=== PATIENT | female | born 1970 | race Caucasian/White ===

== ENCOUNTER → 2016-06-10 | Outpatient (CLI) | payer MEDICARE ==
[2016-06-10 14:19] LABS: INR 1.1 (<1.1); Partial Thromboplastin Time 23.2 sec (22.0-30.0)
[2016-06-10 14:26] LABS: CH 29.8; CHCM 32.6; HCT 36.5 % (34.0-46.0); HDW 2.57; HGB 12.2 gm/dL (11.4-16.0); MCH 30.6 pg (25.0-35.0); MCHC 33.3 g/dL (31.0-37.0); MCV 91.7 fL (80.0-100.0); Mean Platelet Volume 9.6; RBC 3.98 m/uL (3.80-5.40); RDW 13.3 % (11.5-15.5); WBC 3.8 k/uL (3.8-10.6)
[2016-06-10 14:28] LABS: ALT 38 U/L (9-52); AST 37 U/L (14-36); Alkaline Phosphatase 111 U/L (38-126); Anion Gap 11 mmol/L; Blood Urea Nitrogen 15 mg/dL (7-17); Calcium 9.7 mg/dL (8.4-10.2); Carbon Dioxide 28 mmol/L (22-30); Chloride 104 mmol/L (98-107); Cholesterol 159 mg/dL (<200); Glucose 85 mg/dL (74-99); HDL Cholesterol 88 mg/dL (40-60); Iron 175 ug/dL (37-170); Magnesium 1.8 mg/dL (1.6-2.3); Non-African American GFR(MDRD) >60 (>60 ml/min/1.73 sqM); Phosphorous 4.1 mg/dL (2.5-4.5); Potassium 3.7 mmol/L (3.5-5.1); Sodium 143 mmol/L (137-145); Total Bilirubin 0.6 mg/dL (0.2-1.3); Total Protein 6.9 g/dL (6.3-8.2); Triglycerides 43 mg/dL (<150)
[2016-06-10 14:39] LABS: % Iron Saturation 79.5 % (20-50); Prealbumin 20 mg/dL (18-36); Total Iron Binding Capacity 220 ug/dL (265-497)
[2016-06-10 15:33] LABS: Vitamin B12 344 pg/mL (239-931)
[2016-06-13 15:25] LABS: Selenium 123 mcg/L (63-160)
== END | disposition home or self-care (01) ==
LOC: LABWHC1 13:18
PROVIDERS: ATTEND Surgery Plastic and Reconstructive Surgery
DX: Z48.815 Encounter for surgical aftercare following surgery on the digestive system (principal); E66.01 Morbid (severe) obesity due to excess calories; E89.1 Postprocedural hypoinsulinemia; D50.9 Iron deficiency anemia, unspecified; K90.9 Intestinal malabsorption, unspecified; E44.0 Moderate protein-calorie malnutrition; E55.9 Vitamin D deficiency, unspecified; K74.1 Hepatic sclerosis; K50.90 Crohn's disease, unspecified, without complications; N19 Unspecified kidney failure; Z98.84 Bariatric surgery status
CPT/HCPCS: 36415; 80053; 80061; 82306; 82525; 82607; 82728; 82746; 83036; 83540; 83550; 83735; 83970; 84100; 84134; 84255; 84425; 84443; 84590; 84630; 85027; 85610; 85730

== ENCOUNTER → 2016-08-12 | Outpatient (CLI) | payer MEDICARE ==
[2016-08-12 17:07] VITALS: BP 102/70; PULSE 83; TEMP 98.3; BMI 31.1
--- NOTE | 2016-09-16 00:18 | P.PN ---
Progress Note - Text DATE OF SERVICE: 08/12/2016 CHIEF COMPLAINT: Bilateral thigh hidradenitis. HISTORY OF PRESENT ILLNESS: Alesha Bermudez is a 46-year-old female with long-standing history of hidradenitis along the bilateral groins. She has been treated at the wound care center particularly with skin debridement including systemic treatment for MRSA infection. She has had moderate weight loss. She still reports chronic intermittent infections along the bilateral groins. At a height of 5 feet 7 inches, her ideal body weight is 158 pounds. Her highest weight was 450 pounds. Today she comes in weighing 198 pounds. She has maintained a 252 pound weight loss. Percent excess weight loss is 86%. Body mass index reduced from 70.6 down to 31.1. Total BMI point reduction is doing 39.5. She is now 40 pounds overweight. Separately, she has history of chronic iron deficiency anemia, which has been treated with iron infusions. Now she presents for surgical intervention for her panniculitis of the thighs. PAST MEDICAL HISTORY: 1. Gastroesophageal reflux disease. 2. Diabetes type 2. 3. Obstructive sleep apnea. 4. Anxiety. 5. Depression. 6. ADHD. 7. Seasonal allergies. 8. Migraines. 9. Asthma. 10. Chronic pain syndrome. 11. Seizure disorder. 12. History of super morbid obesity. 13. Panniculitis. 14. Hidradenitis of the bilateral medial thighs. PAST SURGICAL HISTORY: 1. Open Philip-en-Y gastric bypass in 2012. 2. . 3. Bilateral carpal tunnel release. 4. Anterior cervical disc fusion. 5. Cholecystectomy. 6. Appendectomy. 7. Colonoscopy. 8. Upper endoscopy. 9. Revision of gastrojejunostomy at [facility], July 2014. 10. Panniculectomy of the abdomen. MEDICATIONS: 1. Lamictal. 2. Duragesic patch. 3. Lyrica. 4. Prilosec. 5. Multivitamin. 6. Ativan. 7. Lexapro. 8. Dulcolax stool softener. 9. Adderall. 10. Vitamin D. 11. Zyrtec. 12. Fioricet. 13. Baclofen. 14. Albuterol sulfate. ALLERGIES: MOLD. SOCIAL HISTORY: Former smoker. Takes medicinal marijuana. Also reports alcohol use. FAMILY HISTORY: Pertinent for diabetes including morbid obesity. REVIEW OF SYSTEMS: CONSTITUTIONAL: [place] body weight of 158 pounds. Highest weight of 450 pounds. Total weight loss of 252 pounds. Percentage of weight loss of 86%. GASTROINTESTINAL: No reports of dumping syndrome. History of iron deficiency anemia treated with iron infusions. History of anemia, stable condition. SKIN: Chronic panniculitis despite medical treatment and oral treatment. ENDOCRINE: Has hypoglycemic episodes. Reports that her blood sugars are maybe under 70. PSYCH: History of attention deficit disorder, including depression. No suicidal ideation. NEURO: History of chronic pain syndrome. Also history of fibromyalgia. HEENT: Denies troubles with vision or hearing. CARDIOVASCULAR: Denies any heart attack or chest pain. RESPIRATORY: History of COPD including asthma. MUSCULOSKELETAL: History of chronic pain syndrome along the joint. PSYCH: History of anxiety. Also has ADHD. HEMATOLOGIC: Denies any easy bruising or bleeding. PHYSICAL EXAM: VITAL SIGNS: 98.3, 83, 102/70, 16; 5 feet 7, 190 pounds. Body mass index is 31.1. ABDOMEN: Well-healed incisions from abdominal panniculectomy. MUSCULOSKELETAL: Skin medial thigh with moderate panniculitis including hyperemia from previous hidradenitis on the bilateral thighs. GENERAL: Well-developed, pleasant female in no acute distress. SKIN: Moderate skin elastosis of the upper medial thighs. Mild panniculitis also identified. HEENT: No sclerae icterus. Extraocular movements grossly intact. Moist buccal mucosa. NECK: Supple without lymphadenopathy. CHEST: Unlabored respirations. Equal bilateral excursions. CARDIOVASCULAR: Regular rate and rhythm. NEURO: No focal or lateralizing signs. Cranial nerves II through XII grossly intact. PSYCH: Appropriate affect. Alert and oriented to person, place, and time. LABS: Hemoglobin was normal at 12.2. Platelet count was low at 131. Iron was elevated at 175. Total iron-binding capacity was low at 220. Percent iron saturation was high at 79.5. Ferritin was high at 623. AST was elevated at 37. HDL was elevated at 88. The rest of her nutritional supplements were within normal limits. ASSESSMENT: 1. Morbid obesity due to excess calories, now resolved. 2. Body mass index reduced from 70.6 down to 31.1. 3. Status post Philip-en-Y gastric bypass. 4. Revision of gastrojejunal anastomosis. 5. Status post massive weight of 252 pounds. 6. Refractory moderate to severe panniculitis of the abdomen. 7. Dietary surveillance and counseling. 8. Bilateral chronic hidradenitis of the upper thighs and groin with history of MRSA. 9. History of iron deficiency anemia now completely corrected. 10. Thrombocytopenia. 11. Panniculitis of the bilateral medial thigh. 12. History of leukopenia, resolved. 13. History of chronic pain syndrome. PLAN: 1. I recommend proceeding with excision of bilateral hidradenitis of the groins including excision of panniculitis of the bilateral medial thighs. She has undergone systemic including local therapies for several years without any improvement. 2. She has also corrected her nutrition including her iron deficiency anemia. 3. I have gone over need for compressive garments including biker shorts for postoperative recovery. 4. For DVT prophylaxis I have asked her to perform leg exercises as she is high risk for DVTs with excision of the bilateral thigh hidradenitis and panniculectomy. 5. Deep venous thrombosis prophylaxis. 6. Antibiotic prophylaxis. 7. With a previous history of MRSA infection, would also recommend pretreatment with vancomycin.
== END | disposition home or self-care (01) ==
LOC: BARWHC3 15:16
PROVIDERS: ATTEND Surgery Plastic and Reconstructive Surgery
DX: Z01.818 Encounter for other preprocedural examination (principal); L73.2 Hidradenitis suppurativa; Z86.14 Personal history of Methicillin resistant Staphylococcus aureus infection; Z68.31 Body mass index [BMI] 31.0-31.9, adult; Z98.84 Bariatric surgery status; M79.3 Panniculitis, unspecified; D69.6 Thrombocytopenia, unspecified; G89.4 Chronic pain syndrome; Z91.09 Other allergy status, other than to drugs and biological substances; J44.9 Chronic obstructive pulmonary disease, unspecified; J45.909 Unspecified asthma, uncomplicated; E11.9 Type 2 diabetes mellitus without complications; Z87.891 Personal history of nicotine dependence; F12.90 Cannabis use, unspecified, uncomplicated; Z72.89 Other problems related to lifestyle; G40.909 Epilepsy, unspecified, not intractable, without status epilepticus; F90.9 Attention-deficit hyperactivity disorder, unspecified type; F41.9 Anxiety disorder, unspecified; F32.9 Major depressive disorder, single episode, unspecified; Z79.899 Other long term (current) drug therapy
CPT/HCPCS: 99211

== ENCOUNTER → 2016-08-27 | Outpatient (CLI) | payer MEDICARE ==
[2016-08-27 10:34] LABS: EKG EKG PERFORMED
[2016-08-27 11:12] LABS: Basophils % (A) 1 %; CH 31.3; CHCM 32.7; Eosinophils # (A) 0.1 k/uL (0-0.7); Eosinophils % (A) 2 %; HCT 37.1 % (34.0-46.0); HDW 2.65; HGB 12.2 gm/dL (11.4-16.0); Luc # (Auto) 0.16; Luc % (Auto) 4; Lymphocytes # (A) 1.6 k/uL (1.0-4.8); Lymphocytes % (A) 36 %; MCH 31.6 pg (25.0-35.0); MCHC 32.8 g/dL (31.0-37.0); MCV 96.4 fL (80.0-100.0); Mean Platelet Volume 9.3; Monocytes # (A) 0.2 k/uL (0-1.0); Monocytes % (A) 5 %; Neutrophils # (A) 2.3 k/uL (1.3-7.7); Neutrophils % (A) 53 %; RBC 3.85 m/uL (3.80-5.40); WBC 4.4 k/uL (3.8-10.6); WBC (Perox) 4.44
[2016-08-27 11:24] LABS: ALT 40 U/L (9-52); AST 36 U/L (14-36); Alkaline Phosphatase 131 U/L (38-126); Anion Gap 10 mmol/L; Blood Urea Nitrogen 19 mg/dL (7-17); Calcium 9.9 mg/dL (8.4-10.2); Carbon Dioxide 29 mmol/L (22-30); Chloride 103 mmol/L (98-107); Glucose 84 mg/dL (74-99); Non-African American GFR(MDRD) >60 (>60 ml/min/1.73 sqM); Potassium 4.8 mmol/L (3.5-5.1); Sodium 142 mmol/L (137-145); Total Bilirubin 0.3 mg/dL (0.2-1.3); Total Protein 6.8 g/dL (6.3-8.2)
== END | disposition home or self-care (01) ==
LOC: LABPAT 10:25
PROVIDERS: ATTEND Surgery Plastic and Reconstructive Surgery
DX: Z01.812 Encounter for preprocedural laboratory examination (principal)
CPT/HCPCS: 80053; 85025; 93005

== ENCOUNTER 2016-09-04 08:11 | Day surgery (SDC) | payer MEDICARE ==
[2016-09-02 11:03] VITALS: BMI 33.9
[~2016-09-04 08:11] MED LIST: ACETAMINOPHEN TAB 500 MG TAB PO STA; DEXAMETHASONE SOD PHOSPHATE 10 MG/ML 1 ML VIAL IV ONE; LACTATED RINGERS 1,000 ML IV SCH; MIDAZOLAM 2 MG/2 ML VIAL IV PRN; Pre Op ABX Message 1 EACH MISC MISCELLANE ONE; SCOPOLAMINE 1.5MG/72HR PATCH TRANSDERM ONE
[2016-09-04] MEDS ORDERED: VANCOMYCIN 1,250 MG in SODIUM CHLORIDE 0.9% 250 ML IVPB ONE ×2 (09:00→20:00)
[2016-09-04 09:02] LABS: Glucose,Whole Blood 89 mg/dL (75-99)
[2016-09-04] MEDS: ONDANSETRON 4 MG/2 ML VIAL IVP ONE ×2 (09:08→16:04)
[2016-09-04] MEDS ORDERED: LIDOCAINE 1% 20 ML VIAL (10MG/ML) FOR IV START INTRADERMA ONE (09:08)
[2016-09-04] MEDS ORDERED: BUPIVACAIN-EPI 0.25%-1:200,000 30 ML VIAL SQ ONE ×2 (09:30→11:58)
--- NOTE | 2016-09-04 10:54 | P.GSHP ---
History of Present Illness H&P Date: 09/04/16 CHIEF COMPLAINT: Painful lesions along the bilateral thighs. HISTORY OF PRESENT ILLNESS: HISTORY OF PRESENT ILLNESS: Alesha Bermudez is a 45-year-old female who has a complicated bariatric history including prior Philip-en-Y gastric bypass done over a decade ago. Highest weight was 450 pounds for a 5-foot, 7-inch frame. Her initial body mass index was 70.6. She then underwent revision of her gastric bypass over 2 years ago. She is status post recent panniculectomy on 02/03/2016. Now she presents for further evaluation and management. Today she comes in weighing 210 pounds. She has lost 246 pounds. Percent excess weight loss is 80%. Body mass index is down to 33.9. Her current concerns recurrent bilateral hidradenitis of the thighs with chronic infection requiring excision. PAST MEDICAL HISTORY: Please see list. PAST SURGICAL HISTORY: Please see list. MEDICATIONS: Please see list. ALLERGIES: Please see list. SOCIAL HISTORY: No illicit drug use FAMILY HISTORY: No reports of Crohn disease or ulcerative colitis. REVIEW OF ORGAN SYSTEMS: CONSTITUTIONAL: No reports of fevers or chills. GI: Denies any blood in stools or constipation. PHYSICAL EXAM: VITAL SIGNS: 98.8, 90, 20, 120/75, 5 feet 7 inches, 210 pounds. Body mass index of 33.9. ABDOMEN: No signs of infection. Wounds completely granulated. SKIN: Moderate panniculitis noted of the bilateral thighs. Hyperemia noted. GENERAL: Well-developed female in no acute distress. MUSCULOSKELETAL: No clubbing, cyanosis or edema. CARDIOVASCULAR: Regular rate and rhythm. Palpable 2+ pulses. HEENT: No scleral icterus. Extraocular movements grossly intact. Moist buccal mucosa. NECK: Supple without lymphadenopathy. CHEST: Unlabored respirations. Equal bilateral excursions. NEURO: No focal or lateralizing signs. Cranial nerves II to XII grossly intact. PSYCH: Appropriate affect. Alert and oriented to person, place, and time. ASSESSMENT: 1. Morbid obesity due to excess calories. 2. Body mass index reduced from 70.6 down to 33.9 3. Status post Philip-en-Y gastric bypass. 4. Status post panniculectomy. 5. History of panniculitis of the bilateral thighs. 6. Hidradenitis of the bilateral thighs. 7. Personal history of MRSA infection. 8. Iron deficiency anemia. 9. Status post massive weight loss of 246 pounds. PLAN: 1. She does report troubles with panniculitis of the thighs, recommend excision of bilateral hidradenitis of the medial thighs. 2. DVT prophylaxis. 3. Antibiotic prophylaxis with vancomycin for history of MRSA. 4. Inpatient hospitalization. Past Medical History Past Medical History: Asthma, Fibromyalgia, Skin Disorder Additional Past Medical History / Comment(s): back pain, migraines, past history of diabetes, NOW DIET CONTROLLED SINCE BARIATRIC SX. arthritis in neck , lower back and feet, hx. of blood in stools,. kidney stones, cyst in left kidney, hx. of sleep apnea,. anemia, hx pancreatitis, MAC DEGERATION LT EYE. History of Any Multi-Drug Resistant Organisms: MRSA, Other MDRO Date of last positivie culture/infection: 2013 MDRO Source:: groin Past Surgical History: Bariatric Surgery, Section, Cholecystectomy, Hernia Repair, Orthopedic Surgery, Tonsillectomy Additional Past Surgical History / Comment(s): RY 2002? by Dr Andrew. Carpel Henry,rt shoulder, extensive nasal surgery. Sinus, nerve blocks to neck and back. Colonoscopy. Abcess on thigh 11/2012. Neck fused 5, 6 & 7. 02/03/2016 Panniculectomy, revision of abd. Past Anesthesia/Blood Transfusion Reactions: No Reported Reaction Past Psychological History: ADD/ADHD, Anxiety, Bipolar, Depression, Panic Disorder Smoking Status: Former smoker Past Alcohol Use History: Occasional Additional Past Alcohol Use History / Comment(s): Smoked on and off at age 18 to age 20. Past Drug Use History: None Reported, Marijuana Additional Drug Use History / Comment(s): medical marijuana occas. - Past Family History Mother Family Medical History: Diabetes Mellitus Father Family Medical History: Diabetes Mellitus Medications and Allergies Home Medications Medication Instructions Recorded Confirmed Type Albuterol Sulfate [Proair Hfa] 2 puff INHALATION RT-Q6H PRN 11/08/13 09/04/16 History Baclofen [Lioresal] 10 mg PO BID 11/08/13 09/04/16 History Butalb/Acetaminophen/Caffeine 1 tab PO Q6H PRN 11/08/13 09/04/16 History [Fioricet 50-325-40 mg Tablet] Cetirizine HCl [Zyrtec] 10 mg PO DAILY 11/08/13 09/04/16 History Cholecalciferol [Vitamin D3] 1,000 unit PO DAILY 11/08/13 09/04/16 History Dextroamphetamine/Amphetamine 30 mg PO BID 11/08/13 09/04/16 History [Adderall] LORazepam [Ativan] 1 mg PO BID PRN 11/08/13 09/04/16 History Pregabalin [Lyrica] 300 mg PO BID 11/08/13 09/04/16 History lamoTRIgine [LaMICtal] 300 mg PO HS 11/08/13 09/04/16 History Multivitamins, Thera [Multivitamin] 1 tab PO DAILY 12/14/13 09/04/16 History Docusate Sodium [Dulcolax Stool 100 mg PO DAILY 07/30/14 09/04/16 History Softener] Biotin 5 mg PO DAILY 01/29/16 09/04/16 History fentaNYL 75MCG/HR PATCH [Duragesic 1 patch TRANSDERM Q72H 02/03/16 09/04/16 History 75MCG/HR] Hydrocodone/Acetaminophen [[place] 1 tab PO BID PRN 03/11/16 09/04/16 History 5-325] Allergies Allergy/AdvReac Type Severity Reaction Status Date / Time house dust Allergy Mild Cough Verified 09/04/16 08:43 Surgical - Exam Vital Signs Temp Pulse Resp BP Pulse Ox 99.5 F 87 16 109/57 98 09/04/16 08:31 09/04/16 08:31 09/04/16 08:31 09/04/16 08:31 09/04/16 08:31
[2016-09-04] MEDS ORDERED: SUCCINYLCHOLINE CHLORIDE 100 MG/5 ML SYR IV ONE (11:05)
[2016-09-04] MEDS ORDERED: fentaNYL (PF) 50 MCG/ML 2 ML AMP ONE (11:05)
[2016-09-04] MEDS ORDERED: PROPOFOL 10 MG/ML 20 ML VIAL IV ONE (11:05)
[2016-09-04] MEDS ORDERED: ePHEDrine 50 MG/ML 1 ML AMP ONE (11:05)
[2016-09-04] MEDS ORDERED: HYDROmorphone (PF) 1 MG/ML ONE (11:05)
[2016-09-04] MEDS ORDERED: LIDOCAINE 1% INJ 10MG/ML (20 ML MDV) ONE (11:05)
[2016-09-04] MEDS ORDERED: LACTATED RINGERS 1,000 ML IV ONE ×3 (12:07→14:44)
[2016-09-04] MEDS ORDERED: ONDANSETRON 4 MG/2 ML VIAL IVP PRN (15:51)
[2016-09-04] MEDS ORDERED: HYDROmorphone 1 MG/ML 1 ML SYRINGE IVP PRN (15:51)
[2016-09-04] MEDS ORDERED: BUTALB/APAP/CAFF 50-325-40MG TAB PO PRN (15:54)
[2016-09-04] MEDS ORDERED: ALBUTEROL NEBULIZED 2.5 MG/3 ML INHALATION PRN (15:54)
[2016-09-04] MEDS ORDERED: LORazepam 1 MG TAB PO PRN (15:54)
[2016-09-04] MEDS: HYDROmorphone 1 MG/ML 1 ML SYRINGE IVP PRN ×2 (16:04→16:35)
[2016-09-04] MEDS ORDERED: ceFAZolin 2 GM in SODIUM CHLORIDE 0.9% 100 ML IVPB SCH (18:00)
--- NOTE | 2016-09-04 19:16 | P.PCN ---
Date of Procedure: 09/04/16 Preoperative Diagnosis: Bilateral hidradenitis, bilateral medial thigh panniculitis, history of MRSA Postoperative Diagnosis: Same Procedure(s) Performed: Excision of bilateral medial thigh hidradenitis and panniculitis, 0.8 lbs right side, 0.7 lbs left side Anesthesia: GETA, local (90 mL quarter percent Marcaine with epi) Surgeon: Ivonne Drew Estimated Blood Loss (ml): 75 Pathology: other (Bilateral medial thigh hidradenitis) Condition: stable Disposition: floor Indications for Procedure: Bilateral medial thigh hidradenitis with dissection of redundant excess tissue and panniculitis
[2016-09-04] MEDS ORDERED: ARTIFICIAL TEARS-HYPROMELLOSE DROPS 15 ML BTL BOTH EYES PRN (20:47)
[2016-09-04] MEDS: D5-0.45% NACL WITH KCL 20MEQ/L 1,000 ML IV SCH (20:53)
[2016-09-04] MEDS ORDERED: NON-FORMULARY DRUG (Dextroamphetamine/Amphetamine [Adderall] 30 MG) PO SCH (21:00)
[2016-09-04] MEDS ORDERED: lamoTRIgine 100 MG TAB PO SCH (21:00)
[2016-09-04] MEDS: PREGABALIN 100 MG CAP PO SCH (21:03)
[2016-09-04] MEDS: HYDROcodone/APAP 5-325MG 1 EACH TAB PO PRN (21:03)
[2016-09-04] MEDS: FERROUS SULFATE 325 MG TAB PO SCH ×2 (21:05)
[2016-09-04] MEDS: BACLOFEN 10 MG TAB PO SCH (21:05)
[2016-09-04] MEDS: CALCIUM CARBONATE 500 MG CHEWABLE PO SCH (21:06)
--- NOTE | 2016-09-05 00:25 | P.PN ---
Subjective Principal diagnosis: Bilateral medial thigh hidradenitis and panniculitis The patient is postop day 0 status post excision of panniculitis and hidradenitis of the medial thighs. She's tolerating diet. Her pain is controlled. Bilateral SCDs are placed and present. Her daughter is at bedside. Objective - Vital Signs Vital signs: Vital Signs Temp 98.5 F 09/04/16 19:30 Pulse 100 09/04/16 19:30 Resp 18 09/04/16 19:30 BP 119/64 09/04/16 19:30 Pulse Ox 96 09/04/16 19:30 Intake & Output 09/04/16 09/04/16 09/05/16 06:59 18:59 06:59 Intake Total 3500 Output Total 1800 Balance 1700 Weight 95.254 kg Intake: IV 3500 Output: Urine 1725 Estimated Blood Loss 75 Other: Voiding Method Indwelling Catheter - Exam GENERAL: Well developed and in no acute distress. Pleasant. HEENT: No sclera icterus. Extraocular movements grossly intact. Moist buccal mucosa. Head is atraumatic, normocephalic. Hears conversational speech. No nasal drainage. NECK: Supple without lymphadenopathy. No JV distention. CHEST: Non-labored respirations and equal bilateral excursions. CARDIOVASCULAR: Regular rate and rhythm. Palpable 2+ radial pulses. ABDOMEN: Soft, nontender. Nondistended. MUSCULOSKELETAL: Kumar wrap along the bilateral thighs with dressings clean dry and intact. JPs are serosanguineous. No edema along the bilateral feet. SCDs present. NEUROLOGIC: No focal or lateralizing signs. PSYCH: Appropriate affect. Alert and oriented to person, place and time. Assessment and Plan (1) History of hidradenitis suppurativa Status: Acute (2) Panniculitis of other sites Status: Acute (3) ADD (attention deficit disorder) Status: Chronic (4) ADHD (attention deficit hyperactivity disorder) Status: Chronic (5) Chronic pain syndrome Status: Chronic (6) History of gastric bypass Status: Chronic (7) MRSA (methicillin resistant Staphylococcus aureus) carrier Status: Chronic (8) Obesity (BMI 30.0-34.9) Status: Chronic Plan: 1. I reviewed with her family her postop care management which includes minimizing risk of DVTs. Leg flexion and extension were described as minimal ambulation was reviewed. 2. Recommend continuing dressing at least for 3-5 days to be discontinued in the office. 3. Recommend physical therapy. 4. Recommend occupational therapy. 5. GEORGE drain care advised. 6. Recommend social work evaluation for home health care needs.
[2016-09-05] MEDS: D5-0.45% NACL WITH KCL 20MEQ/L 1,000 ML IV SCH ×3 (04:25→16:13)
[2016-09-05] MEDS: FERROUS SULFATE 325 MG TAB PO SCH ×2 (08:38→16:13)
[2016-09-05] MEDS: BACLOFEN 10 MG TAB PO SCH (08:38)
[2016-09-05] MEDS: CALCIUM CARBONATE 500 MG CHEWABLE PO SCH (08:38)
[2016-09-05] MEDS: PREGABALIN 100 MG CAP PO SCH (08:38)
[2016-09-05] MEDS: HYDROcodone/APAP 5-325MG 1 EACH TAB PO PRN ×2 (08:39→16:11)
[2016-09-05] MEDS ORDERED: LORATADINE 10 MG TAB PO SCH (09:00)
[2016-09-05] MEDS ORDERED: DOCUSATE 100 MG CAP PO SCH (09:00)
[2016-09-05] MEDS ORDERED: ENOXAPARIN 40 MG/0.4 ML SYRINGE SQ SCH (09:00)
[2016-09-05] MEDS ORDERED: NON-FORMULARY DRUG (Biotin [Biotin] 5 MG) PO SCH (09:00)
[2016-09-05 11:32] VITALS: RESP 16
[2016-09-05] MEDS ORDERED: CHOLECALCIFEROL 1,000 UNIT TAB PO SCH (12:00)
[2016-09-05] MEDS ORDERED: MULTIVITAMINS, THERA 1 EACH TAB PO SCH (12:00)
[2016-09-05] MEDS ORDERED: MAGNESIUM OXIDE 400 MG TAB PO SCH (12:00)
[2016-09-05 13:55] VITALS: BP 95/59; PULSE 88; TEMP 98.2
--- NOTE | 2016-09-05 15:34 | P.PN ---
Subjective Principal diagnosis: Bilateral medial thigh hidradenitis and panniculitis The patient is postop day 1 status post excision of panniculitis and hidradenitis of the medial thighs. She's tolerating diet. Her pain is controlled. She has yet to ambulate. Her Blanco catheter still present. She verbalizes understanding of her discharge instructions. She reports having a stroller at home. Objective - Vital Signs Vital signs: Vital Signs Temp 99.1 F 09/05/16 07:00 Pulse 74 09/05/16 07:00 Resp 16 09/05/16 07:00 BP 98/56 09/05/16 11:38 Pulse Ox 99 09/05/16 02:45 Intake & Output 09/04/16 09/05/16 09/05/16 18:59 06:59 18:59 Intake Total 3500 Output Total 1800 Balance 1700 Weight 95.254 kg Intake: IV 3500 Output: Urine 1725 Estimated Blood Loss 75 Other: Voiding Method Indwelling Catheter Indwelling Catheter Indwelling Catheter - Exam GENERAL: Well developed and in no acute distress. Pleasant. HEENT: No sclera icterus. Extraocular movements grossly intact. Moist buccal mucosa. Head is atraumatic, normocephalic. Hears conversational speech. No nasal drainage. NECK: Supple without lymphadenopathy. No JV distention. CHEST: Non-labored respirations and equal bilateral excursions. CARDIOVASCULAR: Regular rate and rhythm. Palpable 2+ radial pulses. ABDOMEN: Soft, nontender. Nondistended. MUSCULOSKELETAL: Kumar wrap along the bilateral thighs with dressings clean dry and intact. JPs are serosanguineous with minimal outputs. No edema along the bilateral feet. SCDs present. NEUROLOGIC: No focal or lateralizing signs. PSYCH: Appropriate affect. Alert and oriented to person, place and time. Assessment and Plan (1) History of hidradenitis suppurativa Status: Acute (2) Panniculitis of other sites Status: Acute (3) ADD (attention deficit disorder) Status: Chronic (4) ADHD (attention deficit hyperactivity disorder) Status: Chronic (5) Chronic pain syndrome Status: Chronic (6) History of gastric bypass Status: Chronic (7) MRSA (methicillin resistant Staphylococcus aureus) carrier Status: Chronic (8) Obesity (BMI 30.0-34.9) Status: Chronic Plan: 1. Recommend immediate removal of Blanco catheter. Patient to void prior to discharge. 2. Home health care assessment for needs. She reports having a walker at home for ambulation. 3. Discharge instructions were reviewed whereby she will ambulate as needed however for DVT prophylaxis and prevention, ankle exercises were reviewed with her in detail. 4. Continue with GEORGE outputs. 5. Follow-up in the bariatric center in 5 days. 6. She is on chronic pain medications and narcotics which is dispensed by her primary care provider. With the [place] and Federal laws, additional narcotics will be dispensed via one provider her PCP. She demonstrated understanding of these instructions as well.
--- NOTE | 2016-09-05 15:37 | P.DS ---
Providers Date of admission: 09/04/2016 Expected date of discharge: 09/05/16 Attending physician: Ivonne Drew Primary care physician: Abilio Mccollum - Discharge Diagnosis(es) (1) History of hidradenitis suppurativa Current Visit: Yes Status: Acute (2) Panniculitis of other sites Current Visit: Yes Status: Acute (3) ADD (attention deficit disorder) Current Visit: No Status: Chronic (4) ADHD (attention deficit hyperactivity disorder) Current Visit: No Status: Chronic (5) Chronic pain syndrome Current Visit: No Status: Chronic (6) History of gastric bypass Current Visit: No Status: Chronic (7) MRSA (methicillin resistant Staphylococcus aureus) carrier Current Visit: No Status: Chronic (8) Obesity (BMI 30.0-34.9) Current Visit: No Status: Chronic Hospital Course: The patient is a 46 female with history of hidradenitis of the bilateral medial thighs. She underwent excision of her medial thigh hidradenitis with panniculitis. Postop, she was admitted for overnight recovery including for assessing home healthcare needs. Blanco catheter was discontinued. She was tolerating diet. Discharge instructions were verbalized including keeping her dressings present until removal in the office. DVT prevention was also reviewed and verbalized by the patient. As she is on chronic narcotics, pain management and dispense of prescriptions will be via her primary care provider. Procedures: 1. Bilateral excision of medial thigh hidradenitis and panniculitis Patient Condition at Discharge: Fair Plan - Discharge Summary Discharge Medication List Albuterol Sulfate [Proair Hfa] 2 puff INHALATION RT-Q6H PRN 11/08/13 [History] Baclofen [Lioresal] 10 mg PO BID 11/08/13 [History] Butalb/Acetaminophen/Caffeine [Fioricet 50-325-40 mg Tablet] 1 tab PO Q6H PRN [History] Cetirizine HCl [Zyrtec] 10 mg PO DAILY 11/08/13 [History] Cholecalciferol [Vitamin D3] 1,000 unit PO DAILY 11/08/13 [History] Dextroamphetamine/Amphetamine [Adderall] 30 mg PO BID 11/08/13 [History] LORazepam [Ativan] 1 mg PO BID PRN 11/08/13 [History] Pregabalin [Lyrica] 300 mg PO BID 11/08/13 [History] lamoTRIgine [LaMICtal] 300 mg PO HS 11/08/13 [History] Multivitamins, Thera [Multivitamin] 1 tab PO DAILY 12/14/13 [History] Docusate Sodium [Dulcolax Stool Softener] 100 mg PO DAILY 07/30/14 [History] Calcium Carbonate [Calcium] 600 mg PO BID #60 tablet 07/18/15 [Rx] Ferrous Sulfate [Iron (65 MG Elemental)] 325 mg PO TID #90 tab 07/18/15 [Rx] Biotin 5 mg PO DAILY 01/29/16 [History] fentaNYL 75MCG/HR PATCH [Duragesic 75MCG/HR] 1 patch TRANSDERM Q72H 02/03/16 [ History] Magnesium Oxide [Magox 400] 400 mg PO DAILY #60 tablet 02/05/16 [Rx] Hydrocodone/Acetaminophen [[place] 5-325] 1 tab PO BID PRN 03/11/16 [History] Follow up Appointment(s)/Referral(s): Ivonne Drew MD [STAFF PHYSICIAN] - 09/09/16 Patient Instructions/Handouts: [place] Drain Care (GEN), Deep Venous Thrombosis (GEN), Hidradenitis Suppurativa (GEN) Activity/Diet/Wound Care/Special Instructions: Do not shower. Do not remove dressings. Keep legs elevated. Ambulate only as needed. Recommend ankle exercises as described. Maintain GEORGE outputs. Discharge Disposition: HOME WITH HOME HEALTH SERVICES
--- NOTE | 2016-10-09 05:24 | P.OP ---
Date of Procedure: 09/04/16 Description of Procedure: DATE OF SERVICE: 09/04/2016. SURGEON: KINGSTON LIN MD PSYCHIATRIC CLINICIAN: ADRIENNE CAMPBELL. PREOPERATIVE DIAGNOSES: 1. Panniculitis of the medial thighs. 2. History of hidradenitis suppurativa of the bilateral medial thighs. 3. History of Philip-en-Y gastric bypass. 4. Status post massive weight loss of over 200+ pounds. 5. History of methicillin-resistant Staphylococcus aureus infection of the medial thighs. 6. History of chronic pain syndrome. POSTOPERATIVE DIAGNOSES: 1. Panniculitis of the medial thighs. 2. History of hidradenitis suppurativa of the bilateral medial thighs. 3. History of Philip-en-Y gastric bypass. 4. Status post massive weight loss of over 200+ pounds. 5. History of methicillin-resistant Staphylococcus aureus infection of the medial thighs. 6. History of chronic pain syndrome. OPERATION: 1. Excision of bilateral medial thigh hidradenitis. 2. Resection of panniculus right thigh 0.8 pounds, panniculectomy. 3. Excision of left thigh panniculitis 0.7 pounds, panniculectomy. ANESTHESIA: General with 90 mL 0.25% Marcaine with epinephrine with 90 mL normal saline mixture. ESTIMATED BLOOD LOSS: 75 mL. SPECIMENS REMOVED: 1. Left thigh pannus 0.7 pounds. 2. Right thigh pannus 0.8 pounds. COMPLICATIONS: None. OPERATIVE FINDINGS: 1. Chronic panniculitis with healed hidradenitis of the bilateral medial upper thigh with moderate skin redundancy. 2. Preservation of bilateral greater saphenous vein of the thighs. INDICATIONS: Alesha Bermudez is a 46-year-old female with history of recurrent MRSA infection including hidradenitis with panniculitis of the bilateral medial thighs. She had moderate weight loss of over 200+ pounds. She reports chronic infections of the medial thigh including suppressive therapy of antibiotics and treatment at the wound care center for the complexity of her infections. Despite conservative measures, surgical intervention with resection of the infected tissue was reviewed in detail including closure of the defects. Benefits and risks of procedure described including but no limited to possibility of flap failure, need for further surgery, cosmetic deformity, injury to the greater saphenous vein, including bleeding and infection were described in detail. Risks of DVT was also described in length. Informed consent had been obtained. DESCRIPTION: Prior to being brought to the operating room, the patient was marked with indelible marker in the preanesthesia area including along the area of panniculitis of the medial thighs in the standing and supine and sitting position. She was brought into the operating room and initially placed in supine position. After general induction, the lower abdomen including pubis, perineum, bilateral upper thighs to knees were prepped and draped in standard sterile fashion. The bilateral lower legs were covered in sterile dressings and secured using Coban just below the knee as well as along the feet. Please note bilateral SCDs were also placed. She was then repositioned in frog-leg position. A timeout protocol was confirmed with the surgical team. With her history of MRSA infection, vancomycin was given prior to bringing the patient to the operating room. Initial attention was brought to local anesthetic whereby 90 mL of 0.25% Marcaine with epinephrine was mixed with 90 mL of normal saline to provide a field block along the medial thighs. Using an 18-gauge spinal needle, the bilateral thighs were infiltrated with normal saline Sensorcaine mixture to minimize risk for bleeding. Attention was brought to the right thigh whereby an incision was made along the medial groin crease and extended medially to the pubis. The incision was made along the right groin crease and extended posteriorly to the perineum. At least 2 cm distal to the labia majora, the incision was made as to decrease risk of skin breakdown of the incision. Inferiorly, the incision was extended 4 fingerbreadths above the medial aspect of the knee joint. Posteriorly the incision was placed along the medial thigh. Next, along the groin, the epidermis was resected along the dermal-epidermal junction as to avoid any injury to lymphatics. As the dissection was brought along the medial plane, the dissection was taken down to the level of the Colles fascia. Care was taken to identify the greater saphenous vein which was free from harm during dissection. Perforators to the skin were controlled using hand held LigaSure. As the patient was in frog leg position, her leg was then extended as to carry the distal resection of her hidradenitis. A flap was created as far distally as to create a symmetric closure without undue pressure along the thigh. The skin flap was brought anteriorly and the posterior resection was performed using a #10 blade. Again care was taken to avoid any injury to the greater saphenous vein. The flap was resected and measured and weighed 0.8 pounds for the right side. Hemostasis was excellent given her previous local anesthetic injection. Using skin cynthia the distal end was reapproximate along the thigh. Interrupted sutures of 0 Vicryl were placed along the deep subcutaneous tissues as to incorporate the superficial fascial system of the thigh. Again care was taken to avoid any injury to the greater saphenous vein. Along the the groin, the incision was also reapproximated. A T-incision was placed along the anterior medial aspect of the thigh with minimal tension along the labia majora. Next, the incision was closed in layers using 0 Vicryl for the deep superficial fascial system and a running subcuticular suture of 3-0 Monocryl. Additional reinforcement sutures were placed along the T-incision closure site. Please note, round #19 drain was placed along the bed of the tissue and tacked using 2-0 nylon along the distal plane of the closure above the knee via a separate skin incision. Attention was now brought to the left leg in a similar fashion whereby an incision was made from the anterior aspect of the groin and posteriorly to the perineum just below the labia majora using #10 blade along the epidermis to the dermis. The incision was extended distally along the medial thigh at least 3 fingerbreadths above the medial knee joint. Care was taken to avoid any injury to the great saphenous vein. Skin flap was dissected to the level of the superficial fascial system. Hemostasis was checked with electro- Bovie cautery, including hand held LigaSure. The left thigh skin flap was then brought anteriorly as to allow for division and resection of the tissue specimen for complete closure. The defect was carefully reapproximated as to minimize any dog ears or redundant tissue above the knee or along the groin. The incision was reapproximated using 0 Vicryl of the lower mid thigh. Next, along the groin site, this was also carefully reapproximated along the dermis using 0 Vicryl and then followed by 3-0 Monocryl. For the T-site closure, additional reinforcement sutures were placed. Both legs were extended which also confirmed no wound dehiscence and complete closure of the wounds. Prior to complete closure of the left thigh, a round #19 Julito drain was placed and brought out through a separate incision below the left medial thigh incision. The skin was cleansed. Dermabond tape was placed lengthwise over the incisions followed by Dermabond liquid. Once dried, Aquacel AG Optifoam dressing was placed over the incisions. Both legs were wrapped using double Kumar of 4 inch wrap from the proximal upper thigh just below the knee. Bulb suction was placed. At the end of the procedure, needle, sponge, and instrument count had been verified correct by the geothermal hvac technician. The patient was transferred to the postanesthesia care unit in stable condition.
== END 2016-09-05 19:10 | disposition home health service (06) ==
LOC: OR 08:11 → 3SUR 15:53 → OR 09-05 19:10
PROVIDERS: ATTEND Surgery Plastic and Reconstructive Surgery
DX: L73.2 Hidradenitis suppurativa (principal); M79.3 Panniculitis, unspecified; F90.9 Attention-deficit hyperactivity disorder, unspecified type; G89.4 Chronic pain syndrome; Z98.84 Bariatric surgery status; Z22.322 Carrier or suspected carrier of Methicillin resistant Staphylococcus aureus; Z86.14 Personal history of Methicillin resistant Staphylococcus aureus infection; E66.01 Morbid (severe) obesity due to excess calories; Z68.33 Body mass index [BMI] 33.0-33.9, adult; D50.9 Iron deficiency anemia, unspecified; J45.909 Unspecified asthma, uncomplicated; M79.7 Fibromyalgia; E11.9 Type 2 diabetes mellitus without complications; F41.9 Anxiety disorder, unspecified; F31.9 Bipolar disorder, unspecified; F41.0 Panic disorder [episodic paroxysmal anxiety]; Z79.891 Long term (current) use of opiate analgesic; Z79.899 Other long term (current) drug therapy; Z91.048 Other nonmedicinal substance allergy status; Z87.891 Personal history of nicotine dependence
CPT/HCPCS: 88304; 11462; 15832; J3370; J1100; J0690; J2405; J2001; J1650; J3010; J1170; J0330; J2704

== ENCOUNTER → 2016-09-07 | Outpatient (CLI) | payer MEDICARE ==
[2016-09-07 16:28] VITALS: BP 127/88; PULSE 88; RESP 16; TEMP 98.2; BMI 31.6
--- NOTE | 2016-09-24 22:12 | P.PN ---
Progress Note - Text DATE OF SERVICE: 09/07/2016 CHIEF COMPLAINT: Followup excision of hidradenitis. HISTORY OF PRESENT ILLNESS: Alesha Bermudez is a 46-year-old female, status post excision of bilateral hidradenitis on 09/04/2016. She is less than one week out. Her pain has been controlled. She came in with increasing new-onset bloody drainage from her left GEORGE port site at the exit site of her left lower leg. She has serous drainage through her GEORGE noted along the right. She denies any fevers or chills. She reports mild increased pain along the medial thigh, which is now improved once her JPs have been draining well. She denies any fevers or chills as described. She is tolerating diet. She is ambulating, including elevating her legs to minimize risk for DVTs. PHYSICAL EXAM: VITAL SIGNS: 98.2, 88, 16, 127/80, 5 feet 7 inches, 202 pounds. Body mass index 31.7. SKIN: Bilateral skin incisions clean, dry, intact without cellulitis or signs of infection. Both JPs are serosanguineous. The left GEORGE has more sanguineous drainage noted. MUSCULOSKELETAL: Mild swelling along the proximal thigh. Incision well reapproximated with Dermabond tape. ABDOMEN: Well-healed incisions from abdominal panniculectomy. Soft, nontender, nondistended. GENERAL: Well-developed, pleasant female in no acute distress. SKIN: Moderate skin elastosis of the upper medial thighs. Mild panniculitis also identified. HEENT: No sclerae icterus. Extraocular movements grossly intact. Moist buccal mucosa. NECK: Supple without lymphadenopathy. CHEST: Unlabored respirations. Equal bilateral excursions. CARDIOVASCULAR: Regular rate and rhythm. NEURO: No focal or lateralizing signs. Cranial nerves II through XII grossly intact. PSYCH: Appropriate affect. Alert and oriented to person, place, and time. ASSESSMENT: 1. Status post excision of bilateral thigh hidradenitis. 2. Personal history of methicillin-resistant Staphylococcus aureus infection. PLAN: 1. She has personal history of MRSA, including high risk of multiple wound complications from previous surgeries. I have recommended cautious wound care, including continuing her Dermabond tape as well as GEORGE. 2. Her GEORGE outputs are still over 20 mL daily as well as sanguineous. Will continue her GEORGE at this time. Also recommend followup in about 24 hours regarding skin care management. 3. She will continue to wear her biker shorts for compression. 4. Deep venous thrombosis risks were also described, including elevating legs and rotating the feet and legs to provide adequate pump to her thighs and legs.
== END | disposition home or self-care (01) ==
LOC: BARWHC3 15:38
PROVIDERS: ATTEND Surgery Plastic and Reconstructive Surgery
DX: L73.2 Hidradenitis suppurativa (principal); Z86.14 Personal history of Methicillin resistant Staphylococcus aureus infection
CPT/HCPCS: 99211

== ENCOUNTER → 2016-09-09 | Outpatient (CLI) | payer MEDICARE ==
[2016-09-09 17:28] VITALS: BP 124/86; PULSE 88; RESP 15; TEMP 98.6
--- NOTE | 2016-10-01 20:36 | P.PN ---
Progress Note - Text DATE OF SERVICE: 09/09/2016 CHIEF COMPLAINT: Bilateral thigh hidradenitis. HISTORY OF PRESENT ILLNESS: Alesha Bermudez is a 46-year-old woman with long-standing history of chronic infections of the bilateral medial thigh. She is status post resection of her bilateral thigh hidradenitis. Now she presents for further evaluation and management. Upon her last evaluation she had some drainage along her GEORGE exit site which is now resolved. No reports of fevers or chills. She is wearing her body compression device with her biker shorts. At her height of 5 foot 7 inches, her ideal body weight is 158 pounds. Her highest weight was 450 pounds. Today she comes weighing 200 pounds. She has maintained a 250 pound weight loss. Percent excess weight loss is 86%. Body mass index is reduced from 70.6 down to 31.4. Total BMI point reduction is 39.2. She is only 42 pounds overweight. PHYSICAL EXAM: VITAL SIGNS: 98.6, 88, 15, 124/86, 5 foot 7, 200 pounds, body mass index 31.4. MUSCULOSKELETAL: Incisions clean, dry and intact with Dermabond. No signs of cellulitis or signs of infection. GEORGE serosanguineous with moderate outputs over 30 mL. ABDOMEN: Well-healed incisions from abdominal panniculectomy. GENERAL: Well-developed, pleasant female in no acute distress. SKIN: Moderate skin elastosis of the upper medial thighs. Mild panniculitis also identified. HEENT: No sclerae icterus. Extraocular movements grossly intact. Moist buccal mucosa. NECK: Supple without lymphadenopathy. CHEST: Unlabored respirations. Equal bilateral excursions. CARDIOVASCULAR: Regular rate and rhythm. NEURO: No focal or lateralizing signs. Cranial nerves II through XII grossly intact. PSYCH: Appropriate affect. Alert and oriented to person, place, and time. ASSESSMENT: 1. History of bilateral thigh hidradenitis. 2. History of panniculitis of the thighs. 3. Personal history of morbid obesity, now improved. 4. Body mass index reduced from 70.6 down to 31.4. 5. Personal history of methicillin-resistant Staphylococcus aureus infections. PLAN: 1. Recommend continue with GEORGE drains. 2. At bedside, her GEORGE drain output site were changed with antibiotic impregnated CHG Tegaderm. 3. Recommended followup in one week or sooner.
== END ==
LOC: BARWHC3 13:02
PROVIDERS: ATTEND Surgery Plastic and Reconstructive Surgery
DX: L73.2 Hidradenitis suppurativa (principal); M79.3 Panniculitis, unspecified; Z68.31 Body mass index [BMI] 31.0-31.9, adult; Z86.14 Personal history of Methicillin resistant Staphylococcus aureus infection; Z98.890 Other specified postprocedural states
CPT/HCPCS: 99212

== ENCOUNTER → 2016-09-16 | Outpatient (CLI) | payer MEDICARE ==
[2016-09-16 14:39] VITALS: BP 111/75; PULSE 73; RESP 16; TEMP 98.6; BMI 31.6
--- NOTE | 2016-09-27 09:56 | PN ---
DATE OF SERVICE: 09/16/2016 CHIEF COMPLAINT: Follow up bilateral thigh hidradenitis. 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 She is status post resection. She has a personal history of MRSA infection including chronic infections despite previous treatment. She comes in today with concern of a draining hematoma along the left upper thigh. She denies any fevers or chills. There are no reports of cellulitis on her skin. At her height of 5 feet 7 inches, her ideal body weight is 158 pounds. Her highest weight was 450 pounds. She comes in today weighing 202 pounds. She has maintained a 248 pound weight loss. Percent excess weight loss is 85%. Body mass index is reduced from 70.6 down to 31.6. Total BMI point reduction is 39 points. She is 44 pounds overweight. PHYSICAL EXAM: VITAL SIGNS: 98.6, 73, 16, 111/75, 5 feet 7 inches, 202 pounds. Body mass index of 31.6. MUSCULOSKELETAL: Along the left upper medial thigh a palpable fullness was identified. Along the T incision is mild skin breakdown noted. Dermabond tape is continued. The skin was cleansed with ChloraPrep. A Silverlon dressing was placed along the bilateral T incisions. Otherwise, no signs of lymphangitis of the distal lower extremities. ABDOMEN: Well-healed incisions from abdominal panniculectomy. Soft non-tender. Non-distended. GENERAL: Well-developed, pleasant female in no acute distress. HEENT: No sclerae icterus. Extraocular movements grossly intact. Moist buccal mucosa. NECK: Supple without lymphadenopathy. CHEST: Unlabored respirations. Equal bilateral excursions. CARDIOVASCULAR: Regular rate and rhythm. NEURO: No focal or lateralizing signs. Cranial nerves II through XII grossly intact. PSYCH: Appropriate affect. Alert and oriented to person, place, and time. ASSESSMENT: 1. History of bilateral medial thigh hidradenitis. 2. Personal history methicillin-resistant Staphylococcus infection. PLAN: 1. Along the left upper proximal thigh recommended fine needle aspiration given the firmness along this portion of her leg. 2. Recommend clean skin care including complete aseptic technique with antibacterial soap as to decreased risk of infection. At this time no rusty purulence or drainage is noted. 3. I have recommended antibiotic dressing such as Silverlon at all times. However, she will contact the bariatric center for any additional changes. PROCEDURE: Fine needle aspiration, left upper thigh. DESCRIPTION: After verbal consent, the skin was cleansed with ChloraPrep along its incisions. Excellent granulation tissue was confirmed along the mid to distal incisions. Using 1 mL of 1% lidocaineth, e skin was anesthetized along the left upper medial thigh. An 18-gauge needle attached to 10 mL syringe was used to aspirate 3 mL of dark blood consistent with hematoma. The skin was otherwise soft after decompression by fine needle aspiration. A pressure dressing was placed and the legs were wrapped with sterile 4 x 4 gauze followed by ABD and tape. I have recommended follow-up within 5 days or sooner. [facility] CENTERDennis
== END | disposition home or self-care (01) ==
LOC: BARWHC3 13:39
PROVIDERS: ATTEND Surgery Plastic and Reconstructive Surgery
DX: Z48.815 Encounter for surgical aftercare following surgery on the digestive system (principal); Z68.31 Body mass index [BMI] 31.0-31.9, adult; L73.2 Hidradenitis suppurativa; Z86.14 Personal history of Methicillin resistant Staphylococcus aureus infection
CPT/HCPCS: 99211

== ENCOUNTER 2016-09-20 14:15 | Inpatient (IN) | payer MEDICARE ==
[2016-09-20] MEDS ORDERED: SODIUM CHLORIDE 0.9% 1,000 ML IV ONE (15:12)
[2016-09-20 16:03] LABS: Basophils % (A) 0 %; CH 31.2; CHCM 32.7; Eosinophils # (A) 0.3 k/uL (0-0.7); Eosinophils % (A) 3 %; HCT 33.4 % (34.0-46.0); HDW 2.65; Luc # (Auto) 0.11; Luc % (Auto) 1; Lymphocytes # (A) 0.9 k/uL (1.0-4.8); Lymphocytes % (A) 10 %; MCH 31.6 pg (25.0-35.0); MCHC 32.9 g/dL (31.0-37.0); MCV 96.1 fL (80.0-100.0); Mean Platelet Volume 8.9; Monocytes # (A) 0.3 k/uL (0-1.0); Monocytes % (A) 4 %; Neutrophils # (A) 7.4 k/uL (1.3-7.7); Neutrophils % (A) 82 %; RBC 3.47 m/uL (3.80-5.40); RDW 12.7 % (11.5-15.5); WBC 9.1 k/uL (3.8-10.6); WBC (Perox) 9.45
[2016-09-20 16:09] LABS: ALT 141 U/L (9-52); AST 153 U/L (14-36); Alkaline Phosphatase 154 U/L (38-126); Anion Gap 11 mmol/L; Blood Urea Nitrogen 17 mg/dL (7-17); Calcium 9.4 mg/dL (8.4-10.2); Carbon Dioxide 24 mmol/L (22-30); Chloride 105 mmol/L (98-107); Glucose 115 mg/dL (74-99); Non-African American GFR(MDRD) >60 (>60 ml/min/1.73 sqM); Potassium 3.7 mmol/L (3.5-5.1); Sodium 140 mmol/L (137-145); Total Bilirubin 0.9 mg/dL (0.2-1.3); Total Protein 6.5 g/dL (6.3-8.2)
--- NOTE | 2016-09-20 16:42 | ED ---
Skin/Abscess/FB HPI - General Source: patient, RN notes reviewed Mode of arrival: wheelchair Limitations: no limitations <Praful Diaz - Last Filed: 09/20/16 16:44> <Mode Gillis - Last Filed: 09/20/16 16:49> - General Chief complaint: Skin/Abscess/Foreign Body Stated complaint: Post Op infection? Time Seen by Provider: 09/20/16 15:02 - History of Present Illness Initial comments: 46-year-old female presents emergency Department chief complaint fever, wound infection. Patient states she had surgery by Dr. Sykes 2 weeks ago. Patient states she is given removal from her thighs. She states that she saw her on Wednesday. She's having increased pain, swelling. States she had hematoma drained. Patient states no other open, draining and she has a fever. She states she does not feel well. Patient states she's been taken Tylenol but continues to have a fever. (Praful Diaz) - Related Data Home Medications Medication Instructions Recorded Confirmed Albuterol Sulfate [Proair Hfa] 2 puff INHALATION RT-Q6H PRN 11/08/13 09/20/16 Baclofen [Lioresal] 10 mg PO BID 11/08/13 09/20/16 Butalb/Acetaminophen/Caffeine 1 tab PO Q6H PRN 11/08/13 09/20/16 [Fioricet 50-325-40 mg Tablet] Cetirizine HCl [Zyrtec] 10 mg PO DAILY 11/08/13 09/20/16 Dextroamphetamine/Amphetamine 30 mg PO BID 11/08/13 09/20/16 [Adderall] LORazepam [Ativan] 1 mg PO BID PRN 11/08/13 09/20/16 Pregabalin [Lyrica] 300 mg PO BID 11/08/13 09/20/16 lamoTRIgine [LaMICtal] 300 mg PO HS 11/08/13 09/20/16 Multivitamins, Thera [Multivitamin] 1 tab PO DAILY 12/14/13 09/20/16 Biotin 5 mg PO DAILY 01/29/16 09/20/16 fentaNYL 75MCG/HR PATCH [Duragesic 1 patch TRANSDERM Q72H 02/03/16 09/20/16 75MCG/HR] Previous Rx's Medication Instructions Recorded Magnesium Oxide [Magox 400] 400 mg PO DAILY #60 tablet 02/05/16 Allergies Allergy/AdvReac Type Severity Reaction Status Date / Time house dust Allergy Mild Cough Verified 09/20/16 15:23 Review of Systems ROS Other: All systems not noted in ROS Statement are negative. <Praful Diaz - Last Filed: 09/20/16 16:44> ROS Other: All systems not noted in ROS Statement are negative. <Mode Gillis - Last Filed: 09/20/16 16:49> ROS Statement: Those systems with pertinent positive or pertinent negative responses have been documented in the HPI. Past Medical History Past Medical History: Asthma, Fibromyalgia Additional Past Medical History / Comment(s): back pain, migraines, past history of diabetes, NOW DIET CONTROLLED SINCE BARIATRIC SX. arthritis. blood in stool. kidney stones, cyst in left kidney. anemia, hx pancreatitis, MAC DEGERATION LT EY History of Any Multi-Drug Resistant Organisms: MRSA Date of last positivie culture/infection: 2013 MDRO Source:: groin Past Surgical History: Bariatric Surgery, Section, Cholecystectomy, Hernia Repair, Orthopedic Surgery, Tonsillectomy Additional Past Surgical History / Comment(s): RY 2002? by Dr Andrew, Carpel Henry,rt shoulder, extensive nasal surgery, Sinus, nerve blocks to neck and back, Colonoscopy, Abcess on thigh 11/17, 02/03/2016 Panniculectomy, August 2016: Excess skin removal from bilateral thighs Past Anesthesia/Blood Transfusion Reactions: No Reported Reaction Past Psychological History: Anxiety, Bipolar, Depression, Panic Disorder Smoking Status: Never smoker Past Alcohol Use History: Occasional Past Drug Use History: Marijuana Additional Drug Use History / Comment(s): medical marijuana - Past Family History Mother Family Medical History: Diabetes Mellitus Father Family Medical History: Diabetes Mellitus <Praful Diaz - Last Filed: 09/20/16 16:44> General Exam Limitations: no limitations General appearance: alert, in no apparent distress Respiratory exam: Present: normal lung sounds bilaterally. Absent: respiratory distress, wheezes, rales, rhonchi, stridor Cardiovascular Exam: Present: normal rhythm, tachycardia, normal heart sounds. Absent: systolic murmur, diastolic murmur, rubs, gallop, clicks GI/Abdominal exam: Present: soft, normal bowel sounds. Absent: distended, tenderness, guarding, rebound, rigid Extremities exam: Present: other (Bilateral thighs her large surgical wounds noted there is wound dehiscence and surrounding erythema with purulent drainage at the proximal medial groin region) <Praful Diaz - Last Filed: 09/20/16 16:44> Course <Praful Diaz - Last Filed: 09/20/16 16:44> <Mode Gillis - Last Filed: 09/20/16 16:49> Vital Signs 09/20/16 09/20/16 14:32 15:48 Temperature 100.4 F H 100.5 F H Pulse Rate 101 H 93 Respiratory 18 18 Rate Blood Pressure 107/70 110/66 O2 Sat by Pulse 99 98 Oximetry - Reevaluation(s) Reevaluation #1: 09/20/16 16:48 Did personally do a [id number] exam of the patient and do agree with the assessment and plan did discuss case with Dr. Corbin patient will be admitted place an IV antibiotics with Dr. Sykes to see the patient in the a.m. (Mode Gillis) Medical Decision Making - Lab Data Result diagrams: 09/20/16 15:45 09/20/16 15:45 <Praful Diaz - Last Filed: 09/20/16 16:44> - Lab Data Result diagrams: 09/20/16 15:45 09/20/16 15:45 <Mode Gillis - Last Filed: 09/20/16 16:49> - Lab Data Lab Results 09/20/16 09/20/16 Range/Units 15:45 15:45 WBC 9.1 (3.8-10.6) k/uL RBC 3.47 L (3.80-5.40) m/uL Hgb 11.0 L (11.4-16.0) gm/dL Hct 33.4 L (34.0-46.0) % MCV 96.1 (80.0-100.0) fL MCH 31.6 (25.0-35.0) pg MCHC 32.9 (31.0-37.0) g/dL RDW 12.7 (11.5-15.5) % Plt Count 182 (150-450) k/uL Neutrophils % 82 % Lymphocytes % 10 % Monocytes % 4 % Eosinophils % 3 % Basophils % 0 % Neutrophils # 7.4 (1.3-7.7) k/uL Lymphocytes # 0.9 L (1.0-4.8) k/uL Monocytes # 0.3 (0-1.0) k/uL Eosinophils # 0.3 (0-0.7) k/uL Basophils # 0.0 (0-0.2) k/uL Sodium 140 (137-145) mmol/L Potassium 3.7 (3.5-5.1) mmol/L Chloride 105 (98-107) mmol/L Carbon Dioxide 24 (22-30) mmol/L Anion Gap 11 mmol/L BUN 17 (7-17) mg/dL Creatinine 0.52 (0.52-1.04) mg/dL Est GFR (MDRD) Af Amer >60 (>60 ml/min/1.73 sqM) Est GFR (MDRD) Non-Af >60 (>60 ml/min/1.73 sqM) Glucose 115 H (74-99) mg/dL Calcium 9.4 (8.4-10.2) mg/dL Total Bilirubin 0.9 (0.2-1.3) mg/dL AST 153 H (14-36) U/L ALT 141 H (9-52) U/L Alkaline Phosphatase 154 H (38-126) U/L Total Protein 6.5 (6.3-8.2) g/dL Albumin 3.5 (3.5-5.0) g/dL Disposition <Praful Diaz - Last Filed: 09/20/16 16:44> <Mode Gillis - Last Filed: 09/20/16 16:49> Clinical Impression: Wound dehiscence, Cellulitis, leg Disposition: ADMITTED IP TO THIS [facility] Condition: Fair Referrals: Abilio Mcocllum DO [Primary Care Provider] - 1-2 days
[2016-09-20] MEDS ORDERED: IV VANCOMYCIN PER PHARMACY 1 EACH MISC MISCELLANE PRN (16:44)
[2016-09-20] MEDS ORDERED: ONDANSETRON 4 MG/2 ML VIAL IVP PRN (16:45)
[2016-09-20] MEDS ORDERED: NALOXONE 0.4 MG/ML 1 ML VIAL IV PRN (16:45)
[2016-09-20] MEDS ORDERED: VANCOMYCIN 1,500 MG in SODIUM CHLORIDE 0.9% 250 ML IVPB STA (16:51)
[2016-09-20] MEDS: ACETAMINOPHEN TAB 325 MG TAB PO PRN (17:08)
[2016-09-20] MEDS: HYDROmorphone 1 MG/ML 1 ML SYRINGE IV PRN ×2 (17:08→22:37)
[2016-09-20] MEDS: SODIUM CHLORIDE 0.9% 1,000 ML IV SCH (17:17)
[2016-09-20] MEDS ORDERED: ALBUTEROL NEBULIZED 2.5 MG/3 ML INHALATION PRN (21:40)
[2016-09-20] MEDS: PREGABALIN 100 MG CAP PO SCH (22:34)
[2016-09-20] MEDS: BACLOFEN 10 MG TAB PO SCH (22:35)
[2016-09-20] MEDS: lamoTRIgine 100 MG TAB PO SCH (22:35)
[2016-09-21] MEDS: VANCOMYCIN 1,500 MG in SODIUM CHLORIDE 0.9% 250 ML IVPB SCH ×4 (00:29→23:07)
[2016-09-21] MEDS: ACETAMINOPHEN TAB 325 MG TAB PO PRN ×3 (00:52→20:40)
[2016-09-21] MEDS ORDERED: KETOROLAC 30 MG/ML 1 ML VIAL IVP STA (02:11)
[2016-09-21] MEDS: SODIUM CHLORIDE 0.9% 1,000 ML IV SCH ×2 (06:26→12:55)
--- NOTE | 2016-09-21 07:34 | P.PN ---
Progress Note - Text Patient seen and evaluated. Please see full dictated note. Patient has history of MRSA and excision of bilateral hidraadenitis. She has been closely followed weekly for wound check. She reports in the recent 48 hrs developing new drainage from her legs of old hematoma and fevers. Redness significantly improved per oatients observation, now with wound dehiscence. Plan for duplex DVT of legs followed by wound washout and placement of wound VAC today.
[2016-09-21] MEDS: BACLOFEN 10 MG TAB PO SCH ×2 (09:19→20:37)
[2016-09-21] MEDS: HYDROmorphone 1 MG/ML 1 ML SYRINGE IV PRN ×2 (09:31→14:15)
[2016-09-21] MEDS: PREGABALIN 100 MG CAP PO SCH ×2 (09:31→20:40)
--- NOTE | 2016-09-21 09:34 | US ---
EXAMINATION TYPE: US venous doppler duplex LE DATE OF EXAM: 09/21/2016 8:59 AM COMPARISON: on PACS CLINICAL HISTORY: Deep venous thrombosis. HX of bilateral medial thigh surgery on September 02, patient states having infected skin removed. Hx of fever. No hx of blood clots or on blood thinners SIDE PERFORMED: Bilateral TECHNIQUE: The lower extremity deep venous system is examined utilizing real time linear array sonog snoja with graded compression, doppler sonography and color-flow sonography. VESSELS IMAGED: External Iliac Vein (EIV) Common Femoral Vein Deep Femoral Vein Greater Saphenous Vein * Femoral Vein Popliteal Vein Small Saphenous Vein * Proximal Calf Veins (* superficial vessels) Right Leg: Appears negative for DVT Left Leg: Appears negative for DVT IMPRESSION: 1. No ultrasound evidence of deep venous thrombosis bilateral lower extremities.
[2016-09-21 11:34] VITALS: BMI 32.3
--- NOTE | 2016-09-21 11:38 | P.GSHP ---
History of Present Illness H&P Date: 09/21/16 Chief Complaint: Cellulitis HISTORY OF PRESENT ILLNESS: Alesha Bermduez is a 46-year-old female with long-standing history of hidradenitis along the bilateral groins. She has history of MRSA infection including treatment at the wound care center. She's had multiple skin surgeries in the past where she had MRSA infections as well. Despite careful observation in the clinic including antibiotic dressings, she comes in with drainage along her legs and increased fevers consistent with cellulitis. She reports her symptoms had within the last 48-72 hours. Today, she reports improvement of redness along her legs. Her fevers were 102 and is now improving. PAST MEDICAL HISTORY: 1. Gastroesophageal reflux disease. 2. Diabetes type 2. 3. Obstructive sleep apnea. 4. Anxiety. 5. Depression. 6. ADHD. 7. Seasonal allergies. 8. Migraines. 9. Asthma. 10. Chronic pain syndrome. 11. Seizure disorder. 12. History of super morbid obesity. 13. Panniculitis. 14. Hidradenitis of the bilateral medial thighs. PAST SURGICAL HISTORY: 1. Open Philip-en-Y gastric bypass in 2012. 2. . 3. Bilateral carpal tunnel release. 4. Anterior cervical disc fusion. 5. Cholecystectomy. 6. Appendectomy. 7. Colonoscopy. 8. Upper endoscopy. 9. Revision of gastrojejunostomy at [facility], July 2014. 10. Panniculectomy of the abdomen. 11. Excision of hidradenitis of the bilateral medial thighs. MEDICATIONS: 1. Lamictal. 2. Duragesic patch. 3. Lyrica. 4. Prilosec. 5. Multivitamin. 6. Ativan. 7. Lexapro. 8. Dulcolax stool softener. 9. Adderall. 10. Vitamin D. 11. Zyrtec. 12. Fioricet. 13. Baclofen. 14. Albuterol sulfate. ALLERGIES: MOLD. SOCIAL HISTORY: Former smoker. Takes medicinal marijuana. Also reports alcohol use. FAMILY HISTORY: Pertinent for diabetes including morbid obesity. REVIEW OF SYSTEMS: CONSTITUTIONAL: [place] body weight of 158 pounds. Highest weight of 450 pounds. Total weight loss of 252 pounds. Percentage of weight loss of 86%. GASTROINTESTINAL: No reports of dumping syndrome. History of iron deficiency anemia treated with iron infusions. History of anemia, stable condition. SKIN: Chronic panniculitis despite medical treatment and oral treatment. History of MRSA infections. ENDOCRINE: Diabetes type 2 resolved. No thyroid disorder. PSYCH: History of attention deficit disorder, including depression. No suicidal ideation. NEURO: History of chronic pain syndrome. Also history of fibromyalgia. HEENT: Denies troubles with vision or hearing. CARDIOVASCULAR: Denies any heart attack or chest pain. RESPIRATORY: History of COPD including asthma. MUSCULOSKELETAL: History of chronic pain syndrome along the joint. PSYCH: History of anxiety. Also has ADHD. HEMATOLOGIC: Denies any easy bruising or bleeding. PHYSICAL EXAM: VITAL SIGNS: Vital Signs Temp 99.3 F 09/21/16 07:36 Pulse 86 09/21/16 07:36 Resp 16 09/21/16 08:00 BP 106/51 09/21/16 07:36 Pulse Ox 99 09/21/16 07:36 Intake & Output 09/20/16 09/21/16 09/21/16 18:59 06:59 18:59 Intake Total 500 Balance 500 Weight 90.718 kg Intake: Oral 500 Other: Voiding Method Toilet Toilet # Voids 2 ABDOMEN: Well-healed incisions from abdominal panniculectomy. MUSCULOSKELETAL: Skin medial thigh with moderate panniculitis including hyperemia from previous hidradenitis on the bilateral thighs. GENERAL: Well-developed, pleasant female in no acute distress. SKIN: Skin breakdown with ulceration and wound dehiscence at "T" incision of medial proximal thighs, bilateral. No signs of lymphangitis. No erythema along the distal incision. 1 cm border of erythema noted at wound dehiscence site. HEENT: No sclerae icterus. Extraocular movements grossly intact. Moist buccal mucosa. NECK: Supple without lymphadenopathy. CHEST: Unlabored respirations. Equal bilateral excursions. CARDIOVASCULAR: Regular rate and rhythm. NEURO: No focal or lateralizing signs. Cranial nerves II through XII grossly intact. PSYCH: Appropriate affect. Alert and oriented to person, place, and time. ASSESSMENT: 1. Morbid obesity due to excess calories, now resolved. 2. Body mass index reduced from 70.6 down to 32.3. 3. Status post Philip-en-Y gastric bypass. 4. Revision of gastrojejunal anastomosis. 5. Status post massive weight of 252 pounds. 6. Refractory moderate to severe panniculitis of the abdomen. 7. Dietary surveillance and counseling. 8. Bilateral chronic hidradenitis of the upper thighs and groin with history of MRSA. 9. History of iron deficiency anemia now completely corrected. 10. Thrombocytopenia. 11. Panniculitis of the bilateral medial thigh, now resolved. 12. History of leukopenia, resolved. 13. History of chronic pain syndrome. 14. Fevers. 15. Wound dehiscence bilateral medial thighs. 16. High risk for readmission for chronic pain syndrome and recurrent MRSA infection. PLAN: 1. Recommend duplex ultrasound the bilateral lower extremities for her increased risk for DVTs. 2. She reports having dark drainage from her wound consistent with hematoma. Recommend wound exploration and washout. 3. Wound care management with wound VAC for optimal wound healing including given risk of complicated infections in the past. 4. Vancomycin for treatment of history of MRSA infection. 5. Inpatient hospitalization over 2 nights for treatment of MRSA infection including wound VAC management. 6. Recommend negative wound VAC therapy for home. Past Medical History Past Medical History: Asthma, Fibromyalgia Additional Past Medical History / Comment(s): back pain, migraines, past history of diabetes, NOW DIET CONTROLLED SINCE BARIATRIC SX. arthritis. blood in stool. kidney stones, cyst in left kidney. anemia, hx pancreatitis, MAC DEGERATION LT EY History of Any Multi-Drug Resistant Organisms: MRSA Date of last positivie culture/infection: 2013 MDRO Source:: groin Past Surgical History: Bariatric Surgery, Section, Cholecystectomy, Hernia Repair, Orthopedic Surgery, Tonsillectomy Additional Past Surgical History / Comment(s): gastric bypass [address] Andrew, Carpel Henry, rt shoulder, extensive nasal surgery, Sinus, nerve blocks to neck and back, Colonoscopy, Abcess on thigh 11/17, 02/03/2016 Panniculectomy, August 2016: Excess skin removal from bilateral thighs Past Anesthesia/Blood Transfusion Reactions: No Reported Reaction Past Psychological History: Anxiety, Bipolar, Depression, Panic Disorder Smoking Status: Never smoker Past Alcohol Use History: Occasional Past Drug Use History: Marijuana Additional Drug Use History / Comment(s): medical marijuana occasional - Past Family History Mother Family Medical History: Diabetes Mellitus Father Family Medical History: Diabetes Mellitus Medications and Allergies Home Medications Medication Instructions Recorded Confirmed Type Albuterol Sulfate [Proair Hfa] 2 puff INHALATION RT-Q6H PRN 11/08/13 09/20/16 History Baclofen [Lioresal] 10 mg PO BID 11/08/13 09/20/16 History Butalb/Acetaminophen/Caffeine 1 tab PO Q6H PRN 11/08/13 09/20/16 History [Fioricet 50-325-40 mg Tablet] Cetirizine HCl [Zyrtec] 10 mg PO DAILY 11/08/13 09/20/16 History Dextroamphetamine/Amphetamine 30 mg PO BID 11/08/13 09/20/16 History [Adderall] LORazepam [Ativan] 1 mg PO BID PRN 11/08/13 09/20/16 History Pregabalin [Lyrica] 300 mg PO BID 11/08/13 09/20/16 History lamoTRIgine [LaMICtal] 300 mg PO HS 11/08/13 09/20/16 History Multivitamins, Thera [Multivitamin] 1 tab PO DAILY 12/14/13 09/20/16 History Biotin 5 mg PO DAILY 01/29/16 09/20/16 History fentaNYL 75MCG/HR PATCH [Duragesic 1 patch TRANSDERM Q72H 02/03/16 09/20/16 History 75MCG/HR] Allergies Allergy/AdvReac Type Severity Reaction Status Date / Time house dust Allergy Mild Cough Verified 09/20/16 15:23 Surgical - Exam Vital Signs Temp Pulse Resp BP Pulse Ox 100.4 F H 101 H 18 107/70 99 09/20/16 14:32 09/20/16 14:32 09/20/16 14:32 09/20/16 14:32 09/20/16 14:32 Results - Labs 09/20/16 15:45 09/20/16 15:45 Abnormal Lab Results - Last 24 Hours (Table) 09/21/16 Range/Units 02:01 Plasma Lactic Acid Saroj 0.6 L (0.7-2.0) mmol/L
[2016-09-21] MEDS ORDERED: VANCOMYCIN TROUGH DUE 1 EACH MISC MISCELLANE ONE (15:00)
[2016-09-21] MEDS ORDERED: ACETAMINOPHEN IV (For NPO) 1,000 MG in EMPTY BAG 1 BAG IVPB STA (15:16)
[2016-09-21] MEDS ORDERED: IV FLUID CONTINUATION 1,000 ML IV ONE ×4 (16:35→16:40)
[2016-09-21 17:08] LABS: Glucose,Whole Blood 94 mg/dL (75-99)
[2016-09-21] MEDS ORDERED: SUCCINYLCHOLINE CHLORIDE 100 MG/5 ML SYR IV ONE (17:28)
[2016-09-21] MEDS ORDERED: MIDAZOLAM 2 MG/2 ML VIAL ONE (17:28)
[2016-09-21] MEDS ORDERED: LIDOCAINE 1% INJ 10MG/ML (20 ML MDV) ONE (17:28)
[2016-09-21] MEDS ORDERED: fentaNYL (PF) 50 MCG/ML 2 ML AMP ONE (17:28)
[2016-09-21] MEDS ORDERED: HYDROmorphone (PF) 1 MG/ML ONE (17:28)
[2016-09-21] MEDS ORDERED: HYDROmorphone 1 MG/ML 1 ML SYRINGE IVP ONE (19:09)
[2016-09-21] MEDS ORDERED: SODIUM CHLORIDE 0.9% 1,000 ML IV ONE (19:18)
--- NOTE | 2016-09-21 19:18 | P.PCN ---
Date of Procedure: 09/21/16 Preoperative Diagnosis: History of chronic MRSA infection, bilateral hidradenitis medial thigh, acute wound dehiscence with cellulitis bilateral medial thigh Postoperative Diagnosis: Same, evacuation of infected hematoma bilateral thighs Procedure(s) Performed: 1. Sharp excisional debridement using scalpel of wound necrosis with wound dehiscence right thigh 9 x 4 cm x 2 cm depth to fascia, right thigh 2. Sharp excisional debridement using scalpel of wound necrosis with wound dehiscence right thigh 4 cm x 3 cm x 3 depth to fascia, left thigh 3. Bilateral medial thigh wound exploration with evacuation of infected hematoma 4. Washout, bilateral medial thigh using 100 lavaged 3 L normal saline 5. Application of wound VAC therapy 36 cm right medial thigh, 12 cm left medial thigh Anesthesia: KENYATTA Surgeon: Ivonne Drew Estimated Blood Loss (ml): 30 Pathology: other (Aerobic and anaerobic culture) Condition: stable Disposition: floor Operative Findings: Wound dehiscence to fascia bilateral medial thigh with subcutaneous soft tissue necrosis excised and drainage of infected hematoma
[2016-09-21] MEDS: MAGNESIUM OXIDE 400 MG TAB PO SCH (19:58)
[2016-09-21] MEDS: MULTIVITAMINS, THERA 1 EACH TAB PO SCH (19:58)
[2016-09-21] MEDS: lamoTRIgine 100 MG TAB PO SCH (20:38)
[2016-09-21] MEDS: ENOXAPARIN 40 MG/0.4 ML SYRINGE SQ SCH (20:38)
[2016-09-22] MEDS: HYDROmorphone 1 MG/ML 1 ML SYRINGE IV PRN ×6 (02:21→23:36)
[2016-09-22] MEDS: ACETAMINOPHEN TAB 325 MG TAB PO PRN (02:31)
[2016-09-22] MEDS: MULTIVITAMINS, THERA 1 EACH TAB PO SCH (07:39)
[2016-09-22] MEDS: BACLOFEN 10 MG TAB PO SCH ×2 (07:39→21:13)
[2016-09-22] MEDS: MAGNESIUM OXIDE 400 MG TAB PO SCH (07:39)
[2016-09-22] MEDS: PREGABALIN 100 MG CAP PO SCH ×2 (07:39→21:13)
[2016-09-22] MEDS: SODIUM CHLORIDE 0.9% 1,000 ML IV SCH (07:40)
[2016-09-22] MEDS ORDERED: ACETAMINOPHEN IV (For NPO) 1,000 MG in EMPTY BAG 1 BAG IVPB ONE (08:22)
[2016-09-22] MEDS: VANCOMYCIN 1,500 MG in SODIUM CHLORIDE 0.9% 250 ML IVPB SCH ×2 (08:42→17:43)
--- NOTE | 2016-09-22 08:53 | CONS ---
DATE OF CONSULTATION: 09/21/2016 REASON FOR CONSULTATION: MRSA infection of the bilateral thigh wound. HISTORY OF PRESENT ILLNESS: The patient is a 46-year-old female with a past medical history significant for a long-standing history of hidradenitis along the bilateral groin area with a previous history of MRSA infection that has been treated with multiple surgeries in the past. Patient presenting to the ER at [facility] on 09/20/2016 for increased pain, swelling to the bilateral upper thigh, medial thigh area. The patient did have open draining wound along with fever for which the patient has been given Tylenol. Subsequently, the patient has been evaluated by the ER physician. Patient did have a fever of 100 to 102.4. degrees Fahrenheit along with normal white count on admission. She did have blood culture that has been negative. Wound culture showing gram-negative in addition to the MRSA. ID was consulted for further recommendation regarding antibiotic therapy. Patient has been taken to the OR by Dr. Drew today where the patient did have a sharp excisional debridement of the right as well as the left medial thigh wound and a question of infected hematoma. Followed by application of a wound VAC. Patient is seen in the post op area of the surgical recovery for the anesthesia and was unable to provide with oral history so most of the information has been obtained from review of the chart and talking to the nursing staff as well as talking to the surgeon. Review of systems could not be obtained but the positive points have been mentioned in the HPI. Past medical history is significant for fibromyalgia, asthma, migraine headache, diabetes, arthritis, kidney stone, pancreatitis, macular degeneration. PAST SURGICAL HISTORY: , cholecystectomy, hernia repair, bariatric surgery, tonsillectomy, carpal tunnel, right shoulder. SOCIAL HISTORY: No history of smoking; occasional marijuana use, no drinking. FAMILY HISTORY: Both parents with a history of diabetes. ALLERGIES: No known drug allergies. Medications currently include the patient is on vancomycin pharmacy to dose, Lyrica. Zofran, Mag-oxide, Dilaudid, Lovenox, Ventolin, Tylenol. On examination, her blood pressure is 99/58 with a pulse of 80, temperature 98.6, she is 100% on room air. General description is a middle-aged female, lying in bed in no distress. No tachypnea or accessory muscles for respiration use. HEENT EXAMINATION: Pallor. No scleral icterus. Oral mucous membrane is dry. NECK: Trachea central. There is no thyromegaly. LUNGS: Unlabored breathing. Clear to auscultation anteriorly. HEART: S1, S2. Regular rate and rhythm. ABDOMEN: Soft, no tenderness. Bilateral upper thigh wounds are currently covered with the wound VAC. No significant swelling, redness or drainage. EXTREMITIES: No edema of the feet. SKIN EXAMINATION: No rash or mass palpable. NEUROLOGIC: Patient is slightly lethargic, does respond to her name. Mood and affect was normal. LABS: Hemoglobin is 11, white count of 9.1, BUN of 17, creatinine 0.52, liver enzymes are elevated, vanco level is 15.5. Wound culture with gram-negative in addition to the MRSA. DIAGNOSTIC IMPRESSION AND PLAN: 1. Patient with bilateral upper thigh infected hematoma, status post drainage and debridement and an application of wound vac. Cultures have been showing MRSA in addition to the gram-negative. 2. Patient with elevated liver enzymes. PLAN: 1. Will continue the patient on vancomycin, pharmacy to dose. Will add Fortaz 2 gm q.8 to cover for the gram negative. 2. Obtain hepatitis panel. 3. Continue patient on local wound care with the wound VAC. 4. Will follow up on the clinical condition to further adjust medication if needed. Thank you for this consultation. Will follow this patient along with you. HAILEE
[2016-09-22 09:04] LABS: Basophils % (A) 0 %; CH 31.5; CHCM 32.9; Eosinophils # (A) 0.1 k/uL (0-0.7); Eosinophils % (A) 3 %; HCT 29.2 % (34.0-46.0); HGB 9.6 gm/dL (11.4-16.0); Luc # (Auto) 0.09; Luc % (Auto) 2; Lymphocytes # (A) 0.8 k/uL (1.0-4.8); Lymphocytes % (A) 17 %; MCH 31.7 pg (25.0-35.0); MCV 96.3 fL (80.0-100.0); Monocytes # (A) 0.3 k/uL (0-1.0); Monocytes % (A) 6 %; Neutrophils # (A) 3.6 k/uL (1.3-7.7); Neutrophils % (A) 73 %; RBC 3.03 m/uL (3.80-5.40); RDW 12.2 % (11.5-15.5); WBC (Perox) 5.44
[2016-09-22 09:18] LABS: Anion Gap 9 mmol/L; Blood Urea Nitrogen 7 mg/dL (7-17); Calcium 8.8 mg/dL (8.4-10.2); Carbon Dioxide 23 mmol/L (22-30); Chloride 107 mmol/L (98-107); Glucose 116 mg/dL (74-99); Non-African American GFR(MDRD) >60 (>60 ml/min/1.73 sqM); Potassium 3.7 mmol/L (3.5-5.1); Sodium 139 mmol/L (137-145)
[2016-09-22 09:48] LABS: Hepatitis B Surface Ag Index 0.06
[2016-09-22 09:54] LABS: Hepatitis B Core IgM Index 0.05
[2016-09-22 10:06] LABS: Hepatitis C Virus IgG Index 0.02
[2016-09-22 10:11] LABS: Hepatitis C Virus IgG Ab Negative (Negative)
--- NOTE | 2016-09-22 13:27 | P.PN ---
Subjective 46 -year-old female being seen with the surgical attending on rounds this morning currently resting in bed. Has [address] at the bilateral medial thighs. Patients being treated for cellulitis along the bilateral upper medial thigh with dehiscent extended to the fascia. Patient is postop excisional debridement of the bilateral medial thigh with application of the wound VAC to the bilateral medial thigh patient reports less pain at the surgical site Objective - Vital Signs Vital signs: Vital Signs Temp 100.5 F H 09/22/16 10:06 Pulse 84 09/22/16 07:25 Resp 20 09/22/16 07:25 BP 101/59 09/22/16 07:25 Pulse Ox 98 09/22/16 07:25 Intake & Output 09/21/16 09/22/16 09/22/16 18:59 06:59 18:59 Intake Total 785 540 Output Total 30 Balance 755 540 Weight 90.718 kg Intake: IV 785 100 Oral 440 Output: Estimated Blood Loss 30 Other: Voiding Method Toilet Toilet # Voids 2 1 2 - Exam Physical exam 46-year-old female resting in bed pleasant cooperative oriented 3 Lungs essentially clear adequate air movement on room air Heart S1-S2 audible irregular Abdomen soft nontender reports no nausea vomiting Extremities bilateral wound vacs to the right and left medial thigh and place - Labs CBC & Chem 7: 09/22/16 08:27 09/22/16 08:27 Labs: Abnormal Lab Results - Last 24 Hours (Table) 09/22/16 09/22/16 Range/Units 08:27 08:27 RBC 3.03 L (3.80-5.40) m/uL Hgb 9.6 L (11.4-16.0) gm/dL Hct 29.2 L (34.0-46.0) % Lymphocytes # 0.8 L (1.0-4.8) k/uL Glucose 116 H (74-99) mg/dL Microbiology - Last 24 Hours (Table) 09/21/16 17:52 Gram Stain - Preliminary Thigh - Right Wound Culture - Preliminary 09/21/16 17:52 Anaerobic Culture - Preliminary Thigh - Right Assessment and Plan Plan: Impression Status post bilateral medial thigh wound excision debridement with placement of bilateral back for an infected hematoma done on September 21 Esophageal reflux disease History of super morbid obesity status post massive weight loss of 252 pounds Obstructive sleep apnea Hidradenitis of the bilateral medial thighs. Excision of hidradenitis of the bilateral medial thighs. Revision of gastrojejunostomy at [facility], July 2014. . Panniculectomy of the abdomen. . Excision of hidradenitis of the bilateral medial thighs. Bilateral chronic hidradenitis of the upper thighs and groin with history of MRSA. History of iron deficiency anemia now completely corrected. . 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 Bilateral chronic hidradenitis of the upper thighs and groin with history of MRSA. Plan Will be scheduled tomorrow for wound VAC change in the operating room under IV sedation per Dr. Rubin covering for Dr. Drew Wound VAC management as ordered Infectious disease recommendations Vancomycin for treatment of history of MRSA infection DVT and GI prophylaxis Further recommendations pending The above dictated assessment and findings were discussed with Dr. Drew Impression and the plan of care have been dictated as directed. Ana Abraham nurse practitioner acting as a scribe for Dr. Drew
[2016-09-22] MEDS: ENOXAPARIN 40 MG/0.4 ML SYRINGE SQ SCH (17:44)
[2016-09-22] MEDS: lamoTRIgine 100 MG TAB PO SCH (21:13)
--- NOTE | 2016-09-22 22:38 | PN ---
DATE OF SERVICE: 09/22/2016 REASON FOR FOLLOWUP: Bilateral medial thigh wounds with secondary infection. INTERVAL HISTORY: The patient did spike another fever of 102 degrees Fahrenheit this morning. The patient denies significant chest pain or shortness of breath or cough. No abdominal pain or any worsening pain in the bilateral upper thigh wounds, though the right wound is slightly leaking. No abdominal pain or any diarrhea. On examination, blood pressure is 112/59 with a pulse of 97, temperature 100.4. T-max of 101.1. She is 97% on room air. General description is a middle-aged female up in the chair in no distress. RESPIRATORY SYSTEM: Unlabored breathing. Clear to auscultation anteriorly. HEART: S1, S2. Regular rate and rhythm. ABDOMEN: Soft. No tenderness. Bilateral upper thigh wounds are currently dressed up. There is some drainage on the right side. Surrounding swelling and redness improved. LABS: Hemoglobin 9.6 with white count of 5.0, BUN of 7, creatinine 0.53. Wound culture with presumptive MRSA and Gram-negative bacilli. DIAGNOSTIC IMPRESSION AND PLAN: Patient with bilateral upper medial thigh wounds with infected hematoma, status post drainage. Culture now showing Gram-negative as well as MRSA. Patient currently on vancomycin that will be continued, adjusting it further based on the culture report. Continue supportive care. [facility]
[2016-09-23] MEDS: SODIUM CHLORIDE 0.9% 1,000 ML IV SCH ×2 (00:22→06:50)
[2016-09-23] MEDS: VANCOMYCIN 1,500 MG in SODIUM CHLORIDE 0.9% 250 ML IVPB SCH ×3 (02:02→15:08)
[2016-09-23] MEDS: HYDROmorphone 1 MG/ML 1 ML SYRINGE IV PRN ×5 (05:38→21:23)
[2016-09-23] MEDS: BACLOFEN 10 MG TAB PO SCH ×2 (07:39→21:28)
[2016-09-23] MEDS: MULTIVITAMINS, THERA 1 EACH TAB PO SCH (07:39)
[2016-09-23] MEDS: MAGNESIUM OXIDE 400 MG TAB PO SCH (07:39)
[2016-09-23] MEDS: PREGABALIN 100 MG CAP PO SCH ×2 (07:41→21:26)
[2016-09-23 09:25] LABS: Basophils % (A) 0 %; CH 31.2; CHCM 32.5; Eosinophils # (A) 0.2 k/uL (0-0.7); Eosinophils % (A) 6 %; HCT 27.9 % (34.0-46.0); HGB 9.2 gm/dL (11.4-16.0); Luc # (Auto) 0.06; Luc % (Auto) 2; Lymphocytes # (A) 1.1 k/uL (1.0-4.8); Lymphocytes % (A) 27 %; MCH 31.8 pg (25.0-35.0); MCV 96.4 fL (80.0-100.0); Mean Platelet Volume 8.3; Monocytes # (A) 0.2 k/uL (0-1.0); Monocytes % (A) 4 %; Neutrophils # (A) 2.5 k/uL (1.3-7.7); Neutrophils % (A) 61 %; RBC 2.89 m/uL (3.80-5.40); RDW 12.2 % (11.5-15.5); WBC 4.1 k/uL (3.8-10.6)
[2016-09-23 09:27] LABS: ALT 51 U/L (9-52); AST 23 U/L (14-36); Alkaline Phosphatase 131 U/L (38-126); Anion Gap 8 mmol/L; Blood Urea Nitrogen 8 mg/dL (7-17); Calcium 8.9 mg/dL (8.4-10.2); Carbon Dioxide 25 mmol/L (22-30); Chloride 108 mmol/L (98-107); Glucose 126 mg/dL (74-99); Non-African American GFR(MDRD) >60 (>60 ml/min/1.73 sqM); Potassium 3.8 mmol/L (3.5-5.1); Sodium 141 mmol/L (137-145); Total Bilirubin 0.4 mg/dL (0.2-1.3); Total Protein 5.2 g/dL (6.3-8.2)
[2016-09-23] MEDS: cefTRIAXone 2,000 MG in SODIUM CHLORIDE 0.9% 100 ML IVPB SCH (12:49)
[2016-09-23] MEDS: ENOXAPARIN 40 MG/0.4 ML SYRINGE SQ SCH (15:08)
--- NOTE | 2016-09-23 18:57 | P.PN ---
Subjective Principal diagnosis: MRSA infection Bilateral thigh cellulitis 46 years old female status post debridement of bilateral thigh wounds and placement of wound VAC on 09/21/[address] Drew. Patient has chronic pain. No new complaints. Objective - Vital Signs Vital signs: Vital Signs Temp 97.4 F L 09/23/16 15:00 Pulse 65 09/23/16 15:00 Resp 18 09/23/16 15:00 BP 89/51 09/23/16 15:00 Pulse Ox 97 09/23/16 15:00 Intake & Output 09/22/16 09/23/16 09/23/16 18:59 06:59 18:59 Other: Voiding Method Toilet Toilet # Voids 2 1 1 - Exam Wound VAC in place in bilateral medial thigh - Labs CBC & Chem 7: 09/23/16 08:40 09/23/16 08:40 Labs: Abnormal Lab Results - Last 24 Hours (Table) 09/23/16 09/23/16 Range/Units 08:40 08:40 RBC 2.89 L (3.80-5.40) m/uL Hgb 9.2 L (11.4-16.0) gm/dL Hct 27.9 L (34.0-46.0) % Chloride 108 H (98-107) mmol/L Creatinine 0.51 L (0.52-1.04) mg/dL Glucose 126 H (74-99) mg/dL Alkaline Phosphatase 131 H (38-126) U/L Total Protein 5.2 L (6.3-8.2) g/dL Albumin 2.5 L (3.5-5.0) g/dL Microbiology - Last 24 Hours (Table) 09/21/16 15:51 Blood Culture - Preliminary Blood No Growth after 48 hours 09/21/16 17:52 Gram Stain - Final Thigh - Right Wound Culture - Final Methicillin resist S. 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 Wound VAC change in OR 2. Informed consent obtained and patient did undergo the procedure
[2016-09-23] MEDS ORDERED: fentaNYL (PF) 50 MCG/ML 2 ML AMP ONE (19:06)
[2016-09-23] MEDS ORDERED: SODIUM CHLORIDE 0.9% 1,000 ML IV ONE ×2 (19:06→20:00)
[2016-09-23] MEDS ORDERED: MIDAZOLAM 2 MG/2 ML VIAL ONE (19:06)
[2016-09-23] MEDS ORDERED: PROPOFOL 10 MG/ML 20 ML VIAL IV ONE (19:06)
--- NOTE | 2016-09-23 20:24 | P.PCN ---
Date of Procedure: 09/23/16 Preoperative Diagnosis: B/L thigh cellulitis H/O hidradenitis Postoperative Diagnosis: Same Procedure(s) Performed: Washout, bilateral medial thigh using 1/2 strength hydrogen peroxide and normal saline Application of wound VAC therapy 36 cm right medial thigh, 12 cm left medial thigh Anesthesia: ELIAS Surgeon: Donna Rubin Pathology: none sent Condition: stable Disposition: PACU Description of Procedure: 46 years old female status post excision of hidradenitis suppurativa and wound VAC placement. History of MRSA infections. Underwent debridement in bilateral medial thigh on 09/21/2016 with placement of wound VAC. Patient was brought to the operating room and placed in lithotomy position. IV sedation was given as per anesthesia team. A timeout was performed to verify correct patient and correct procedure. The previously placed wound VAC was removed along with Aquacel silver dressing. There was large amount of subcutaneous fluid collection which appeared cloudy and had foul smell. This was suctioned and some purulent drainage was noted. The cavities were copiously irrigated with half-strength hydrogen peroxide. All exudates were removed. Black wound VAC foam was placed. Overlying skin bridges were protected using clear dressing. The wound VAC was connected to a standard pressure of 125 mmHg of suction.Application of wound VAC therapy 36 cm right medial thigh, 12 cm left medial thigh. Patient tolerated the procedure well and was taken to postanesthesia care unit in stable condition
--- NOTE | 2016-09-23 21:20 | PN ---
DATE OF SERVICE: 09/23/2016 REASON FOR FOLLOWUP: Bilateral medial thigh infected hematoma. INTERVAL HISTORY: The patient overall feels better and has improved. She is breathing comfortably. Denies significant chest pain. Still has some drainage from the right mid thigh wound area but denies significant chest pain or shortness of breath or cough. No abdominal pain or diarrhea. On examination, blood pressure is 99/59 with a pulse of 65, temperature 97.4. She is 97% on room air. General description is a middle-aged female up in the bed in no distress. RESPIRATORY SYSTEM: Unlabored breathing. Clear to auscultation anteriorly. HEART: S1, S2. Regular rate and rhythm. ABDOMEN: Soft. No tenderness. Bilateral thigh wounds are currently dressed up with wound V.A.C. with minimal drainage. LABS: Hemoglobin 9.2, white count 4.1. BUN of 8, creatinine 0.51. Wound culture with MRSA and E coli. DIAGNOSTIC IMPRESSION AND PLAN: Patient with bilateral medial infected hematoma, status post drainage. In view of the Escherichia coli growing, would switch Fortaz to Rocephin. Continue the patient on vancomycin, Pharmacy to dose. Will reevaluate the wounds tomorrow. Continue supportive care.
[2016-09-23] MEDS: lamoTRIgine 100 MG TAB PO SCH (21:28)
[2016-09-24] MEDS: HYDROmorphone 1 MG/ML 1 ML SYRINGE IV PRN ×7 (00:06→22:49)
[2016-09-24] MEDS: VANCOMYCIN 1,500 MG in SODIUM CHLORIDE 0.9% 250 ML IVPB SCH ×4 (02:49→23:29)
[2016-09-24] MEDS: SODIUM CHLORIDE 0.9% 1,000 ML IV SCH ×2 (03:08→06:21)
[2016-09-24] MEDS ORDERED: VANCOMYCIN TROUGH DUE 1 EACH MISC MISCELLANE ONE (07:00)
[2016-09-24] MEDS: MAGNESIUM OXIDE 400 MG TAB PO SCH (08:05)
[2016-09-24] MEDS: MULTIVITAMINS, THERA 1 EACH TAB PO SCH (08:05)
[2016-09-24] MEDS: BACLOFEN 10 MG TAB PO SCH ×2 (08:05→22:05)
[2016-09-24] MEDS: PREGABALIN 100 MG CAP PO SCH ×3 (09:17→23:16)
[2016-09-24] MEDS: cefTRIAXone 2,000 MG in SODIUM CHLORIDE 0.9% 100 ML IVPB SCH (12:42)
[2016-09-24] MEDS ORDERED: BISACODYL 5 MG TABLET.DR PO PRN (15:40)
--- NOTE | 2016-09-24 15:56 | P.PN ---
Subjective 46-year-old female being seen by the surgical attending this afternoon at the bedside. The plan of care discussed with the patient. Patient is status post Washout, bilateral medial thigh using 1/2 strength hydrogen peroxide and normal saline application of wound VAC right and left medial thigh done on the for bilateral Thigh cellulitis in a patient who has a history of hidradentis Spoke with Dr. diaz infectious disease who recommends continuing with the wound VAC to be changed every 48 hours and continue with IV antibiotics over the next several days Objective - Vital Signs Vital signs: Vital Signs Temp 101.1 F H 09/24/16 15:13 Pulse 99 09/24/16 15:13 Resp 18 09/24/16 15:13 BP 114/58 09/24/16 15:13 Pulse Ox 95 09/24/16 15:13 Intake & Output 09/23/16 09/24/16 09/24/16 18:59 06:59 18:59 Intake Total 650 Balance 650 Weight 90.718 kg Intake: IV 650 Other: Voiding Method Toilet # Voids 1 2 2 # Bowel Movements 1 - Exam Physical exam 46-year-old female resting in bed pleasant cooperative oriented 3 Lungs essentially clear adequate air movement on room air Heart S1-S2 audible irregular Abdomen soft nontender reports no nausea vomiting Extremities bilateral wound vacs to the right and left medial thigh and place - Labs CBC & Chem 7: 09/23/16 08:40 09/23/16 08:40 Labs: Microbiology - Last 24 Hours (Table) 09/22/16 10:59 Blood Culture - Preliminary Blood No Growth after 48 hours 09/21/16 15:51 Blood Culture - Preliminary Blood No Growth after 48 hours 09/21/16 17:52 Gram Stain - Final Thigh - Right Wound Culture - Final Methicillin resist S. aureus Escherichia coli Assessment and Plan Plan: Impression Status post bilateral medial thigh wound excision debridement with placement of bilateral back for an infected hematoma done on September 21 Esophageal reflux disease History of super morbid obesity status post massive weight loss of 252 pounds Obstructive sleep apnea Hidradenitis of the bilateral medial thighs. Excision of hidradenitis of the bilateral medial thighs. Revision of gastrojejunostomy at [facility], July 2014. . Panniculectomy of the abdomen. . Excision of hidradenitis of the bilateral medial thighs. Bilateral chronic hidradenitis of the upper thighs and groin with history of MRSA. History of iron deficiency anemia now completely corrected. . 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 Bilateral chronic hidradenitis of the upper thighs and groin with history of MRSA. Status post wound VAC application bilateral thighs with washout done on September 23 Plan Infectious disease recommends keeping patient on IV antibiotics for the next several days and reevaluate Wound VAC management as ordered to be changed every 48 hours Infectious disease recommendations Vancomycin for treatment of history of MRSA infection DVT and GI prophylaxis Further recommendations pending outpatient pharmacy manager pursuing the discharge plan patient will follow-up with the [facility] and also have home care change wound VAC every 48 hours once patient is discharged The above dictated assessment and findings were discussed with Dr. mata covering for Dr. Drew Impression and the plan of care have been dictated as directed. Ana Abraham nurse practitioner acting as a scribe for Dr. mata covering for Dr. Drew
[2016-09-24] MEDS: ACETAMINOPHEN TAB 325 MG TAB PO PRN (16:02)
[2016-09-24] MEDS: ENOXAPARIN 40 MG/0.4 ML SYRINGE SQ SCH (17:09)
[2016-09-24] MEDS: BUTALB/APAP/CAFF 50-325-40MG TAB PO PRN (17:11)
[2016-09-24] MEDS: lamoTRIgine 100 MG TAB PO SCH (22:05)
[2016-09-24] MEDS: PREGABALIN 75 MG CAP PO SCH (23:11)
[2016-09-25] MEDS: HYDROmorphone 1 MG/ML 1 ML SYRINGE IV PRN ×4 (02:07→15:06)
[2016-09-25] MEDS: SODIUM CHLORIDE 0.9% 1,000 ML IV SCH ×2 (04:59→17:37)
[2016-09-25] MEDS: VANCOMYCIN 1,500 MG in SODIUM CHLORIDE 0.9% 250 ML IVPB SCH ×2 (08:23→17:36)
[2016-09-25] MEDS: BACLOFEN 10 MG TAB PO SCH ×2 (08:24→22:00)
[2016-09-25] MEDS: BUTALB/APAP/CAFF 50-325-40MG TAB PO PRN ×2 (08:24→21:57)
[2016-09-25] MEDS: MAGNESIUM OXIDE 400 MG TAB PO SCH (08:25)
[2016-09-25] MEDS: MULTIVITAMINS, THERA 1 EACH TAB PO SCH (08:25)
--- NOTE | 2016-09-25 09:28 | PN ---
DATE OF SERVICE: 09/24/2016 Reason for follow-up: Bilateral thigh wound infected hematoma. INTERVAL HISTORY: The patient did have fever in the evening area. The patient did not have a fever in the morning. The patient did have debridement of the wound in the OR yesterday with a new application of the wound VAC. Currently showing no evidence of any leakage. Denies any worsening pain. Denies any significant chest pain, shortness of breath or cough. No abdominal pain or diarrhea. On examination, blood pressure 119/58 with a pulse of 72, temperature 98.9, she is 98% on room air. General description is a middle-age female lying in bed in no distress. RESPIRATORY SYSTEM: Unlabored breathing. Clear to auscultation anteriorly. HEART: S1, S2. Regular rate and rhythm. ABDOMEN: Soft. No tenderness. Wounds in the bilateral upper thigh area, currently covered with wound V.A.C. Very minimal erythema. No drainage. LABS: Hemoglobin 9.2, white count 4.1 with a BUN of 8, creatinine 0.51. DIAGNOSTIC IMPRESSION AND PLAN: Patient with bilateral thigh wound infection/infected hematoma status post drainage. Culture positive for an E. coli and MRSA. She is currently covered with vancomycin and Rocephin, still having a fever. Cultures will be repeated if new fever. Vanco was therapeutic. Continue with the wound VAC and reevaluate the patient tomorrow. HAILEE
[2016-09-25] MEDS: PREGABALIN 75 MG CAP PO SCH ×2 (10:34→22:00)
--- NOTE | 2016-09-25 12:13 | P.PN ---
Subjective 46-year-old female being seen on rounds. The wound VAC is scheduled to be re- changed at the bedside by the nursing staff today. manager icu did discuss with the patient possible ECF subacute placement patient is declining states she has adequate help at home. Patients being followed by infectious disease recommends that the wound VAC continue to be changed every 48 hours and that IV antibiotics continue over the next several days reevaluate on Wednesday. Patient is aware of the plan of care will follow. Patient has a history of MRSA infections Patient is status post Washout, bilateral medial thigh using 1/2 strength hydrogen peroxide and normal saline application of wound VAC right and left medial thigh done on the for bilateral Thigh cellulitis in a patient who has a history of hidradentis Objective - Vital Signs Vital signs: Vital Signs Temp 98.8 F 09/25/16 06:00 Pulse 70 09/25/16 06:00 Resp 19 09/25/16 06:00 BP 100/56 09/25/16 06:00 Pulse Ox 96 09/25/16 06:00 Intake & Output 09/24/16 09/25/16 09/25/16 18:59 06:59 18:59 Weight 90.718 kg Other: Voiding Method Toilet Toilet # Voids 2 1 # Bowel Movements 1 - Exam Physical exam 46-year-old female resting in bed pleasant cooperative oriented 3 patient stated the pain medication given before changing the wound vacs helps Lungs essentially clear adequate air movement on room air Heart S1-S2 audible irregular Abdomen soft nontender reports no nausea vomiting Extremities bilateral wound vacs to the right and left medial thigh and place - Labs CBC & Chem 7: 09/23/16 08:40 09/23/16 08:40 Labs: Microbiology - Last 24 Hours (Table) 09/21/16 17:52 Anaerobic Culture - Preliminary Thigh - Right 09/21/16 15:51 Blood Culture - Preliminary Blood No Growth after 72 hours 09/22/16 10:59 Blood Culture - Preliminary Blood No Growth after 48 hours Assessment and Plan Plan: Impression Status post bilateral medial thigh wound excision debridement with placement of bilateral back for an infected hematoma done on September 21 Esophageal reflux disease History of super morbid obesity status post massive weight loss of 252 pounds Obstructive sleep apnea Hidradenitis of the bilateral medial thighs. Excision of hidradenitis of the bilateral medial thighs. Revision of gastrojejunostomy at [facility], July 2014. . Panniculectomy of the abdomen. . Excision of hidradenitis of the bilateral medial thighs. Bilateral chronic hidradenitis of the upper thighs and groin with history of MRSA. History of iron deficiency anemia now completely corrected. . 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 Bilateral chronic hidradenitis of the upper thighs and groin with history of MRSA. Status post wound VAC application bilateral thighs with washout done on September 23 Plan Infectious disease recommends keeping patient on IV antibiotics for the next several days and reevaluate Wound VAC management as ordered to be changed every 48 hours Infectious disease recommendations Vancomycin for treatment of history of MRSA infection DVT and GI prophylaxis Further recommendations pending manager icu pursuing the discharge plan patient will follow-up with the [facility] and also have home care change wound VAC every 48 hours once patient is discharged The above dictated assessment and findings were discussed with Dr. mata covering for Dr. Drew Impression and the plan of care have been dictated as directed. Ana Abraham nurse practitioner acting as a scribe for Dr. mata covering for Dr. Drew
[2016-09-25] MEDS ORDERED: HYDROmorphone 1 MG/ML 1 ML SYRINGE IVP STA (15:25)
[2016-09-25] MEDS: cefTRIAXone 2,000 MG in SODIUM CHLORIDE 0.9% 100 ML IVPB SCH (15:32)
[2016-09-25] MEDS: ENOXAPARIN 40 MG/0.4 ML SYRINGE SQ SCH (17:32)
[2016-09-25] MEDS: HYDROcodone/APAP 5-325MG 1 EACH TAB PO PRN ×2 (17:51→22:03)
[2016-09-25] MEDS: lamoTRIgine 100 MG TAB PO SCH (22:00)
[2016-09-26] MEDS: VANCOMYCIN 1,500 MG in SODIUM CHLORIDE 0.9% 250 ML IVPB SCH ×4 (00:10→23:06)
[2016-09-26] MEDS: HYDROmorphone 1 MG/ML 1 ML SYRINGE IV PRN ×3 (00:10→22:27)
[2016-09-26] MEDS: HYDROcodone/APAP 5-325MG 1 EACH TAB PO PRN ×4 (04:50→21:00)
[2016-09-26] MEDS: BACLOFEN 10 MG TAB PO SCH ×2 (07:37→21:01)
[2016-09-26] MEDS: MAGNESIUM OXIDE 400 MG TAB PO SCH (07:38)
[2016-09-26] MEDS: MULTIVITAMINS, THERA 1 EACH TAB PO SCH (07:38)
[2016-09-26] MEDS: BUTALB/APAP/CAFF 50-325-40MG TAB PO PRN (07:38)
[2016-09-26] MEDS: PREGABALIN 75 MG CAP PO SCH ×2 (07:42→23:18)
[2016-09-26 09:12] LABS: Anion Gap 5 mmol/L; Blood Urea Nitrogen 7 mg/dL (7-17); Calcium 9.1 mg/dL (8.4-10.2); Carbon Dioxide 31 mmol/L (22-30); Chloride 106 mmol/L (98-107); Glucose 83 mg/dL (74-99); Non-African American GFR(MDRD) >60 (>60 ml/min/1.73 sqM); Potassium 4.2 mmol/L (3.5-5.1); Sodium 142 mmol/L (137-145)
[2016-09-26] MEDS: SODIUM CHLORIDE 0.9% 1,000 ML IV SCH ×2 (10:02→20:56)
--- NOTE | 2016-09-26 10:20 | P.PN ---
Subjective Patient is a 46-year-old female who has undergone bilateral groin debridement the procedure was done on September 23. with wound vacs in place. Her case has been discussed by infectious disease and she is presently receiving IV antibiotic therapy. The patient has a history of hidradenitis. The patient has a history of MRSA infection. Objective - Vital Signs Vital signs: Vital Signs Temp 96.3 F L 09/26/16 07:00 Pulse 60 09/26/16 07:00 Resp 16 09/26/16 08:00 BP 90/54 09/26/16 07:00 Pulse Ox 97 09/26/16 07:00 Intake & Output 09/25/16 09/26/16 09/26/16 18:59 06:59 18:59 Intake Total 940 Balance 940 Intake: Oral 940 Other: Voiding Method Toilet Toilet # Voids 3 2 1 - Constitutional General appearance: Present: obese - Respiratory Respiratory: bilateral: CTA - Cardiovascular Rhythm: regular Heart sounds: normal: S1, S2 - Integumentary Integumentary Comment(s): Bilateral wound vacs to the right and left lateral thighs - Psychiatric Psychiatric: Present: A&O x's 3, appropriate affect, intact judgment & insight - Labs CBC & Chem 7: 09/23/16 08:40 09/26/16 07:40 Labs: Abnormal Lab Results - Last 24 Hours (Table) 09/26/16 Range/Units 07:40 Carbon Dioxide 31 H (22-30) mmol/L Creatinine 0.47 L (0.52-1.04) mg/dL Microbiology - Last 24 Hours (Table) 09/21/16 17:52 Anaerobic Culture - Final Thigh - Right 09/21/16 15:51 Blood Culture - Preliminary Blood No Growth after 96 hours 09/22/16 10:59 Blood Culture - Preliminary Blood No Growth after 72 hours Assessment and Plan Plan: Impression/plan: 1. Status post bilateral medial thigh wound excision and placement of wound VAC 2. History of super morbid obesity loss of 252 pounds 3. Obstructive sleep apnea 4. Hidradenitis 5. History of MRSA Plan: 1. Infectious disease recommended keeping patient on IV antibiotics they will give final recommendations 2. Continue wound VAC care
--- NOTE | 2016-09-26 10:44 | PN ---
DATE OF SERVICE: 09/25/2016 REASON FOR FOLLOWUP: Bilateral medial thigh wound with infected hematoma. INTERVAL HISTORY: The patient is afebrile. She is currently breathing comfortably. Denies significant chest pain. No cough, no abdominal pain or any worsening pain in the bilateral medial thigh wound except at the time of dressing changes. On examination, blood pressure 116/69 with a pulse of 74, temperature 98.4. She is 97% on room air. General description is a middle-age female lying in bed in no distress. RESPIRATORY SYSTEM: Unlabored breathing. Clear to auscultation anteriorly. HEART: S1, S2, regular rate and rhythm. ABDOMEN: Soft, no tenderness. Bilateral medial thigh wounds are currently in packed, but examined at the time of the wound VAC change. Overall wound looks clean with no significant cellulitis or any purulent drainage. LABS: Hemoglobin is 9.2, white count 4.1 with a BUN of 8, creatinine 0.51. DIAGNOSTIC IMPRESSION AND PLAN: Patient with bilateral medial thigh wound infected hematoma status post drainage. Cultures with an E. coli and MRSA. Patient is at this time covered with vancomycin and Rocephin that will be continued over the weekend. Local wound care to the wound VAC. Hopefully she will finish therapy with oral antibiotics and no need for a PICC line.
[2016-09-26] MEDS: cefTRIAXone 2,000 MG in SODIUM CHLORIDE 0.9% 100 ML IVPB SCH (12:54)
[2016-09-26] MEDS: ENOXAPARIN 40 MG/0.4 ML SYRINGE SQ SCH (16:45)
[2016-09-26] MEDS: lamoTRIgine 100 MG TAB PO SCH (21:01)
[2016-09-26] MEDS: PREGABALIN 100 MG CAP PO SCH (23:16)
[2016-09-27] MEDS: HYDROcodone/APAP 5-325MG 1 EACH TAB PO PRN ×3 (06:26→18:29)
[2016-09-27] MEDS ORDERED: VANCOMYCIN TROUGH DUE 1 EACH MISC MISCELLANE ONE (07:00)
--- NOTE | 2016-09-27 07:45 | P.PN ---
Subjective Patient is a 46-year-old female who has undergone bilateral groin debridement the procedure was done on September 23. with wound vacs in place. Her case has been discussed by infectious disease and she is presently receiving IV antibiotic therapy. The patient has a history of hidradenitis. The patient has a history of MRSA infection. Objective - Vital Signs Vital signs: Vital Signs Temp 98.1 F 09/26/16 23:55 Pulse 67 09/26/16 23:55 Resp 20 09/26/16 23:55 BP 114/64 09/26/16 23:55 Pulse Ox 97 09/26/16 23:55 Intake & Output 09/26/16 09/27/16 09/27/16 18:59 06:59 18:59 Intake Total 500 Balance 500 Intake: Oral 500 Other: Voiding Method Toilet # Voids 1 3 # Bowel Movements 1 - Constitutional General appearance: Present: average body habitus - Respiratory Respiratory: bilateral: CTA - Cardiovascular Rhythm: regular Heart sounds: normal: S1, S2 - Integumentary Integumentary Comment(s): Bilateral thigh incisions which are clean with wound vacs in place - Psychiatric Psychiatric: Present: A&O x's 3, appropriate affect, intact judgment & insight - Labs CBC & Chem 7: 09/23/16 08:40 09/26/16 07:40 Labs: Abnormal Lab Results - Last 24 Hours (Table) 09/26/16 Range/Units 07:40 Carbon Dioxide 31 H (22-30) mmol/L Creatinine 0.47 L (0.52-1.04) mg/dL Microbiology - Last 24 Hours (Table) 09/21/16 15:51 Blood Culture - Preliminary Blood No Growth after 120 hours 09/22/16 10:59 Blood Culture - Preliminary Blood No Growth after 96 hours Assessment and Plan Plan: Impression/plan: 1. Status post bilateral medial thigh wound excision and placement of wound VAC 2. History of super morbid obesity loss of 252 pounds 3. Obstructive sleep apnea 4. Hidradenitis 5. History of MRSA Plan: 1. Infectious disease recommended keeping patient on IV antibiotics they will give final recommendations 2. Continue wound VAC care
[2016-09-27] MEDS: BACLOFEN 10 MG TAB PO SCH ×2 (07:53→20:25)
[2016-09-27] MEDS: MULTIVITAMINS, THERA 1 EACH TAB PO SCH (07:53)
[2016-09-27] MEDS: VANCOMYCIN 1,500 MG in SODIUM CHLORIDE 0.9% 250 ML IVPB SCH (07:53)
[2016-09-27] MEDS: MAGNESIUM OXIDE 400 MG TAB PO SCH (07:54)
[2016-09-27] MEDS: SODIUM CHLORIDE 0.9% 1,000 ML IV SCH ×2 (08:00→23:52)
[2016-09-27] MEDS: PREGABALIN 100 MG CAP PO SCH ×2 (08:00→20:35)
[2016-09-27 09:08] LABS: Anion Gap 5 mmol/L; Blood Urea Nitrogen 11 mg/dL (7-17); Calcium 8.9 mg/dL (8.4-10.2); Carbon Dioxide 31 mmol/L (22-30); Chloride 105 mmol/L (98-107); Glucose 80 mg/dL (74-99); Non-African American GFR(MDRD) >60 (>60 ml/min/1.73 sqM); Potassium 4.3 mmol/L (3.5-5.1); Sodium 141 mmol/L (137-145)
[2016-09-27] MEDS: cefTRIAXone 2,000 MG in SODIUM CHLORIDE 0.9% 100 ML IVPB SCH (11:32)
[2016-09-27] MEDS: HYDROmorphone 1 MG/ML 1 ML SYRINGE IV PRN (14:21)
[2016-09-27] MEDS: ENOXAPARIN 40 MG/0.4 ML SYRINGE SQ SCH (17:04)
[2016-09-27] MEDS: VANCOMYCIN 1,250 MG in SODIUM CHLORIDE 0.9% 250 ML IVPB SCH ×2 (17:04→23:48)
[2016-09-27] MEDS: lamoTRIgine 100 MG TAB PO SCH (20:25)
[2016-09-28] MEDS: HYDROcodone/APAP 5-325MG 1 EACH TAB PO PRN ×3 (01:59→12:04)
[2016-09-28] MEDS: MAGNESIUM OXIDE 400 MG TAB PO SCH (08:41)
[2016-09-28] MEDS: VANCOMYCIN 1,250 MG in SODIUM CHLORIDE 0.9% 250 ML IVPB SCH ×2 (08:41→17:24)
[2016-09-28] MEDS: PREGABALIN 100 MG CAP PO SCH (08:41)
[2016-09-28] MEDS: BACLOFEN 10 MG TAB PO SCH (08:42)
[2016-09-28] MEDS: MULTIVITAMINS, THERA 1 EACH TAB PO SCH (08:42)
--- NOTE | 2016-09-28 10:44 | PN ---
DATE OF SERVICE: 09/27/2016 Reason for follow-up is bilateral medial thigh infected hematoma and wound. INTERVAL HISTORY: The patient is afebrile. She is feeling better, pain to the bilateral medial thigh is currently controlled. Wound V.A.C. is applied. The patient has significant chest pain, shortness of breath and cough. No abdominal pain or diarrhea. On examination, blood pressure 95/55 with a pulse of 70, temperature 97.1. She is 96% on room air. GENERAL DESCRIPTION: Middle aged female, up in the bed in no distress. RESPIRATORY SYSTEM: Unlabored breathing. Clear to auscultation anteriorly. HEART: S1, S2. Regular rate and rhythm. ABDOMEN: Soft, no tenderness. Wounds are currently packed up with wound V.A.C. No surrounding swelling or drainage. LABS: BUN of 11, creatinine 0.53. DIAGNOSTIC IMPRESSION AND PLAN: Patient with methicillin-resistant Staphylococcus aureus and E. coli, bilateral medial thigh infected hematoma status post drainage. Patient at this time to continue with vancomycin and Cipro. However, she will be able to finish therapy with Bactrim DS for at least two weeks. Local wound care to continue with the wound VAC. will evaluate the wound tomorrow at time of dressing changes. Continue supportive care. HAILEE
[2016-09-28] MEDS: cefTRIAXone 2,000 MG in SODIUM CHLORIDE 0.9% 100 ML IVPB SCH (12:04)
--- NOTE | 2016-09-28 12:49 | P.PN ---
Subjective Patient is a 46-year-old female who has undergone bilateral groin debridement the procedure was done on September 23. with wound vacs in place. Her case has been discussed by infectious disease and she is presently receiving IV antibiotic therapy. The patient has a history of hidradenitis. The patient has a history of MRSA infection. As per infectious disease the patient is going to be discharged on oral antibiotics and is not felt to need IV antibiotic therapy. She is being discharged tomorrow with assisted. Objective - Vital Signs Vital signs: Vital Signs Temp 97.7 F 09/28/16 07:00 Pulse 69 09/28/16 07:00 Resp 12 09/28/16 08:00 BP 93/55 09/28/16 07:00 Pulse Ox 98 09/28/16 07:00 Intake & Output 09/27/16 09/28/16 09/28/16 18:59 06:59 18:59 Other: Voiding Method Toilet Toilet # Voids 1 2 - Constitutional General appearance: Present: obese - Respiratory Respiratory: bilateral: CTA - Cardiovascular Rhythm: regular Heart sounds: normal: S1, S2 - Integumentary Integumentary Comment(s): Bilateral thigh incisions with wound vacs intact in place no evidence of cellulitis or erythema - Labs CBC & Chem 7: 09/23/16 08:40 09/27/16 07:44 Labs: Microbiology - Last 24 Hours (Table) 09/21/16 15:51 Blood Culture - Final Blood No Growth after 144 hours 09/22/16 10:59 Blood Culture - Preliminary Blood No Growth after 120 hours Assessment and Plan Plan: Impression/plan: 1. Status post bilateral medial thigh wound excision and placement of wound VAC 2. History of super morbid obesity loss of 252 pounds 3. Obstructive sleep apnea 4. Hidradenitis 5. History of MRSA Plan: 1. Infectious disease recommended discharging patient on oral antibiotics 2. Continue wound VAC care 3. Discharge to assisted facility
--- NOTE | 2016-09-28 12:59 | P.DS ---
Providers Date of admission: 09/20/16 16:49 Attending physician: Ivonne Drew Consults: 09/21/16 16:25 Consult Physician Urgent Consulting Provider: Marianne Palma Consult Reason/Comments: fever, post surgical Do you want consulting provider notified?: Yes Primary care physician: [place] Hospital Course: Patient is a 46-year-old white female who is a long-standing history of hidradenitis in bilateral groins. She additionally has a history of MRSA infection. She was initially admitted and underwent surgical intervention by Dr. Sykes on 417. She then underwent an additional debridement and placement of wound vacs both Dr. Rubin on 419. At this time she is doing well and is stable for discharge to a nursing care facility as the wound vacs are in place on oral antibiotics. Patient Condition at Discharge: Fair Plan - Discharge Summary New Discharge Prescriptions: HYDROcodone/APAP 5-325MG [Orma 5] 1 - 2 each PO Q4H PRN #20 tab PRN Reason: Pain Sulfamethox-Tmp 800-160Mg [Bactrim DS 800-160 mg] 1 tab PO Q12HR #28 tab Discharge Medication List Albuterol Sulfate [Proair Hfa] 2 puff INHALATION RT-Q6H PRN 11/08/13 [History] Baclofen [Lioresal] 10 mg PO BID 11/08/13 [History] Butalb/Acetaminophen/Caffeine [Fioricet 50-325-40 mg Tablet] 1 tab PO Q6H PRN [History] Cetirizine HCl [Zyrtec] 10 mg PO DAILY 11/08/13 [History] Dextroamphetamine/Amphetamine [Adderall] 30 mg PO BID 11/08/13 [History] LORazepam [Ativan] 1 mg PO BID PRN 11/08/13 [History] Pregabalin [Lyrica] 300 mg PO BID 11/08/13 [History] lamoTRIgine [LaMICtal] 300 mg PO HS 11/08/13 [History] Multivitamins, Thera [Multivitamin] 1 tab PO DAILY 12/14/13 [History] Biotin 5 mg PO DAILY 01/29/16 [History] fentaNYL 75MCG/HR PATCH [Duragesic 75MCG/HR] 1 patch TRANSDERM Q72H 02/03/16 [ History] Magnesium Oxide [Magox 400] 400 mg PO DAILY #60 tablet 02/05/16 [Rx] HYDROcodone/APAP 5-325MG [Orma 5] 1 - 2 each PO Q4H PRN #20 tab 09/28/16 [Rx] Sulfamethox-Tmp 800-160Mg [Bactrim DS 800-160 mg] 1 tab PO Q12HR #28 tab [Rx] Follow up Appointment(s)/Referral(s): Abilio Mccollum DO [Primary Care Provider] - 1-2 days Marianne Palma MD [STAFF PHYSICIAN] - 1 Week Ivonne Drew MD [STAFF PHYSICIAN] - 1 Week Activity/Diet/Wound Care/Special Instructions: Wound VAC instructions as per infectious disease Continuous therapy at 125 mm hg pressure / black foam to be changed Wednesday and Wednesday hydro colloid or transparent film to periwound area Vaseline gauze to wound base Discharge Disposition: TRANSFER TO SNF/ECF
--- NOTE | 2016-09-28 14:11 | PN ---
DATE OF SERVICE: 09/28/2016 Reason for followup is bilateral thigh wound infection. INTERVAL HISTORY: The patient is afebrile, she is currently breathing comfortably. Pain to the upper medial thigh area is currently controlled. Patient denies significant chest pain. No cough, no abdominal pain nor any diarrhea. On examination, blood pressure is 93/65with a pulse of 69, temperature 97.7, she is 98% on room air. General description is a middle-age female up in the room in no distress. RESPIRATORY SYSTEM: Unlabored breathing. Clear to auscultation anteriorly. HEART: S1, S2 regular rate and rhythm. ABDOMEN: Soft, no tenderness. Bilateral medial thigh wounds are currently dressed with a wound VAC. DIAGNOSTIC IMPRESSION AND PLAN: Patient with bilateral medial thigh infected hematoma status post drainage. Cultures with Escherichia coli and methicillin-resistant Staphylococcus aureus. Plan is to finish therapy with Bactrim DS on twice a day for another 2 weeks. Wound VAC to the bilateral thigh area and outpatient followup.
--- NOTE | 2016-09-28 14:31 | XR ---
EXAMINATION TYPE: XR chest 2V DATE OF EXAM: 09/28/2016 2:00 PM COMPARISON: 11/14/2013 HISTORY: 46-year-old female ECF placement TECHNIQUE: Frontal and lateral views FINDINGS: The cardiomediastinal silhouette, aorta, and pulmonary vasculature are within normal limits. Some min imal patchy peripheral left basilar opacity. No pleural effusion seen on the lateral view. No other c onsolidation. ACDF hardware. Mild dextroconvex scoliosis. IMPRESSION: Some minimal patchy peripheral left basilar opacity, likely atelectasis.
[2016-09-28 16:06] VITALS: PULSE 71; RESP 14; TEMP 96.7
[2016-09-28 17:23] VITALS: BP 103/61
[2016-09-28] MEDS: SODIUM CHLORIDE 0.9% 1,000 ML IV SCH (17:23)
[2016-09-28] MEDS: HYDROmorphone 1 MG/ML 1 ML SYRINGE IV PRN (17:25)
[2016-09-28] MEDS: ENOXAPARIN 40 MG/0.4 ML SYRINGE SQ SCH (18:53)
--- NOTE | 2016-10-11 16:19 | P.OP ---
Date of Procedure: 09/21/16 Description of Procedure: DATE OF SERVICE: 09/21/2016 SURGEON: KINGSTON LIN MD PREOPERATIVE DIAGNOSES: 1. 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 2. History of bilateral medial thigh hidradenitis. 3. Acute wound dehiscence bilateral medial thighs. 4. Cellulitis bilateral medial thighs. 5. History of chronic pain syndrome. 6. High risk for readmission. 7. Fibromyalgia. 8. History of migraines. 9. History of chronic anemia. POSTOPERATIVE DIAGNOSES: 1. 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 2. History of bilateral medial thigh hidradenitis. 3. Acute wound dehiscence bilateral medial thighs. 4. Cellulitis bilateral medial thighs. 5. History of chronic pain syndrome. 6. High risk for readmission. 7. Fibromyalgia. 8. History of migraines. 9. History of chronic anemia. 10. Infected hematoma bilateral medial thigh with cellulitis. OPERATION: 1. Sharp excisional debridement using scalpel of wound necrosis with wound dehiscence 9 x 4 x 2 cm depth to fascia along right thigh. 2. Sharp excisional debridement using scalpel of wound necrosis with wound dehiscence 4 x 3 x 3 cm depth to fascia along left thigh. 3. Bilateral medial thigh wound exploration with evacuation of hematoma. 4. Washout, bilateral medial thigh using normal saline 3 L waterjet pulse lavage. 5. Application of wound VAC 36 sq cm right medial thigh. 6. Application of wound VAC 12 sq. cm left medial thigh. ANESTHESIA: General. ESTIMATED BLOOD LOSS: 30 mL. SPECIMENS REMOVED: Aerobic and anaerobic culture of bilateral thighs. COMPLICATIONS: NONE. FINDINGS: 1. Acute dehiscence at the "T" incision of the bilateral medial thighs. 2. Cellulitis along the bilateral upper medial thigh with dehiscence extended to the fascia. 3. Infected hematoma drained along both wounds after exploration. INDICATIONS: Alesha Bermudez is a 46-year-old female who now almost 2 going on 3 weeks ago had excision of the bilateral medial upper thighs secondary to recurrent MRSA infection and hidradenitis. She had undergone a long-standing treatment in wound care center with recurrent symptoms and had elected for excision of her bilateral hidradenitis which also incorporated panniculitis. After careful surgical discussion, she elected for surgical intervention despite her history of MRSA infection. Postoperatively, she was carefully monitored to minimize risk for DVTs and wound infection. Additionally, multiple surgical dressings antibiotic type were used. She then presented acutely to the hospital within the last 2 to 3 days with acute cellulitis of the bilateral medial upper thighs including drainage consistent with hematoma. She had temperatures and fevers of over 100 to 102. Urgent surgical intervention with debridement of the bilateral thighs were described including application of wound VAC. Informed consent was obtained. DESCRIPTION: The patient was brought to the operating room, placed in supine position. After general induction, the bilateral medial thighs were prepped and draped in standard sterile fashion. Prior to the incision, a timeout protocol was confirmed with surgical team regarding the patient's name including procedure to be performed. She was on scheduled intravenous vancomycin. Separately, a duplex ultrasound was negative for DVTs prior to start of her case. Initial attention was brought to the left thigh whereby wound dehiscence to the fascia was identified at the T incision or connecting incision of her flaps. The dehiscence had gone to the level of the fascia. Next, using a suction catheter, infected hematoma was evacuated from the deep subcutaneous tissue. The wound was acutely debrided using sharp excisional debridement of the scalpel such that any fat necrosis was also excised to healthy bleeding tissues. The size of the defect along the left side was 4 x 3 x 3 cm. A separate island of 3 x 2 cm 5 cm distal to the main wound dehiscence was also debrided along the subcutaneous tissue and skin as well. Attention was now brought to the right thigh whereby wound dehiscence also to the fascia of 9 x 4 cm was identified. Using a #15 blade sharp excisional debridement down to the subcutaneous tissue and fascia was performed of any wound necrosis including fat necrosis. Next, the wound was probed to identify and remove any hidden hematomas. Using suction catheter, the infected hematoma was similarly identified and evacuated from the inferior medial flap of the thigh. Next, the skin was cleansed using mechanical debridement of Hibiclens and normal saline solution. Once the skin was cleansed and dried, attention was brought to intermediate closure using skin cynthia. The defects were reapproximated to minimize risk of complete wound dehiscence of her recent closures of her legs. Along the opening of each wound, Aquacel AG was placed to the level of the subcutaneous tissue and fascia to provide antibiotic coverage with her history MRSA infection. Please note that aerobic, anaerobic cultures were also obtained for each leg separately. Next, prior to applying the Aquacel AG rope, each wound was copiously irrigated with a total of 3 L normal saline solution until healthy bleeding tissues in the wound bed had been cleaned. Aquacel AG was placed along the bed of the wound. Tegaderm was placed over the lining of the skin of the bilateral medial thigh wound. Next, a small wound VAC sponge was cut separately one for the left and one for the right and placed over the wounds of the bilateral medial thighs. Next, a large Tegaderm was placed over the skin. Suction adapters were placed after cutting a defect over the prominence of the wound VAC dressings. The left leg was placed frog leg as to allow for ambulation and similarly along the right thigh. Each suction adapter were attached to a wound VAC system whereby leaks were excluded. The settings were set to -125 mmHg pressure under continuous low suction. At the end of the procedure, the needle, sponge, and instrument count had been verified correct by the surgical pathologist. The patient was transferred to the postanesthesia care unit in stable condition. At that time, I had met with the infectious disease provider regarding findings of an infected hematoma including sharp excisional debridement performed of the skin and placement of Aquacel AG along the bed of the wound with wound VAC. Anticipated time for healing is approximately at least 2 months with continuous suction therapy.
== END 2016-09-28 20:31 | disposition home health service (06) | DRG 902 ==
LOC: EC 14:15 → 4MS4W 16:49
PROVIDERS: ADMIT Surgery Plastic and Reconstructive Surgery; ATTEND Surgery Plastic and Reconstructive Surgery
PROC: 0JBL0ZZ Excision of Right Upper Leg Subcutaneous Tissue and Fascia, Open Approach (ICD-10-PCS; principal; 2016-09-21 14:20)
PROC: 0JCN0ZZ Extirpation of Matter from Right Lower Leg Subcutaneous Tissue and Fascia, Open Approach (ICD-10-PCS; principal; 2016-09-21 14:20)
PROC: 0JBM0ZZ Excision of Left Upper Leg Subcutaneous Tissue and Fascia, Open Approach (ICD-10-PCS; principal; 2016-09-21 14:20)
PROC: 0JCM0ZZ Extirpation of Matter from Left Upper Leg Subcutaneous Tissue and Fascia, Open Approach (ICD-10-PCS; principal; 2016-09-21 14:20)
PROC: 0JDL0ZZ Extraction of Right Upper Leg Subcutaneous Tissue and Fascia, Open Approach (ICD-10-PCS; 2016-09-23)
PROC: 0JDM0ZZ Extraction of Left Upper Leg Subcutaneous Tissue and Fascia, Open Approach (ICD-10-PCS; 2016-09-23)
DX: T81.32XA Disruption of internal operation (surgical) wound, not elsewhere classified, initial encounter (principal); L03.116 Cellulitis of left lower limb; D69.6 Thrombocytopenia, unspecified; L03.115 Cellulitis of right lower limb; M96.840 Postprocedural hematoma of a musculoskeletal structure following a musculoskeletal system procedure; B95.62 Methicillin resistant Staphylococcus aureus infection as the cause of diseases classified elsewhere; F32.9 Major depressive disorder, single episode, unspecified; F41.0 Panic disorder [episodic paroxysmal anxiety]; Y83.8 Other surgical procedures as the cause of abnormal reaction of the patient, or of later complication, without mention of misadventure at the time of the procedure; F90.9 Attention-deficit hyperactivity disorder, unspecified type; G40.909 Epilepsy, unspecified, not intractable, without status epilepticus; G47.33 Obstructive sleep apnea (adult) (pediatric); G89.4 Chronic pain syndrome; H35.30 Unspecified macular degeneration; J45.909 Unspecified asthma, uncomplicated; K21.9 Gastro-esophageal reflux disease without esophagitis; L73.2 Hidradenitis suppurativa; M79.3 Panniculitis, unspecified; B96.20 Unspecified Escherichia coli [E. coli] as the cause of diseases classified elsewhere; M79.7 Fibromyalgia; Z87.891 Personal history of nicotine dependence; Z98.84 Bariatric surgery status; J30.2 Other seasonal allergic rhinitis; Z79.899 Other long term (current) drug therapy
CPT/HCPCS: 36415; 71020; 80048; 80053; 80074; 80202; 81025; 83605; 85025; 87040; 87070; 87075; 87077; 87186; 87205; 93970; 96360; 96361; 96365; 99284

== ENCOUNTER 2017-09-14 05:56 | Inpatient (IN) | payer MEDICARE ==
[2017-09-14] MEDS ORDERED: RX INFO: IV CONTRAST WAS GIVEN 1 EACH MISC MISCELLANE PRN (06:09)
[2017-09-14] MEDS ORDERED: IOPAMIDOL-300 CONTRAST 30 ML VIAL (ORAL USE) PO PRN (06:09)
[2017-09-14] MEDS ORDERED: SODIUM CHLORIDE 0.9% 1,000 ML IV STA (06:09)
[2017-09-14] MEDS ORDERED: FAMOTIDINE 20 MG/2 ML VIAL IV STA (06:10)
--- NOTE | 2017-09-14 06:13 | ED ---
General Adult HPI - General Source: patient, RN notes reviewed Mode of arrival: ambulatory Limitations: no limitations <Vasu Bermudez - Last Filed: 09/14/17 06:11> <Rylan Franco - Last Filed: 09/14/17 08:30> - General Chief complaint: Abdominal Pain Stated complaint: kidney problem Time Seen by Provider: 09/14/17 06:03 - History of Present Illness Initial comments: Patient is a pleasant 47-year-old female presenting to the emergency Department with bilateral flank pain. Patient states this is a chronic problem, worse in the past month. Patient believes she has kidney stones. Patient has been having some vomiting and epigastric discomfort as well. Patient does have a history of gastric bypass surgery approximately 20 years ago with revision approximately 3 years ago. No fevers. No dysuria or hematuria. No constipation or diarrhea. (Vasu Bermudez) - Related Data Home Medications Medication Instructions Recorded Confirmed Albuterol Sulfate [Proair Hfa] 2 puff INHALATION RT-Q6H PRN 11/08/13 09/20/16 Baclofen [Lioresal] 10 mg PO BID 11/08/13 09/20/16 Cetirizine HCl [Zyrtec] 10 mg PO DAILY 11/08/13 09/20/16 Pregabalin [Lyrica] 300 mg PO BID 11/08/13 09/20/16 lamoTRIgine [LaMICtal] 300 mg PO HS 11/08/13 09/20/16 Multivitamins, Thera [Multivitamin] 1 tab PO DAILY 12/14/13 09/20/16 Biotin 5 mg PO DAILY 01/29/16 09/20/16 Previous Rx's Medication Instructions Recorded Magnesium Oxide [Magox 400] 400 mg PO DAILY #60 tablet 02/05/16 HYDROcodone/APAP 5-325MG [[place] 5] 1 - 2 each PO Q4H PRN #20 tab 09/28/16 Sulfamethox-Tmp 800-160Mg [Bactrim 1 tab PO Q12HR #28 tab 09/28/16 DS 800-160 mg] Allergies Allergy/AdvReac Type Severity Reaction Status Date / Time house dust Allergy Mild Cough Verified 09/14/17 06:01 Review of Systems ROS Other: All systems not noted in ROS Statement are negative. Constitutional: Denies: fever Eyes: Denies: eye pain ENT: Denies: ear pain Respiratory: Denies: cough Cardiovascular: Denies: chest pain Endocrine: Denies: fatigue Gastrointestinal: Reports: abdominal pain Genitourinary: Denies: dysuria Musculoskeletal: Reports: back pain Skin: Denies: rash Neurological: Denies: weakness <AidanVasu - Last Filed: 09/14/17 06:11> ROS Other: All systems not noted in ROS Statement are negative. <Rylan Franco - Last Filed: 09/14/17 08:30> ROS Statement: Those systems with pertinent positive or pertinent negative responses have been documented in the HPI. Past Medical History Past Medical History: Asthma, Fibromyalgia Additional Past Medical History / Comment(s): back pain, migraines, past history of diabetes, NOW DIET CONTROLLED SINCE BARIATRIC SX. arthritis. blood in stool. kidney stones, cyst in left kidney. anemia, hx pancreatitis, MAC DEGERATION LT EY History of Any Multi-Drug Resistant Organisms: MRSA Date of last positivie culture/infection: 09/20/16 MDRO Source:: THIGH Past Surgical History: Bariatric Surgery, Section, Cholecystectomy, Hernia Repair, Orthopedic Surgery, Tonsillectomy Additional Past Surgical History / Comment(s): gastric bypass [address] Andrew, Carpel [place], rt shoulder, extensive nasal surgery, Sinus, nerve blocks to neck and back, Colonoscopy, Abcess on thigh 11/17, 02/03/2016 Panniculectomy, August 2016: Excess skin removal from bilateral thighs Past Anesthesia/Blood Transfusion Reactions: No Reported Reaction Past Psychological History: Anxiety, Bipolar, Depression, Panic Disorder Smoking Status: Never smoker Past Alcohol Use History: Occasional Past Drug Use History: Marijuana - Past Family History Mother Family Medical History: Diabetes Mellitus Father Family Medical History: Diabetes Mellitus <Vasu Bermudez - Last Filed: 09/14/17 06:11> General Exam Limitations: no limitations General appearance: alert, anxious Head exam: Present: atraumatic Eye exam: Present: normal appearance, PERRL ENT exam: Present: normal oropharynx Neck exam: Present: normal inspection Respiratory exam: Present: normal lung sounds bilaterally Cardiovascular Exam: Present: regular rate, normal rhythm Expanded Peripheral pulses: 2+: Dorsalis Pedis (R), Dorsalis Pedis (L) GI/Abdominal exam: Present: soft, tenderness (Mild to moderate epigastric tenderness to palpation). Absent: distended, guarding, rebound, rigid, pulsatile mass Extremities exam: Present: normal inspection. Absent: pedal edema, calf tenderness Back exam: Present: CVA tenderness (R), CVA tenderness (L) Neurological exam: Present: alert Psychiatric exam: Present: anxious Skin exam: Present: normal color <Vasu Bermudez - Last Filed: 09/14/17 06:11> Vital Signs 09/14/17 05:58 Temperature 98.2 F Pulse Rate 119 H Respiratory 28 H Rate Blood Pressure 151/91 O2 Sat by Pulse 98 Oximetry Medical Decision Making <Vasu Bermudez - Last Filed: 09/14/17 06:11> - Lab Data Result diagrams: 09/14/17 06:17 09/14/17 06:17 <Rylan Franco - Last Filed: 09/14/17 08:30> - Medical Decision Making CAT scan showed a possible renal cell carcinoma of the right kidney. I spoke with Dr. Barrientos's nurse practitioner and she agreed to admit the patient admitted the patient I spoke with Dr. Gray the urologist and he agreed to be on consult and will see the patient sometime today. (Rylan Franco) - Lab Data Lab Results 09/14/17 09/14/17 09/14/17 Range/Units 06:17 06:17 06:17 WBC 6.6 (3.8-10.6) k/uL RBC 4.22 (3.80-5.40) m/uL Hgb 13.0 (11.4-16.0) gm/dL Hct 39.3 (34.0-46.0) % MCV 93.1 (80.0-100.0) fL MCH 30.8 (25.0-35.0) pg MCHC 33.1 (31.0-37.0) g/dL RDW 12.8 (11.5-15.5) % Plt Count 278 (150-450) k/uL Neutrophils % 63 % Lymphocytes % 27 % Monocytes % 4 % Eosinophils % 4 % Basophils % 0 % Neutrophils # 4.2 (1.3-7.7) k/uL Lymphocytes # 1.8 (1.0-4.8) k/uL Monocytes # 0.3 (0-1.0) k/uL Eosinophils # 0.3 (0-0.7) k/uL Basophils # 0.0 (0-0.2) k/uL PT 9.6 (9.0-12.0) sec INR 1.0 (<1.2) APTT 23.3 (22.0-30.0) sec Sodium 141 (137-145) mmol/L Potassium 4.6 (3.5-5.1) mmol/L Chloride 106 (98-107) mmol/L Carbon Dioxide 23 (22-30) mmol/L Anion Gap 12 mmol/L BUN 18 H (7-17) mg/dL Creatinine 0.53 (0.52-1.04) mg/dL Est GFR (CKD-EPI)AfAm >90 (>60 ml/min/1.73 sqM) Est GFR (CKD-EPI)NonAf >90 (>60 ml/min/1.73 sqM) Glucose 102 H (74-99) mg/dL Calcium 10.4 H (8.4-10.2) mg/dL Total Bilirubin 0.4 (0.2-1.3) mg/dL AST 28 (14-36) U/L ALT 32 (9-52) U/L Alkaline Phosphatase 173 H (38-126) U/L Total Protein 7.1 (6.3-8.2) g/dL Albumin 4.4 (3.5-5.0) g/dL Amylase 117 H (30-110) U/L Lipase 270 (23-300) U/L Disposition <Vasu Bermudez - Last Filed: 09/14/17 06:11> Time of Disposition: 08:30 <Rylan Franco - Last Filed: 09/14/17 08:30> Clinical Impression: Lesion of right jackson kidney Disposition: ADMITTED IP TO THIS HOSP Referrals: Abilio Mccollum DO [Primary Care Provider] - 1-2 days
[2017-09-14] MEDS: MORPHINE SULFATE 4MG/4ML SYRG IV STA ×2 (06:22→08:10)
[2017-09-14] MEDS: ONDANSETRON 4 MG/2 ML VIAL IVP STA ×2 (06:22→08:09)
[2017-09-14 06:26] LABS: Basophils % (A) 0 %; Eosinophils # (A) 0.3 k/uL (0-0.7); Eosinophils % (A) 4 %; HCT 39.3 % (34.0-46.0); Lymphocytes # (A) 1.8 k/uL (1.0-4.8); Lymphocytes % (A) 27 %; MCH 30.8 pg (25.0-35.0); MCHC 33.1 g/dL (31.0-37.0); MCV 93.1 fL (80.0-100.0); Mean Platelet Volume 7.9; Monocytes # (A) 0.3 k/uL (0-1.0); Monocytes % (A) 4 %; Neutrophils # (A) 4.2 k/uL (1.3-7.7); Neutrophils % (A) 63 %; Platelet Count 278 k/uL (150-450); RBC 4.22 m/uL (3.80-5.40); RDW 12.8 % (11.5-15.5); WBC 6.6 k/uL (3.8-10.6)
[2017-09-14 06:37] LABS: ALT 32 U/L (9-52); AST 28 U/L (14-36); Albumin 4.4 g/dL (3.5-5.0); Alkaline Phosphatase 173 U/L (38-126); Amylase 117 U/L (30-110); Anion Gap 12 mmol/L; Blood Urea Nitrogen 18 mg/dL (7-17); Calcium 10.4 mg/dL (8.4-10.2); Carbon Dioxide 23 mmol/L (22-30); Chloride 106 mmol/L (98-107); Glucose 102 mg/dL (74-99); Lipase 270 U/L (23-300); Potassium 4.6 mmol/L (3.5-5.1); Sodium 141 mmol/L (137-145); Total Bilirubin 0.4 mg/dL (0.2-1.3); Total Protein 7.1 g/dL (6.3-8.2)
[2017-09-14 06:40] LABS: Partial Thromboplastin Time 23.3 sec (22.0-30.0); Prothrombin Time 9.6 sec (9.0-12.0)
[2017-09-14] MEDS ORDERED: MORPHINE SULFATE 4MG/4ML SYRG ONE (07:33)
--- NOTE | 2017-09-14 08:01 | CT ---
PROCEDURE: CT ABDOMEN + PELVIS With Contrast HISTORY: 47-year-old female with abdominal pain. COMPARISON: CT abdomen and pelvis 03/11/2016 TECHNIQUE: After administration of 100 mL of Isovue-300 contrast material intravenously, and oral contrast, CT imaging was obtained through the abdomen and pelvis. Coronal and sagittal reformations were performed. DOSE: Total Exam volume computed tomography dose index (CTDIvol) = 43.65 mGy and Dose Length Product (DLP) = 1787 mGY-cm. This CT exam was performed using one or more of the following dose reduction techniques: automated exposure control, adjustment of the mA and/or kV according to patient size, and/or use of iterative reconstruction technique. FINDINGS: Evaluation is limited by motion degradation. Lower thorax: Bilateral atelectasis. Distal esophageal wall thickening, may be due to esophagitis. Abdomen: Cholecystectomy clips are identified at the gallbladder fossa. The liver, spleen, pancreas, and bilateral adrenal glands are unremarkable. Evaluation of the kidneys is limited by bolus timing. There is a non- obstructive 5 millimeter calculus in the inferior left kidney. There is a too small to characterize 8 millimeter low-density lesion in the inferior right kidney, for example series 3 image 39, series 5 image 53, and series 6 image 26. This lesion appears to have internal enhancement and may represent a small renal cell carcinoma. Given its size, if further imaging evaluation is clinically desired, multiphase contrast-enhanced renal MRI should be obtained. Evaluation of the GI tract is limited by lack of distention and retained stool. There are postoperative changes of gastric bypass. Mild wall thickening of the excluded stomach, may be due to incomplete distention or gastritis. No bowel obstruction. Unremarkable appendix. There are multiple colonic diverticula. No free fluid, free air or significant abdominal adenopathy. The abdominal vasculature demonstrates mild atherosclerotic calcifications. Pelvis: The urinary bladder is unremarkable for degree of distension. The uterus demonstrates an intrauterine device. The bilateral nonenlarged ovaries are identified. No free fluid, free air or significant pelvic adenopathy. The pelvic vasculature demonstrates mild atherosclerotic calcifications. Bones: Degenerative changes of the spine. Mild grade 1 anterolisthesis of L4 on L5 is similar to prior. A vacuum disc is identified at T11-12. IMPRESSION: 1. There is a 2 small to characterize 8 millimeter low-density lesion in the inferior right kidney which appears to have internal enhancement and may represent a small renal cell carcinoma. Given its size, if further imaging evaluation is clinically desired, multiphase contrast-enhanced renal MRI should be obtained. 2. Nonobstructive left nephrolithiasis. 3. Postoperative changes of gastric bypass. No evidence of bowel obstruction. 4. Mild wall thickening of the excluded stomach, may be due to incomplete distention or gastritis. 5. Distal esophageal wall thickening, may be due to esophagitis. 6. Other findings as detailed above. [employer] 09/14/17 07:56 Call Doctor Regarding Above results, called Dr. Franco on 09/14 07:56 (-04:00)
[2017-09-14] MEDS ORDERED: SODIUM CHLORIDE 0.9% 1,000 ML IV ONE (08:30)
[2017-09-14] MEDS ORDERED: MORPHINE SULFATE 4MG/4ML SYRG IVP PRN (08:32)
[2017-09-14] MEDS ORDERED: ONDANSETRON 4 MG/2 ML VIAL IVP PRN (08:32)
[2017-09-14 09:07] LABS: Appearance,Urine Clear (Clear); Bilirubin,Urine Negative (Negative); Blood,Urine Negative (Negative); Color,Urine Yellow; Glucose,Urine (UA) Negative (Negative); Ketones,Urine Negative (Negative); Leukocyte Esterase,Urine Negative (Negative); Nitrite,Urine Negative (Negative); Protein,Urine Negative (Negative)
[2017-09-14] MEDS ORDERED: ALBUTEROL NEBULIZED 2.5 MG/3 ML INHALATION PRN (10:58)
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
[2017-09-14] MEDS: PANTOPRAZOLE 40 MG/10 ML VIAL IVP SCH ×2 (11:49→20:07)
[2017-09-14] MEDS: busPIRone HCl 5 MG TAB PO PRN ×2 (11:49→20:07)
[2017-09-14] MEDS: MORPHINE SULFATE 4MG/4ML SYRG IVP PRN ×3 (15:16→21:15)
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
[2017-09-14] MEDS: Dextroamphetamine/Amphetamine [Adderall] 30 MG PO SCH (20:07)
[2017-09-14] MEDS ORDERED: lamoTRIgine 100 MG TAB PO SCH (21:00)
[2017-09-15] MEDS: MORPHINE SULFATE 4MG/4ML SYRG IVP PRN ×3 (01:31→08:28)
[2017-09-15] MEDS: busPIRone HCl 5 MG TAB PO PRN ×2 (05:57→12:19)
[2017-09-15 07:20] VITALS: TEMP 98
[2017-09-15] MEDS: Dextroamphetamine/Amphetamine [Adderall] 30 MG PO SCH (07:23)
[2017-09-15] MEDS: PANTOPRAZOLE 40 MG/10 ML VIAL IVP SCH (08:27)
[2017-09-15] MEDS: MORPHINE ORAL SOLN 10 MG/5 ML CUP PO PRN ×2 (12:54→16:51)
--- NOTE | 2017-09-15 13:54 | P.PN ---
Progress Note - Text Progress Note Date: 09/15/17 Patient tolerating regular diet. She has history of gastric bypass. She will need Protonix as she takes Celebrex that causes chronic ulcers. Patient is clinically stable. She full dictated consult.
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
[2017-09-15 15:47] VITALS: BP 97/62; PULSE 79; RESP 20
--- NOTE | 2017-09-15 18:29 | P.DS ---
Providers Date of admission: 09/14/17 08:30 Attending physician: Guy Barrientos Consults: 09/14/17 08:30 Consult Physician Urgent Consulting Provider: Marcelo Gibson Consult Reason/Comments: Right kidney lesion Do you want consulting provider notified?: Yes 09/14/17 13:55 Consult Physician Routine Consulting Provider: Ivonne Drew Consult Reason/Comments: Kidney lesion Do you want consulting provider notified?: Already Contacted Primary care physician: [facility] Course: This was admitted for left flank pain which is believed secondary to renal calculi patient was valuated by urology and patient is scheduled for shockwave lithotripsy on Wednesday and patient's pain is better and patient will be discharged today on [place] for pain along with buspirone for abdominal cramps. There may be a competent of chronic low back pain as well. Patient will be discharged today. PHYSICAL EXAMINATION: GENERAL: The patient is alert and oriented x3, not in any acute distress. Well developed, well nourished. HEENT: Pupils are round and equally reacting to light. EOMI. No scleral icterus. No conjunctival pallor. Normocephalic, atraumatic. No pharyngeal erythema. No thyromegaly. CARDIOVASCULAR: S1 and S2 present. No murmurs, rubs, or gallops. PULMONARY: Chest is clear to auscultation, no wheezing or crackles. ABDOMEN: Soft, nontender, nondistended, normoactive bowel sounds. No palpable organomegaly. MUSCULOSKELETAL: No joint swelling or deformity. EXTREMITIES: No cyanosis, clubbing, or pedal edema. NEUROLOGICAL: Gross neurological examination did not reveal any focal deficits. SKIN: No rashes. Assessment and Plan Plan: -abdominal pain nausea vomiting: Probably secondary to nephrolithiasis -Left-sided nephrolithiasis with a cyst in the kidney -Gastritis and esophagitis patient is being discharged on Prilosec -History of gastric bypass surgery in the past -Fibromyalgia -Asthma without any acute examination -Sleep apnea patient is on CPAP machine Plan - Discharge Summary Discharge Rx Participant: No New Discharge Prescriptions: New Omeprazole 40 mg PO DAILY #90 capsule. busPIRone HCl [Buspar] 5 mg PO TID PRN #30 tab PRN Reason: Spasms HYDROcodone/APAP 7.5-325MG [[place] 7.5-325] 1 tab PO Q4H PRN #20 tab PRN Reason: Pain No Action lamoTRIgine [LaMICtal] 300 mg PO HS Albuterol Sulfate [Proair Hfa] 2 puff INHALATION RT-Q6H PRN PRN Reason: Wheezing Loratadine [Claritin] 10 mg PO DAILY Dextroamphetamine/Amphetamine [Adderall] 30 mg PO BID Discharge Medication List Albuterol Sulfate [Proair Hfa] 2 puff INHALATION RT-Q6H PRN 11/08/13 [History] lamoTRIgine [LaMICtal] 300 mg PO HS 11/08/13 [History] Dextroamphetamine/Amphetamine [Adderall] 30 mg PO BID 09/14/17 [History] Loratadine [Claritin] 10 mg PO DAILY 09/14/17 [History] HYDROcodone/APAP 7.5-325MG [[place] 7.5-325] 1 tab PO Q4H PRN #20 tab 09/15/17 [Rx ] Omeprazole 40 mg PO DAILY #90 capsule. 09/15/17 [Rx] busPIRone HCl [Buspar] 5 mg PO TID PRN #30 tab 09/15/17 [Rx] Follow up Appointment(s)/Referral(s): Abilio Mccollum DO [Primary Care Provider] - 09/22/17 2:00 pm (Follow-up appt. previously scheduled by patient. ) Marcelo Gibson MD [STAFF PHYSICIAN] - 1 Week (Patient to contact Urology office tomorrow a.m. in order to schedule Lithotripsy.) Patient Instructions/Handouts: *Surgery [facility] - ([facility]rol) Extracorporeal Shockwave Lithotripsy (ESWL) Post-Op Instr, Hydrocodone/Acetaminophen (By mouth), Buspirone (By mouth), Omeprazole (By mouth), Kidney Stones (DC), Lithotripsy ( GEN) Discharge Disposition: HOME SELF-CARE
== END 2017-09-15 18:14 | disposition home or self-care (01) | DRG 694 ==
LOC: EC 05:56 → 5MS5E 08:30 → OBSVTOIN 08:30 → 5MS5E 09:01
PROVIDERS: ADMIT Hospitalist; ATTEND Hospitalist
DX: N20.0 Calculus of kidney (principal); E11.9 Type 2 diabetes mellitus without complications; N28.89 Other specified disorders of kidney and ureter; G43.909 Migraine, unspecified, not intractable, without status migrainosus; M79.7 Fibromyalgia; M19.91 Primary osteoarthritis, unspecified site; J45.909 Unspecified asthma, uncomplicated; H35.30 Unspecified macular degeneration; F41.0 Panic disorder [episodic paroxysmal anxiety]; F31.9 Bipolar disorder, unspecified; K20.9 Esophagitis, unspecified; G47.33 Obstructive sleep apnea (adult) (pediatric); K29.70 Gastritis, unspecified, without bleeding; G89.29 Other chronic pain; K58.9 Irritable bowel syndrome, unspecified; L73.2 Hidradenitis suppurativa; T39.395A Adverse effect of other nonsteroidal anti-inflammatory drugs [NSAID], initial encounter; M54.9 Dorsalgia, unspecified; Z79.899 Other long term (current) drug therapy; Z87.442 Personal history of urinary calculi; Z98.84 Bariatric surgery status; Z87.891 Personal history of nicotine dependence; Z90.49 Acquired absence of other specified parts of digestive tract; Z98.1 Arthrodesis status; Z86.14 Personal history of Methicillin resistant Staphylococcus aureus infection; Z91.09 Other allergy status, other than to drugs and biological substances; Z83.3 Family history of diabetes mellitus; Z79.1 Long term (current) use of non-steroidal anti-inflammatories (NSAID)
CPT/HCPCS: 36415; 74177; 80053; 81003; 82150; 83690; 85025; 85610; 85730; 96361; 96374; 96375; 96376; 99285

== ENCOUNTER 2017-09-20 09:15 | Day surgery (SDC) | payer MEDICARE ==
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
[~2017-09-20 09:15] MED LIST changes: -ACETAMINOPHEN TAB 500 MG TAB PO STA; -DEXAMETHASONE SOD PHOSPHATE 10 MG/ML 1 ML VIAL IV ONE; -LACTATED RINGERS 1,000 ML IV SCH; -MIDAZOLAM 2 MG/2 ML VIAL IV PRN; -SCOPOLAMINE 1.5MG/72HR PATCH TRANSDERM ONE
--- NOTE | 2017-09-20 09:40 | XR ---
EXAMINATION TYPE: XR KUB DATE OF EXAM: 09/20/2017 9:27 AM CLINICAL HISTORY: Left-sided renal calculus. TECHNIQUE: Two supine KUB images of the abdomen are obtained. COMPARISON: CT abdomen and pelvis from September 14, 2017 FINDINGS: Numerous sutures are redemonstrated over the left midabdomen scaring previously visualized 5 mm calculus lower pole level. No definite right-sided nephrolithiasis. Cholecystectomy clips are seen. Scattered pelvic phleboliths are present. Metallic IUD in the pelvis is redemonstrated. Round 3 mm metallic density over right iliac bone is of uncertain etiology. There is overall nonobstructive bowel gas pattern. Visualized osseous structures are intact. IMPRESSION: Previously visualized 5 mm calculus lower pole level left kidney is not clearly seen on p maria guadalupe films. Evaluation suboptimal due to overlying surgical sutures and small clips from prior bowel surgery at this level.
[2017-09-20 10:32] VITALS: RESP 16; TEMP 97.1
[2017-09-20 10:32] LABS: Glucose,Whole Blood 93 mg/dL (75-99)
[2017-09-20] MEDS ORDERED: LIDOCAINE 1% 20 ML VIAL (10MG/ML) FOR IV START INTRADERMA ONE (10:32)
[2017-09-20] MEDS ORDERED: LACTATED RINGERS 1,000 ML IV ONE (10:32)
--- NOTE | 2017-09-20 11:12 | P.OP ---
Date of Procedure: 09/20/17 Preoperative Diagnosis: Left renal calculus Postoperative Diagnosis: Left renal calculus Procedure(s) Performed: Examination of left kidney via fluoroscopy Anesthesia: none Pathology: none sent Condition: stable Disposition: PACU Indications for Procedure: The patient is a 47-year-old female with a history of back pain who was noted to have a 3 x 4 mm calculus in the lower pole of the left kidney on a computed tomography scan performed last week. The patient was seen by Dr. Gibson in consultation and ESWL was recommended as a treatment option. Description of Procedure: The patient was taken to the lithotripsy suite and placed in the supine position on the fluoroscopy table. Multiple attempts were made to identify the left renal calculus via fluoroscopy but unfortunately this proved impossible. It was not possible to identify the calculus on the preoperative KUB either. In view of this the procedure was canceled. The patient will discuss ureteroscopy with lithotripsy as a treatment option with Dr. Gbison in the future
[2017-09-20 11:56] VITALS: BP 128/78; PULSE 77
== END 2017-09-20 12:30 | disposition home or self-care (01) ==
LOC: ORWHC2ENDO 09:15
PROVIDERS: ATTEND Urology
DX: N20.0 Calculus of kidney (principal); Z53.8 Procedure and treatment not carried out for other reasons; J45.909 Unspecified asthma, uncomplicated; E11.9 Type 2 diabetes mellitus without complications; H57.9 Unspecified disorder of eye and adnexa; M79.7 Fibromyalgia; M19.90 Unspecified osteoarthritis, unspecified site; G89.29 Other chronic pain; G43.909 Migraine, unspecified, not intractable, without status migrainosus; K58.9 Irritable bowel syndrome, unspecified; G47.33 Obstructive sleep apnea (adult) (pediatric); F41.9 Anxiety disorder, unspecified; F31.9 Bipolar disorder, unspecified; F41.0 Panic disorder [episodic paroxysmal anxiety]; K21.9 Gastro-esophageal reflux disease without esophagitis; Z98.84 Bariatric surgery status; Z90.49 Acquired absence of other specified parts of digestive tract; Z98.1 Arthrodesis status; Z79.899 Other long term (current) drug therapy; Z87.19 Personal history of other diseases of the digestive system; Z86.14 Personal history of Methicillin resistant Staphylococcus aureus infection; Z91.09 Other allergy status, other than to drugs and biological substances; Z99.89 Dependence on other enabling machines and devices; Z87.891 Personal history of nicotine dependence
CPT/HCPCS: 74018; 81025

== ENCOUNTER → 2018-03-01 | Outpatient (CLI) | payer MEDICARE ==
[2018-03-01 18:04] LABS: HCT 35.1 % (34.0-46.0); HGB 11.3 gm/dL (11.4-16.0); MCH 31.5 pg (25.0-35.0); MCHC 32.4 g/dL (31.0-37.0); MCV 97.3 fL (80.0-100.0); Mean Platelet Volume 7.9; Platelet Count 192 k/uL (150-450); RBC 3.61 m/uL (3.80-5.40); RDW 12.9 % (11.5-15.5)
[2018-03-01 18:15] LABS: Partial Thromboplastin Time 23.6 sec (22.0-30.0)
[2018-03-01 18:26] LABS: ALT 26 U/L (9-52); AST 37 U/L (14-36); Albumin 3.9 g/dL (3.5-5.0); Alkaline Phosphatase 122 U/L (38-126); Anion Gap 6 mmol/L; Blood Urea Nitrogen 18 mg/dL (7-17); Calcium 9.6 mg/dL (8.4-10.2); Carbon Dioxide 27 mmol/L (22-30); Chloride 106 mmol/L (98-107); Cholesterol 146 mg/dL (<200); Glucose 95 mg/dL (74-99); HDL Cholesterol 77 mg/dL (40-60); LDL Cholesterol,Calculated 50 mg/dL (0-99); Phosphorus 3.9 mg/dL (2.5-4.5); Potassium 4.6 mmol/L (3.5-5.1); Sodium 139 mmol/L (137-145); Total Bilirubin 0.2 mg/dL (0.2-1.3); Total Protein 6.4 g/dL (6.3-8.2); Triglycerides 94 mg/dL (<150)
[2018-03-01 18:40] LABS: Magnesium 1.8 mg/dL (1.6-2.3)
[2018-03-02 02:30] LABS: Parathyroid Hormone Intact 62.8 pg/mL (14.0-72.0)
[2018-03-02 03:13] LABS: Iron Saturation 40.25 (12.00-45.00)
[2018-03-02 03:21] LABS: Folate, Serum 7.6 ng/mL; Vitamin D 25 Hydroxy 19.7 ng/mL (30.0-100.0)
[2018-03-03 12:57] LABS: Zinc, Serum 72 ug/dL (60-130)
== END | disposition home or self-care (01) ==
LOC: LABWHC1 17:26
PROVIDERS: ATTEND Surgery Plastic and Reconstructive Surgery
DX: E55.9 Vitamin D deficiency, unspecified (principal); E66.01 Morbid (severe) obesity due to excess calories; E21.1 Secondary hyperparathyroidism, not elsewhere classified; D50.9 Iron deficiency anemia, unspecified; E44.0 Moderate protein-calorie malnutrition; K74.1 Hepatic sclerosis; N19 Unspecified kidney failure; K50.90 Crohn's disease, unspecified, without complications
CPT/HCPCS: 36415; 80053; 80061; 82306; 82525; 82607; 82728; 82746; 83036; 83540; 83550; 83735; 83970; 84100; 84134; 84255; 84425; 84443; 84590; 84630; 85027; 85610; 85730

== ENCOUNTER → 2018-05-24 | Outpatient (CLI) | payer MEDICARE ==
--- NOTE | 2018-05-25 07:03 | US ---
EXAMINATION TYPE: US pelvis complete transvag DATE OF EXAM: 05/24/2018 COMPARISON: CT 09/14/2017, US 05/15/2013 CLINICAL HISTORY: R10.2 Pelvic Pain. Right pelvic pain. Patient has an IUD TECHNIQUE: Transvaginal (TV) and Transabdominal (TA) . Transabdominal sonographic images of the pel vis were acquired. Transvaginal sonographic images were medically necessary to better assess the fol lowing anatomy: Uterus and ovaries Date of LMP: 10 years ago, IUD EXAM MEASUREMENTS: Uterus: 5.7 x 3.2 x 3.4 cm Endometrial Stripe: 0.3 cm Right Ovary: 1.8 x 0.9 x 1.3 cm Left Ovary: 1.6 x 0.8 x 0.9 cm 1. Uterus: Anteverted Heterogeneous 2. Endometrium: wnl, IUD visualized in mid portion 3. Right Ovary: wnl as visualized, obscured by bowel gas 4. Left Ovary: wnl as visualized, obscured by bowel gas 5. Bilateral Adnexa: Obscured by large amount of overlying bowel gas, wnl as visualized 6. Posterior cul-de-sac: wnl Heterogeneous anteverted uterus with central shadowing IUD. No free fluid in pelvic cul-de-sac. Visualized portion of both ovaries felt unremarkable. No suspicious adnexal masses are present. IMPRESSION: No suspicious finding is seen to account for patient's symptoms.
== END | disposition home or self-care (01) ==
LOC: RADUSWWP 15:48
PROVIDERS: ATTEND Obstetrics & Gynecology
DX: R10.2 Pelvic and perineal pain (principal)
CPT/HCPCS: 76830; 76856

== ENCOUNTER 2018-06-27 13:02 | Day surgery (SDC) | payer MEDICARE ==
[2018-06-23 15:32] VITALS: BMI 35.5
--- NOTE | 2018-06-27 07:07 | P.GSHP ---
History of Present Illness H&P Date: 06/27/18 CHIEF COMPLAINT: GERD HISTORY OF PRESENT ILLNESS: The patient is a 47-year-old female who presents reports gastroesophageal reflux disease. Upper endoscopy was offered for further evaluation and management. PAST MEDICAL HISTORY: Please see list. PAST SURGICAL HISTORY: Please see list. MEDICATIONS: Please see list. ALLERGIES: Please see list. SOCIAL HISTORY: No illicit drug use FAMILY HISTORY: No reports of Crohn disease or ulcerative colitis. REVIEW OF ORGAN SYSTEMS: CONSTITUTIONAL: No reports of fevers or chills. GI: Denies any blood in stools or constipation. PHYSICAL EXAM: VITAL SIGNS: Stable GENERAL: Well-developed and pleasant in no acute distress. HEENT: No scleral icterus. Extraocular movements grossly intact. Moist buccal mucosa. NECK: Supple without lymphadenopathy. CHEST: Unlabored respirations. Equal bilateral excursions. CARDIOVASCULAR: Regular rate and rhythm. Distal 2+ pulses. ABDOMEN: Soft, nondistended. MUSCULOSKELETAL: No clubbing, cyanosis, or edema. ASSESSMENT: 1. Gastroesophageal reflux disease PLAN: 1. Recommend proceeding with an upper endoscopy Past Medical History Past Medical History: Asthma, Diabetes Mellitus, Eye Disorder, Fibromyalgia, Osteoarthritis (OA), Skin Disorder, Sleep Apnea/CPAP/BIPAP Additional Past Medical History / Comment(s): Nephrolithiasis , cyst on kidney, Herniated discs with chronic back pain. , Hidradenitis groins/thighs with cellulitis/wounds now healed (had surgery and wound vacs). Migraines. ,NIDDM type II-diet controlled since wt loss with bariatric surgery Arthritis., Hx of bleeding hemorroids, IBS. Pancreatitis prior to cholecystectomy. Sinus problems. , Hx of stomach ulcer. History of Any Multi-Drug Resistant Organisms: MRSA Date of last positivie culture/infection: 09/20/16 MDRO Source:: BOTH THIGH Past Surgical History: Bariatric Surgery, Section, Cholecystectomy, Hernia Repair, Orthopedic Surgery, Tonsillectomy Additional Past Surgical History / Comment(s): Gastric bypass [address] Andrew with revision about 2012, panniculectomy, August 2016: Excess skin removal from bilateral thighs/panniculitis with debridements/wound vacs. Bilateral carpal tunnel. Right rotator cuff. Sinus surgery. Nerve blocks to neck and back. Cervical fusions (C-5-6-7), Sleep Apnea surgery. Past Anesthesia/Blood Transfusion Reactions: No Reported Reaction, Motion Sickness Past Psychological History: Anxiety, Bipolar, Depression, Panic Disorder Additional Psychological History / Comment(s): . Smoking Status: Former smoker Past Alcohol Use History: Rare Additional Past Alcohol Use History / Comment(s): Pt started smoking as a teen and quit in 1993. She had been a lite smoker( 3-5 cigarettes a day.) Past Drug Use History: Marijuana Additional Drug Use History / Comment(s): Occasional marijuana use. - Past Family History Mother Family Medical History: Diabetes Mellitus Father Family Medical History: Diabetes Mellitus Additional Family Medical History / Comment(s): Pt does not have contact with her parents. Medications and Allergies Home Medications Medication Instructions Recorded Confirmed Type Albuterol Sulfate [Proair Hfa] 2 puff INHALATION RT-Q6H PRN 11/08/13 06/23/18 History lamoTRIgine [LaMICtal] 300 mg PO HS 11/08/13 06/23/18 History Dextroamphetamine/Amphetamine 30 mg PO BID 09/14/17 06/23/18 History [Adderall] Loratadine [Claritin] 10 mg PO DAILY 09/14/17 06/23/18 History Omeprazole 40 mg PO DAILY 09/17/17 06/23/18 History Acetaminophen [Tylenol Extra 1,000 mg PO DIRECTED PRN 06/23/18 06/23/18 History Strength] Ibuprofen [Motrin Ib] 600 mg PO DAILY PRN 06/23/18 06/23/18 History Sucralfate [Carafate] 1 gm PO ACHS 06/23/18 06/23/18 History Allergies Allergy/AdvReac Type Severity Reaction Status Date / Time house dust Allergy Mild Cough Verified 06/23/18 14:55 grass pollen Allergy Cough Verified 06/23/18 14:55
[~2018-06-27 13:02] MED LIST changes: +LACTATED RINGERS 1,000 ML IV SCH; -Pre Op ABX Message 1 EACH MISC MISCELLANE ONE
[2018-06-27 13:23] VITALS: TEMP 96.1
[2018-06-27] MEDS ORDERED: LIDOCAINE 1% 20 ML VIAL (10MG/ML) FOR IV START INTRADERMA ONE (13:27)
[2018-06-27] MEDS ORDERED: PROPOFOL 10 MG/ML 20 ML VIAL IV ONE (14:19)
[2018-06-27 14:40] VITALS: RESP 18
--- NOTE | 2018-06-27 14:50 | P.PCN ---
Date of Procedure: 06/27/18 Description of Procedure: PREOPERATIVE DIAGNOSIS: Dysphagia. s/p Philip-en-y gastric bypass. Nausea with vomiting. Morbid obesity. POSTOPERATIVE DIAGNOSIS: Dysphagia. s/p Philip-en-y gastric bypass. Nausea with vomiting. Diabetes type 2. Gastrojejunal stricture with chronic ulcer without perforation OPERATION: Esophagogastrojejunoscopy with balloon dilatation from 12 to 18 mm. SURGEON: Ivonne Drew MD ANESTHESIA: MAC. INDICATIONS: The patient is a 47-year-old female who presents with a history of dysphagia, gastric bypass including nausea and vomiting. Benefits and risks of the procedure were described. Informed consent was obtained. DESCRIPTION: The patient was brought into the endoscopy suite and laid in the left lateral decubitus position. After a timeout was confirmed, the procedure was initiated. An Olympus gastroscope was passed along the posterior oropharynx down to the distal esophagus where the squamocolumnar junction was unremarkable. The gastric pouch was entered. A gastrojejunal stricture of 12 mm was found as the adult gastroscope was 9.5 mm in size. A [place] balloon dilator was placed through the scope. Final insufflation up to 18 mm was performed with a total of 1 minute. The scope was advanced up to 50 cm from the incisors into the Philip limb. The mucosa of the gastrojejunal anastomosis was intact. However chronic gastrojejunal marginal ulcer was encountered. No full-thickness injury was encountered. The GI tract was desufflated. The patient tolerated the procedure well. FINDINGS: Stricture of approximately 12 mm encountered. Chronic gastrojejunal ulceration encountered. Successful balloon dilatation to 18 mm. RECOMMENDATIONS: Discontinue all NSAIDs and future exposure Combined therapy of Carafate and omeprazole of at least 4 weeks. Plan - Discharge Summary New Discharge Prescriptions: Discontinued Ibuprofen [Motrin Ib] 600 mg PO DAILY PRN PRN Reason: Pain No Action lamoTRIgine [LaMICtal] 300 mg PO HS Albuterol Sulfate [Proair Hfa] 2 puff INHALATION RT-Q6H PRN PRN Reason: Wheezing Loratadine [Claritin] 10 mg PO DAILY Dextroamphetamine/Amphetamine [Adderall] 30 mg PO BID Omeprazole 40 mg PO DAILY Sucralfate [Carafate] 1 gm PO ACHS Acetaminophen [Tylenol Extra Strength] 1,000 mg PO DIRECTED PRN PRN Reason: Pain Discharge Medication List Albuterol Sulfate [Proair Hfa] 2 puff INHALATION RT-Q6H PRN 11/08/13 [History] lamoTRIgine [LaMICtal] 300 mg PO HS 11/08/13 [History] Dextroamphetamine/Amphetamine [Adderall] 30 mg PO BID 09/14/17 [History] Loratadine [Claritin] 10 mg PO DAILY 09/14/17 [History] Omeprazole 40 mg PO DAILY 09/17/17 [History] Acetaminophen [Tylenol Extra Strength] 1,000 mg PO DIRECTED PRN 06/23/18 [ History] Sucralfate [Carafate] 1 gm PO ACHS 06/23/18 [History] Follow up Appointment(s)/Referral(s): Iovnne Drew MD [STAFF PHYSICIAN] - As Needed Patient Instructions/Handouts: *[facility] - (Anesthesia) Endoscopy Discharge Instructions, Esophageal Dilation (DC), Upper Endoscopy (DC), Peptic Ulcer (DC) Activity/Diet/Wound Care/Special Instructions: No Motrin, no ibuprofen, no Aleve, no aspirin for history of ulcers. Diet as tolerated Discharge Disposition: HOME SELF-CARE
[2018-06-27 14:54] VITALS: BP 114/63; PULSE 70
== END 2018-06-27 15:14 | disposition home or self-care (01) ==
LOC: ORWHC2ENDO 13:02
PROVIDERS: ATTEND Surgery Plastic and Reconstructive Surgery
DX: K25.5 Chronic or unspecified gastric ulcer with perforation (principal); K31.89 Other diseases of stomach and duodenum; K21.9 Gastro-esophageal reflux disease without esophagitis; J45.909 Unspecified asthma, uncomplicated; E11.9 Type 2 diabetes mellitus without complications; E66.01 Morbid (severe) obesity due to excess calories; F31.9 Bipolar disorder, unspecified; G89.29 Other chronic pain; G43.909 Migraine, unspecified, not intractable, without status migrainosus; M79.7 Fibromyalgia; F41.0 Panic disorder [episodic paroxysmal anxiety]; G47.33 Obstructive sleep apnea (adult) (pediatric); M19.90 Unspecified osteoarthritis, unspecified site; Z98.84 Bariatric surgery status; Z87.891 Personal history of nicotine dependence; Z86.14 Personal history of Methicillin resistant Staphylococcus aureus infection; Z79.899 Other long term (current) drug therapy; Z98.1 Arthrodesis status; Z68.35 Body mass index [BMI] 35.0-35.9, adult
CPT/HCPCS: 81025; 43245; J2704; C1726

== ENCOUNTER → 2019-03-02 | Outpatient (CLI) | payer MEDICARE ==
[2019-03-02 10:56] VITALS: BP 123/84; PULSE 84; RESP 16; TEMP 98.5; BMI 38.7
--- NOTE | 2019-03-02 11:11 | P.PN ---
Subjective Progress Note Date: 03/02/19 HPI: She has regained 45 pounds in 2 years. She has left upper quadrant and epigastric pain. She has burning sensation. She has GERD. She has food getting stuck PLAN: 1. She needs EGD with stretch 2. Recommend blood work 3. Needs food journal 4. Medications unchanged in 2 years. Objective - Vital Signs Vital signs: Vital Signs Temp 98.5 F 03/02/19 10:53 Pulse 84 03/02/19 10:53 Resp 16 03/02/19 10:53 BP 123/84 03/02/19 10:53 Pulse Ox Intake & Output 03/01/19 03/02/19 03/02/19 18:59 06:59 18:59 Weight 112.037 kg
[2019-03-02 12:38] LABS: INR 0.9 (<1.2); Partial Thromboplastin Time 24.8 sec (22.0-30.0); Prothrombin Time 10.1 sec (9.0-12.0)
[2019-03-02 12:39] LABS: HCT 37.5 % (34.0-46.0); HGB 12.3 gm/dL (11.4-16.0); MCH 31.3 pg (25.0-35.0); MCHC 32.9 g/dL (31.0-37.0); MCV 95.2 fL (80.0-100.0); Mean Platelet Volume 6.8; Platelet Count 189 k/uL (150-450); RBC 3.93 m/uL (3.80-5.40); RDW 12.2 % (11.5-15.5); WBC 4.6 k/uL (3.8-10.6)
[2019-03-02 21:00] LABS: African American GFR (CKD) 124.9 (60.0-200.0); Albumin 4.4 g/dL (3.80-4.90); Albumin/Globulin Ratio 2.2 (1.60-3.17); Anion Gap 9.8 mmol/L (4.00-12.00); BUN/Creat Ratio 26.67 Ratio (12.00-20.00); Calcium 9.4 mg/dL (8.7-10.3); Carbon Dioxide 23.2 mmol/L (21.6-31.8); Chol/HDL Ratio 2.17; LDL Cholesterol,Calculated 68.8 mg/dL (0.0-131.0); Magnesium 1.7 mg/dL (1.5-2.4); Phosphorus 3.3 mg/dL (2.4-5.1); Potassium 4.3 mmol/L (3.5-5.5); Total Bilirubin 0.3 mg/dL (0.3-1.2); Total Protein 6.4 g/dL (6.2-8.2); VLDL Calculation 15.2 mg/dL (5.00-40.00)
[2019-03-02 21:01] LABS: Iron Saturation 35.66 (12.00-45.00)
[2019-03-02 21:11] LABS: Vitamin D 25 Hydroxy 22.8 ng/mL (30.0-100.0)
[2019-03-02 21:12] LABS: Ferritin 99.9 ng/mL (10.0-291.0)
[2019-03-02 21:16] LABS: Hemoglobin A1C 5.2 % (4.0-6.0)
[2019-03-02 21:22] LABS: Folate, Serum 15.3 ng/mL
[2019-03-03 13:54] LABS: Zinc, Serum 53 ug/dL (60-130)
[2019-03-04 08:15] LABS: Vit B1(Thiamine) 58 ug/L (38-122)
[2019-03-04 09:10] LABS: Vitamin A 42 ug/dL (38-106)
== END ==
LOC: BARWHC3 09:41
PROVIDERS: ATTEND Surgery Plastic and Reconstructive Surgery
DX: K21.9 Gastro-esophageal reflux disease without esophagitis (principal); R10.13 Epigastric pain; R10.12 Left upper quadrant pain
CPT/HCPCS: 84255; 84134; 84425; 80061; 80053; 82607; 82728; 82525; 82746; 83540; 83550; 83735; 84100; 84443; 84590; 84630; 85027; 85610; 85730; 82306; 83970; 83036; G0463; 99211

== ENCOUNTER → 2019-03-02 | Outpatient (CLI) | payer MEDICARE | END | disposition home or self-care (01) | LOC: LAB 11:25 | PROVIDERS: ATTEND Surgery Plastic and Reconstructive Surgery | DX: Z53.9 Procedure and treatment not carried out, unspecified reason (principal) ==

== ENCOUNTER 2019-04-03 07:22 | Day surgery (SDC) | payer MEDICARE ==
[2019-03-30 15:49] VITALS: BMI 39.5
--- NOTE | 2019-04-03 07:24 | P.GSHP ---
History of Present Illness H&P Date: 04/03/19 CHIEF COMPLAINT: GERD HISTORY OF PRESENT ILLNESS: The patient is a 48-year-old male who presents reports gastroesophageal reflux disease. Upper endoscopy was offered for further evaluation and management. PAST MEDICAL HISTORY: Please see list. PAST SURGICAL HISTORY: Please see list. MEDICATIONS: Please see list. ALLERGIES: Please see list. SOCIAL HISTORY: No illicit drug use FAMILY HISTORY: No reports of Crohn disease or ulcerative colitis. REVIEW OF ORGAN SYSTEMS: CONSTITUTIONAL: No reports of fevers or chills. GI: Denies any blood in stools or constipation. PHYSICAL EXAM: VITAL SIGNS: Stable GENERAL: Well-developed and pleasant in no acute distress. HEENT: No scleral icterus. Extraocular movements grossly intact. Moist buccal mucosa. NECK: Supple without lymphadenopathy. CHEST: Unlabored respirations. Equal bilateral excursions. CARDIOVASCULAR: Regular rate and rhythm. Distal 2+ pulses. ABDOMEN: Soft, nondistended. MUSCULOSKELETAL: No clubbing, cyanosis, or edema. ASSESSMENT: 1. Gastroesophageal reflux disease PLAN: 1. Recommend proceeding with an upper endoscopy Past Medical History Past Medical History: Asthma, Diabetes Mellitus, Eye Disorder, Fibromyalgia, Osteoarthritis (OA), Skin Disorder, Sleep Apnea/CPAP/BIPAP Additional Past Medical History / Comment(s): Nephrolithiasis , cyst on kidney, Herniated discs with chronic back pain. , Hidradenitis groins/thighs with cell ulitis/wounds now healed (had surgery and wound vacs). Migraines. ,NIDDM type II-diet controlled since wt loss with bariatric surgery Arthritis., Hx of bleeding hemorroids, IBS. Pancreatitis prior to cholecystectomy. Sinus problems., Hx of stomach ulcer. History of Any Multi-Drug Resistant Organisms: MRSA Date of last positivie culture/infection: 09/20/16 MDRO Source:: BOTH THIGH Past Surgical History: Bariatric Surgery, Section, Cholecystectomy, Hernia Repair, Orthopedic Surgery, Tonsillectomy Additional Past Surgical History / Comment(s): Gastric bypass [address] Andrew with revision about 2012, panniculectomy, August 2016: Excess skin removal from bilateral thighs/panniculitis with debridements/wound vacs. Bilateral carpal tunnel. Right rotator cuff. Sinus surgery. Nerve blocks to neck and back. Cervical fusions (C-5-6-7), Sleep Apnea surgery. Past Anesthesia/Blood Transfusion Reactions: No Reported Reaction, Motion Sickness Smoking Status: Former smoker - Past Family History Mother Family Medical History: Diabetes Mellitus Father Family Medical History: Diabetes Mellitus Additional Family Medical History / Comment(s): Pt does not have contact with her parents. Medications and Allergies Home Medications Medication Instructions Recorded Confirmed Type Albuterol Sulfate [Proair Hfa] 2 puff INHALATION RT-Q6H PRN 11/08/13 03/30/19 History lamoTRIgine [LaMICtal] 300 mg PO HS 11/08/13 03/30/19 History Dextroamphetamine/Amphetamine 30 mg PO BID 09/14/17 03/30/19 History [Adderall] Loratadine [Claritin] 10 mg PO DAILY 09/14/17 03/30/19 History Omeprazole 40 mg PO DAILY 09/17/17 03/30/19 History Acetaminophen [Tylenol Extra 1,000 mg PO DIRECTED PRN 06/23/18 03/30/19 History Strength] Allergies Allergy/AdvReac Type Severity Reaction Status Date / Time house dust Allergy Mild Cough Verified 03/30/19 15:44 grass pollen Allergy Cough Verified 03/30/19 15:44
[2019-04-03 07:41] VITALS: TEMP 96.1
[2019-04-03 07:44] LABS: Glucose,Whole Blood 97 mg/dL (75-99)
[2019-04-03] MEDS ORDERED: LIDOCAINE 1% INJ 10MG/ML (20 ML MDV) ONE (07:45)
[2019-04-03] MEDS ORDERED: PROPOFOL 10 MG/ML 20 ML VIAL IV ONE (07:45)
[2019-04-03 08:02] VITALS: RESP 16
--- NOTE | 2019-04-03 08:04 | P.PCN ---
Date of Procedure: 04/03/19 Description of Procedure: PREOPERATIVE DIAGNOSES: 1. Epigastric abdominal pain. 2. Nausea and vomiting. 3. History of gastric bypass. 4. History of gastric ulcers. 5. Gastroesophageal reflux disease 6. Dysphagia POSTOPERATIVE DIAGNOSES: 1. Epigastric abdominal pain. 2. Nausea and vomiting. 3. History of gastric bypass. 4. Gastrojejunal ulcers with obstruction without perforation without bleeding 5. Gastroesophageal reflux disease 6. Dysphagia 7. Erosive esophagitis PROCEDURE PERFORMED: Esophagogastrojejunoscopy with biopsy along gastric pouch SURGEON: Ivonne Drew MD ANESTHESIA: MAC. INDICATIONS: The patient is a 48-year-old female with prior history of Philip-en-Y gastric bypass approximately 15 years ago. In the last several weeks, she has had intermittent nausea and vomiting, particularly of the epigastric abdominal pain. With her history of Philip-en-Y gastric bypass, upper endoscopy was offered for further evaluation and management. DESCRIPTION: Patient was brought to the endoscopy suite and laid in the left lateral decubitus position. After adequate IV sedation, a bite block was placed. An Olympus gastroscope was passed along the posterior oropharynx down to the distal esophagus where the squamocolumnar junction was found with erosive esophagitis, LA grade C. Along the anastomosis, chronic marginal ulceration of 8 mm was identified without perforation. The anastomosis was strictured secondary to the ulcer. The scope was advanced 60 cm from the incisors. No evidence of foreign body was found. Cold forceps biopsies obtained along the gastric pouch. The GI tract was desufflated. The patient tolerated the procedure well. FINDINGS: 1. Acute on chronic gastrojejunal ulceration With stricture 10 mm 2. Erosive esophagitis, LA grade C 3. Cold forceps biopsies obtained along gastric pouch PLAN: 1. Recommend upper endoscopy as needed. 2. Carafate including proton pump inhibitors for gastric ulcer Plan - Discharge Summary Discharge Rx Participant: No New Discharge Prescriptions: No Action lamoTRIgine [LaMICtal] 300 mg PO HS Albuterol Sulfate [Proair Hfa] 2 puff INHALATION RT-Q6H PRN PRN Reason: Wheezing Loratadine [Claritin] 10 mg PO DAILY Dextroamphetamine/Amphetamine [Adderall] 30 mg PO BID Omeprazole 40 mg PO DAILY Acetaminophen [Tylenol Extra Strength] 1,000 mg PO DIRECTED PRN PRN Reason: Pain Discharge Medication List Albuterol Sulfate [Proair Hfa] 2 puff INHALATION RT-Q6H PRN 11/08/13 [History] lamoTRIgine [LaMICtal] 300 mg PO HS 11/08/13 [History] Dextroamphetamine/Amphetamine [Adderall] 30 mg PO BID 09/14/17 [History] Loratadine [Claritin] 10 mg PO DAILY 09/14/17 [History] Omeprazole 40 mg PO DAILY 09/17/17 [History] Acetaminophen [Tylenol Extra Strength] 1,000 mg PO DIRECTED PRN 06/23/18 [History]
[2019-04-03 08:24] VITALS: BP 120/85; PULSE 78
== END 2019-04-03 08:37 | disposition home or self-care (01) ==
LOC: ORWHC2ENDO 07:22
PROVIDERS: ATTEND Surgery Plastic and Reconstructive Surgery
DX: K29.50 Unspecified chronic gastritis without bleeding (principal); K22.10 Ulcer of esophagus without bleeding; K95.89 Other complications of other bariatric procedure; K28.7 Chronic gastrojejunal ulcer without hemorrhage or perforation; K28.3 Acute gastrojejunal ulcer without hemorrhage or perforation; K21.9 Gastro-esophageal reflux disease without esophagitis; J45.909 Unspecified asthma, uncomplicated; E11.9 Type 2 diabetes mellitus without complications; M79.7 Fibromyalgia; M19.90 Unspecified osteoarthritis, unspecified site; G47.30 Sleep apnea, unspecified; Z99.89 Dependence on other enabling machines and devices; N28.1 Cyst of kidney, acquired; G89.4 Chronic pain syndrome; M54.9 Dorsalgia, unspecified; G43.909 Migraine, unspecified, not intractable, without status migrainosus; K58.9 Irritable bowel syndrome, unspecified; K64.9 Unspecified hemorrhoids; Z86.14 Personal history of Methicillin resistant Staphylococcus aureus infection; Z90.49 Acquired absence of other specified parts of digestive tract; Z98.1 Arthrodesis status; Z87.891 Personal history of nicotine dependence; Z83.3 Family history of diabetes mellitus; Z79.899 Other long term (current) drug therapy; Z91.048 Other nonmedicinal substance allergy status; Z87.442 Personal history of urinary calculi; F98.8 Other specified behavioral and emotional disorders with onset usually occurring in childhood and adolescence
CPT/HCPCS: 88305; 43239; J2001; J2704

== ENCOUNTER → 2019-04-20 | Outpatient (CLI) | payer MEDICARE ==
[2019-04-20 12:00] VITALS: BP 137/81; PULSE 103; TEMP 98.1; BMI 38.7
--- NOTE | 2019-04-20 12:31 | P.PN ---
Subjective Progress Note Date: 04/20/19 She comes in with abdominal pain. She has eating. She is gaining. Referral endocrinology for thyroid problem. Continue carafate. Needs CT of abdomen. Objective - Vital Signs Vital signs: Vital Signs Temp 98.1 F 04/20/19 11:51 Pulse 103 H 04/20/19 11:51 Resp BP 137/81 04/20/19 11:51 Pulse Ox Intake & Output 04/19/19 04/20/19 04/20/19 18:59 06:59 18:59 Weight 112.037 kg
== END ==
LOC: BARWHC3 10:39
PROVIDERS: ATTEND Surgery Plastic and Reconstructive Surgery
DX: R10.9 Unspecified abdominal pain (principal); Z79.899 Other long term (current) drug therapy
CPT/HCPCS: 99211

== ENCOUNTER 2019-04-25 16:52 | Emergency (ER) | payer MEDICARE ==
[2019-04-25 16:56] VITALS: BP 155/90; PULSE 102; RESP 22; TEMP 98.6
[2019-04-25] MEDS ORDERED: KETOROLAC 30 MG/ML 1 ML VIAL IM STA (17:04)
[2019-04-25] MEDS ORDERED: LIDOCAINE 5% PATCH TOPICAL STA (17:06)
--- NOTE | 2019-04-25 17:19 | ED ---
General Adult HPI - General Chief complaint: Chest Pain Stated complaint: LEFT SIDE/RIB INJURY Time Seen by Provider: 04/25/19 16:58 Source: patient, RN notes reviewed Mode of arrival: ambulatory Limitations: no limitations - History of Present Illness Initial comments: 48-year-old female presents to the emergency department for a chief complaint of left-sided rib pain. This has been ongoing for the past 4 days. Patient was working on a car when she accidentally ran into the side of the car with her left side. She did not fall. States she has had left-sided rib pain since that time. States it hurts to take a deep breath. Denies any other injuries.Patient has no other complaints at this time including shortness of breath, chest pain, abdominal pain, nausea or vomiting, headache, or visual changes. - Related Data Home Medications Medication Instructions Recorded Confirmed Albuterol Sulfate [Proair Hfa] 2 puff INHALATION RT-Q6H PRN 11/08/13 04/20/19 lamoTRIgine [LaMICtal] 300 mg PO HS 11/08/13 04/20/19 Dextroamphetamine/Amphetamine 30 mg PO BID 09/14/17 04/20/19 [Adderall] Loratadine [Claritin] 10 mg PO DAILY 09/14/17 04/20/19 Omeprazole 40 mg PO DAILY 09/17/17 04/20/19 Acetaminophen [Tylenol Extra 1,000 mg PO DIRECTED PRN 06/23/18 04/20/19 Strength] Previous Rx's Medication Instructions Recorded Omeprazole [PriLOSEC] 40 mg PO DAILY #1 capsule. 04/03/19 Sucralfate [Carafate] 1 gm PO BID #480 ml 04/03/19 Lidocaine 5% Patch [Lidoderm 5% 1 patch TOPICAL DAILY PRN 5 Days 04/25/19 Patch] #5 patch Allergies Allergy/AdvReac Type Severity Reaction Status Date / Time house dust Allergy Mild Cough Verified 04/25/19 16:56 grass pollen Allergy Cough Verified 04/25/19 16:56 Review of Systems ROS Statement: Those systems with pertinent positive or pertinent negative responses have been documented in the HPI. ROS Other: All systems not noted in ROS Statement are negative. Past Medical History Past Medical History: Asthma, Diabetes Mellitus, Eye Disorder, Fibromyalgia, Osteoarthritis (OA), Skin Disorder, Sleep Apnea/CPAP/BIPAP Additional Past Medical History / Comment(s): Nephrolithiasis , cyst on kidney, Herniated discs with chronic back pain. , Hidradenitis groins/thighs with cellulitis/wounds now healed (had surgery and wound vacs). Migraines. ,NIDDM type II-diet controlled since wt loss with bariatric surgery Arthritis., Hx of bleeding hemorroids, IBS. Pancreatitis prior to cholecystectomy. Sinus problems., Hx of stomach ulcer. History of Any Multi-Drug Resistant Organisms: MRSA Date of last positivie culture/infection: 09/20/16 MDRO Source:: BOTH THIGH Past Surgical History: Bariatric Surgery, Section, Cholecystectomy, Hernia Repair, Orthopedic Surgery, Tonsillectomy Additional Past Surgical History / Comment(s): Gastric bypass [address] Andrew with revision about 2012, panniculectomy, August 2016: Excess skin removal from bilateral thighs/panniculitis with debridements/wound vacs. Bilateral carpal tunnel. Right rotator cuff. Sinus surgery. Nerve blocks to neck and back. Cervical fusions (C-5-6-7), Sleep Apnea surgery. Past Anesthesia/Blood Transfusion Reactions: No Reported Reaction, Motion Sickness Past Psychological History: Anxiety, Bipolar, Depression, Panic Disorder Smoking Status: Former smoker Past Alcohol Use History: Rare Past Drug Use History: Marijuana - Past Family History Mother Family Medical History: Diabetes Mellitus Father Family Medical History: Diabetes Mellitus Additional Family Medical History / Comment(s): Pt does not have contact with her parents. General Exam Limitations: no limitations General appearance: alert, in no apparent distress Head exam: Present: atraumatic, normocephalic, normal inspection Eye exam: Present: normal appearance, PERRL, EOMI. Absent: scleral icterus, conjunctival injection, periorbital swelling ENT exam: Present: normal exam, mucous membranes moist Neck exam: Present: normal inspection, full ROM. Absent: tenderness, meningism us, lymphadenopathy Respiratory exam: Present: normal lung sounds bilaterally, chest wall tenderness (Left-sided lateral rib tenderness about rib 7/8. no ecchymosis or bruising evident, skin is intact and appears normal). Absent: respiratory distress, wheezes, rales, rhonchi, stridor Cardiovascular Exam: Present: regular rate, normal rhythm, normal heart sounds. Absent: systolic murmur, diastolic murmur, rubs, gallop, clicks GI/Abdominal exam: Present: soft, normal bowel sounds. Absent: distended, tenderness (No abdominal tenderness whatsoever. No left upper or lower abdominal tenderness), guarding, rebound, rigid Course Vital Signs 04/25/19 16:54 Temperature 98.6 F Pulse Rate 102 H Respiratory 22 Rate Blood Pressure 155/90 O2 Sat by Pulse 99 Oximetry Medical Decision Making - Medical Decision Making And has tenderness to the left lateral ribs. There is no abdominal tenderness. No CVA tenderness. No external signs of trauma. X-ray of the left ribs is normal. However on review there is possibly a small fracture, it is hard to determine. Patient will be treated as a rib contusion versus fracture. Patient did have some resolution in pain on presentation. She will be given pain medication. She was given incentive spirometer and educated on pillow splinting. She was educated to return if she has cough or fever given risk of pneumonia. Disposition Clinical Impression: Contusion of rib on left side Disposition: HOME SELF-CARE Condition: Good Instructions (If sedation given, give patient instructions): Rib Fracture (ED) Additional Instructions: Please take Tylenol #3 every 6-8 hours as needed for pain. Do not drive or operate machinery while using this. Use lidocaine patches as directed. Follow- up with primary care in 1-2 days. If you have worsening symptoms return to the emergency department. Prescriptions: Lidocaine 5% Patch [Lidoderm 5% Patch] 1 patch TOPICAL DAILY PRN 5 Days #5 patch PRN Reason: Pain Is patient prescribed a controlled substance at d/c from ED?: No Referrals: Abilio Mccollum DO [Primary Care Provider] - 1-2 days Time of Disposition: 17:54
--- NOTE | 2019-04-25 17:35 | XR ---
EXAMINATION TYPE: XR ribs LT w pa chest xray DATE OF EXAM: 04/25/2019 COMPARISON: 09/28/2016 HISTORY: Rib pain TECHNIQUE: 5 views FINDINGS: Heart and mediastinum are normal. Lungs are clear of infiltrate. There is no pleural effusi on or pneumothorax. I see no rib fracture. IMPRESSION: Normal chest. Normal left ribs. There is clearing of the pleural reaction at the lateral left lung base compared to old exam.
[2019-04-25] MEDS ORDERED: ACET/COD 300 MG/30 MG STARTER PACK 6 TAB BTL PO STA (17:49)
[2019-04-25] MEDS ORDERED: MORPHINE SULFATE 4 MG/ML SYRINGE IM STA (17:49)
== END 2019-04-25 18:41 | disposition home or self-care (01) ==
LOC: EC 16:52
DX: S20.212A Contusion of left front wall of thorax, initial encounter (principal); J45.909 Unspecified asthma, uncomplicated; E11.9 Type 2 diabetes mellitus without complications; M19.90 Unspecified osteoarthritis, unspecified site; F31.9 Bipolar disorder, unspecified; Z87.891 Personal history of nicotine dependence; Z91.048 Other nonmedicinal substance allergy status; Z79.899 Other long term (current) drug therapy; Z86.14 Personal history of Methicillin resistant Staphylococcus aureus infection; Z98.1 Arthrodesis status; W22.8XXA Striking against or struck by other objects, initial encounter; Y93.89 Activity, other specified; Y92.89 Other specified places as the place of occurrence of the external cause
CPT/HCPCS: 71101; 99284; 96372 ×2; J2270; J1885

== ENCOUNTER → 2019-11-01 | Outpatient (CLI) | payer MEDICARE ==
[2019-11-01 16:14] VITALS: BP 111/75; PULSE 98; RESP 16; TEMP 98.3; BMI 45.8
--- NOTE | 2019-11-01 16:35 | P.PN ---
Subjective Progress Note Date: 11/01/19 DATE OF SERVICE: 11/01/2019 CHIEF COMPLAINT: Gastric bypass HISTORY OF PRESENT ILLNESS: Alesha Bermudez is a 49-year-old female status post gastric bypass over 15 years ago. She comes with new 100 pound weight gain in 2 years. She reports depression. She has new troubles swallowing for over 3 months. She also reports thyroid disorder poorly controlled. No alleviating factors. She comes alongside with her daughter who also confirms financial stressors and limited food options. At a height of 5 feet 7 inches, her ideal body weight is 158 pounds. Her highest weight was 450 pounds. Today she comes in weighing 292 pounds from 246 pounds in 8 months. She has weight gain of 46 pounds. She has maintained a 103 pound weight loss. Percent excess weight loss is 43 %. Body mass index reduced from 70.6 down to 45.9. PAST MEDICAL HISTORY: 1. Morbid obesity due to excess calories, BMI 70.6 2. Diabetes type 2, improved 3. Obstructive sleep apnea. 4. Anxiety. 5. Depression. 6. ADHD. 7. Seasonal allergies. 8. Migraines. 9. Asthma. 10. Chronic pain syndrome. 11. Seizure disorder. 12. History of super morbid obesity. 13. Gastroesophageal reflux disease. 14. Hypothyroidism PAST SURGICAL HISTORY: 1. Open Philip-en-Y gastric bypass in 2002. 2. . 3. Bilateral carpal tunnel release. 4. Anterior cervical disc fusion. 5. Cholecystectomy. 6. Appendectomy. 7. Colonoscopy. 8. Upper endoscopy. 9. Revision of gastrojejunostomy at [facility], July 2014. 10. Panniculectomy of the abdomen. 11. Bilateral thigh plasty MEDICATIONS: Home Medications Medication Instructions Recorded Confirmed Albuterol Sulfate [Proair Hfa] 2 puff INHALATION RT-Q6H PRN 11/08/13 11/01/19 lamoTRIgine [LaMICtal] 300 mg PO HS 11/08/13 11/01/19 Dextroamphetamine/Amphetamine 30 mg PO BID 09/14/17 11/01/19 [Adderall] Loratadine [Claritin] 10 mg PO DAILY 09/14/17 11/01/19 Omeprazole 40 mg PO DAILY 09/17/17 11/01/19 Acetaminophen [Tylenol Extra 1,000 mg PO DIRECTED PRN 06/23/18 11/01/19 Strength] Levothyroxine Sodium 25 mcg PO 11/01/19 buPROPion [Wellbutrin] 100 mg PO TID 11/01/19 11/01/19 Previous Rx's Medication Instructions Recorded Omeprazole [PriLOSEC] 40 mg PO DAILY #1 capsule. 04/03/19 Sucralfate [Carafate] 1 gm PO BID #480 ml 04/03/19 ALLERGIES: MOLD. SOCIAL HISTORY: Former smoker. Takes medicinal marijuana. Also reports past alcohol use. FAMILY HISTORY: Pertinent for diabetes including morbid obesity. REVIEW OF SYSTEMS: CONSTITUTIONAL: [place] body weight of 158 pounds. Highest weight of 450 pounds. Past total weight loss of 252 pounds. GASTROINTESTINAL: No reports of dumping syndrome. History of iron deficiency anemia treated with iron infusions. SKIN: Panniculectomy and thigh plasty ENDOCRINE: Resolved hypoglycemic episodes. Past thyroid disorder. PSYCH: History of attention deficit disorder, including depression. No suicidal ideation. NEURO: History of chronic pain syndrome. Also history of fibromyalgia. Has seizure disorder. HEENT: Denies troubles with vision or hearing. CARDIOVASCULAR: Denies any heart attack or chest pain. RESPIRATORY: History of COPD including asthma. MUSCULOSKELETAL: History of chronic pain syndrome along the joint. HEMATOLOGIC: Denies any easy bruising or bleeding. PHYSICAL EXAM: VITAL SIGNS: 5 feet 7, 292 pounds. Body mass index is 45.9 Vital Signs Temp 98.3 F 11/01/19 16:11 Pulse 98 11/01/19 16:11 Resp 16 11/01/19 16:11 BP 111/75 11/01/19 16:11 Pulse Ox ABDOMEN: Soft, non-distended. Mild tenderness at epigastrium. MUSCULOSKELETAL: No clubbing, cyanosis or edema GENERAL: Well-developed, pleasant female in no acute distress. SKIN: Well perfused. Good skin turgor. HEENT: No sclerae icterus. Extraocular movements grossly intact. Moist buccal mucosa. NECK: Supple without lymphadenopathy. CHEST: Unlabored respirations. Equal bilateral excursions. CARDIOVASCULAR: Regular rate and rhythm. 2+ radial pulse NEURO: No focal or lateralizing signs. Cranial nerves II through XII grossly intact. PSYCH: Appropriate affect. Alert and oriented to person, place, and time. LABS: Hgb A1c 4.7%. Vitamin B6 extremely low. TSH and PTH normal ASSESSMENT: 1. Morbid obesity due to excess calories 2. Body mass index reduced from 70.6 down to 45.9 3. Status post Philip-en-Y gastric bypass. 4. Revision of gastrojejunal anastomosis. 5. History of chronic pain syndrome. 6. Dysphagia 7. Epigastric abdominal pain 8. Vitamin D deficiency 9. Secondary hyperparathryoidism 10. Zinc deficiency, resolved 11. Gastrojejunal ulcer PLAN: 1. Labs reviewed with her but will need more recent lab work with her new changes in weight gain. 2. Recommend dietitian follow up with food diary journal to control weight gain 3. For troubles with swallowing recommend upper endoscopy with dilation. Objective - Vital Signs Vital signs: Vital Signs Temp 98.3 F 11/01/19 16:11 Pulse 98 11/01/19 16:11 Resp 16 11/01/19 16:11 BP 111/75 11/01/19 16:11 Pulse Ox Intake & Output 10/31/19 11/01/19 11/01/19 18:59 06:59 18:59 Weight 132.903 kg
== END | disposition home or self-care (01) ==
LOC: BARWHC3 15:25
PROVIDERS: ATTEND Surgery Plastic and Reconstructive Surgery
DX: E66.01 Morbid (severe) obesity due to excess calories (principal); Z68.42 Body mass index [BMI] 45.0-49.9, adult; R13.10 Dysphagia, unspecified; R10.13 Epigastric pain; E55.9 Vitamin D deficiency, unspecified; N25.81 Secondary hyperparathyroidism of renal origin; K28.9 Gastrojejunal ulcer, unspecified as acute or chronic, without hemorrhage or perforation; G89.4 Chronic pain syndrome; Z98.84 Bariatric surgery status; Z90.89 Acquired absence of other organs; Z87.891 Personal history of nicotine dependence; Z90.49 Acquired absence of other specified parts of digestive tract; Z79.51 Long term (current) use of inhaled steroids; Z79.899 Other long term (current) drug therapy; Z91.09 Other allergy status, other than to drugs and biological substances
CPT/HCPCS: 99211

== ENCOUNTER → 2019-11-17 | Outpatient (CLI) | payer MEDICARE ==
--- NOTE | 2019-11-17 13:43 | FL ---
EXAMINATION TYPE: Single contrast FL barium swallow DATE OF EXAM: 11/17/2019 CLINICAL INDICATION: 49-year-old female are 1 3.10, dysphagia, choking episodes, reports fluid and pi lls getting stuck in the throat. Occasional reflux. Philip-en-Y gastric bypass 15 years ago with subseq uent repair. COMPARISON: None Total Fluoroscopy Time: 2 minutes 56 seconds Total images: 53 FINDINGS: The swallowing mechanism is normal and hypopharyngeal anatomy is preserved. The cervical and thoracic portions have a normal course and caliber. Moderate tertiary peristaltic waves are demonstrated. There are blunted secondary stripping waves and delayed clearance of contrast from the esophagus and episodes of intraesophageal reflux when the pat ient is supine. There is a small hiatal hernia and postsurgical changes of Philip-en-Y gastric bypass. No abnormal yaa y in passage of contrast the gastrojejunostomy. The mucosa is normal and no persistent filling defect is encountered. IMPRESSION: 1. Presbyesophagus with moderate tertiary peristaltic waves and delayed clearance of contrast from th e esophagus when the patient is supine. Episodes of intraesophageal reflux are demonstrated. 2. Small hiatal hernia. 3. Status post Philip-en-Y gastric bypass. No obstruction at the gastrojejunostomy.
== END | disposition home or self-care (01) ==
LOC: RADUSWWP 10:06
PROVIDERS: ATTEND Surgery Plastic and Reconstructive Surgery
DX: K22.8 Other specified diseases of esophagus (principal); K21.9 Gastro-esophageal reflux disease without esophagitis; K44.9 Diaphragmatic hernia without obstruction or gangrene; R13.10 Dysphagia, unspecified; Z98.84 Bariatric surgery status
CPT/HCPCS: 74220

== ENCOUNTER → 2019-11-22 | Outpatient (CLI) | payer MEDICARE ==
[2019-11-22 15:34] LABS: INR 0.9 (<1.2); Prothrombin Time 9.8 sec (9.0-12.0)
[2019-11-22 15:47] LABS: HCT 40.6 % (34.0-46.0); HGB 12.8 gm/dL (11.4-16.0); MCH 30.7 pg (25.0-35.0); MCHC 31.5 g/dL (31.0-37.0); MCV 97.7 fL (80.0-100.0); Mean Platelet Volume 7.9; Platelet Count 187 k/uL (150-450); RBC 4.15 m/uL (3.80-5.40); RDW 12.8 % (11.5-15.5); WBC 4.5 k/uL (3.8-10.6)
[2019-11-23 00:32] LABS: Ferritin 24.2 ng/mL (10.0-291.0)
[2019-11-23 00:50] LABS: African American GFR (CKD) 117.9 (60.0-200.0); Albumin 4.5 g/dL (3.80-4.90); Albumin/Globulin Ratio 2.14 (1.60-3.17); BUN/Creat Ratio 25.71 Ratio (12.00-20.00); Calcium 9.8 mg/dL (8.7-10.3); Globulin 2.1 g/dL (1.6-3.3); Non-African American GFR(CKD) 101.7 (60.0-200.0); Phosphorus 3.1 mg/dL (2.4-5.1); Potassium 4.3 mmol/L (3.5-5.5); Total Bilirubin 0.3 mg/dL (0.3-1.2); Total Protein 6.6 g/dL (6.2-8.2)
[2019-11-23 00:51] LABS: Chol/HDL Ratio 2.12; Folate, Serum 20.5 ng/mL; LDL Cholesterol,Calculated 76.4 mg/dL (0.0-131.0); Magnesium 1.7 mg/dL (1.5-2.4); VLDL Calculation 18.6 mg/dL (5.00-40.00)
[2019-11-23 02:00] LABS: % Iron Saturation 22.7 (12.00-45.00)
[2019-11-23 04:04] LABS: Hemoglobin A1C 5.3 % (4.0-6.0)
[2019-11-23 08:51] VITALS: BMI 45.8
[2019-11-24 08:10] LABS: Vit B1(Thiamine) 62 ug/L (38-122)
[2019-11-24 08:15] LABS: Vitamin A 49 ug/dL (38-106)
[2019-11-24 11:54] LABS: Zinc, Serum 72 ug/dL (60-130)
[2019-11-25 02:36] LABS: Selenium 121 mcg/L (63-160)
== END ==
LOC: BARWHC3 13:56
PROVIDERS: ATTEND Surgery Plastic and Reconstructive Surgery
DX: E11.65 Type 2 diabetes mellitus with hyperglycemia (principal); E66.01 Morbid (severe) obesity due to excess calories; Z71.3 Dietary counseling and surveillance; E21.1 Secondary hyperparathyroidism, not elsewhere classified; D50.9 Iron deficiency anemia, unspecified; E44.0 Moderate protein-calorie malnutrition; E55.9 Vitamin D deficiency, unspecified; K74.1 Hepatic sclerosis; N19 Unspecified kidney failure; K50.90 Crohn's disease, unspecified, without complications
CPT/HCPCS: 80053; 80061; 82306; 82525; 82607; 82728; 82746; 83036; 83540; 83550; 83735; 83970; 84100; 84134; 84255; 84425; 84443; 84590; 84630; 85027; 85610; 85730; 97803

== ENCOUNTER → 2020-05-10 | Day surgery (SDC) | payer MEDICARE, OTHER ==
[~2020-05-10] MED LIST changes: +HYDROcodone/APAP 5-325MG 1 EACH TAB PO PRN; -LACTATED RINGERS 1,000 ML IV SCH; +PREMYELOGRAM MEDICATION REVIEW 1 EACH MISC PO PRN; +diazePAM 5 MG TAB PO PRN
[2020-05-10 08:55] VITALS: TEMP 98.7
[2020-05-10 10:50] VITALS: RESP 18
[2020-05-10 14:03] VITALS: BP 102/64; PULSE 84
--- NOTE | 2020-05-12 22:01 | FL ---
Lumbar puncture and cervical and thoracic Myelogram. INDICATION: Pain FINDINGS: Fluoroscopy time: 4 minutes 10 seconds. Images obtained: 9. The procedure was explained to the patient. Risks complications and benefits were discussed. Alternat mert were discussed. All questions were answered. Informed consent was obtained. A timeout was performed. The L3-4 level was chosen for access. Maximum barrier sterile technique was utilized. The skin was cl eansed with Betadine and the patient sterilely prepped and draped in the usual manner. The skin and d eeper tissue was anesthetized with 1% Lidocaine. Utilizing a 6 inch 22-gauge spinal needle the spinal canal was attempted for access. Despite good cooperation by the patient and multiple attempts for ac cess either L3-4 or L4-5 was unsuccessful. Tactile findings and imaging suggest no penetration of the thecal sac during these attempts. With the assistance of Dr. Bates, the L3-4 level was accessed succ essfully by Dr. Bates. The contrast was administered by Dr. Mott. Good CSF return was evident. Isovue-300 was utilized, 10 milliliters was administered under fluorosc opic observation. The stylette was replaced and the needle withdrawn. Fluoroscopic spot images were obtained. The patient tolerated the procedure well. Discharge instructions were discussed with the patient. Th e patient was transferred to CT for additional evaluation. Findings: Limited views of the lumbar spinal canal with contrast were obtained. No obvious stenosis of the lumbar spine was evident. Fluoroscopic imaging performed through the thoracic and cervical spi ne was unable to detail significant flow-limiting stenosis. However some faint flow was identified de monstrating contrast movement. Diagnostic imaging will likely be available from the CT examination. IMPRESSIONS: 1. Successful Lumbar Puncture. 2. Faint contrast visualization within the thoracic and cervical spine. Additional imaging will be pe rformed in CT.
--- NOTE | 2020-05-12 22:12 | CT ---
EXAMINATION TYPE: CT cervical spine w con DATE OF EXAM: 05/10/2020 COMPARISON: Cervical spine 05/15/2014 HISTORY: post myelogram CT DLP: 737.3 mGycm CONTRAST: Performed with IV Contrast, patient injected with 10 mL of Isovue M300. CT of the cervical spine is performed in the axial plane at 2 mm thick sections. Reconstructed image s in the coronal, and sagittal plane are reviewed on the computer. No acute fractures are evident. There is a mild grade 1 spondylolisthesis of C3 anteriorly on C4. There is disc height loss C5-6 and C6-7. The C5 vertebral body may have mild height loss. No wedge deformity or acute fracture is evident. Rem aining vertebral bodies appear intact. Anterior cervical fusion of C4-5 through C7 is evident. C2-3: Minimal residual disc material may have anterior thecal sac flattening. No AP spinal canal sten osis or cord contact is evident. Foramen are patent. Mild facet degenerative changes present. C3-4: Endplate changes are present at C3-4. Some disc uncovering may be present. Cord contact is pres ent. No definite cord deformity is identified. Borderline spinal canal narrowing at 1.0 cm is present . Mild foraminal narrowing at C3-4 may be present. C4-5: Mild endplate residual changes may be present with anterior thecal sac compression, slightly gr eater than left paracentral region. No cord contact or spinal canal stenosis present. Neural foramen are patent. C5-6, C6-7, C7-T1: No significant disc bulge residual disc material endplate spurring or anterior the venice sac compression is evident. No spinal canal stenosis or neural foraminal stenosis is present. Ant erior cervical fusion is present through these levels. IMPRESSIONS: 1. Mild degenerative changes with anterior thecal sac compression present at C2-3, C3-4, C4-5. 2. Borderline spinal canal stenosis at 1.0 cm is present C3-4. 3. Anterior cervical fusion changes C5-C7. 4. Grade 1 spondylolisthesis of C3 anteriorly on C4.
--- NOTE | 2020-05-12 22:19 | CT ---
EXAMINATION TYPE: CT thoracic spine w con DATE OF EXAM: 05/10/2020 COMPARISON: HISTORY: post myelogram CT DLP: 2480.7 mGycm Automated exposure control for dose reduction was used. CONTRAST: Performed with IV Contrast, patient injected with 10 mL of Isovue M300. TECHNIQUE: Axial images 3 mm thick sections. Reconstructed images in coronal and sagittal plane. Stud y is postmyelogram. FINDINGS: T2-T3: Loss of disc height is present at this level. No focal disc herniation or significant disc bul ge is evident. T3-4: Small right paracentral disc bulge may be present with mild anterior thecal sac compression. Th is comes in close approximation with the spinal cord. No spinal canal stenosis is present. T7-T8: There is a large central disc herniation with moderate to marked anterior thecal sac compressi on. This has cord contact. Some cord flattening may be present. AP spinal canal stenosis is not prese nt in AP measuring 11 cm. T8-9: There is a moderate to large left paracentral disc herniation with moderate anterior thecal sac compression. Cord contact and some cord deformity may be present. Borderline spinal canal stenosis m easuring 0.9 cm is present. However, cord compression due to canal narrowing is not evident with abun dant CSF posterior to the cord. T9-T10: Small right paracentral disc bulge is present with anterior thecal sac compression. No cord c ontact or spinal canal stenosis is present. IMPRESSION: 1. LARGE DISC HERNIATIONS T7-8 CENTRALLY AND T8-9 LEFT PARACENTRAL REGION WHICH HAVE CORD CONTACT AND SOME CORD DEFORMITY. 2. MODERATE SIZE RIGHT PARACENTRAL DISC BULGING IN CLOSE APPROXIMATION WITH THE SPINAL CORD T9-T10 WI THOUT STENOSIS. 3. SMALL RIGHT PARACENTRAL DISC HERNIATION AT C3-4
== END ==
LOC: RADPROMAIN 07:56
PROVIDERS: ATTEND Orthopaedic Surgery
DX: G95.29 Other cord compression (principal); M48.02 Spinal stenosis, cervical region; M43.12 Spondylolisthesis, cervical region; M51.04 Intervertebral disc disorders with myelopathy, thoracic region; Z88.6 Allergy status to analgesic agent; Z88.5 Allergy status to narcotic agent
CPT/HCPCS: 62305; 72129; 72126; J2001; Q9967

== ENCOUNTER → 2020-05-29 | Outpatient (CLI) | payer MEDICARE, OTHER | END | disposition home or self-care (01) | LOC: LABPAT 11:20 | PROVIDERS: ATTEND Orthopaedic Surgery | DX: Z01.812 Encounter for preprocedural laboratory examination (principal) | CPT/HCPCS: 87070 ==

== ENCOUNTER 2020-06-11 05:59 | Inpatient (IN) | payer MEDICARE, OTHER ==
[~2020-06-11 05:59] MED LIST changes: +DEXAMETHASONE SOD PHOSPHATE 4 MG/ML 1 ML VIAL IV ONE; -HYDROcodone/APAP 5-325MG 1 EACH TAB PO PRN; +HYDROmorphone 0.5 MG/0.5 ML SYRINGE IVP PRN; +ONDANSETRON 4 MG/2 ML VIAL IVP ONE; -PREMYELOGRAM MEDICATION REVIEW 1 EACH MISC PO PRN; +TRANEXAMIC ACID 1,000 MG in SODIUM CHLORIDE 0.9% 100 ML IVPB PRN; +ceFAZolin 3 GM in SODIUM CHLORIDE 0.9% 100 ML IVPB PRN; -diazePAM 5 MG TAB PO PRN
--- NOTE | 2020-06-11 06:16 | P.HPOR ---
History of Present Illness H&P Date: 06/11/20 Chief Complaint: b/l UE numbness/tingling weakness, neck pain HISTORY: Physical Therapy: Yes How many sessions? Did it help? No Injections: Yes How many? multiple Did they help? No Activity Modifications: Yes no help Brace: No Mrs. Bermudez presents with her daughter for follow-up of her cervical and thoracic CT scans and myelography. Patient continues to have severe neck pain as well as pain into her left upper extremity. She has difficulty with moving her neck as well as with her left and right upper extremities at this time. She also has several complaints about her thoracic spine and lumbar spine. She has pain in her lower extremities and difficulty with ambulation secondary to this. She denies fevers chills shortness breath or chest pain at this time she denies any progressive neurologic symptoms at this time however she states that things seem to be getting worse however she does not have any increased weakness at this time no bowel bladder incontinence no peroneal numbness or tingling. The patients' past social, medical, family, surgical history, as well as review of systems, have been reviewed. Please refer to the Neurosurgery History and Physical form that has been scanned in to our electronic medical record system. Review of Systems 14 points review of systems completed and as stated in HPI, all other systems reviewed are negative. Past Medical History Past Medical History: Asthma, Diabetes Mellitus, Fibromyalgia, GERD/Reflux, Hearing Disorder / Deafness, Musculoskeletal Disorder, Osteoarthritis (OA), Skin Disorder, Sleep Apnea/CPAP/BIPAP, Thyroid Disorder Additional Past Medical History / Comment(s): Nephrolithiasis, cyst on Rt kidney. Herniated discs w/ chronic back pain. hx Hidradenitis groins/thighs w/ cellulitis/wounds, now healed (surgery/ wound vacs). Migraines. NIDDM type II- diet controlled since wt loss surgery. Hx bleeding hemorroids, IBS; Pancreatitis prior to cholecystectomy. Sinus problems. Hx stomach ulcer. c/o neck pain. "Some tones hard to hear." Has scrapes on forearms. Edema BLE. No cpap History of Any Multi-Drug Resistant Organisms: MRSA Date of last positivie culture/infection: 09/20/16 MDRO Source:: BOTH THIGH Past Surgical History: Bariatric Surgery, Section, Cholecystectomy, Hernia Repair, Orthopedic Surgery, Tonsillectomy Additional Past Surgical History / Comment(s): Gastric bypass 2003 (Dr Andrew), revision 2013, panniculectomy, August 2016: Excess skin removal from bilateral thighs/panniculitis with debridements/wound vacs. Bilateral carpal tunnel. Right rotator cuff. Sinus surgery. Nerve blocks to neck and back. Cervical fusions (C-5-6-7), Sleep Apnea surgery. Past Anesthesia/Blood Transfusion Reactions: No Reported Reaction, Motion Sickness Smoking Status: Former smoker - Past Family History Mother Family Medical History: Diabetes Mellitus Father Family Medical History: Diabetes Mellitus Additional Family Medical History / Comment(s): Pt does not have contact with her parents. Medications and Allergies Home Medications Medication Instructions Recorded Confirmed Type Albuterol Sulfate [Proair Hfa] 2 puff INHALATION RT-Q6H PRN 11/08/13 06/10/20 History lamoTRIgine [LaMICtal] 300 mg PO HS 11/08/13 06/10/20 History Dextroamphetamine/Amphetamine 30 mg PO BID 09/14/17 06/10/20 History [Adderall] Loratadine [Claritin] 10 mg PO DAILY 09/14/17 06/10/20 History Omeprazole [PriLOSEC] 40 mg PO DAILY #1 capsule. 04/03/19 06/10/20 Rx Sucralfate [Carafate] 1 gm PO BID #480 ml 04/03/19 06/10/20 Rx buPROPion [Wellbutrin] 100 mg PO TID 11/01/19 06/10/20 History Baclofen 10 mg PO DAILY@0800,1500 05/06/20 06/10/20 History Butalb/APAP/Caff 50-325-40Mg 1 tab PO Q8H PRN 05/06/20 06/10/20 History [Fioricet 50-325-40] HYDROcodone/APAP 5-325MG [[place] 1 tab PO Q8HR PRN 05/06/20 06/10/20 History 5-325] Oxybutynin Chloride 5 mg PO BID 05/06/20 06/10/20 History busPIRone HCl [Buspar] 10 mg PO TID 05/06/20 06/10/20 History Amiovig Injection 170 mg INJ Q30D 06/10/20 History Baclofen [Lioresal] 20 mg PO HS 06/10/20 06/10/20 History Calcium Carbonate/Vitamin D3 2 each PO DAILY 06/10/20 06/10/20 History [Caltrate 600 Plus D3 Tablet] Ergocalciferol [Vitamin D2] 50,000 unit PO Q7D 06/10/20 06/10/20 History Multivitamins, Thera [Multivitamin 1 tab PO DAILY 06/10/20 06/10/20 History (formulary)] Allergies Allergy/AdvReac Type Severity Reaction Status Date / Time house dust Allergy Mild Cough Verified 06/11/20 06:12 grass pollen Allergy Cough Verified 06/11/20 06:12 ibuprofen [From Motrin] AdvReac Abdominal Verified 06/11/20 06:12 Pain morphine AdvReac Abdominal Verified 06/11/20 06:12 Pain with po Rx Physical Examination Osteopathic Statement: *. No significant issues noted on an osteopathic structural exam other than those noted in the History and Physical/Consult. General: Awake, alert, appropriate for age, in no acute distress. HEENT: No unusual neck masses around region of lateral neck triangle, thyroid, supraclavicular groove Heart: Regular rate and rhythm, normal S1, S2 and no murmur/gallop. Lungs: Clear to auscultation bilaterally with no use of accessory muscles. Extremities: Skin warm and dry without acute lesions, coloration, temperature, skin intact, no tenderness or erythema Integument: Hairy patches: Absent Dorsal skin dimples: Absent Cafe au lait spots: Absent Surgical incisions: anterior right-sided transverse neck incision well-healed Palpation: Please see Pain drawing on Intake sheet for further detail. Midline spinal tenderness: yes cervical thoracic lumbar E6 Paralumbar tenderness: yes bilateral E6 Parathoracic tenderness: yes bilateral E6 Buttocks tenderness: yes bilateral E6 Special findings: none POSTURAL and MUSCULO-SKELETAL EVALUATION: Coronal Balance: Neutral Recumbent testing: Patient is able to lay flat on back Sagittal Balance: positive Shoulder Profile: [Level] Pelvic Girdle: [Level] Neck ROM: Unrestricted Lumbar ROM: Unrestricted Shoulder ROM: Symmetric in abduction, ER/IR Hip ROM: Symmetric in abduction, adduction, ER/IR Knee ROM: Symmetric and intact in Flexion / extension Hands: symmetrical Feet: symmetrical VASCULAR STATUS : LEFT RIGHT Wrist Pulses intact intact Pedal Pulses (Dors. pedis & post.tibialis) intact intact Color normal normal Edema Absent Absent NEUROLOGIC EXAMINATION: Mental Status: Awake and alert, fully oriented, with normal attention, concentration and memory, and fluent, appropriate speech. Cranial Nerves: I: Olfactory not tested. II: Visual acuity normal, no visual field deficit noted with confrontation. III,IV: Normal pupillary reflexes & intact extraocular movements without nystagmus. V,: Intact symmetrical facial sensation. VII: Intact symmetrical facial motor movement VIII: Hearing intact. IX,X: Intact gag, swallow, & normal voice. XI: Sternocleidomastoid, trapezius function intact. XII: Tongue midline with normal movements. L'hermitte's Sign: Negative / absent Spurling'Sign: present Cubital percussion test: Absent bilaterally. Shelly-Tinel sign - Carpal region: Absent bilaterally. Straight Leg Raising: Absent bilaterally. Crossed straight leg raise: negative O8 MOTOR EXAM (0-5/5, N/T) STRENGTH RIGHT LEFT Shoulder Abd (not part of the LILY score) 5 4 Elbow Flexors 4 4 Elbow Extensor 4 4 Wrist Dorsiflexors 4 4 Finger Abductor 4 4 Java Security Architect 5 5 Hip Flexor (Not part of LILY Motor score) 5 5 Knee Flexor 5 5 Knee Extensor 5 5 Ankle dorsiflexor 5 5 Ankle plantarflexion 5 5 Extensor hallucis 5 5 REFLEXES(0-4/2, NT) RIGHT LEFT Upper Extremities 2 2 Lower Extremities 2 2 Pathological Reflexes RIGHT LEFT Dodge's Absent Absent Clonus Absent Absent neg babinski b/l Muscle appearance: symmetrical Rectal Tone: not tested Sensory system (0-4, N/T) Test type RU ELVIN RL LL Joint-Position 2 2 2 2 Vibration 2 2 2 2 Pain & LT sense 2 2 2 2 Dermatomal Deficit: Maynor None None None Gait and Functional Evaluation: Ambulatory aids: Independent Romberg's test: Intact bilaterally Toe heel walk / heel-toe walk intact while maintaining satisfactory balance? yes Squatting/straightening w/o assistance to a min of 60 degree knee flexion? yes Single leg stance: Trendelenburg sign negative bilaterally Hand and finger dexterity intact bilaterally? yes Disdiadochokinesis examination negative bilaterally? yes Results AP lateral flexion extension radiographs of the cervical spine obtained and reviewed in the office today. These demonstrate postsurgical changes from C5 to C7 with likely C6 corpectomy. There is hardware failure at C5 with disc space protrusion of C4 5 of the superior hardware. While the screws look like there in position once difficult to determine if these have migrated over the years as there are no previous films available. There is anterior listhesis of C4 on C5 which changes with flexion-extension. MRI of the C-spine from is reviewed. This demonstrates again postsurgical changes with hardware failure at C5. There is bony fusion which has taken place from C5 6 and 67 however there is hardware failure treated C5 and C6 with protrusion into the C4 5 disc space. The MRI is obscured by the hardware. There is stenosis noted from C3 to C5 secondary to this. MRI of the lumbar spine from 12/2019 reviewed. this show spondylolisthesis grade 1 L4-L5 with stenosis which is [id number] in the central and bilateral foraminal stenosis. overall alignment is maintained there is no fracture or dislocations noted. CT of Cervical Spine: CT of the cervical spine is reviewed. This shows pseudoarthrosis at the C4 5 5 6 levels. There is hardware migration and likely failure at the superior portion. Centrally there is stenosis with anterolisthesis of C4 5 and C3 4 which is causing anterior thecal sac encroachment. There are no new fractures or dislocations. Thoracic spine CT myelogram shows multiple areas of thoracic disc lesion that is causing mild to moderate thecal compression ECHO done 06/10/19 reveals normal LV function. EF of 55%. No other abnormalities. - Labs Labs: Abnormal Lab Results - Last 24 Hours (Table) 06/10/20 Range/Units 16:17 Crossmatch See Detail Assessment and Plan Assessment: 1. 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 C3-4 and 4-5 Grade I anterior listhesis 3. Moderate to severe cervical stenosis 4. Thoracic disc bulges Plan: Spine Surgery Risk Review Alesha Bermudez is a 49 yo female presenting for evaluation of severe neck pain, b/l UE weakness, numbness tingling and pain. It was my pleasure to have seen and examined Alesha Bermudez In our visit today we have had a chance to go over subjective complaints, physical examination findings and treatments including the natural course history without intervention and various interventional options. The patients imaging demonstrates pseudoarthrosis of C4-7 with hardware failure and adjacent segment disease. On physical exam, Alesha eBrmudez demonstrates LUE weakness, radiculopathy, neck pain and difficulty with ADLs secondary to this. I have explained to the patient that as their condition progresses it will cause further neurological deficits and eventual paralysis. Based on the patients imaging, physical exam, and the rapid progression and disabling nature of their symptoms, at this time I recommend surgery in the form or a: revision cervical fusion. I discussed the risk and benefits of this procedure at length with Alesha Bermudez. The patient daughter agreed to considered pursuing the procedure abovementioned. Prior to surgery, she should follow up with her PCP (Cardio, ID, IM etc) for clearance. Questions were invited and answered, and the patient wishes to proceed as outlined below. Currently, I am recommendin.Surgical fixation in the form of a Revision anterior discectomy and fusion of C3-7 with removal of hardware and possible C5 corpectomy as stage I and stage II a posterior C2-T2 decompression and fusion with screws, rods and bone graft 2.Follow up with PCP for surgical clearance 3.Review of surgical risks and benefits as well as an educational packet on the proposed surgical procedure. Risks: All surgical procedures come with inherent risks, including those related to positioning, anesthesia, intraoperative findings, and postoperative complications. It is important to understand that surgery does not come with any guarantee of a successful outcome as complications and adverse events are always possible. The patient was given a handout in office today discussing the surgical procedure and risks associated with the intervention, both of which were discussed with the patient. These risks include but are not limited to the following: * Experiencing same, different or even worse symptoms in back, neck, arms, or legs compared to before surgery. Requiring further surgery or other forms of treatment presently or at some time in the future at same or other levels of the intended spine surgery. On an extreme but fortunately relatively rare basis severe complication such as blindness, stroke, heart attack, temporary and/or permanent nerve injury, paralysis, coma, or may occur, sometimes without known explanation. Surgical complications may include but are not limited to risk of infection, fluid accumulation in the surgical dissection site, including a seroma or hematoma, that requires additional surgery, wound drainage, bleeding, new numbness or weakness, vision changes/loss, spinal fluid leakage, non-healing and/or infected incision, headaches, difficulty or inability to swallow, hoarseness, hemopneumothorax, pneumothorax, impotence, retrograde ejaculation, vaginal dryness; injury to nerves, spinal cord, blood vessels, lymphatics or other vital organs (i.e., bowel injury, injury to the great vessels); heterotopic bone formation; complications related to the hardware such as screws, rods, cages including misplaced hardware, device failure, instrumentation at the wrong spine level, hardware fracture/breakage, or hardware loosening; vertebral failure of the spinal column above or below the newly placed hardware; retained surgical instrumentations or devices and the need for further surgery. * Medical risks of the planned spine surgery include but are not limited to generalized Infections to the whole body or local areas outside of the surgical site (sepsis), heart attack, bleeding, anaphylaxis, meningitis, seizure, epilepsy, hearing loss, burn gonzalez, laceration of the head or other areas of the body, bruising, hypersensitivity of the skin, bladder over distension; allergic reaction; shoulder injury related to positioning; fat, blood and air clots to other areas of the body like heart, lungs, brain; failure of internal organs such as lungs, kidneys, liver and excessive bleeding. If blood transfusions are necessary, note that transfusions may cause intolerance reactions such as anaphylaxis or other complex reactions. Despite best efforts, the results of spine surgery might not heal in terms of bone, soft tissues such as skin, fascia, ligaments, and joints. Additionally, in order to achieve best possible results, spine surgery may be carried out beyond the initially planned levels and involve decompression, fusion including insertion of hardware at levels other than the original intended area of surgical interest change some portions of the procedure in order to ensure the best possible outcomes. With spine surgery and spinal fusion, there are different off label uses of instrumentation (devices, implants and hardware) as well as biological substances (bone morphogenic proteins, demineralized bone matrix) as well as using extra bone from allograft sources (i.e. cadaver bone) or autograft (iliac crest bone, ribs, or the spine itself). The patient has been given information about these practices and their inherent risks and benefits. [facility] is an educational center that serves as a training facility for neurosurgical and orthopedic spine residents and fellows. Residents are phy sicians who are completing their surgical intensive training following medical school. They assist in the operating room with direct supervision of the attending surgeons. [place] are surgeons who have completed their training and eligible for board certification. They have opted for an elective year of more specialized training in their field. They assist in the operating room under the supervision of the attending surgeons. Physician assistants are medically trained surgical providers who function in the outpatient, inpatient, and operating room setting under the direct supervision of the attending surgeon. [facility] has multiple operating rooms with single and overlapping rooms running daily. They currently function under the required guidelines as produced by the [facility] Finance Committee with regards to the overlapping rooms and will continue to comply with changes to this policy as they occur. The requirements include and are complied with as follows: (1) the critical portions of the overlapping rooms will not occur at the same time, (2) the attending physician will be physically present during the critical portions of the procedure and immediately available during the entire case, and (3) a back-up attending is designated should the primary attending not be immediately available. The patient has had a chance to review all the listed information, has been given print outs detailing this information, and has had all his/her questions answered to their satisfaction. It was my pleasure to have seen and examined Alesha Bermudez. In our visit today we have had a chance to go over my understanding of our patient's current condition, the natural course history without intervention and various interventional options. Questions were invited and answered, and the patient wishes to proceed as outlined above. I have seen and examined the patient for 25 minutes and we have spent more than 50% of the time in repeat and detailed co unseling about the patient's condition, its natural course history with out and as much as can be predicted with surgery and re-review of various surgical treatment options. In conclusion, Alesha Bermudez and her daughter requested we proceed with the above suggested surgery and are willing to accept risks and limitations of the suggested surgery as nature of the disease process and our best attempts at treatment for the condition. Thank you again for allowing us to be part of your patient's care. Please don't hesitate to contact me if you have any further questions. Signed and authenticated by: [employer] P:\\\\ppart\\\\Files\\\\[id number] \\d [facility] [address] [place] [address]
[2020-06-11] MEDS: LACTATED RINGERS 1,000 ML IV SCH (06:30)
[2020-06-11] MEDS ORDERED: LIDOCAINE 1% (10MG/ML) FOR IV START INTRADERMA ONE (06:30)
[2020-06-11 06:44] LABS: Glucose,Whole Blood 110 mg/dL (75-99)
[2020-06-11] MEDS ORDERED: ACETAMINOPHEN TAB 500 MG TAB ONE (06:50)
[2020-06-11] MEDS ORDERED: KETAMINE 10 MG/ML 20 ML VIAL ONE (07:45)
[2020-06-11] MEDS ORDERED: MIDAZOLAM 2 MG/2 ML VIAL ONE (07:45)
[2020-06-11] MEDS ORDERED: HYDROmorphone (PF) 1 MG/ML ONE (07:45)
[2020-06-11] MEDS ORDERED: PHENYLEPHRINE 10 MG/ML VIAL ONE (07:45)
[2020-06-11] MEDS ORDERED: SODIUM CHLORIDE 0.9% 100 ML BAG ONE (07:45)
[2020-06-11] MEDS ORDERED: ceFAZolin 1,000 MG VIAL ONE (07:45)
[2020-06-11] MEDS ORDERED: SUCCINYLCHOLINE CHLORIDE VIAL 200 MG/10 ML VIAL IV ONE (07:45)
[2020-06-11] MEDS ORDERED: DEXAMETHASONE SOD PHOSPHATE 10 MG/ML 1 ML VIAL ONE (07:45)
[2020-06-11] MEDS ORDERED: SODIUM CHLORIDE 0.9% 250 ML BAG ONE (07:45)
[2020-06-11] MEDS ORDERED: fentaNYL (PF) 50 MCG/ML 2 ML AMP ONE (07:45)
[2020-06-11] MEDS ORDERED: TRANEXAMIC ACID 1,000 MG/10 ML VIAL ONE (07:45)
[2020-06-11] MEDS ORDERED: PROPOFOL 10 MG/ML 20 ML VIAL IV ONE (07:45)
[2020-06-11] MEDS ORDERED: LIDOCAINE 2%-EPI 1:100,000 20 ML VIAL SQ ONE ×2 (09:00)
[2020-06-11] MEDS ORDERED: BUPIVACAINE (PF) 0.5% 30 ML VIAL SQ ONE ×2 (09:00)
[2020-06-11] MEDS ORDERED: THROMBIN (BOVINE) 5,000 UNIT VIAL TOPICAL ONE (09:00)
[2020-06-11 09:03] LABS: ABG Base Excess -0.2 mmol/L; ABG Glucose Whole Blood 146 mg/dL (75-99); ABG HCO3 24 mmol/L (21-25); ABG Hematocrit 35 % (34.0-46.0); ABG Lactic Acid Whole Blood 0.7 mmol/L (0.5-1.6); ABG Oxygen Saturation 98.5 % (94-97); ABG PCO2 38 mmHg (35-45); ABG PH 7.41 (7.35-7.45); ABG PO2 124 mmHg (83-108); ABG Sodium Whole Blood 141 mmol/L (135-146); ABG TCO2 25 mmol/L (19-24)
[2020-06-11] MEDS ORDERED: GELATIN SPONGE,ABSORB (LARGE) 1 EACH SPONGE MISCELLANE ONE (10:10)
[2020-06-11] MEDS ORDERED: LACTATED RINGERS 1,000 ML IV ONE ×2 (11:56)
[2020-06-11] MEDS ORDERED: VANCOMYCIN 1,000 MG VIAL MISCELLANE ONE (16:57)
[2020-06-11] MEDS ORDERED: ACETAMINOPHEN TAB 325 MG TAB PO PRN (19:05)
[2020-06-11] MEDS ORDERED: ONDANSETRON 4 MG/2 ML VIAL IVP PRN (19:05)
[2020-06-11] MEDS ORDERED: CYCLOBENZAPRINE 10 MG TAB PO PRN (19:09)
[2020-06-11 19:12] LABS: Glucose,Whole Blood 183 mg/dL (75-99)
[2020-06-11] MEDS ORDERED: propofoL 100 ML IV ONE (19:18)
[2020-06-11 19:45] LABS: ABG Base Excess -2.2 mmol/L; ABG HCO3 23 mmol/L (21-25); ABG Oxygen Saturation 98.1 % (94-97); ABG PCO2 41 mmHg (35-45); ABG PH 7.36 (7.35-7.45); ABG PO2 327 mmHg (83-108); ABG TCO2 25 mmol/L (19-24); Allen Test Performed? Yes
--- NOTE | 2020-06-11 19:47 | XR ---
EXAMINATION TYPE: XR chest 1V portable DATE OF EXAM: 06/11/2020 COMPARISON: 04/25/2019 HISTORY: Check tube placement TECHNIQUE: Single view FINDINGS: There is endotracheal tube 3.4 cm from the marilin. There is left jugular catheter with tip in the superior vena cava. There is posterior cervical spine multilevel fusion surgery. There is some atelectasis left lung base. There is no heart failure. Heart size is normal. IMPRESSION: There is new atelectasis left lower lobe compared to old exam. No heart failure.
[2020-06-11] MEDS: ceFAZolin 3 GM in SODIUM CHLORIDE 0.9% 100 ML IVPB SCH (20:32)
[2020-06-11] MEDS: CHLORHEXIDINE GLUCONATE 15 ML CUP MUCOUS MEM SCH (20:32)
[2020-06-11] MEDS: GABAPENTIN 300 MG CAP PO SCH (20:33)
--- NOTE | 2020-06-11 21:50 | XR ---
EXAMINATION TYPE: XR chest 1V portable DATE OF EXAM: 06/11/2020 COMPARISON: Today HISTORY: Check tube placement TECHNIQUE: Single view FINDINGS: Endotracheal tube is 1.8 cm from the marilin. There is nasogastric tube in the stomach. Ther e is some atelectasis left lung base. There is no heart failure. IMPRESSION: Atelectasis left lung base unchanged. Normal heart.
[2020-06-11] MEDS ORDERED: LABETALOL 5 MG/ML VIAL MDV IVP STA (22:57)
--- NOTE | 2020-06-11 23:24 | P.CONS ---
History of Present Illness - Reason for Consult Consult date: 06/11/20 - History of Present Illness The patient is a 49-year-old female with a PMH of type II DM, asthma, obstructive sleep apnea, and fibromyalgia who was admitted for scheduled multiple cervical and thoracic spine procedures including discectomy, spinal fusion, and decompression. The patient underwent the procedures earlier today and was seen postoperatively in the intensive care unit. The patient continued to be intubated via ET tube and sedated with propofol, thereby a history could not be obtained. Chest x-ray was reviewed. Laboratory evaluation was also reviewed and was remarkable for a glucose of 183. Review of Systems Pertinent positives and negatives as discussed in HPI, a complete review of systems was performed and all other systems are negative. Past Medical History Past Medical History: Asthma, Diabetes Mellitus, Fibromyalgia, GERD/Reflux, Hearing Disorder / Deafness, Musculoskeletal Disorder, Osteoarthritis (OA), Skin Disorder, Sleep Apnea/CPAP/BIPAP, Thyroid Disorder Additional Past Medical History / Comment(s): Nephrolithiasis, cyst on Rt kidney. Herniated discs w/ chronic back pain. hx Hidradenitis groins/thighs w/ cellulitis/wounds, now healed (surgery/ wound vacs). Migraines. NIDDM type II- diet controlled since wt loss surgery. Hx bleeding hemorroids, IBS; Pancreatitis prior to cholecystectomy. Sinus problems. Hx stomach ulcer. c/o neck pain. "Some tones hard to hear." Has scrapes on forearms. Edema BLE. No cpap History of Any Multi-Drug Resistant Organisms: MRSA Year Discovered:: 09/20/16 MDRO Source:: BOTH THIGH Past Surgical History: Bariatric Surgery, Section, Cholecystectomy, Hernia Repair, Orthopedic Surgery, Tonsillectomy Additional Past Surgical History / Comment(s): Gastric bypass 2003 (Dr Andrew), revision 2012, panniculectomy, August 2016: Excess skin removal from bilateral thighs/panniculitis with debridements/wound vacs. Bilateral carpal tunnel. Right rotator cuff. Sinus surgery. Nerve blocks to neck and back. Cervical fusions (C-5-6-7), Sleep Apnea surgery. Past Anesthesia/Blood Transfusion Reactions: No Reported Reaction, Motion Sickness Smoking Status: Former smoker - Past Family History Mother Family Medical History: Diabetes Mellitus Father Family Medical History: Diabetes Mellitus Additional Family Medical History / Comment(s): Pt does not have contact with her parents. Medications and Allergies Home Medications Medication Instructions Recorded Confirmed Type Albuterol Sulfate [Proair Hfa] 2 puff INHALATION RT-Q6H PRN 11/08/13 06/10/20 History lamoTRIgine [LaMICtal] 300 mg PO HS 11/08/13 06/10/20 History Dextroamphetamine/Amphetamine 30 mg PO BID 09/14/17 06/10/20 History [Adderall] Loratadine [Claritin] 10 mg PO DAILY 09/14/17 06/10/20 History Omeprazole [PriLOSEC] 40 mg PO DAILY #1 capsule. 04/03/19 06/10/20 Rx Sucralfate [Carafate] 1 gm PO BID #480 ml 04/03/19 06/10/20 Rx buPROPion [Wellbutrin] 100 mg PO TID 11/01/19 06/10/20 History Baclofen 10 mg PO DAILY@0800,1500 05/06/20 06/10/20 History Butalb/APAP/Caff 50-325-40Mg 1 tab PO Q8H PRN 05/06/20 06/10/20 History [Fioricet 50-325-40] HYDROcodone/APAP 5-325MG [[place] 1 tab PO Q8HR PRN 05/06/20 06/10/20 History 5-325] Oxybutynin Chloride 5 mg PO BID 05/06/20 06/10/20 History busPIRone HCl [Buspar] 10 mg PO TID 05/06/20 06/10/20 History Amiovig Injection 170 mg INJ Q30D 06/10/20 History Baclofen [Lioresal] 20 mg PO HS 06/10/20 06/10/20 History Calcium Carbonate/Vitamin D3 2 each PO DAILY 06/10/20 06/10/20 History [Caltrate 600 Plus D3 Tablet] Ergocalciferol [Vitamin D2] 50,000 unit PO Q7D 06/10/20 06/10/20 History Multivitamins, Thera [Multivitamin 1 tab PO DAILY 06/10/20 06/10/20 History (formulary)] Allergies Allergy/AdvReac Type Severity Reaction Status Date / Time house dust Allergy Mild Cough Verified 06/11/20 06:12 grass pollen Allergy Cough Verified 06/11/20 06:12 ibuprofen [From Motrin] AdvReac Abdominal Verified 06/11/20 06:12 Pain morphine AdvReac Abdominal Verified 06/11/20 06:12 Pain with po Rx Physical Exam Vitals: Vital Signs Temp Pulse Pulse Resp BP Pulse Ox 06/11/20 20:00 97.4 F L 83 17 99 06/11/20 19:04 20 06/11/20 06:30 97.5 F L 104 H 16 150/70 96 Intake and Output 06/11/20 06/11/20 06/11/20 06:59 14:59 22:59 Intake Total 100 2000 700 Output Total 1360 Balance 100 2000 -660 Intake: IV 100 1999 700 Lactated Ringers 1,000 ml 100 @ 20 mls/hr IV .Q24H COUNTS INCLUDE 234 BEDS AT THE [facility] Rx#:[id number] Output: Urine 610 Estimated Blood Loss 750 Other: Voiding Method Indwelling Catheter Weight 145 kg ABP, PAP, CO, CI - Last 8 Hours Arterial Blood Pressure 166/84 General: Morbidly obese sedated female, on mechanical ventilation via ET tube Derm: no unusual rashes/lesions no unusual ecchymoses, warm, dry Head: atraumatic, normocephalic, symmetric Eyes: Anicteric sclera, pupils equal round reactive to light ENT: Nose and ears atraumatic Neck: R lateral neck dressing clearn and dry, No thyromegaly, rachea midline, supple Mouth: no lip lesion Cardiovascular: S1S2 reg, no murmur, positive posterior tibial pulse bilateral, no edema Lungs: CTA bilateral, no rhonchi, no rales Abdominal: soft, no appreciable organomegaly Ext: No contractures Neuro: Patient unresponsive to noxious stimuli Results Labs: Abnormal Lab Results - Last 24 Hours (Table) 06/11/20 06/11/20 06/11/20 Range/Units 06:40 09:03 19:10 ABG pO2 124 H (83-108) mmHg ABG Total CO2 25 H (19-24) mmol/L ABG O2 Saturation 98.5 H (94-97) % ABG Glucose 146 H (75-99) mg/dL POC Glucose (mg/dL) 110 H 183 H (75-99) mg/dL Arterial Blood Glucose 146 H (75-99) mg/dL 06/11/20 Range/Units 19:40 ABG pO2 327 H (83-108) mmHg ABG Total CO2 25 H (19-24) mmol/L ABG O2 Saturation 98.1 H (94-97) % ABG Glucose (75-99) mg/dL POC Glucose (mg/dL) (75-99) mg/dL Arterial Blood Glucose (75-99) mg/dL Assessment and Plan Plan: Type 2 DM -ROSSANA with Blood glucose monitoring -Obtain A1c S/p multiple cervical and thoracic spine procedures -Management as per the surgery service
[2020-06-12] MEDS: HYDROmorphone 1 MG/ML 1 ML SYRINGE IVP PRN ×7 (00:25→21:20)
[2020-06-12] MEDS: oxyCODONE-APAP 7.5-325MG 1 EACH TAB PO PRN ×2 (00:48→06:59)
[2020-06-12 04:57] LABS: Basophils % (A) 0 %; Eosinophils % (A) 0 %; HCT 34.4 % (34.0-46.0); HGB 11.2 gm/dL (11.4-16.0); Lymphocytes # (A) 0.7 k/uL (1.0-4.8); Lymphocytes % (A) 8 %; MCH 29.4 pg (25.0-35.0); MCHC 32.6 g/dL (31.0-37.0); MCV 90.2 fL (80.0-100.0); Mean Platelet Volume 7.9; Monocytes # (A) 0.4 k/uL (0-1.0); Monocytes % (A) 5 %; Neutrophils # (A) 7.5 k/uL (1.3-7.7); Neutrophils % (A) 87 %; Platelet Count 219 k/uL (150-450); RBC 3.81 m/uL (3.80-5.40); RDW 13.1 % (11.5-15.5); WBC 8.7 k/uL (3.8-10.6)
[2020-06-12 04:58] LABS: ABG Base Excess -0.7 mmol/L; ABG HCO3 24 mmol/L (21-25); ABG Oxygen Saturation 97.7 % (94-97); ABG PCO2 39 mmHg (35-45); ABG PO2 161 mmHg (83-108); ABG TCO2 25 mmol/L (19-24); Allen Test Performed? Yes
[2020-06-12 05:10] LABS: ALT 36 U/L (4-34); AST 65 U/L (14-36); African American GFR (CKD) >90 (>60 ml/min/1.73 sqM); Albumin 3.5 g/dL (3.5-5.0); Alkaline Phosphatase 105 U/L (38-126); Anion Gap 5 mmol/L; Blood Urea Nitrogen 12 mg/dL (7-17); Calcium 8.9 mg/dL (8.4-10.2); Carbon Dioxide 24 mmol/L (22-30); Chloride 107 mmol/L (98-107); Glucose 170 mg/dL (74-99); Non-African American GFR(CKD) >90 (>60 ml/min/1.73 sqM); Potassium 4.4 mmol/L (3.5-5.1); Sodium 136 mmol/L (137-145); Total Bilirubin 0.3 mg/dL (0.2-1.3); Total Protein 6.1 g/dL (6.3-8.2)
[2020-06-12 05:25] LABS: INR 0.9 (<1.2)
[2020-06-12] MEDS: ceFAZolin 3 GM in SODIUM CHLORIDE 0.9% 100 ML IVPB SCH ×2 (05:43→12:46)
[2020-06-12] MEDS: LACTATED RINGERS 1,000 ML IV SCH (05:44)
[2020-06-12 06:01] LABS: Partial Thromboplastin Time 20.2 sec (22.0-30.0)
[2020-06-12 06:51] LABS: Glucose,Whole Blood 147 mg/dL (75-99)
[2020-06-12] MEDS: INSULIN ASPART (NovoLOG) 100 UNIT/ML VIAL SQ SCH ×3 (06:57→17:58)
[2020-06-12] MEDS: DEXAMETHASONE SOD PHOSPHATE 4 MG/ML 1 ML VIAL IV SCH ×3 (06:59→18:04)
--- NOTE | 2020-06-12 07:55 | FL ---
EXAMINATION TYPE: FL guidance operating room, XR cervical spine limited DATE OF EXAM: 06/11/2020 CLINICAL HISTORY: Neck pain. TECHNIQUE: Fluoroscopy. Cervical spine limited views. COMPARISON: CT cervical spine from May 10, 2020. FINDINGS: Fluoroscopic guidance was provided during anterior cervical fusion procedure performed by Dr. Hernández. A total of 142 seconds of fluoroscopic time was utilized during the procedure and tw o spot intraoperative images are acquired. Images acquired are difficult to interpret due to brightness. There appears to be placement of multil evel bilateral interpedicular screws. IMPRESSION: As Above.
--- NOTE | 2020-06-12 07:57 | XR ---
EXAMINATION TYPE: XR chest 1V portable DATE OF EXAM: 06/12/2020 COMPARISON: 06/11/2020 INDICATION: Tube placement TECHNIQUE: Single frontal view of the chest is obtained. FINDINGS: The heart size is normal. The pulmonary vasculature is normal. Mild left lower lobe infiltrate is present. Endotracheal tube is present with the tip above the marilin. Nasogastric tube transverses the thorax. Left central venous catheter is present with tip in the proximal superior vena cava region. No pneumo thorax is evident. IMPRESSION: 1. Mild left lower lobe infiltrate. 2. Lines discussed above.
[2020-06-12] MEDS: SENNOSIDES-DOCUSATE SODIUM 1 EACH TAB PO SCH (08:16)
[2020-06-12] MEDS: CHLORHEXIDINE GLUCONATE 15 ML CUP MUCOUS MEM SCH (08:16)
[2020-06-12] MEDS: GABAPENTIN 300 MG CAP PO SCH ×3 (08:16→21:24)
[2020-06-12] MEDS ORDERED: DEXMEDETOMIDINE/0.9% NACL(PMX) 400 MCG in EMPTY BAG 1 BAG IV SCH (08:45)
--- NOTE | 2020-06-12 09:59 | P.PN ---
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 Patient is vented and sedated currently but did well overnight. Vital signs remained stable. The patient was very agitated when weaned from her vacations for extubation and so remains sedated overnight. Per nursing she is otherwise moving all 4 extre mities well. No fevers overnight. Labs are reviewed and are stable. Objective - Vital Signs Vital signs: Vital Signs Temp 98.7 F 06/12/20 08:00 Pulse 109 H 06/12/20 08:00 Resp 20 06/12/20 08:00 BP 138/85 06/12/20 08:00 Pulse Ox 97 06/12/20 08:00 Intake & Output 06/11/20 06/12/20 06/12/20 18:59 06:59 18:59 Intake Total 2600 500.00 208.841 Output Total 1250 1675 325 Balance 1350 -1175.00 -116.159 Weight 151.3 kg Intake: IV 2600 300 40 Lactated Ringers 1,000 ml 300 40 @ 20 mls/hr IV .Q24H [facility] Rx#:[id number] Intake, IV Titration 200.00 168.841 Amount Dexmedetomidine/0.9% NaCl 6.052 (Pmx) 400 mcg In Empty Bag 1 bag @ Titrate IV . Q0M [facility] Rx#:[id number] propofoL 1,000 mg In 200.00 162.789 Empty Bag 1 bag @ Titrate IV .Q0M [facility] Rx#: [id number] Output: Drainage 50 55 Posterior Medial Neck 10 40 Right Chest 40 15 Urine 500 1625 270 Estimated Blood Loss 750 Other: Voiding Method Indwelling Catheter ABP, PAP, CO, CI - Last Documented Arterial Blood Pressure 135/68 - Exam Currently vented and sedated not responding to commands. Anterior incision and posterior incision and dressing clean dry and intact. Drains both have approximately 25-50 mL of serosanguineous discharge. No overt swelling and tracheal deviation or other issues noted. - Labs CBC & Chem 7: 06/12/20 04:45 06/12/20 04:45 Labs: Abnormal Lab Results - Last 24 Hours (Table) 06/10/20 06/11/20 06/11/20 Range/Units 16:17 09:03 19:10 Hgb (11.4-16.0) gm/dL Lymphocytes # (1.0-4.8) k/uL APTT (22.0-30.0) sec ABG pO2 124 H (83-108) mmHg ABG Total CO2 25 H (19-24) mmol/L ABG O2 Saturation 98.5 H (94-97) % ABG Glucose 146 H (75-99) mg/dL Sodium (137-145) mmol/L Creatinine (0.52-1.04) mg/dL Glucose (74-99) mg/dL POC Glucose (mg/dL) 183 H (75-99) mg/dL AST (14-36) U/L ALT (4-34) U/L Total Protein (6.3-8.2) g/dL Arterial Blood Glucose 146 H (75-99) mg/dL Crossmatch See Detail 06/11/20 06/12/20 06/12/20 Range/Units 19:40 04:45 04:45 Hgb 11.2 L (11.4-16.0) gm/dL Lymphocytes # 0.7 L (1.0-4.8) k/uL APTT 20.2 L (22.0-30.0) sec ABG pO2 327 H (83-108) mmHg ABG Total CO2 25 H (19-24) mmol/L ABG O2 Saturation 98.1 H (94-97) % ABG Glucose (75-99) mg/dL Sodium (137-145) mmol/L Creatinine (0.52-1.04) mg/dL Glucose (74-99) mg/dL POC Glucose (mg/dL) (75-99) mg/dL AST (14-36) U/L ALT (4-34) U/L Total Protein (6.3-8.2) g/dL Arterial Blood Glucose (75-99) mg/dL Crossmatch 06/12/20 06/12/20 06/12/20 Range/Units 04:45 04:50 06:49 Hgb (11.4-16.0) gm/dL Lymphocytes # (1.0-4.8) k/uL APTT (22.0-30.0) sec ABG pO2 161 H (83-108) mmHg ABG Total CO2 25 H (19-24) mmol/L ABG O2 Saturation 97.7 H (94-97) % ABG Glucose (75-99) mg/dL Sodium 136 L (137-145) mmol/L Creatinine 0.50 L (0.52-1.04) mg/dL Glucose 170 H (74-99) mg/dL POC Glucose (mg/dL) 147 H (75-99) mg/dL AST 65 H (14-36) U/L ALT 36 H (4-34) U/L Total Protein 6.1 L (6.3-8.2) g/dL Arterial Blood Glucose (75-99) mg/dL Crossmatch Assessment and Plan Assessment: 49-year-old female postop day 1 from anterior and posterior cervical r econstruction 1. 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 C3-4 and 4-5 Grade I anterior listhesis 3. Moderate to severe cervical stenosis 4. Thoracic disc bulges Plan: -Appreciate medicine and ICU management. -SBT per ICU -Monitor labs -Transfuse if needed for vitals -Pain control: Continue with pain meds and pushes as needed at this time as patient is vented sedated and nothing by mouth -Once extubated: -Aggressive ambulation protocol. OOB with all meals. OOB or in chair 4-5x daily. -PT/OT -TEDs, SCDs, mechanical ppx. OK for heparin today. Early ambulation is best. -GI ppx. -CT cervical spine once extubated -C collar for protection during extubation and comfort -Dispo: Pending
[2020-06-12 12:19] LABS: Glucose,Whole Blood 143 mg/dL (75-99)
--- NOTE | 2020-06-12 13:02 | P.CNPUL ---
History of Present Illness Consult date: 06/12/20 Requesting physician: Andreas Hernández Reason for consult: other (ICU management.) Chief complaint: Status post anterior and posterior cervical reconstruction. History of present illness: This is a 49-year-old female with history of chronic severe back pain. And radiculopathy involving the left upper extremity. Patient was seen by Dr. 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 C3, C4 and 45 grade 1 anterior listhesis, moderate to severe cervical stenosis. Patient underwent surgical fixation in the form of revision of anterior discectomy, fusion of C3 through C7 with removal of hardware and C5 corpectomy, posterior C2-T2 decompression. Postoperatively patient was sent to the ICU on mechanical ventilation, on that was asked to see her on consultation. Patient is now on assist control rate of 14 tidal volume is 400 FiO2 is 50% and PEEP of 5. ABG showed a pO2 of 161 pCO2 of 39 pH of 7.40. Patient is on propofol at 60 mcg/kg/m, and her IV fluid is 0.9 normal saline at 100 mL per hour. According to her admitting physician, patient is known to have significant generalized anxiety, and she may be a difficult to wean because of her anxiety. Hence I have recommended transitioning propofol to Precedex. And an hour after, patient had weaning parameters which were noted to be excellent, patient was extubated to nasal cannula uneventfully, and his cervical collar was recommended. Review of Systems ROS unobtainable: due to endotracheal tube Past Medical History Past Medical History: Asthma, Diabetes Mellitus, Fibromyalgia, GERD/Reflux, Hearing Disorder / Deafness, Musculoskeletal Disorder, Osteoarthritis (OA), Skin Disorder, Sleep Apnea/CPAP/BIPAP, Thyroid Disorder Additional Past Medical History / Comment(s): Nephrolithiasis, cyst on Rt kidney. Herniated discs w/ chronic back pain. hx Hidradenitis groins/thighs w/ cellulitis/wounds, now healed (surgery/ wound vacs). Migraines. NIDDM type II- diet controlled since wt loss surgery. Hx bleeding hemorroids, IBS; Pancreatitis prior to cholecystectomy. Sinus problems. Hx stomach ulcer. c/o neck pain. "Some tones hard to hear." Has scrapes on forearms. Edema BLE. No cpap History of Any Multi-Drug Resistant Organisms: MRSA Date of last positivie culture/infection: 09/20/16 MDRO Source:: BOTH THIGH Past Surgical History: Bariatric Surgery, Section, Cholecystectomy, Hernia Repair, Orthopedic Surgery, Tonsillectomy Additional Past Surgical History / Comment(s): Gastric bypass 2002 (Dr Andrew), revision 2012, panniculectomy, August 2016: Excess skin removal from bilateral t highs/panniculitis with debridements/wound vacs. Bilateral carpal tunnel. Right rotator cuff. Sinus surgery. Nerve blocks to neck and back. Cervical fusions (C-5-6-7), Sleep Apnea surgery. Past Anesthesia/Blood Transfusion Reactions: No Reported Reaction, Motion Sickn ess Smoking Status: Former smoker - Past Family History Mother Family Medical History: Diabetes Mellitus Father Family Medical History: Diabetes Mellitus Additional Family Medical History / Comment(s): Pt does not have contact with her parents. Medications and Allergies Home Medications Medication Instructions Recorded Confirmed Type Albuterol Sulfate [Proair Hfa] 2 puff INHALATION RT-Q6H PRN 11/08/13 06/10/20 History lamoTRIgine [LaMICtal] 300 mg PO HS 11/08/13 06/10/20 History Dextroamphetamine/Amphetamine 30 mg PO BID 09/14/17 06/10/20 History [Adderall] Loratadine [Claritin] 10 mg PO DAILY 09/14/17 06/10/20 History Omeprazole [PriLOSEC] 40 mg PO DAILY #1 capsule. 04/03/19 06/10/20 Rx Sucralfate [Carafate] 1 gm PO BID #480 ml 04/03/19 06/10/20 Rx buPROPion [Wellbutrin] 100 mg PO TID 11/01/19 06/10/20 History Baclofen 10 mg PO DAILY@0800,1500 05/06/20 06/10/20 History Butalb/APAP/Caff 50-325-40Mg 1 tab PO Q8H PRN 05/06/20 06/10/20 History [Fioricet 50-325-40] HYDROcodone/APAP 5-325MG [[place] 1 tab PO Q8HR PRN 05/06/20 06/10/20 History 5-325] Oxybutynin Chloride 5 mg PO BID 05/06/20 06/10/20 History busPIRone HCl [Buspar] 10 mg PO TID 05/06/20 06/10/20 History Amiovig Injection 170 mg INJ Q30D 06/10/20 History Baclofen [Lioresal] 20 mg PO HS 06/10/20 06/10/20 History Calcium Carbonate/Vitamin D3 2 each PO DAILY 06/10/20 06/10/20 History [Caltrate 600 Plus D3 Tablet] Ergocalciferol [Vitamin D2] 50,000 unit PO Q7D 06/10/20 06/10/20 History Multivitamins, Thera [Multivitamin 1 tab PO DAILY 06/10/20 06/10/20 History (formulary)] Allergies Allergy/AdvReac Type Severity Reaction Status Date / Time house dust Allergy Mild Cough Verified 06/11/20 06:12 grass pollen Allergy Cough Verified 06/11/20 06:12 ibuprofen [From Motrin] AdvReac Abdominal Verified 06/11/20 06:12 Pain morphine AdvReac Abdominal Verified 06/11/20 06:12 Pain with po Rx Physical Exam Vitals: Vital Signs Temp Pulse Resp BP Pulse Ox 06/12/20 12:00 98.2 F 92 10 L 96 06/12/20 11:00 96 12 96 06/12/20 10:00 103 H 14 97 06/12/20 09:00 109 H 15 96 06/12/20 08:00 98.7 F 109 H 20 138/85 97 06/12/20 07:00 114 H 18 98 06/12/20 06:00 108 H 20 98 06/12/20 05:00 115 H 24 100 06/12/20 04:00 99 F 101 H 20 98 06/12/20 03:00 103 H 15 98 06/12/20 02:00 96 16 98 06/12/20 01:00 91 20 100 06/12/20 00:00 83 20 100 06/11/20 23:00 91 14 100 06/11/20 22:00 79 14 170/106 99 06/11/20 21:00 80 15 99 06/11/20 20:00 97.4 F L 83 17 99 06/11/20 19:04 20 Intake and Output 06/11/20 06/12/20 06/12/20 22:59 06:59 14:59 Intake Total 840.00 260 312.797 Output Total 1620 1305 627 Balance -780.00 -1045 -314.203 Intake: IV 740 160 120 Lactated Ringers 1,000 ml 140 160 120 @ 20 mls/hr IV .Q24H [facility] Rx#:[id number] Intake, IV Titration 100.00 100 192.797 Amount Dexmedetomidine/0.9% NaCl 30.008 (Pmx) 400 mcg In Empty Bag 1 bag @ Titrate IV . Q0M [facility] Rx#:[id number] propofoL 1,000 mg In 100.00 100 162.789 Empty Bag 1 bag @ Titrate IV .Q0M [facility] Rx#: [id number] Output: Drainage 50 55 Posterior Medial Neck 10 40 Right Chest 40 15 Urine 870 1255 572 Estimated Blood Loss 750 Other: Voiding Method Indwelling Catheter Indwelling Catheter Indwelling Catheter Weight 151.3 kg ABP, PAP, CO, CI - Last 8 Hours Arterial Blood Pressure 130/68 Arterial Blood Pressure 128/68 Arterial Blood Pressure 157/84 Arterial Blood Pressure 141/68 Arterial Blood Pressure 135/68 Arterial Blood Pressure 139/70 Arterial Blood Pressure 145/68 Arterial Blood Pressure 157/85 General: Revealed a 49-year-old female, obese, on mechanical ventilation, sedated, on propofol. Head: atraumatic, normocephalic, symmetric Eyes: Anicteric sclera, pupils equal round reactive to light ENT: Nose and ears atraumatic Neck: Surgical site in the neck seems to be clean, GEORGE drain noted. Dressing is dry. Cardiovascular: Normal S1 and S2, no S3 gallop. No murmur. Lungs: Symmetrical chest expansion, clear throughout no crackles or rhonchi or wheezes. Abdominal: Obese, soft, nontender, no megaly, no rebound, no guarding. Ext: No clubbing, no edema, no cyanosis Neuro: Unable to assess, patient is on propofol at 60 mcg/kg/m. Skin: No rashes. Results - Laboratory Findings CBC and BMP: 06/12/20 04:45 06/12/20 04:45 ABG ABG pH 7.40 (7.35-7.45) 06/12/20 04:50 ABG pCO2 39 mmHg (35-45) 06/12/20 04:50 ABG pO2 161 mmHg (83-108) H 06/12/20 04:50 ABG O2 Saturation 97.7 % (94-97) H 06/12/20 04:50 PT/INR, D-dimer PT 10.0 sec (9.0-12.0) 06/12/20 04:45 INR 0.9 (<1.2) 06/12/20 04:45 Abnormal lab findings: Abnormal Labs 06/10/20 06/11/20 06/11/20 16:17 06:40 09:03 Hgb Lymphocytes # APTT ABG pO2 124 H ABG Total CO2 25 H ABG O2 Saturation 98.5 H ABG Glucose 146 H Sodium Creatinine Glucose POC Glucose (mg/dL) 110 H AST ALT Total Protein Arterial Blood Glucose 146 H Crossmatch See Detail 06/11/20 06/11/20 06/12/20 19:10 19:40 04:45 Hgb 11.2 L Lymphocytes # 0.7 L APTT ABG pO2 327 H ABG Total CO2 25 H ABG O2 Saturation 98.1 H ABG Glucose Sodium Creatinine Glucose POC Glucose (mg/dL) 183 H AST ALT Total Protein Arterial Blood Glucose Crossmatch 06/12/20 06/12/20 06/12/20 04:45 04:45 04:50 Hgb Lymphocytes # APTT 20.2 L ABG pO2 161 H ABG Total CO2 25 H ABG O2 Saturation 97.7 H ABG Glucose Sodium 136 L Creatinine 0.50 L Glucose 170 H POC Glucose (mg/dL) AST 65 H ALT 36 H Total Protein 6.1 L Arterial Blood Glucose Crossmatch 06/12/20 06/12/20 06:49 12:08 Hgb Lymphocytes # APTT ABG pO2 ABG Total CO2 ABG O2 Saturation ABG Glucose Sodium Creatinine Glucose POC Glucose (mg/dL) 147 H 143 H AST ALT Total Protein Arterial Blood Glucose Crossmatch - Diagnostic Findings Chest x-ray: image reviewed (Left lower lobe atelectasis is noted.) Assessment and Plan Assessment: Impression: Status post C5-C7 exploration of fusion, C5 corpectomy, anterior removal of hardware, posterior C2 T1 lateral stabilizing confusion with C2-T7 decompression, postoperative day #1. Postoperative mechanical ventilation, expected, mostly because of the extensiveness of the cervical surgery. History of type 2 diabetes. History of mild asthma. History of obstructive sleep apnea syndrome maintained on BiPAP at home. History of degenerative joint disease. History of nephrolithiasis. History of irritable bowel syndrome. History of chronic cervical pain and radiculopathy. Recommendation: Patient was transitioned from propofol to Precedex. Patient will be given a short weaning trial, and her weaning parameters were noted to be excellent. Will proceed to extubating the patient. Post extubation incentive spirometry. Post extubation cervical collar. Resume home meds. We'll continue to follow. Time with Patient: Greater than 30
--- NOTE | 2020-06-12 16:53 | CT ---
EXAMINATION TYPE: CT cervical spine wo con DATE OF EXAM: 06/12/2020 COMPARISON: 05/10/2020 HISTORY: Post OP cervical fusion. CT DLP: 899.5 mGycm CONTRAST: None CT of the cervical spine is performed in the axial plane at 2 mm thick sections. Reconstructed image s in the coronal, and sagittal plane are reviewed on the computer. Postsurgical laminectomy screws laminectomies been performed. Disc spacers and vertebral body spacer placed C3-4 through C5 and C6 levels. Postsurgical drain is present posteriorly. Vertebral body alignment appears preserved. Disc heights are preserved. Vertebral body heights are preserved. No spinal canal stenosis is evident Significant foraminal narrowing is not evident. IMPRESSIONS: 1. Postsurgical changes through the cervical spine. No stenosis is evident.
[2020-06-12 17:55] LABS: Glucose,Whole Blood 128 mg/dL (75-99)
[2020-06-12] MEDS: IPRATROPIUM-ALBUTEROL 3 ML NEB INHALATION PRN (19:40)
[2020-06-12] MEDS: HEPARIN SODIUM,PORCINE 5,000 UNIT/ML 1 ML VIAL SQ SCH (21:20)
[2020-06-12] MEDS ORDERED: ALBUTEROL HFA INHALER INHALATION PRN (23:12)
--- NOTE | 2020-06-12 23:14 | P.PN ---
Progress Note - Text Progress Note Date: 06/12/20 presenting complaint: spine surgery interval history: The patient is a 49-year-old female with a PMH of type II DM, asthma, obstructive sleep apnea, and fibromyalgia who was admitted for scheduled multiple cervical and thoracic spine procedures including discectomy, spinal fusion, and decompression. The patient underwent the procedures and postoperatively was placed in the the intensive care unit.patient was successfully extubated. Today-laying in bed. Tired. Awake. Pain is present at the operative site. Review of systems: Was done for constitutional, cardiovascular, GI, pulmonary.muscular skeletal relevant finding as above Active Medications Acetaminophen (Acetaminophen Tab 325 Mg Tab) 650 mg PO Q6HR PRN PRN Reason: Fever and/ or Pain Albuterol/Ipratropium (Ipratropium-Albuterol 3 Ml Neb) 3 ml INHALATION RT-QID PRN PRN Reason: Shortness Of Breath Or Wheezing Last Admin: 06/12/20 19:40 Dose: 3 ml Documented by: Cyclobenzaprine HCl (Cyclobenzaprine 10 Mg Tab) 10 mg PO TID PRN PRN Reason: Muscle Spasm Last Admin: 06/12/20 00:48 Dose: 10 mg Documented by: Dexamethasone Sodium Phosphate (Dexamethasone Sod Phosphate 4 Mg/Ml 1 Ml Vial) 4 mg IV Q6HR [facility] Last Admin: 06/12/20 18:04 Dose: 4 mg Documented by: Gabapentin (Gabapentin 300 Mg Cap) 300 mg PO TID [facility] Last Admin: 06/12/20 21:24 Dose: Not Given Documented by: Heparin Sodium (Porcine) (Heparin Sodium,Porcine 5,000 Unit/Ml 1 Ml Vial) 5,000 unit SQ Q12HR [facility] Last Admin: 06/12/20 21:20 Dose: 5,000 unit Documented by: Hydromorphone HCl (Hydromorphone 1 Mg/Ml 1 Ml Syringe) 1 mg IVP Q3HR PRN PRN Reason: Pain Last Admin: 06/12/20 21:20 Dose: 1 mg Documented by: Lactated Ringer's (Lactated Ringers) 1,000 mls @ 20 mls/hr IV .Q24H [facility] Last Admin: 06/12/20 05:44 Dose: 20 mls/hr Documented by: Insulin Aspart (Insulin Aspart (Novolog) 100 Unit/Ml Vial) 0 unit SQ Q6H [facility]; Protocol Ondansetron HCl (Ondansetron 4 Mg/2 Ml Vial) 4 mg IVP Q8HR PRN PRN Reason: Nausea And Vomiting Oxycodone/Acetaminophen (Oxycodone-Apap 7.5-325mg 1 Each Tab) 1 each PO Q6HR P RN PRN Reason: Pain Last Admin: 06/12/20 06:59 Dose: 1 each Documented by: Senna/Docusate Sodium (Sennosides-Docusate Sodium 1 Each Tab) 4 each PO DAILY [facility] Last Admin: 06/12/20 08:16 Dose: 4 each Documented by: On examination: VITAL SIGNS: [98.7, 109, 20, 138/85, 97%] GENERAL APPEARANCE: BMI 59.1, laying in bed, awake HEENT: Normal external appearance of nose and ear. Oral cavity normal EYES: Pupils equal. Conjunctiva normal. NECK:JVD unable to assess, dressing over the anterior neck RESPIRATORY: Respiratory effort increasel. decreased breath sounds. CARDIOVASCULAR: First and second sounds normal. No edema. ABDOMEN: Soft. Liver and spleen not palpable. No tenderness. No mass palpable. PSYCHIATRY: a bit sleepy but able to answer questions . 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 Status post surgical -morbid obesity BMI 59.1 -Asthma -Diabetes mellitus type 2 -Chronic fibromyalgia -GERD -Obstructive sleep apnea-does not use CPAP -irritable bowel syndrome -bipolar disorder Plan: Patient was extubated earlier today. Is on IV Decadron. Subcu heparin for DVT prophylaxis. For pain control getting Dilaudid.placed on clear liquid diet at lunch per orthopedics.home medications resumed later today. Thank you
[2020-06-12 23:25] LABS: Glucose,Whole Blood 136 mg/dL (75-99)
[2020-06-12] MEDS: busPIRone HCl 10 MG TAB PO SCH (23:55)
[2020-06-12] MEDS: buPROPion 100 MG TAB PO SCH (23:55)
[2020-06-12] MEDS: OXYBUTYNIN CHLORIDE 5 MG TAB PO SCH (23:56)
[2020-06-12] MEDS: lamoTRIgine 100 MG TAB PO SCH (23:56)
[2020-06-13] MEDS: HYDROmorphone 1 MG/ML 1 ML SYRINGE IVP PRN ×5 (00:02→17:27)
[2020-06-13] MEDS: DEXAMETHASONE SOD PHOSPHATE 4 MG/ML 1 ML VIAL IV SCH ×5 (00:02→23:46)
[2020-06-13] MEDS: CLEVIDIPINE BUTYRATE 25 MG in EMPTY BAG 1 BAG IV SCH ×8 (00:03→20:45)
[2020-06-13] MEDS: INSULIN ASPART (NovoLOG) 100 UNIT/ML VIAL SQ SCH ×5 (00:04→20:50)
[2020-06-13 04:51] LABS: Basophils % (A) 0 %; Eosinophils % (A) 0 %; HCT 30.9 % (34.0-46.0); HGB 10.6 gm/dL (11.4-16.0); Lymphocytes # (A) 0.7 k/uL (1.0-4.8); Lymphocytes % (A) 9 %; MCHC 34.2 g/dL (31.0-37.0); MCV 90.6 fL (80.0-100.0); Mean Platelet Volume 8.6; Monocytes # (A) 0.3 k/uL (0-1.0); Monocytes % (A) 4 %; Neutrophils # (A) 7.2 k/uL (1.3-7.7); Neutrophils % (A) 86 %; Platelet Count 186 k/uL (150-450); RBC 3.41 m/uL (3.80-5.40); RDW 13.1 % (11.5-15.5); WBC 8.3 k/uL (3.8-10.6)
[2020-06-13 05:25] LABS: ALT 30 U/L (4-34); AST 66 U/L (14-36); African American GFR (CKD) >90 (>60 ml/min/1.73 sqM); Albumin 3.5 g/dL (3.5-5.0); Alkaline Phosphatase 96 U/L (38-126); Anion Gap 4 mmol/L; Blood Urea Nitrogen 13 mg/dL (7-17); Carbon Dioxide 28 mmol/L (22-30); Chloride 103 mmol/L (98-107); Glucose 158 mg/dL (74-99); Non-African American GFR(CKD) >90 (>60 ml/min/1.73 sqM); Sodium 135 mmol/L (137-145); Total Bilirubin 0.4 mg/dL (0.2-1.3); Total Protein 6.2 g/dL (6.3-8.2)
[2020-06-13 05:49] LABS: Glucose,Whole Blood 151 mg/dL (75-99)
[2020-06-13] MEDS: LACTATED RINGERS 1,000 ML IV SCH (06:08)
[2020-06-13] MEDS: IPRATROPIUM-ALBUTEROL 3 ML NEB INHALATION PRN (07:49)
[2020-06-13] MEDS: oxyCODONE-APAP 7.5-325MG 1 EACH TAB PO PRN ×5 (08:16→23:46)
[2020-06-13] MEDS: busPIRone HCl 10 MG TAB PO SCH ×3 (08:17→21:45)
[2020-06-13] MEDS: buPROPion 100 MG TAB PO SCH ×3 (08:18→21:45)
[2020-06-13] MEDS: GABAPENTIN 300 MG CAP PO SCH ×3 (08:18→21:44)
[2020-06-13] MEDS: PANTOPRAZOLE 40 MG TABLET PO SCH (08:18)
[2020-06-13] MEDS: HEPARIN SODIUM,PORCINE 5,000 UNIT/ML 1 ML VIAL SQ SCH ×2 (08:19→20:47)
[2020-06-13] MEDS: OXYBUTYNIN CHLORIDE 5 MG TAB PO SCH ×2 (08:20→20:47)
[2020-06-13] MEDS: SENNOSIDES-DOCUSATE SODIUM 1 EACH TAB PO SCH (08:20)
[2020-06-13] MEDS: MULTIVITAMINS, THERA 1 EACH TAB PO SCH (08:20)
[2020-06-13] MEDS ORDERED: BACLOFEN 10 MG TAB PO SCH (09:00)
[2020-06-13] MEDS ORDERED: NON FORMULARY DRUG (Dextroamphetamine/Amphetamine [Adderall] 30 MG Tablet) PO SCH (09:00)
[2020-06-13] MEDS: BACLOFEN 10 MG TAB PO PRN ×2 (09:16→13:57)
[2020-06-13] MEDS ORDERED: amLODIPine 5 MG TAB PO SCH (09:30)
[2020-06-13] MEDS: METOPROLOL TARTRATE 25 MG TAB PO SCH ×2 (09:33→20:47)
[2020-06-13] MEDS: LOSARTAN 25 MG TAB PO SCH (11:04)
[2020-06-13 11:21] LABS: Glucose,Whole Blood 166 mg/dL (75-99)
[2020-06-13] MEDS: amLODIPine 5 MG TAB PO SCH (12:15)
--- NOTE | 2020-06-13 13:06 | P.PN ---
Subjective Progress Note Date: 06/13/20 Principal diagnosis: Status post anterior and posterior cervical reconstruction. Postoperative day #2. This is a 49-year-old female with history of chronic severe back pain. And radiculopathy involving the left upper extremity. Patient was seen by Dr. 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 C3, C4 and 45 grade 1 anterior listhesis, moderate to severe cervical stenosis. Patient underwent surgical fixation in the form of revision of anterior discectomy, fusion of C3 through C7 with removal of hardware and C5 corpectomy, posterior C2-T2 decompression. Postoperatively patient was sent to the ICU on mechanical ventilation, on that was asked to see her on consultation. Patient is now on assist control rate of 14 tidal volume is 400 FiO2 is 50% and PEEP of 5. ABG showed a pO2 of 161 pCO2 of 39 pH of 7.40. Patient is on propofol at 60 mcg/kg/m, and her IV fluid is 0.9 normal saline at 100 mL per hour. According to her admitting physician, patient is known to have significant generalized anxiety, and she may be a difficult to wean because of her anxiety. Hence I have recommended transitioning propofol to Precedex. And an hour after, patient had weaning parameters which were noted to be excellent, patient was extubated to nasal cannula uneventfully, and his cervical collar was recommended. Patient was reevaluated today on 06/13/2020, patient was extubated yesterday uneventfully. She is now on 2 L nasal cannula. She has elevated blood pressure maintained on clevidipine 15 mg per hour, hence I have recommended starting the patient on Norvasc metoprolol and losartan. Patient is having intermittent episodes of pain, but receiving pain medications to control her pain. She is in sinus tachycardia rate of 109. Blood pressure is elevated. Has severe pain but again narcotics. Labs were reviewed, she has a relatively normal basic metabolic profile is normal CBC, hemoglobin is 10.6. Objective - Vital Signs Vital signs: Vital Signs Temp 97.8 F 06/13/20 08:00 Pulse 81 06/13/20 12:30 Resp 13 06/13/20 12:30 BP 151/83 06/13/20 08:00 Pulse Ox 93 L 06/13/20 12:30 Intake & Output 06/12/20 06/13/20 06/13/20 18:59 06:59 18:59 Intake Total 472.797 335.502 162.366 Output Total 1227 1330 563 Balance -754.203 -994.498 -400.634 Weight 152.6 kg Intake: IV 180 253 83 Lactated Ringers 1,000 ml 180 220 80 @ 20 mls/hr IV .Q24H [facility] Rx#:[id number] artline flush 33 3 Intake, IV Titration 292.797 82.502 79.366 Amount Clevidipine Butyrate 25 82.502 79.366 mg In Empty Bag 1 bag @ 1 MG/HR 2 mls/hr IV .Q24H [facility] Rx#:[id number] Dexmedetomidine/0.9% NaCl 30.008 (Pmx) 400 mcg In Empty Bag 1 bag @ Titrate IV . Q0M [facility] Rx#:[id number] ceFAZolin 3 gm In Sodium 100 Chloride 0.9% 100 ml @ 200 mls/hr IVPB Q8H [facility] Rx#:[id number] propofoL 1,000 mg In 162.789 Empty Bag 1 bag @ Titrate IV .Q0M [facility] Rx#: [id number] Output: Drainage 115 53 Posterior Medial Neck 60 50 Right Chest 55 3 Urine 1112 1330 510 Other: Voiding Method Indwelling Catheter Indwelling Catheter Indwelling Catheter ABP, PAP, CO, CI - Last Documented Arterial Blood Pressure 129/56 - Exam General: Revealed a 49-year-old female, obese, on nasal cannula, in no distress. Head: atraumatic, normocephalic, symmetric Eyes: Anicteric sclera, pupils equal round reactive to light ENT: Nose and ears atraumatic Neck: Surgical site in the neck seems to be clean, GEORGE drain noted. Dressing is dry. Cardiovascular: Normal S1 and S2, no S3 gallop. No murmur. Lungs: Symmetrical chest expansion, clear throughout no crackles or rhonchi or wheezes. Abdominal: Obese, soft, nontender, no megaly, no rebound, no guarding. Ext: No clubbing, no edema, no cyanosis Neuro: Alert and oriented 3, no gross focal neurologic deficits. Skin: No rashes. - Labs CBC & Chem 7: 06/13/20 04:40 06/13/20 04:40 Labs: Abnormal Lab Results - Last 24 Hours (Table) 06/12/20 06/12/20 06/13/20 Range/Units 17:54 23:24 04:40 RBC 3.41 L (3.80-5.40) m/uL Hgb 10.6 L (11.4-16.0) gm/dL Hct 30.9 L (34.0-46.0) % Lymphocytes # 0.7 L (1.0-4.8) k/uL Sodium (137-145) mmol/L Creatinine (0.52-1.04) mg/dL Glucose (74-99) mg/dL POC Glucose (mg/dL) 128 H 136 H (75-99) mg/dL AST (14-36) U/L Total Protein (6.3-8.2) g/dL 06/13/20 06/13/20 06/13/20 Range/Units 04:40 05:46 11:19 RBC (3.80-5.40) m/uL Hgb (11.4-16.0) gm/dL Hct (34.0-46.0) % Lymphocytes # (1.0-4.8) k/uL Sodium 135 L (137-145) mmol/L Creatinine 0.49 L (0.52-1.04) mg/dL Glucose 158 H (74-99) mg/dL POC Glucose (mg/dL) 151 H 166 H (75-99) mg/dL AST 66 H (14-36) U/L Total Protein 6.2 L (6.3-8.2) g/dL Assessment and Plan Assessment: Impression: Status post C5-C7 exploration of fusion, C5 corpectomy, anterior removal of hardware, posterior C2 T1 lateral stabilizing confusion with C2-T7 decompression, postoperative day #2 Postoperative mechanical ventilation, expected, mostly because of the extensiveness of the cervical surgery. Patient was extubated yesterday unevent fully. And she is now on nasal cannula. History of type 2 diabetes. History of mild asthma. History of obstructive sleep apnea syndrome maintained on BiPAP at home. History of degenerative joint disease. History of nephrolithiasis. History of irritable bowel syndrome. History of chronic cervical pain and radiculopathy. Hypertension, requiring clevidipine drip, however will switch to oral medication to control her blood pressure. In the meantime continue pain control. Recommendation: Continue to monitor in the ICU for the next 24 hours since the patient isn't requiring clevidipine. Continue incentive spirometry. Start patient on blood pressure medications in the form of Norvasc metoprolol and losartan. Taper and possibly discontinue clevidipine Pain control that will help controlling blood pressure. Resume home meds. We'll continue to follow. Time with Patient: Less than 30
--- NOTE | 2020-06-13 14:24 | P.PN ---
Subjective Progress Note Date: 06/13/20 Principal diagnosis: Failed Hardware C4-7 with cervical stenosis Patient seen and examined this morning. She is doing much better. She has been extubated no overnight. She is able to talk. She passed her swallowing eval. Her blood pressure however is been very high and so they are monitoring this and treating it. She states she is in some pain and she has pain in her left arm but it is with motion of the left shoulder. She denies any pain that goes down her arm. She denies any numbness or tingling. She is able to move all 4 extremities. She denies headache nausea vomiting change in vision fevers chills shortness of breath or chest pain at this time. Objective - Vital Signs Vital signs: Vital Signs Temp 97.8 F 06/13/20 08:00 Pulse 92 06/13/20 14:00 Resp 12 06/13/20 14:00 BP 151/83 06/13/20 08:00 Pulse Ox 96 06/13/20 14:00 Intake & Output 06/12/20 06/13/20 06/13/20 18:59 06:59 18:59 Intake Total 472.797 335.502 712.366 Output Total 1227 1330 913 Balance -754.203 -994.498 -200.634 Weight 152.6 kg Intake: IV 180 253 183 Lactated Ringers 1,000 ml 180 220 180 @ 20 mls/hr IV .Q24H [facility] Rx#:[id number] artline flush 33 3 Intake, IV Titration 292.797 82.502 129.366 Amount Clevidipine Butyrate 25 82.502 129.366 mg In Empty Bag 1 bag @ 1 MG/HR 2 mls/hr IV .Q24H [facility] Rx#:[id number] Dexmedetomidine/0.9% NaCl 30.008 (Pmx) 400 mcg In Empty Bag 1 bag @ Titrate IV . Q0M [facility] Rx#:[id number] ceFAZolin 3 gm In Sodium 100 Chloride 0.9% 100 ml @ 200 mls/hr IVPB Q8H [facility] Rx#:[id number] propofoL 1,000 mg In 162.789 Empty Bag 1 bag @ Titrate IV .Q0M [facility] Rx#: [id number] Oral 400 Output: Drainage 115 53 Posterior Medial Neck 60 50 Right Chest 55 3 Urine 1112 1330 860 Other: Voiding Method Indwelling Catheter Indwelling Catheter Indwelling Catheter ABP, PAP, CO, CI - Last Documented Arterial Blood Pressure 143/64 - Exam GEN: AOX3, NAD VSS Inspection: Appears well with sitting up in bed Palpation: No tennis palpation of the anterior posterior neck. No fluctuance felt. Motor: 4+/5 shoulder abd/EF/EE/WF/intrinsics 4+/5 DF/PF/EHL/FHL/HF/KE/KF She is generally weak from her weakened state but is regaining strength rapidly Reflexes: 2/4 DTR all upper and LE Sensation intact to light touch in C5-T1 as well as L2-S1 distribution Dodge's: Negative bilaterally Clonus: Negative bilaterally Babinski: Bilaterally Incision: In dry and intact no erythema or ecchymosis or edema Dressing: Clean dry and intact Drain: Minimal drainage anterior and posterior total of approximately 50 overnight - Labs CBC & Chem 7: 06/13/20 04:40 06/13/20 04:40 Labs: Abnormal Lab Results - Last 24 Hours (Table) 06/12/20 06/12/20 06/13/20 Range/Units 17:54 23:24 04:40 RBC 3.41 L (3.80-5.40) m/uL Hgb 10.6 L (11.4-16.0) gm/dL Hct 30.9 L (34.0-46.0) % Lymphocytes # 0.7 L (1.0-4.8) k/uL Sodium (137-145) mmol/L Creatinine (0.52-1.04) mg/dL Glucose (74-99) mg/dL POC Glucose (mg/dL) 128 H 136 H (75-99) mg/dL AST (14-36) U/L Total Protein (6.3-8.2) g/dL 06/13/20 06/13/20 06/13/20 Range/Units 04:40 05:46 11:19 RBC (3.80-5.40) m/uL Hgb (11.4-16.0) gm/dL Hct (34.0-46.0) % Lymphocytes # (1.0-4.8) k/uL Sodium 135 L (137-145) mmol/L Creatinine 0.49 L (0.52-1.04) mg/dL Glucose 158 H (74-99) mg/dL POC Glucose (mg/dL) 151 H 166 H (75-99) mg/dL AST 66 H (14-36) U/L Total Protein 6.2 L (6.3-8.2) g/dL Assessment and Plan Assessment: 49-year-old female postop day 2 from anterior and posterior cervical reconstruction 1. 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 C3-4 and 4-5 Grade I anterior listhesis 3. Moderate to severe cervical stenosis 4. Thoracic disc bulges Plan: -Appreciate medicine and ICU management. -Blood pressure control per ICU -Monitor labs -Transfuse if needed for vitals -Pain control: Continue with pain meds and pushes as needed at this time as patient is vented sedated and nothing by mouth -Once extubated: -Aggressive ambulation protocol. OOB with all meals. OOB or in chair 4-5x daily. -PT/OT -TEDs, SCDs, mechanical ppx. OK for heparin today. Early ambulation is best. -GI ppx. -CT cervical spine reviewed hardware in good position decompression adequate -C collar for protection -Figure of 8 brace to hold shoulders back to allow trapezial healing and prevent dehiscence -Dispo: Pending
[2020-06-13 17:26] LABS: Glucose,Whole Blood 134 mg/dL (75-99)
[2020-06-13 20:39] LABS: Glucose,Whole Blood 141 mg/dL (75-99)
[2020-06-13] MEDS: lamoTRIgine 100 MG TAB PO SCH (20:47)
[2020-06-13] MEDS: BACLOFEN 10 MG TAB PO SCH (20:49)
--- NOTE | 2020-06-13 20:49 | P.PN ---
Progress Note - Text Progress Note Date: 06/13/20 presenting complaint: spine surgery interval history: The patient is a 49-year-old female with a PMH of type II DM, asthma, obstructive sleep apnea, and fibromyalgia who was admitted for scheduled multiple cervical and thoracic spine procedures including discectomy, spinal fusion, and decompression. The patient underwent the procedures and postoperatively was placed in the the intensive care unit.patient was successfully extubated. Today-up in a chair. More awake. On nasal cannula. Tolerated liquid diet. Diet was advanced. Review of systems: Was done for constitutional, cardiovascular, GI, pulmonary.muscular skeletal relevant finding as above Active Medications Acetaminophen (Acetaminophen Tab 325 Mg Tab) 650 mg PO Q6HR PRN PRN Reason: Fever and/ or Pain Albuterol Sulfate (Albuterol Hfa Inhaler) 2 puff INHALATION RT-Q6H PRN PRN Reason: Wheezing Albuterol/Ipratropium (Ipratropium-Albuterol 3 Ml Neb) 3 ml INHALATION RT-QID PRN PRN Reason: Shortness Of Breath Or Wheezing Last Admin: 06/13/20 07:49 Dose: 3 ml Documented by: Amlodipine Besylate (Amlodipine 5 Mg Tab) 5 mg PO DAILY [facility] Last Admin: 06/13/20 12:15 Dose: 5 mg Documented by: Baclofen (Baclofen 10 Mg Tab) 10 mg PO BID PRN PRN Reason: Muscle Spasm Last Admin: 06/13/20 13:57 Dose: 10 mg Documented by: Baclofen (Baclofen 10 Mg Tab) 20 mg PO [facility] Bupropion HCl (Bupropion 100 Mg Tab) 100 mg PO TID [facility] Last Admin: 06/13/20 16:18 Dose: 100 mg Documented by: Buspirone HCl (Buspirone Hcl 10 Mg Tab) 10 mg PO TID [facility] Last Admin: 06/13/20 16:18 Dose: 10 mg Documented by: Dexamethasone Sodium Phosphate (Dexamethasone Sod Phosphate 4 Mg/Ml 1 Ml Vial) 2 mg IV Q6HR [facility] Last Admin: 06/13/20 17:27 Dose: 2 mg Documented by: Gabapentin (Gabapentin 300 Mg Cap) 300 mg PO TID [facility] Last Admin: 06/13/20 16:18 Dose: 300 mg Documented by: Heparin Sodium (Porcine) (Heparin Sodium,Porcine 5,000 Unit/Ml 1 Ml Vial) 5,000 unit SQ Q12HR [facility] Last Admin: 06/13/20 08:19 Dose: 5,000 unit Documented by: Hydromorphone HCl (Hydromorphone 1 Mg/Ml 1 Ml Syringe) 1 mg IVP Q3HR PRN PRN Reason: Pain Last Admin: 06/13/20 17:27 Dose: 1 mg Documented by: Lactated Ringer's (Lactated Ringers) 1,000 mls @ 20 mls/hr IV .Q24H [facility] Last Admin: 06/13/20 06:08 Dose: 20 mls/hr Documented by: Clevidipine 25 mg/ IV Solution 50 mls @ 2 mls/hr IV .Q24H [facility]; Protocol Last Titration: 06/13/20 17:42 Dose: 2 mg/hr, 4 mls/hr Documented by: Insulin Aspart (Insulin Aspart (Novolog) 100 Unit/Ml Vial) 0 unit SQ ACHS [facility]; Protocol Lamotrigine (Lamotrigine 100 Mg Tab) 300 mg PO HS [facility] Last Admin: 06/12/20 23:56 Dose: Not Given Documented by: Losartan Potassium (Losartan 25 Mg Tab) 25 mg PO DAILY [facility] Last Admin: 06/13/20 11:04 Dose: 25 mg Documented by: Metoprolol Tartrate (Metoprolol Tartrate 25 Mg Tab) 25 mg PO BID [facility] Last Admin: 06/13/20 09:33 Dose: 25 mg Documented by: Multivitamins (Multivitamins, Thera 1 Each Tab) 1 each PO DAILY [facility] Last Admin: 06/13/20 08:20 Dose: 1 each Documented by: Ondansetron HCl (Ondansetron 4 Mg/2 Ml Vial) 4 mg IVP Q8HR PRN PRN Reason: Nausea And Vomiting Oxybutynin Chloride (Oxybutynin Chloride 5 Mg Tab) 5 mg PO BID [facility] Last Admin: 06/13/20 08:20 Dose: 5 mg Documented by: Oxycodone/Acetaminophen (Oxycodone-Apap 7.5-325mg 1 Each Tab) 1 - 2 each PO Q6HR PRN PRN Reason: Mild to Moderate Pain Last Admin: 06/13/20 13:56 Dose: 2 each Documented by: Pantoprazole Sodium (Pantoprazole 40 Mg Tablet) 40 mg PO DAILY [facility] Last Admin: 06/13/20 08:18 Dose: 40 mg Documented by: Senna/Docusate Sodium (Sennosides-Docusate Sodium 1 Each Tab) 4 each PO DAILY [facility] Last Admin: 06/13/20 08:20 Dose: 4 each Documented by: On examination: VITAL SIGNS: Afebrile, 84, 17, 1:30/67, 95% of 2 L GENERAL APPEARANCE: Sitting up in a chair, awake HEENT: Normal external appearance of nose and ear. Oral cavity normal EYES: Pupils equal. Conjunctiva normal. NECK:JVD unable to assess, dressing over the anterior neck RESPIRATORY: Respiratory effort increasel. decreased breath sounds. CARDIOVASCULAR: First and second sounds normal. No edema. ABDOMEN: Soft. Liver and spleen not palpable. No tenderness. No mass palpable. PSYCHIATRY: Awake, answering questions . 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 Status post surgical -morbid obesity BMI 59.1 -Asthma -Diabetes mellitus type 2 -Chronic fibromyalgia -GERD -Obstructive sleep apnea-does not use CPAP -irritable bowel syndrome -bipolar disorder -Acute postprocedure blood loss anemia, expected from surgery Plan: Patient is on DuoNeb, baclofen, Cleviprex yesterday IV Decadron. Other medications to continue. Diet has been advanced per surgery. Discussed with the patient. Thank you
[2020-06-14] MEDS: CLEVIDIPINE BUTYRATE 25 MG in EMPTY BAG 1 BAG IV SCH (01:57)
[2020-06-14] MEDS: HYDROmorphone 1 MG/ML 1 ML SYRINGE IVP PRN ×6 (01:58→21:26)
[2020-06-14] MEDS: oxyCODONE-APAP 7.5-325MG 1 EACH TAB PO PRN ×3 (04:14→15:00)
[2020-06-14 05:14] LABS: Basophils % (A) 0 %; Eosinophils % (A) 0 %; HCT 26.7 % (34.0-46.0); Lymphocytes # (A) 1.2 k/uL (1.0-4.8); Lymphocytes % (A) 16 %; MCH 34.2 pg (25.0-35.0); MCHC 37.6 g/dL (31.0-37.0); MCV 90.9 fL (80.0-100.0); Mean Platelet Volume 8.2; Monocytes # (A) 0.5 k/uL (0-1.0); Monocytes % (A) 6 %; Neutrophils # (A) 5.5 k/uL (1.3-7.7); Neutrophils % (A) 76 %; Platelet Count 175 k/uL (150-450); RBC 2.93 m/uL (3.80-5.40); RDW 13.3 % (11.5-15.5); WBC 7.2 k/uL (3.8-10.6)
[2020-06-14 05:21] LABS: ALT 27 U/L (4-34); AST 54 U/L (14-36); African American GFR (CKD) >90 (>60 ml/min/1.73 sqM); Albumin 3.3 g/dL (3.5-5.0); Alkaline Phosphatase 88 U/L (38-126); Anion Gap 3 mmol/L; Blood Urea Nitrogen 14 mg/dL (7-17); Carbon Dioxide 29 mmol/L (22-30); Chloride 103 mmol/L (98-107); Glucose 131 mg/dL (74-99); Non-African American GFR(CKD) >90 (>60 ml/min/1.73 sqM); Potassium 4.1 mmol/L (3.5-5.1); Sodium 135 mmol/L (137-145); Total Bilirubin 0.4 mg/dL (0.2-1.3); Total Protein 5.9 g/dL (6.3-8.2)
[2020-06-14] MEDS: DEXAMETHASONE SOD PHOSPHATE 4 MG/ML 1 ML VIAL IV SCH ×3 (06:15→17:06)
[2020-06-14] MEDS: LACTATED RINGERS 1,000 ML IV SCH (06:15)
[2020-06-14 06:25] LABS: Glucose,Whole Blood 129 mg/dL (75-99)
[2020-06-14] MEDS: INSULIN ASPART (NovoLOG) 100 UNIT/ML VIAL SQ SCH ×4 (06:35→21:29)
[2020-06-14] MEDS: HEPARIN SODIUM,PORCINE 5,000 UNIT/ML 1 ML VIAL SQ SCH ×2 (08:14→21:28)
[2020-06-14] MEDS: METOPROLOL TARTRATE 25 MG TAB PO SCH ×2 (08:15→21:29)
[2020-06-14] MEDS: PANTOPRAZOLE 40 MG TABLET PO SCH (08:15)
[2020-06-14] MEDS: GABAPENTIN 300 MG CAP PO SCH ×3 (08:15→21:28)
[2020-06-14] MEDS: SENNOSIDES-DOCUSATE SODIUM 1 EACH TAB PO SCH (08:15)
[2020-06-14] MEDS: amLODIPine 5 MG TAB PO SCH (08:16)
[2020-06-14] MEDS: OXYBUTYNIN CHLORIDE 5 MG TAB PO SCH ×2 (08:16→21:28)
[2020-06-14] MEDS: MULTIVITAMINS, THERA 1 EACH TAB PO SCH (08:16)
[2020-06-14] MEDS: LOSARTAN 25 MG TAB PO SCH (08:16)
[2020-06-14] MEDS: busPIRone HCl 10 MG TAB PO SCH ×2 (08:16→15:00)
[2020-06-14] MEDS: buPROPion 100 MG TAB PO SCH ×3 (08:16→21:29)
[2020-06-14 11:27] LABS: Glucose,Whole Blood 129 mg/dL (75-99)
--- NOTE | 2020-06-14 12:10 | P.PN ---
Subjective Progress Note Date: 06/14/20 Principal diagnosis: Status post anterior and posterior cervical reconstruction. Postoperative day #3 This is a 49-year-old female with history of chronic severe back pain. And r adiculopathy involving the left upper extremity. Patient was seen by Dr. 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 C3, C4 and 45 grade 1 anterior listhesis, moderate to severe cervical stenosis. Patient underwent surgical fixation in the form of revision of anterior discectomy, fusion of C3 through C7 with removal of hardware and C5 corpectomy, posterior C2-T2 decompression. Postoperatively patient was sent to the ICU on mechanical ventilation, on that was asked to see her on consultation. Patient is now on assist control rate of 14 tidal volume is 400 FiO2 is 50% and PEEP of 5. ABG showed a pO2 of 161 pCO2 of 39 pH of 7.40. Patient is on propofol at 60 mcg/kg/m, and her IV fluid is 0.9 normal saline at 100 mL per hour. According to her admitting physician, patient is known to have significant generalized anxiety, and she may be a difficult to wean because of her anxiety. Hence I have recommended transitioning propofol to Precedex. And an hour after, patient had weaning parameters which were noted to be excellent, patient was extubated to nasal cannula uneventfully, and his cervical collar was recommended. Patient was reevaluated today on 06/13/2020, patient was extubated yesterday uneventfully. She is now on 2 L nasal cannula. She has elevated blood pressure maintained on clevidipine 15 mg per hour, hence I have recommended starting the patient on Norvasc metoprolol and losartan. Patient is having intermittent episodes of pain, but receiving pain medications to control her pain. She is in sinus tachycardia rate of 109. Blood pressure is elevated. Has severe pain but again narcotics. Labs were reviewed, she has a relatively normal basic metabolic profile is normal CBC, hemoglobin is 10.6. Reevaluated today on 06/14/2020, patient is now postop day #3, remains in the ICU, seems to be doing great. Clevidipine was discontinued patient is now on multip le medications for blood pressure control. Seems to be doing quite well. Pain seems to be fairly well controlled. Earlier today she was on clevidipine at 2 mg per hour, and her blood pressure medications were adjusted likely arrange for the patient be transferred out of the ICU to a regular medical floor today. Patient is doing great with incentive spirometer. Denies any shortness of breath. CBC is relatively normal hemoglobin is down 11/7 normal renal profile is normal. Objective - Vital Signs Vital signs: Vital Signs Temp 98.9 F 06/14/20 08:00 Pulse 69 06/14/20 10:00 Resp 16 06/14/20 10:00 BP 140/82 06/14/20 10:00 Pulse Ox 93 L 06/14/20 10:00 Intake & Output 06/13/20 06/14/20 06/14/20 18:59 06:59 18:59 Intake Total 1025.699 312.666 261 Output Total 1413 2130 310 Balance -387.301 -1817.334 -49 Weight 151 kg Intake: IV 243 253 141 KVO 120 Lactated Ringers 1,000 ml 240 220 @ 20 mls/hr IV .Q24H [facility] Rx#:[id number] artline flush 3 33 21 Intake, IV Titration 142.699 59.666 Amount Clevidipine Butyrate 25 142.699 59.666 mg In Empty Bag 1 bag @ 1 MG/HR 2 mls/hr IV .Q24H [facility] Rx#:[id number] Oral 640 120 Output: Drainage 53 35 Posterior Medial Neck 50 30 Right Chest 3 5 Urine 1360 2095 310 Other: Voiding Method Indwelling Catheter Indwelling Catheter ABP, PAP, CO, CI - Last Documented Arterial Blood Pressure 134/67 - Exam General: Revealed a 49-year-old female, obese, on nasal cannula, in no distress. Head: atraumatic, normocephalic, symmetric Eyes: Anicteric sclera, pupils equal round reactive to light ENT: Nose and ears atraumatic Neck: Surgical site in the neck seems to be clean. Dressing is dry. Cardiovascular: Normal S1 and S2, no S3 gallop. No murmur. Lungs: Symmetrical chest expansion, clear throughout no crackles or rhonchi or wheezes. Abdominal: Obese, soft, nontender, no megaly, no rebound, no guarding. Ext: No clubbing, no edema, no cyanosis Neuro: Alert and oriented 3, no gross focal neurologic deficits. Skin: No rashes. - Labs CBC & Chem 7: 06/14/20 04:50 06/14/20 04:50 Labs: Abnormal Lab Results - Last 24 Hours (Table) 06/13/20 06/13/20 06/14/20 Range/Units 17:24 20:38 04:50 RBC 2.93 L (3.80-5.40) m/uL Hgb 10.0 L (11.4-16.0) gm/dL Hct 26.7 L (34.0-46.0) % MCHC 37.6 H (31.0-37.0) g/dL Sodium (137-145) mmol/L Creatinine (0.52-1.04) mg/dL Glucose (74-99) mg/dL POC Glucose (mg/dL) 134 H 141 H (75-99) mg/dL AST (14-36) U/L Total Protein (6.3-8.2) g/dL Albumin (3.5-5.0) g/dL 06/14/20 06/14/20 06/14/20 Range/Units 04:50 06:23 11:26 RBC (3.80-5.40) m/uL Hgb (11.4-16.0) gm/dL Hct (34.0-46.0) % MCHC (31.0-37.0) g/dL Sodium 135 L (137-145) mmol/L Creatinine 0.51 L (0.52-1.04) mg/dL Glucose 131 H (74-99) mg/dL POC Glucose (mg/dL) 129 H 129 H (75-99) mg/dL AST 54 H (14-36) U/L Total Protein 5.9 L (6.3-8.2) g/dL Albumin 3.3 L (3.5-5.0) g/dL Assessment and Plan Assessment: Impression: Status post C5-C7 exploration of fusion, C5 corpectomy, anterior removal of hardware, posterior C2 T1 lateral stabilizing confusion with C2-T7 decompression, postoperative day #3 Postoperative mechanical ventilation, expected, mostly because of the extensiveness of the cervical surgery. Patient was extubated 2 days ago, and tolerated the extubation well. History of type 2 diabetes. History of mild asthma. History of obstructive sleep apnea syndrome maintained on BiPAP at home. History of degenerative joint disease. History of nephrolithiasis. History of irritable bowel syndrome. History of chronic cervical pain and radiculopathy. Hypertension, better controlled with oral medications. Including Norvasc, metoprolol, and losartan. Recommendation: Transfer patient out of the ICU to a regular medical floor today. Continue incentive spirometry. Continue blood pressure medications. Pain control Resume home meds. We'll continue to follow. Time with Patient: Less than 30
--- NOTE | 2020-06-14 12:29 | P.PN ---
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 She is doing fairly well. She c/o pain where her central line is and a pinching. She was up to chair yesterday successfully. Denies any new symptoms. She denies any pain that goes down her arm. She denies any numbness or tingling. She is able to move all 4 extremities. She denies headache nausea vomiting change in vision fevers chills shortness of breath or chest pain at this time. Objective - Vital Signs Vital signs: Vital Signs Temp 98.9 F 06/14/20 08:00 Pulse 69 06/14/20 10:00 Resp 16 06/14/20 10:00 BP 140/82 06/14/20 10:00 Pulse Ox 93 L 06/14/20 10:00 Intake & Output 06/13/20 06/14/20 06/14/20 18:59 06:59 18:59 Intake Total 1025.699 312.666 261 Output Total 1413 2130 310 Balance -387.301 -1817.334 -49 Weight 151 kg Intake: IV 243 253 141 KVO 120 Lactated Ringers 1,000 ml 240 220 @ 20 mls/hr IV .Q24H [facility] Rx#:[id number] artline flush 3 33 21 Intake, IV Titration 142.699 59.666 Amount Clevidipine Butyrate 25 142.699 59.666 mg In Empty Bag 1 bag @ 1 MG/HR 2 mls/hr IV .Q24H [facility] Rx#:[id number] Oral 640 120 Output: Drainage 53 35 Posterior Medial Neck 50 30 Right Chest 3 5 Urine 1360 2095 310 Other: Voiding Method Indwelling Catheter Indwelling Catheter ABP, PAP, CO, CI - Last Documented Arterial Blood Pressure 134/67 - Exam GEN: AOX3, NAD VSS Inspection: Appears well with sitting up in bed Palpation: No tennis palpation of the anterior posterior neck. No fluctuance felt. Motor: 4+/5 shoulder abd/EF/EE/WF/intrinsics 4+/5 DF/PF/EHL/FHL/HF/KE/KF She is generally weak from her weakened state but is regaining strength rapidly Reflexes: 2/4 DTR all upper and LE Sensation intact to light touch in C5-T1 as well as L2-S1 distribution Dodge's: Negative bilaterally Clonus: Negative bilaterally Babinski: Bilaterally Incision: In dry and intact no erythema or ecchymosis or edema Dressing: Clean dry and intact Drain: Minimal drainage anterior and posterior total of approximately 30 - Labs CBC & Chem 7: 06/14/20 04:50 06/14/20 04:50 Labs: Abnormal Lab Results - Last 24 Hours (Table) 06/13/20 06/13/20 06/14/20 Range/Units 17:24 20:38 04:50 RBC 2.93 L (3.80-5.40) m/uL Hgb 10.0 L (11.4-16.0) gm/dL Hct 26.7 L (34.0-46.0) % MCHC 37.6 H (31.0-37.0) g/dL Sodium (137-145) mmol/L Creatinine (0.52-1.04) mg/dL Glucose (74-99) mg/dL POC Glucose (mg/dL) 134 H 141 H (75-99) mg/dL AST (14-36) U/L Total Protein (6.3-8.2) g/dL Albumin (3.5-5.0) g/dL 06/14/20 06/14/20 06/14/20 Range/Units 04:50 06:23 11:26 RBC (3.80-5.40) m/uL Hgb (11.4-16.0) gm/dL Hct (34.0-46.0) % MCHC (31.0-37.0) g/dL Sodium 135 L (137-145) mmol/L Creatinine 0.51 L (0.52-1.04) mg/dL Glucose 131 H (74-99) mg/dL POC Glucose (mg/dL) 129 H 129 H (75-99) mg/dL AST 54 H (14-36) U/L Total Protein 5.9 L (6.3-8.2) g/dL Albumin 3.3 L (3.5-5.0) g/dL Assessment and Plan Assessment: 49-year-old female postop day 3 from anterior and posterior cervical reconstruction 1. 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 C3-4 and 4-5 Grade I anterior listhesis 3. Moderate to severe cervical stenosis 4. Thoracic disc bulges Plan: -Appreciate medicine and ICU management. Agree with transfer to floor when stable. -Blood pressure control per ICU -Monitor labs -Transfuse if needed for vitals -Pain control: Continue with pain meds and pushes as needed at this time as patient is vented sedated and nothing by mouth -Once extubated: -Aggressive ambulation protocol. OOB with all meals. OOB or in chair 4-5x daily. -PT/OT -TEDs, SCDs, mechanical ppx. OK for heparin today. Early ambulation is best. -GI ppx. -CT cervical spine reviewed hardware in good position decompression adequate -C collar for protection -Figure of 8 brace to hold shoulders back to allow trapezial healing and prevent dehiscence -Dispo: Pending
[2020-06-14 16:51] LABS: Glucose,Whole Blood 127 mg/dL (75-99)
[2020-06-14 21:14] LABS: Glucose,Whole Blood 155 mg/dL (75-99)
[2020-06-14] MEDS: lamoTRIgine 100 MG TAB PO SCH (21:28)
[2020-06-14] MEDS: BACLOFEN 10 MG TAB PO SCH (21:28)
--- NOTE | 2020-06-14 21:50 | P.PN ---
Progress Note - Text Progress Note Date: 06/14/20 presenting complaint: spine surgery interval history: The patient is a 49-year-old female with a PMH of type II DM, asthma, obstructive sleep apnea, and fibromyalgia who was admitted for scheduled multiple cervical and thoracic spine procedures including discectomy, spinal fusion, and decompression. The patient underwent the procedures and postoperatively was placed in the the intensive care unit.patient was successfully extubated. Has a GEORGE drain at the surgical site Sitting up in a chair. Advance to regular diet. Breathing stable. Feeling better. No trouble swallowing. Oral intake about 35%. Review of systems: Was done for constitutional, cardiovascular, GI, pulmonary.muscular skeletal relevant finding as above Active Medications Acetaminophen (Acetaminophen Tab 325 Mg Tab) 650 mg PO Q6HR PRN PRN Reason: Fever and/ or Pain Albuterol Sulfate (Albuterol Hfa Inhaler) 2 puff INHALATION RT-Q6H PRN PRN Reason: Wheezing Albuterol/Ipratropium (Ipratropium-Albuterol 3 Ml Neb) 3 ml INHALATION RT-QID PRN PRN Reason: Shortness Of Breath Or Wheezing Last Admin: 06/13/20 07:49 Dose: 3 ml Documented by: Amlodipine Besylate (Amlodipine 5 Mg Tab) 5 mg PO DAILY [facility] Last Admin: 06/14/20 08:16 Dose: 5 mg Documented by: Baclofen (Baclofen 10 Mg Tab) 10 mg PO BID PRN PRN Reason: Muscle Spasm Last Admin: 06/13/20 13:57 Dose: 10 mg Documented by: Baclofen (Baclofen 10 Mg Tab) 20 mg PO [facility] Last Admin: 06/14/20 21:28 Dose: 20 mg Documented by: Bupropion HCl (Bupropion 100 Mg Tab) 100 mg PO TID [facility] Last Admin: 06/14/20 21:29 Dose: 100 mg Documented by: Buspirone HCl (Buspirone Hcl 10 Mg Tab) 10 mg PO TID [facility] Last Admin: 06/14/20 15:00 Dose: 10 mg Documented by: Dexamethasone Sodium Phosphate (Dexamethasone Sod Phosphate 4 Mg/Ml 1 Ml Vial) 2 mg IV Q6HR [facility] Last Admin: 06/14/20 17:06 Dose: 2 mg Documented by: Gabapentin (Gabapentin 300 Mg Cap) 300 mg PO TID [facility] Last Admin: 06/14/20 21:28 Dose: 300 mg Documented by: Heparin Sodium (Porcine) (Heparin Sodium,Porcine 5,000 Unit/Ml 1 Ml Vial) 5,000 unit SQ Q12HR [facility] Last Admin: 06/14/20 21:28 Dose: 5,000 unit Documented by: Hydromorphone HCl (Hydromorphone 1 Mg/Ml 1 Ml Syringe) 1 mg IVP Q3HR PRN PRN Reason: Pain Last Admin: 06/14/20 21:26 Dose: 1 mg Documented by: Lactated Ringer's (Lactated Ringers) 1,000 mls @ 20 mls/hr IV .Q24H [facility] Last Admin: 06/14/20 06:15 Dose: 20 mls/hr Documented by: Insulin Aspart (Insulin Aspart (Novolog) 100 Unit/Ml Vial) 0 unit SQ ACHS [facility]; Protocol Last Admin: 06/14/20 21:29 Dose: Not Given Documented by: Lamotrigine (Lamotrigine 100 Mg Tab) 300 mg PO HS [facility] Last Admin: 06/14/20 21:28 Dose: 300 mg Documented by: Losartan Potassium (Losartan 25 Mg Tab) 25 mg PO DAILY [facility] Last Admin: 06/14/20 08:16 Dose: 25 mg Documented by: Metoprolol Tartrate (Metoprolol Tartrate 25 Mg Tab) 25 mg PO BID [facility] Last Admin: 06/14/20 21:29 Dose: 25 mg Documented by: Multivitamins (Multivitamins, Thera 1 Each Tab) 1 each PO DAILY [facility] Last Admin: 06/14/20 08:16 Dose: 1 each Documented by: Ondansetron HCl (Ondansetron 4 Mg/2 Ml Vial) 4 mg IVP Q8HR PRN PRN Reason: Nausea And Vomiting Oxybutynin Chloride (Oxybutynin Chloride 5 Mg Tab) 5 mg PO BID [facility] Last Admin: 06/14/20 21:28 Dose: 5 mg Documented by: Oxycodone/Acetaminophen (Oxycodone-Apap 7.5-325mg 1 Each Tab) 1 each PO Q4HR PRN PRN Reason: Mild to Moderate Pain Last Admin: 06/14/20 15:00 Dose: 1 each Documented by: Pantoprazole Sodium (Pantoprazole 40 Mg Tablet) 40 mg PO DAILY [facility] Last Admin: 06/14/20 08:15 Dose: 40 mg Documented by: Senna/Docusate Sodium (Sennosides-Docusate Sodium 1 Each Tab) 4 each PO DAILY [facility] Last Admin: 06/14/20 08:15 Dose: 4 each Documented by: On examination: VITAL SIGNS: 97.4, 80, 18, 1 53 x 88, 98% room air GENERAL APPEARANCE: Sitting up in a chair, comfortable HEENT: Normal external appearance of nose and ear. Oral cavity normal, GEORGE drain at the surgical site EYES: Pupils equal. Conjunctiva normal. NECK:JVD unable to assess, dressing over the anterior neck RESPIRATORY: Respiratory effort increasel. decreased breath sounds. CARDIOVASCULAR: First and second sounds normal. No edema. ABDOMEN: Soft. Liver and spleen not palpable. No tenderness. No mass palpable. PSYCHIATRY: Awake, answering questions . 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 Status post surgical repair -morbid obesity BMI 59.1 -Asthma -Diabetes mellitus type 2 -Chronic fibromyalgia -GERD -Obstructive sleep apnea-does not use CPAP -irritable bowel syndrome -bipolar disorder Plan: Continue current medication treatment plan. Care was discussed with the patient. Activity as tolerated.. Discussed with the patient. Thank you
[2020-06-15] MEDS: oxyCODONE-APAP 7.5-325MG 1 EACH TAB PO PRN ×5 (00:24→21:27)
[2020-06-15] MEDS: DEXAMETHASONE SOD PHOSPHATE 4 MG/ML 1 ML VIAL IV SCH ×5 (00:25→23:30)
[2020-06-15] MEDS: busPIRone HCl 10 MG TAB PO SCH ×4 (00:25→21:03)
[2020-06-15] MEDS: HYDROmorphone 1 MG/ML 1 ML SYRINGE IVP PRN ×6 (02:04→23:29)
[2020-06-15] MEDS: LACTATED RINGERS 1,000 ML IV SCH (07:24)
[2020-06-15] MEDS: SENNOSIDES-DOCUSATE SODIUM 1 EACH TAB PO SCH (08:50)
[2020-06-15] MEDS: GABAPENTIN 300 MG CAP PO SCH ×3 (08:53→20:10)
[2020-06-15] MEDS: amLODIPine 5 MG TAB PO SCH (08:53)
[2020-06-15] MEDS: MULTIVITAMINS, THERA 1 EACH TAB PO SCH (08:53)
[2020-06-15] MEDS: PANTOPRAZOLE 40 MG TABLET PO SCH (08:53)
[2020-06-15] MEDS: METOPROLOL TARTRATE 25 MG TAB PO SCH ×2 (08:53→20:10)
[2020-06-15] MEDS: HEPARIN SODIUM,PORCINE 5,000 UNIT/ML 1 ML VIAL SQ SCH ×2 (08:53→20:11)
[2020-06-15] MEDS: OXYBUTYNIN CHLORIDE 5 MG TAB PO SCH ×2 (08:54→21:03)
[2020-06-15] MEDS: LOSARTAN 25 MG TAB PO SCH (08:54)
[2020-06-15] MEDS: buPROPion 100 MG TAB PO SCH ×3 (08:54→21:03)
[2020-06-15 09:08] LABS: Glucose,Whole Blood 106 mg/dL (75-99)
--- NOTE | 2020-06-15 10:21 | P.PN ---
Subjective Progress Note Date: 06/15/20 Principal diagnosis: Status post revision cervical fusion Patient notes improvement from yesterday terms of pain. She just ate some breakfast. Objective - Vital Signs Vital signs: Vital Signs Temp 98.7 F 06/14/20 15:04 Pulse 78 06/15/20 04:00 Resp 12 06/15/20 04:00 BP 133/75 06/14/20 15:04 Pulse Ox 96 06/14/20 15:04 Intake & Output 06/14/20 06/15/20 06/15/20 18:59 06:59 18:59 Intake Total 381 60 20 Output Total 745 220 225 Balance -364 -160 -205 Weight 151.7 kg Intake: IV 261 60 20 KVO 240 60 20 artline flush 21 Oral 120 Output: Urine 745 220 225 Other: Voiding Method Indwelling Catheter Indwelling Catheter Indwelling Catheter ABP, PAP, CO, CI - Last Documented Arterial Blood Pressure 126/57 - Exam Anterior and posterior cervical incisions clean/dry/intact Posterior drain removed. Light touch mildly diminished left thumb/index/middle finger otherwise intact in the upper and lower extremities Motor function 4+/5 in the upper and lower extremities without focal deficit - Constitutional General appearance: Present: no acute distress - Labs CBC & Chem 7: 06/14/20 04:50 06/14/20 04:50 Labs: Abnormal Lab Results - Last 24 Hours (Table) 06/14/20 06/14/20 06/14/20 Range/Units 11:26 16:50 21:12 POC Glucose (mg/dL) 129 H 127 H 155 H (75-99) mg/dL 06/15/20 Range/Units 09:07 POC Glucose (mg/dL) 106 H (75-99) mg/dL Assessment and Plan Assessment: Status post cervical fusion revision Plan: Continue to progress ambulation. Pain control. Will monitor. Time with Patient: Less than 30
[2020-06-15] MEDS: INSULIN ASPART (NovoLOG) 100 UNIT/ML VIAL SQ SCH ×4 (11:46→21:03)
[2020-06-15 12:09] LABS: Glucose,Whole Blood 132 mg/dL (75-99)
--- NOTE | 2020-06-15 13:04 | P.PN ---
Subjective Progress Note Date: 06/15/20 Principal diagnosis: Status post anterior and posterior cervical reconstruction. Postoperative day #4 This is a 49-year-old female with history of chronic severe back pain. And r adiculopathy involving the left upper extremity. Patient was seen by Dr. 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 C3, C4 and 45 grade 1 anterior listhesis, moderate to severe cervical stenosis. Patient underwent surgical fixation in the form of revision of anterior discectomy, fusion of C3 through C7 with removal of hardware and C5 corpectomy, posterior C2-T2 decompression. Postoperatively patient was sent to the ICU on mechanical ventilation, on that was asked to see her on consultation. Patient is now on assist control rate of 14 tidal volume is 400 FiO2 is 50% and PEEP of 5. ABG showed a pO2 of 161 pCO2 of 39 pH of 7.40. Patient is on propofol at 60 mcg/kg/m, and her IV fluid is 0.9 normal saline at 100 mL per hour. According to her admitting physician, patient is known to have significant generalized anxiety, and she may be a difficult to wean because of her anxiety. Hence I have recommended transitioning propofol to Precedex. And an hour after, patient had weaning parameters which were noted to be excellent, patient was extubated to nasal cannula uneventfully, and his cervical collar was recommended. Patient was reevaluated today on 06/13/2020, patient was extubated yesterday uneventfully. She is now on 2 L nasal cannula. She has elevated blood pressure maintained on clevidipine 15 mg per hour, hence I have recommended starting the patient on Norvasc metoprolol and losartan. Patient is having intermittent episodes of pain, but receiving pain medications to control her pain. She is in sinus tachycardia rate of 109. Blood pressure is elevated. Has severe pain but again narcotics. Labs were reviewed, she has a relatively normal basic metabolic profile is normal CBC, hemoglobin is 10.6. Reevaluated today on 06/14/2020, patient is now postop day #3, remains in the ICU, seems to be doing great. Clevidipine was discontinued patient is now on multip le medications for blood pressure control. Seems to be doing quite well. Pain seems to be fairly well controlled. Earlier today she was on clevidipine at 2 mg per hour, and her blood pressure medications were adjusted likely arrange for the patient be transferred out of the ICU to a regular medical floor today. Patient is doing great with incentive spirometer. Denies any shortness of breath. CBC is relatively normal hemoglobin is down 04/13 normal renal profile is normal. Reevaluated today on 06/15/2020, patient is now postoperative day #4. Doing well except for pain at the surgical site, and she is receiving Dilaudid. CBC today is relatively normal hemoglobin is 10. Basic metabolic profile and renal profile are normal. Blood pressure seems to be better controlled. Objective - Vital Signs Vital signs: Vital Signs Temp 98.7 F 06/14/20 15:04 Pulse 78 06/15/20 04:00 Resp 12 06/15/20 04:00 BP 133/75 06/14/20 15:04 Pulse Ox 96 06/14/20 15:04 Intake & Output 06/14/20 06/15/20 06/15/20 18:59 06:59 18:59 Intake Total 381 60 20 Output Total 745 220 225 Balance -364 160 -205 Weight 151.7 kg Intake: IV 261 60 20 KVO 240 60 20 artline flush 21 Oral 120 Output: Urine 745 220 225 Other: Voiding Method Indwelling Catheter Indwelling Catheter Indwelling Catheter ABP, PAP, CO, CI - Last Documented Arterial Blood Pressure 126/57 - Exam General: Revealed a 49-year-old female, obese, on room air. Head: atraumatic, normocephalic, symmetric Eyes: Anicteric sclera, pupils equal round reactive to light ENT: Nose and ears atraumatic Neck: Surgical site in the neck seems to be clean. Dressing is dry. Cardiovascular: Normal S1 and S2, no S3 gallop. No murmur. Lungs: Symmetrical chest expansion, clear throughout no crackles or rhonchi or wheezes. Abdominal: Obese, soft, nontender, no megaly, no rebound, no guarding. Ext: No clubbing, no edema, no cyanosis Neuro: Alert and oriented 3, no gross focal neurologic deficits. Skin: No rashes. - Labs CBC & Chem 7: 06/14/20 04:50 06/14/20 04:50 Labs: Abnormal Lab Results - Last 24 Hours (Table) 06/14/20 06/14/20 06/15/20 Range/Units 16:50 21:12 09:07 POC Glucose (mg/dL) 127 H 155 H 106 H (75-99) mg/dL 06/15/20 Range/Units 12:07 POC Glucose (mg/dL) 132 H (75-99) mg/dL Assessment and Plan Assessment: Impression: Status post C5-C7 exploration of fusion, C5 corpectomy, anterior removal of hardware, posterior C2 T1 lateral stabilizing confusion with C2-T7 decompression, postoperative day #4 Postoperative mechanical ventilation, expected, mostly because of the extensiveness of the cervical surgery. Patient was extubated 2 days ago, and tolerated the extubation well. History of type 2 diabetes. History of mild asthma. History of obstructive sleep apnea syndrome maintained on BiPAP at home. History of degenerative joint disease. History of nephrolithiasis. History of irritable bowel syndrome. History of chronic cervical pain and radiculopathy. Hypertension, better controlled with oral medications. Including Norvasc, metoprolol, and losartan. Recommendation: Continue pain control. Transfer patient out of the ICU to a regular medical floor. Continue incentive spirometry. Resume home meds. We'll follow. When necessary Time with Patient: Less than 30
[2020-06-15 16:55] LABS: Glucose,Whole Blood 122 mg/dL (75-99)
[2020-06-15 20:09] LABS: Glucose,Whole Blood 140 mg/dL (75-99)
[2020-06-15] MEDS: BACLOFEN 10 MG TAB PO SCH (20:10)
[2020-06-15] MEDS: lamoTRIgine 100 MG TAB PO SCH (20:10)
--- NOTE | 2020-06-15 22:35 | P.PN ---
Progress Note - Text Progress Note Date: 06/15/20 presenting complaint: spine surgery interval history: The patient is a 49-year-old female with a PMH of type II DM, asthma, obstructive sleep apnea, and fibromyalgia who was admitted for scheduled multiple cervical and thoracic spine procedures including discectomy, spinal fusion, and decompression. The patient underwent the procedures and postoperatively was placed in the the intensive care unit.patient was successfully extubated. Has a GEORGE drain at the surgical site Today-pain well controlled. Oral intake improved. Did walk a bit around the room. Feeling well. Review of systems: Was done for constitutional, cardiovascular, GI, pulmonary.muscular skeletal relevant finding as above Active Medications Acetaminophen (Acetaminophen Tab 325 Mg Tab) 650 mg PO Q6HR PRN PRN Reason: Fever and/ or Pain Albuterol Sulfate (Albuterol Hfa Inhaler) 2 puff INHALATION RT-Q6H PRN PRN Reason: Wheezing Albuterol/Ipratropium (Ipratropium-Albuterol 3 Ml Neb) 3 ml INHALATION RT-QID PRN PRN Reason: Shortness Of Breath Or Wheezing Last Admin: 06/13/20 07:49 Dose: 3 ml Documented by: Amlodipine Besylate (Amlodipine 5 Mg Tab) 5 mg PO DAILY [facility] Last Admin: 06/15/20 08:53 Dose: 5 mg Documented by: Baclofen (Baclofen 10 Mg Tab) 10 mg PO BID PRN PRN Reason: Muscle Spasm Last Admin: 06/13/20 13:57 Dose: 10 mg Documented by: Baclofen (Baclofen 10 Mg Tab) 20 mg PO HS [facility] Last Admin: 06/15/20 20:10 Dose: 20 mg Documented by: Bupropion HCl (Bupropion 100 Mg Tab) 100 mg PO TID [facility] Last Admin: 06/15/20 21:03 Dose: 100 mg Documented by: Buspirone HCl (Buspirone Hcl 10 Mg Tab) 10 mg PO TID [facility] Last Admin: 06/15/20 21:03 Dose: 10 mg Documented by: Dexamethasone Sodium Phosphate (Dexamethasone Sod Phosphate 4 Mg/Ml 1 Ml Vial) 2 mg IV Q6HR [facility] Last Admin: 06/15/20 16:59 Dose: 2 mg Documented by: Gabapentin (Gabapentin 300 Mg Cap) 300 mg PO TID [facility] Last Admin: 06/15/20 20:10 Dose: 300 mg Documented by: Heparin Sodium (Porcine) (Heparin Sodium,Porcine 5,000 Unit/Ml 1 Ml Vial) 5,000 unit SQ Q12HR [facility] Last Admin: 06/15/20 20:11 Dose: 5,000 unit Documented by: Hydromorphone HCl (Hydromorphone 1 Mg/Ml 1 Ml Syringe) 1 mg IVP Q3HR PRN PRN Reason: Pain Last Admin: 06/15/20 20:12 Dose: 1 mg Documented by: Lactated Ringer's (Lactated Ringers) 1,000 mls @ 20 mls/hr IV .Q24H [facility] Last Admin: 06/15/20 07:24 Dose: Not Given Documented by: Insulin Aspart (Insulin Aspart (Novolog) 100 Unit/Ml Vial) 0 unit SQ ACHS [facility]; Protocol Last Admin: 06/15/20 21:03 Dose: 1 unit Documented by: Lamotrigine (Lamotrigine 100 Mg Tab) 300 mg PO HS [facility] Last Admin: 06/15/20 20:10 Dose: 300 mg Documented by: Losartan Potassium (Losartan 25 Mg Tab) 25 mg PO DAILY [facility] Last Admin: 06/15/20 08:54 Dose: 25 mg Documented by: Metoprolol Tartrate (Metoprolol Tartrate 25 Mg Tab) 25 mg PO BID [facility] Last Admin: 06/15/20 20:10 Dose: 25 mg Documented by: Multivitamins (Multivitamins, Thera 1 Each Tab) 1 each PO DAILY [facility] Last Admin: 06/15/20 08:53 Dose: 1 each Documented by: Ondansetron HCl (Ondansetron 4 Mg/2 Ml Vial) 4 mg IVP Q8HR PRN PRN Reason: Nausea And Vomiting Oxybutynin Chloride (Oxybutynin Chloride 5 Mg Tab) 5 mg PO BID [facility] Last Admin: 06/15/20 21:03 Dose: 5 mg Documented by: Oxycodone/Acetaminophen (Oxycodone-Apap 7.5-325mg 1 Each Tab) 1 each PO Q4HR PRN PRN Reason: Mild to Moderate Pain Last Admin: 06/15/20 21:27 Dose: 1 each Documented by: Pantoprazole Sodium (Pantoprazole 40 Mg Tablet) 40 mg PO DAILY [facility] Last Admin: 06/15/20 08:53 Dose: 40 mg Documented by: Senna/Docusate Sodium (Sennosides-Docusate Sodium 1 Each Tab) 4 each PO DAILY [facility] Last Admin: 06/15/20 08:50 Dose: 4 each Documented by: On examination: VITAL SIGNS: 98, 72, 20, 143/94, 96% room air GENERAL APPEARANCE: Reclining in bed, comfortable HEENT: Normal external appearance of nose and ear. Oral cavity normal, GEORGE drain at the surgical site EYES: Pupils equal. Conjunctiva normal. NECK:JVD unable to assess, dressing over the anterior neck RESPIRATORY: Respiratory effort increasel. decreased breath sounds. CARDIOVASCULAR: First and second sounds normal. No edema. ABDOMEN: Soft. Liver and spleen not palpable. No tenderness. No mass palpable. PSYCHIATRY: Awake, answering questions . 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 Status post surgical repair -morbid obesity BMI 59.1 -Asthma -Diabetes mellitus type 2 -Chronic fibromyalgia -GERD -Obstructive sleep apnea-does not use CPAP -irritable bowel syndrome -bipolar disorder Plan: Patient is recovering well. Increase activity as started. Discussed with the patient. Continue current medications. Thank you
[2020-06-16] MEDS: HYDROmorphone 1 MG/ML 1 ML SYRINGE IVP PRN ×6 (03:01→19:55)
[2020-06-16] MEDS: oxyCODONE-APAP 7.5-325MG 1 EACH TAB PO PRN ×3 (03:02→13:33)
[2020-06-16] MEDS: LACTATED RINGERS 1,000 ML IV SCH (05:19)
[2020-06-16] MEDS: DEXAMETHASONE SOD PHOSPHATE 4 MG/ML 1 ML VIAL IV SCH ×3 (05:49→16:43)
[2020-06-16 08:09] LABS: Glucose,Whole Blood 124 mg/dL (75-99)
[2020-06-16] MEDS: INSULIN ASPART (NovoLOG) 100 UNIT/ML VIAL SQ SCH ×4 (08:20→19:57)
--- NOTE | 2020-06-16 09:10 | P.PN ---
Subjective Progress Note Date: 06/16/20 Principal diagnosis: Status post revision cervical fusion Patient notes she is improving. She notes her pain is controlled. She denies shortness of breath. She's been eating. She has had good return of bowel and bladder function. Objective - Vital Signs Vital signs: Vital Signs Temp 97.7 F 06/16/20 07:00 Pulse 65 06/16/20 07:00 Resp 17 06/16/20 07:00 BP 116/73 06/16/20 07:00 Pulse Ox 95 06/16/20 07:00 Intake & Output 06/15/20 06/16/20 06/16/20 18:59 06:59 18:59 Intake Total 840 Output Total 850 900 Balance - Intake: IV 240 KVO 240 Oral 600 Output: Urine 850 900 Other: Voiding Method Indwelling Catheter Indwelling Catheter Indwelling Catheter # Bowel Movements 1 ABP, PAP, CO, CI - Last Documented Arterial Blood Pressure 126/57 - Exam Anterior posterior cervical incisions clean/try/intact Light touch diminished left thumb and index finger otherwise intact in the upper and lower extremities No gross motor deficits in the upper or lower extremities Homans negative bilaterally lower extremities - Constitutional General appearance: Present: no acute distress - Labs CBC & Chem 7: 06/14/20 04:50 06/14/20 04:50 Labs: Abnormal Lab Results - Last 24 Hours (Table) 06/15/20 06/15/20 06/15/20 Range/Units 09:07 12:07 16:53 POC Glucose (mg/dL) 106 H 132 H 122 H (75-99) mg/dL 06/15/20 06/16/20 Range/Units 20:08 07:49 POC Glucose (mg/dL) 140 H 124 H (75-99) mg/dL Assessment and Plan Assessment: Status post revision cervical fusion Plan: Continue analgesia. Continue ambulation/mobilization. Discharge planning. Time with Patient: Less than 30
[2020-06-16] MEDS: GABAPENTIN 300 MG CAP PO SCH ×3 (09:35→19:57)
[2020-06-16] MEDS: SENNOSIDES-DOCUSATE SODIUM 1 EACH TAB PO SCH (09:35)
[2020-06-16] MEDS: PANTOPRAZOLE 40 MG TABLET PO SCH (09:35)
[2020-06-16] MEDS: HEPARIN SODIUM,PORCINE 5,000 UNIT/ML 1 ML VIAL SQ SCH ×2 (09:35→19:59)
[2020-06-16] MEDS: LOSARTAN 25 MG TAB PO SCH (09:35)
[2020-06-16] MEDS: METOPROLOL TARTRATE 25 MG TAB PO SCH ×2 (09:35→19:59)
[2020-06-16] MEDS: MULTIVITAMINS, THERA 1 EACH TAB PO SCH (09:35)
[2020-06-16] MEDS: buPROPion 100 MG TAB PO SCH ×3 (09:37→19:58)
[2020-06-16] MEDS: OXYBUTYNIN CHLORIDE 5 MG TAB PO SCH ×2 (09:37→19:57)
[2020-06-16] MEDS: busPIRone HCl 10 MG TAB PO SCH ×3 (09:37→19:58)
[2020-06-16] MEDS: BACLOFEN 10 MG TAB PO PRN (09:45)
[2020-06-16 12:07] LABS: Glucose,Whole Blood 142 mg/dL (75-99)
[2020-06-16] MEDS: amLODIPine 5 MG TAB PO SCH (12:44)
[2020-06-16] MEDS: oxyCODONE-APAP 10-325MG 1 EACH TAB PO PRN ×2 (17:16→21:45)
[2020-06-16 18:00] LABS: Glucose,Whole Blood 116 mg/dL (75-99)
[2020-06-16 19:12] LABS: Glucose,Whole Blood 258 mg/dL (75-99)
[2020-06-16] MEDS: lamoTRIgine 100 MG TAB PO SCH (19:55)
[2020-06-16] MEDS: BACLOFEN 10 MG TAB PO SCH (19:57)
--- NOTE | 2020-06-16 20:23 | P.PN ---
Progress Note - Text Progress Note Date: 06/16/20 presenting complaint: spine surgery interval history: The patient is a 49-year-old female with a PMH of type II DM, asthma, obstructive sleep apnea, and fibromyalgia who was admitted for scheduled multiple cervical and thoracic spine procedures including discectomy, spinal fusion, and decompression. The patient underwent the procedures and postoperatively was placed in the the intensive care unit.patient was successfully extubated. Has a GEORGE drain at the surgical site Today-sitting up in a chair. Has been noticing significantly more pain today. Able to tolerate a diet. Has a neck collar on. No radiculopathy. Review of systems: Was done for constitutional, cardiovascular, GI, pulmo nary.muscular skeletal relevant finding as above Active Medications Acetaminophen (Acetaminophen Tab 325 Mg Tab) 650 mg PO Q6HR PRN PRN Reason: Fever and/ or Pain Last Admin: 06/16/20 17:15 Dose: 325 mg Documented by: Albuterol Sulfate (Albuterol Hfa Inhaler) 2 puff INHALATION RT-Q6H PRN PRN Reason: Wheezing Albuterol/Ipratropium (Ipratropium-Albuterol 3 Ml Neb) 3 ml INHALATION RT-QID PRN PRN Reason: Shortness Of Breath Or Wheezing Last Admin: 06/13/20 07:49 Dose: 3 ml Documented by: Amlodipine Besylate (Amlodipine 5 Mg Tab) 5 mg PO DAILY [facility] Last Admin: 06/16/20 12:44 Dose: 5 mg Documented by: Baclofen (Baclofen 10 Mg Tab) 10 mg PO BID PRN PRN Reason: Muscle Spasm Last Admin: 06/16/20 09:45 Dose: 10 mg Documented by: Baclofen (Baclofen 10 Mg Tab) 20 mg PO HS [facility] Last Admin: 06/16/20 19:57 Dose: 20 mg Documented by: Bupropion HCl (Bupropion 100 Mg Tab) 100 mg PO TID [facility] Last Admin: 06/16/20 19:58 Dose: 100 mg Documented by: Buspirone HCl (Buspirone Hcl 10 Mg Tab) 10 mg PO TID [facility] Last Admin: 06/16/20 19:58 Dose: 10 mg Documented by: Dexamethasone Sodium Phosphate (Dexamethasone Sod Phosphate 4 Mg/Ml 1 Ml Vial) 2 mg IV Q6HR [facility] Last Admin: 06/16/20 16:43 Dose: 2 mg Documented by: Gabapentin (Gabapentin 300 Mg Cap) 300 mg PO TID [facility] Last Admin: 06/16/20 19:57 Dose: 300 mg Documented by: Heparin Sodium (Porcine) (Heparin Sodium,Porcine 5,000 Unit/Ml 1 Ml Vial) 5,000 unit SQ Q12HR [facility] Last Admin: 06/16/20 19:59 Dose: 5,000 unit Documented by: Hydromorphone HCl (Hydromorphone 1 Mg/Ml 1 Ml Syringe) 1 mg IVP Q3HR PRN PRN Reason: Pain Last Admin: 06/16/20 19:55 Dose: 1 mg Documented by: Insulin Aspart (Insulin Aspart (Novolog) 100 Unit/Ml Vial) 0 unit SQ ACHS [facility]; Protocol Last Admin: 06/16/20 19:57 Dose: 8 unit Documented by: Lamotrigine (Lamotrigine 100 Mg Tab) 300 mg PO HS [facility] Last Admin: 06/16/20 19:55 Dose: 300 mg Documented by: Losartan Potassium (Losartan 25 Mg Tab) 25 mg PO DAILY [facility] Last Admin: 06/16/20 09:35 Dose: 25 mg Documented by: Metoprolol Tartrate (Metoprolol Tartrate 25 Mg Tab) 25 mg PO BID [facility] Last Admin: 06/16/20 19:59 Dose: 25 mg Documented by: Multivitamins (Multivitamins, Thera 1 Each Tab) 1 each PO DAILY [facility] Last Admin: 06/16/20 09:35 Dose: 1 each Documented by: Ondansetron HCl (Ondansetron 4 Mg/2 Ml Vial) 4 mg IVP Q8HR PRN PRN Reason: Nausea And Vomiting Oxybutynin Chloride (Oxybutynin Chloride 5 Mg Tab) 5 mg PO BID [facility] Last Admin: 06/16/20 19:57 Dose: 5 mg Documented by: Oxycodone/Acetaminophen (Oxycodone-Apap 10-325mg 1 Each Tab) 1 each PO Q4H PRN PRN Reason: Pain Last Admin: 06/16/20 17:16 Dose: 1 each Documented by: Pantoprazole Sodium (Pantoprazole 40 Mg Tablet) 40 mg PO DAILY [facility] Last Admin: 06/16/20 09:35 Dose: 40 mg Documented by: Senna/Docusate Sodium (Sennosides-Docusate Sodium 1 Each Tab) 4 each PO DAILY [facility] Last Admin: 06/16/20 09:35 Dose: 4 each Documented by: On examination: VITAL SIGNS: 97.8, 82, 17, 142/88, 96% room air GENERAL APPEARANCE: Sitting up in a chair HEENT: Normal external appearance of nose and ear. Oral cavity normal, GEORGE drain at the surgical site EYES: Pupils equal. Conjunctiva normal. NECK:JVD unable to assess, waiting cervical collar RESPIRATORY: Respiratory effort increasel. decreased breath sounds. CARDIOVASCULAR: First and second sounds normal. No edema. ABDOMEN: Soft. Liver and spleen not palpable. No tenderness. No mass palpable. 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 Slight numbness in the thumb and index finger . 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 Status post surgical repair -morbid obesity BMI 59.1 -Asthma -Diabetes mellitus type 2 -Chronic fibromyalgia -GERD -Obstructive sleep apnea-does not use CPAP -irritable bowel syndrome -bipolar disorder Plan: Continue current medication treatment plan. Regarding the increased pain patient is being followed by surgery. Oral intake fair. Decadron may be changed over oral Thank you
[2020-06-17] MEDS: HYDROmorphone 1 MG/ML 1 ML SYRINGE IVP PRN ×3 (00:03→05:50)
[2020-06-17] MEDS: DEXAMETHASONE SOD PHOSPHATE 4 MG/ML 1 ML VIAL IV SCH ×5 (00:03→22:27)
[2020-06-17 07:00] LABS: Glucose,Whole Blood 108 mg/dL (75-99)
[2020-06-17] MEDS: INSULIN ASPART (NovoLOG) 100 UNIT/ML VIAL SQ SCH ×4 (07:49→20:30)
[2020-06-17] MEDS: buPROPion 100 MG TAB PO SCH ×3 (07:51→22:20)
[2020-06-17] MEDS: METOPROLOL TARTRATE 25 MG TAB PO SCH ×2 (07:51→20:11)
[2020-06-17] MEDS: OXYBUTYNIN CHLORIDE 5 MG TAB PO SCH ×2 (07:51→20:11)
[2020-06-17] MEDS: oxyCODONE-APAP 10-325MG 1 EACH TAB PO PRN ×4 (07:51→20:12)
[2020-06-17] MEDS: LOSARTAN 25 MG TAB PO SCH (07:51)
[2020-06-17] MEDS: MULTIVITAMINS, THERA 1 EACH TAB PO SCH (07:51)
[2020-06-17] MEDS: SENNOSIDES-DOCUSATE SODIUM 1 EACH TAB PO SCH (07:51)
[2020-06-17] MEDS: GABAPENTIN 300 MG CAP PO SCH ×3 (07:52→22:19)
[2020-06-17] MEDS: amLODIPine 5 MG TAB PO SCH (07:52)
[2020-06-17] MEDS: HEPARIN SODIUM,PORCINE 5,000 UNIT/ML 1 ML VIAL SQ SCH ×2 (07:52→20:14)
[2020-06-17] MEDS: PANTOPRAZOLE 40 MG TABLET PO SCH (07:52)
[2020-06-17] MEDS: busPIRone HCl 10 MG TAB PO SCH ×3 (07:52→22:20)
[2020-06-17] MEDS: diazePAM 5 MG TAB PO PRN ×2 (09:05→22:20)
--- NOTE | 2020-06-17 09:10 | P.PN ---
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 She is sitting up in bed eating breakfast. She states last night she did have some pain and will cup with a headache. She denies any fevers chills shortness of breath chest pain headache short nausea vomiting change in vision otherwise. She den ies any fevers chills. She has been up to chair only and has not walked very far. Blanco is still in place. Objective - Vital Signs Vital signs: Vital Signs Temp 97.9 F 06/17/20 07:46 Pulse 64 06/17/20 07:46 Resp 16 06/17/20 07:46 BP 128/79 06/17/20 07:46 Pulse Ox 97 06/17/20 07:46 Intake & Output 06/16/20 06/17/20 06/17/20 18:59 06:59 18:59 Intake Total 1700 Output Total 1250 Balance 450 Intake: Oral 1700 Output: Urine 1250 Other: Voiding Method Indwelling Catheter Indwelling Catheter # Voids 1 # Bowel Movements 1 ABP, PAP, CO, CI - Last Documented Arterial Blood Pressure 126/57 - Exam GEN: AOX3, NAD VSS Inspection: Appears well with sitting up in bed Palpation: No tennis palpation of the anterior posterior neck. No fluctuance felt. Motor: 4+/5 shoulder abd/EF/EE/WF/intrinsics 4+/5 DF/PF/EHL/FHL/HF/KE/KF She is generally weak from her weakened state but is regaining strength rapidly Reflexes: 2/4 DTR all upper and LE Sensation intact to light touch in C5-T1 as well as L2-S1 distribution Dodge's: Negative bilaterally Clonus: Negative bilaterally Babinski: Bilaterally Incision: In dry and intact no erythema or ecchymosis or edema Dressing: Clean dry and intact Drain: Minimal drainage anterior and posterior total of approximately 30 - Labs CBC & Chem 7: 06/14/20 04:50 06/14/20 04:50 Labs: Abnormal Lab Results - Last 24 Hours (Table) 06/16/20 06/16/20 06/16/20 Range/Units 12:05 17:19 19:11 POC Glucose (mg/dL) 142 H 116 H 258 H (75-99) mg/dL 06/17/20 Range/Units 06:58 POC Glucose (mg/dL) 108 H (75-99) mg/dL Assessment and Plan Assessment: 49-year-old female postop day 6 from anterior and posterior cervical reconstruction 1. 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 C3-4 and 4-5 Grade I anterior listhesis 3. Moderate to severe cervical stenosis 4. Thoracic disc bulges Plan: -Appreciate medicine management. -Blood pressure control -Monitor labs -Transfuse if needed for vitals -Pain control: Continue with pain meds added extra dose of Percocet. DC Dilaudid IV. Add Valium 5 mg. -Aggressive ambulation protocol. OOB with all meals. OOB or in chair 4-5x daily. -PT/OT -Case management evaluation for possible [facility] placement -LEXIE Blanco today -TEDs, SCDs, mechanical ppx. OK for heparin today. Early ambulation is best. -GI ppx. -C collar for protection -Figure of 8 brace to hold shoulders back to allow trapezial healing and prevent dehiscence -Dispo: Home versus [facility] 1-2 days.
[2020-06-17] MEDS: BACLOFEN 10 MG TAB PO PRN ×2 (10:27→17:45)
--- NOTE | 2020-06-17 11:03 | P.OP ---
Date of Procedure: 06/11/20 (Two Stage Anterior then Posterior stabilization Cervical Fusion. ) Preoperative Diagnosis: 1. 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 C3-4 and 4-5 Grade I anterior listhesis 3. Moderate to severe cervical stenosis 4. Thoracic disc bulges Postoperative Diagnosis: 1. 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 C3-4 and 4-5 Grade I anterior listhesis 3. Moderate to severe cervical stenosis 4. Thoracic disc bulges Procedure(s) Performed: Stage I: 1. Removal of hardware C4-7 2. Exporation of fusion C4-7 3. C5 corpectomy (69352) 4. C4-6 Anterior Fusion with Fibular Strut Graft impregnated with Autograft. 4. C3-4 Anterior interbody fusion, with discectomy and decompression; cervical below C2 with Insertion of interbody biomechanical device Stage II: 1. C2-T1 Posterior lateral instrumented fusion 2. C2-T1 Posterior segmental instrumentation; 7-12 vertebral segments 3. C3 to C7 decompressive laminectomy Implants: [place] posterior cervical instrumentation Fibular Strut graft Vikos Allograft Spacer Anesthesia: GETA Surgeon: Andreas Hernández (CARLOS Aldrich was present for Stage I and was necessary due to the complexity of the procedure. ) Senior Systems Programmer #1: Marshall Soto (BRIANNA Buckley was present for all of stage II and was necessary due to the complexity of the procedure) Estimated Blood Loss (ml): 50 (Stage I: 50 Stage II: 650. Cell saver used and gave back 350 cc) IV fluids (ml): 4,500 (Stage I: 500 Stage II: 4000) Urine output (ml): 400 Pathology: none sent Condition: stable Disposition: ICU Indications for Procedure: Mrs. Bermudez presents with her daughter for follow-up of her cervical and thoracic CT scans and myelography. Patient continues to have severe neck pain as well as pain into her left upper extremity. She has difficulty with moving her neck as well as with her left and right upper extremities at this time. She also has several complaints about her thoracic spine and lumbar spine. She has pain in her lower extremities and difficulty with ambulation secondary to this. She denies fevers chills shortness breath or chest pain at this time she denies any progressive neurologic symptoms at this time however she states that things seem to be getting worse however she does not have any increased weakness at this t christal no bowel bladder incontinence no peroneal numbness or tingling. Operative Findings: Pseudoarthrosis of C5-6 with C5 collapse, C3-4 anterior listhesis and instability. Severe compression. Description of Procedure: Stage I: The patient was seen and examined in the preoperative area. All preoperative protocols were followed. Informed consent was obtained risks and benefits of the procedure were discussed at length. Risks including bleeding infection damage to the surrounding tissue and risk of reoperation were discussed with the patient. Risk of anesthesia up to and including was a discussed with the patient. These are outlined in the risk review. They were willing to accept these risks and all of the risks of surgery. The patient was given a weight- based dose of antibiotics in the form of 3 g Ancef IVPB 1. The patient was seen and evaluated by the anesthesia team who deemed them fit for surgery. The s ite was marked, the patient was willing to proceed with the procedure. The patient was transferred to the operative suite by the Department of anesthesia. They were then drifted off to sleep by the department anesthesia Gen. endotracheal intubation. Central line and arterial lines were also placed by department of anesthesia. The patient tolerated this well. Blanco catheter was placed by nursing staff atraumatically. Once confirmation of lines and ventilation the patient was transferred to a supine flattop Florentino table very carefully. All bony prominences including wrists, elbows, axilla, chest, hips, and thighs, and feet were padded very well. Special attention was paid to the genitalia and these were padded accordingly. SCDs were placed on bilateral lower extremities and were connected. Arms were well padded and placed at her side tucked and well-padded. A shoulder bump was placed underneath the shoulders as well as a neck roll for support. The shoulders were taped down to the head. A Kim-Mesosphere tongs were placed in 10 pounds of traction was placed on the neck.. Once in position, again we confirmed good ventilation capabilities and that lines were running appropriately. The patient's anterior cervical spine was then exposed. 1010s were placed outlining the incision site. Standard alcohol was used to clean the incision site and allowed to dry. C-arm was used to biomark the patient and confirm level for incision which was marked with a skin marker. Operative briefing was performed with all teams and everyone in agreement to proceed. The patient was then prepped and draped in a normal sterile fashion. Timeout was then performed and all parties were in agreement with the procedure to be performed. Skin incision was made over the previous of bio marked area with a 10 blade. Blunt dissection was taken down the platysma and subcu cutaneous flaps were raised over the platysma. Once this was identified the platysma was then split transversely. Due to the patient having previous surgery in this area the platysmal flaps were intact however very scarred. Subplatysmal flaps were then elevated and the interval between the SCM and the medial structures was developed with blunt dissection. Blunt dissection was then taken down in this interval and to the deep cervical fascia was identified along with the scar tissue surrounding the plate on the anterior cervical spine. The trachea and esophagus were mobilized fairly easily. There was a branch of a small arterial substance coming off of the carotid artery which was identified and this was e xtremely tensioned and so was decided to sacrifice this physical protection. 3- 0 silk were tied on either edge of this artery and vascular clips placed on either side it was then ligated without issue. This allowed better mobilization of the esophagus and trachea and better access to the distal portion of the plate. Lateral x-ray confirmed positioning as well as the area of the plate. Microscope was then brought in for better visualization. Shadow line retractor was then selected and placed electrocautery dissection was used and bipolar dissection used for careful dissection of the plate. The distal aspect of the plate was then visualized. The screws were removed from the distal aspect of the plate easily. The superior portion of the screws were stripped and so the screws had to be backed out very carefully. This was achieved and the plate was removed. There was noted pseudoarthrosis at C5 6 in this area. C6-C7 had fused fairly well. It was at this point that cast bar plans were placed into C4 under lateral fluoroscopy and C6 under lateral fluoroscopy which showed motion at the C5 6 segment. Discectomy was performed at C4 5 entirely including removing of the PLL and decompression in this area. C5 6 disc space did not exist however there were pseudoarthrosis and motion in this area and so C5 corpectomy was performed. This performed with a combination of [place] and high-speed bur. 60 upbiter was used then to remove the portion of bone of C5 as well as the PLL in this area. This allowed for complete decompression of the anterior cervical elements in this area. Foraminotomies were performed at both C4 5 and 56. With the vertebral bodies distracted via Raleigh pin distraction a fibular strut graft was measured via calipers and lateral x-ray and then cut to size with some lordosis. This was then impacted into place under lateral fluoroscopy and had a good fit. Distraction was removed and the graft was stable within this space. The graft had been impregnated with autograft from the C5 vertebral body as well as bio 4. Attention was then drawn to the C3 4 disc space where there was C3 anterior listhesis. Raleigh pins was replaced in the C3 under lateral fluoroscopy and distraction performed. Complete discectomy of C3 4 was then performed along with decompression PLL removal and bilateral foraminotomies of C3-C4. This allowed for good decompression. Graft was then sized with sequential sizers and rasp was placed. High-speed bur was used to roughen the edges and create a stable flat surface for the graft acceptance. Graft was then selected and impacted into place under lateral fluoroscopy and was in good position. Distraction was then removed and the graft was stable. Meticulous hemostasis was then performed using FloSeal as well as electrocautery bipolar. The grafts were again inspected and were stable. Weight was removed from the head as well as distraction. Raleigh pins were removed and bone wax was placed in the void to prevent bleeding. Good hemostasis of been achieved. The esophagus was then inspected and there was no visible lesions or issues. The wound was then copiously irrigated with normal sterile saline. A drain was then placed within the deep portions of the wound and taken out through a separate incision in the anterior portion of the neck. The platysma was then closed with 3-0 Vicryl in a [id number] fashion followed by subcu tissue in simple fashion with 3-0 Vicryl. 4-0 Monocryl was then placed in the skin and skin glue placed over the incision. The incision was then cleaned and dressed sterilely with sterile Adaptic 4 x 4 and Tegaderms. Kim-Mesosphere tongs were removed the patient was placed in a hard collar. She was then transferred back to her [place] and the bed conversion was performed. She tolerated this portion of the procedure very well and we are in close contact with neuro monitoring as well as anesthesia. Anesthesia agreed with proceeding to posterior aspect of procedure. Intraoperative neuro monitoring agreed and stated no changes in baseline signals throughout the procedure. Stage II: The patient was then placed in Bravo head clamp and transferred to a prone Florentino spine table very carefully. All bony prominences including wrists, elbows, axilla, chest, hips, and thighs, and feet were padded very well. Special attention was paid to the genitalia and these were padded accordingly. SCDs were placed on bilateral lower extremities and were connected. Arms were well padded and placed at her side tucked and well-padded. The shoulders were taped down to the bed. Once in position, again we confirmed good ventilation capabilities and that lines were running appropriately. Intraoperative neuro monitoring ran motors and there is no change from baseline and continued to have good signaling. The patient's posterior cervical spine was then exposed. Hair clipper was removed used to remove excess hair within the surgical field. 1010s were placed outlining the incision site. Standard alcohol was used to clean the incision site and allowed to dry. C-arm was used to biomark the patient and confirm level for incision which was marked with a skin marker. Operative briefing was performed with all teams and everyone in agreement to proceed. The patient was then prepped and draped in a normal sterile fashion. Timeout was then performed and all parties were in agreement with the procedure to be performed. The patient was redosed with Ancef 3 g at this time as it had become time for re-dosage. Skin incision was then made over the previously bio marked area with the templated midline posterior from the inion to approximately T1 and T2. Subcu dissection was performed with electrocautery from meticulous hemostasis. The posterior cervical fascia as well as the posterior cervical thoracic fascia was identified and cleaned thoroughly. Dissection was taken down midline in the posterior cervical area to identify the spinous process of C2 was this was identified the bifid spinous processes of C3 through C7 were then identified. The spinous processes T1-T2 were identified and cleaned. Subperiosteal disse ction was then taken out over the lamina of C2 as well as through T1. This allowed visualizations of the facet joints from C2 through T1. Once adequate visualization of been obtained and meticulous hemostasis obtained we proceeded with C2 screws starting on the left-hand side under lateral fluoroscopy. Lateral fluoroscopy confirmed the C2 region. Starting point was selected via direct visualization anteriorly and posteriorly and lateral fluoroscopy. High- speed bur was used to make a starting point in the left C2 just above the joint line. General was then used in a sequential fashion drilling 2 mm at a time followed by a feeler to confirm good bony bottom. Wallace 4 was placed on the medial aspect of the C2 pedicle to allow for a goal post to aim for. Sequential drilling of 2 mm a time under lateral fluoroscopy ensued along with feeling. Once we reached a 20 mm depth which was preoperatively measured feeling had a good bottom and good bony 4 antonio the screw was placed under lateral fluoroscopy without any issue. This was then repeated on the right-hand side until a 20 mm screw depth had been obtained during the same sequential 2 mm drilling. Screw was then placed atraumatically without any issue. Lateral mass screws were then placed by first creating a bur hole starting point in each lateral mass from C3 to C6 under lateral fluoroscopy. Drill was then set to 14 mm and drilled up and out position started on the right-hand side followed by the left-hand side. This was sequentially done with a bur drill feeler and then screw placement at each level. C7 lateral mass screw was placed on the left-hand side due to good access. This was not placed on the right-hand side as there was not as good of axis. Attention was then drawn to T1 screws bilaterally. Under AP fluoroscopy T1 screws were placed first with a bur hole starting point followed by a pedicle finder feeler and tap sequentially and under AP fluoroscopy.. The screws were then placed atraumatically as well. A template chuck was then used for templating and a chuck selected and cut. These were then bent to allow good fixation in this area. These were then placed first and C2 screws and then sequentially down to T1. This was done in a fashion to prevent undue stress on reduction of the screws. This is done on the left-hand side and on the right-hand side. Screws were then final tightened and the place. A intraoperative 3-D C-arm spent was then obtained of the construct to confirm screw placement. This confirmed adequate screw placement with good fixation and good overall alignment. Attention was then drawn to the decompression. Bilateral laminotomies were made from C2 3 to C7. The lamina was then unroofed sequentially using a 20 upbiter to remove the lamina and the ligamentum flavum from the corners. This allowed for good axis in the foramen as well foraminotomy was performed at C5 bilaterally. Meticulous hemostasis then ensued with FloSeal and patties. Copious irrigation was then performed with 3 L of normal sterile saline followed by Irricept followed by 3 L of normal sterile saline. Once hemostasis was achieved FloSeal was placed in the gutters followed by Surgicel over the dura. A drain was placed deep to the fascia. The facet joints were decorticated bilaterally and a combination of autograft allograft and bio 4 was then placed in the posterior lateral gutters as well as within the facet joints. Lamina T1 was decorticated and bone packed in this area as well. This was then covered with Surgicel. The wound was inspected vancomycin was placed deep vancomycin powder was placed deep within the wound. The fascia was then closed with #1 Vicryl in a [id number] fashion followed by 0 Vicryl in a simple fashion. Subcutaneous tissues closed with 0 Vicryl and 2-0 Vicryl in the subcu region. [place] were then used to close the skin. The wound was then cleaned and dressed sterilely with sterile Telfa 4 x 4's and Tegaderms. The patient was then transferred back to her ICU bed very carefully. Drains remained and can hole held suction throughout. Patient was stable at this time and tolerated the procedure very well. She remained intubated and was transferred to the ICU in stable condition.
[2020-06-17 11:33] LABS: Glucose,Whole Blood 125 mg/dL (75-99)
[2020-06-17 17:30] LABS: Glucose,Whole Blood 127 mg/dL (75-99)
[2020-06-17 20:09] VITALS: RESP 18
[2020-06-17] MEDS: BACLOFEN 10 MG TAB PO SCH (20:11)
[2020-06-17] MEDS: lamoTRIgine 100 MG TAB PO SCH (20:11)
[2020-06-17 20:28] LABS: Glucose,Whole Blood 160 mg/dL (75-99)
--- NOTE | 2020-06-17 20:38 | P.PN ---
Progress Note - Text Progress Note Date: 06/17/20 presenting complaint: spine surgery interval history: The patient is a 49-year-old female with a PMH of type II DM, asthma, obstructive sleep apnea, and fibromyalgia who was admitted for scheduled multiple cervical and thoracic spine procedures including discectomy, spinal fusion, and decompression. The patient underwent the procedures and postoperatively was placed in the the intensive care unit.patient was successfully extubated. Has a GEORGE drain at the surgical site Today-up in a chair. Spasm in the left part of the neck. Some numbness on the left thumb persist. They've followed by surgery. Oral intake good Review of systems: Was done for constitutional, cardiovascular, GI, pulm onary.muscular skeletal relevant finding as above Active Medications Acetaminophen (Acetaminophen Tab 325 Mg Tab) 650 mg PO Q6HR PRN PRN Reason: Fever and/ or Pain Last Admin: 06/16/20 17:15 Dose: 325 mg Documented by: Albuterol Sulfate (Albuterol Hfa Inhaler) 2 puff INHALATION RT-Q6H PRN PRN Reason: Wheezing Albuterol/Ipratropium (Ipratropium-Albuterol 3 Ml Neb) 3 ml INHALATION RT-QID PRN PRN Reason: Shortness Of Breath Or Wheezing Last Admin: 06/13/20 07:49 Dose: 3 ml Documented by: Amlodipine Besylate (Amlodipine 5 Mg Tab) 5 mg PO DAILY [facility] Last Admin: 06/17/20 07:52 Dose: 5 mg Documented by: Baclofen (Baclofen 10 Mg Tab) 10 mg PO BID PRN PRN Reason: Muscle Spasm Last Admin: 06/17/20 17:45 Dose: 10 mg Documented by: Baclofen (Baclofen 10 Mg Tab) 20 mg PO HS [facility] Last Admin: 06/17/20 20:11 Dose: 20 mg Documented by: Bupropion HCl (Bupropion 100 Mg Tab) 100 mg PO TID [facility] Last Admin: 06/17/20 15:26 Dose: 100 mg Documented by: Buspirone HCl (Buspirone Hcl 10 Mg Tab) 10 mg PO TID [facility] Last Admin: 06/17/20 15:25 Dose: 10 mg Documented by: Dexamethasone Sodium Phosphate (Dexamethasone Sod Phosphate 4 Mg/Ml 1 Ml Vial) 2 mg IV Q6HR [facility] Last Admin: 06/17/20 17:44 Dose: 2 mg Documented by: Diazepam (Diazepam 5 Mg Tab) 5 mg PO BID PRN PRN Reason: Pain Last Admin: 06/17/20 09:05 Dose: 5 mg Documented by: Gabapentin (Gabapentin 300 Mg Cap) 300 mg PO TID [facility] Last Admin: 06/17/20 15:25 Dose: 300 mg Documented by: Heparin Sodium (Porcine) (Heparin Sodium,Porcine 5,000 Unit/Ml 1 Ml Vial) 5,000 unit SQ Q12HR [facility] Last Admin: 06/17/20 20:14 Dose: 5,000 unit Documented by: Insulin Aspart (Insulin Aspart (Novolog) 100 Unit/Ml Vial) 0 unit SQ ACHS [facility]; Protocol Last Admin: 06/17/20 20:30 Dose: 3 unit Documented by: Lamotrigine (Lamotrigine 100 Mg Tab) 300 mg PO HS [facility] Last Admin: 06/17/20 20:11 Dose: 300 mg Documented by: Losartan Potassium (Losartan 25 Mg Tab) 25 mg PO DAILY [facility] Last Admin: 06/17/20 07:51 Dose: 25 mg Documented by: Metoprolol Tartrate (Metoprolol Tartrate 25 Mg Tab) 25 mg PO BID [facility] Last Admin: 06/17/20 20:11 Dose: 25 mg Documented by: Multivitamins (Multivitamins, Thera 1 Each Tab) 1 each PO DAILY [facility] Last Admin: 06/17/20 07:51 Dose: 1 each Documented by: Ondansetron HCl (Ondansetron 4 Mg/2 Ml Vial) 4 mg IVP Q8HR PRN PRN Reason: Nausea And Vomiting Oxybutynin Chloride (Oxybutynin Chloride 5 Mg Tab) 5 mg PO BID [facility] Last Admin: 06/17/20 20:11 Dose: 5 mg Documented by: Oxycodone/Acetaminophen (Oxycodone-Apap 10-325mg 1 Each Tab) 1 each PO Q4H PRN PRN Reason: Pain Last Admin: 06/17/20 07:51 Dose: 1 each Documented by: Oxycodone/Acetaminophen (Oxycodone-Apap 10-325mg 1 Each Tab) 2 each PO Q4H PRN PRN Reason: Pain Last Admin: 06/17/20 20:12 Dose: 2 each Documented by: Pantoprazole Sodium (Pantoprazole 40 Mg Tablet) 40 mg PO DAILY [facility] Last Admin: 06/17/20 07:52 Dose: 40 mg Documented by: Senna/Docusate Sodium (Sennosides-Docusate Sodium 1 Each Tab) 4 each PO DAILY [facility] Last Admin: 06/17/20 07:51 Dose: 4 each Documented by: On examination: VITAL SIGNS: 98.5, 60, 16, 119/70, 95% room air GENERAL APPEARANCE: Sitting up in a chair HEENT: Normal external appearance of nose and ear. Oral cavity normal, GEORGE drain at the surgical site EYES: Pupils equal. Conjunctiva normal. NECK:JVD unable to assess, waiting cervical collar RESPIRATORY: Respiratory effort increasel. decreased breath sounds. CARDIOVASCULAR: First and second sounds normal. No edema. ABDOMEN: Soft. Liver and spleen not palpable. No tenderness. No mass palpable. PSYCHIATRY: Awake, answering questions NEUROLOGICAL: Good propulsion generator repairer in both the arms. Decreased sensation in the left thumb . 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 Status post surgical repair -morbid obesity BMI 59.1 -Asthma -Diabetes mellitus type 2 -Chronic fibromyalgia -GERD -Obstructive sleep apnea-does not use CPAP -irritable bowel syndrome -bipolar disorder Plan: Continue current medication treatment plan. On IV Decadron as per surgery. Discussed with the patient. Thank you
[2020-06-18] MEDS: oxyCODONE-APAP 10-325MG 1 EACH TAB PO PRN ×3 (01:04→11:34)
[2020-06-18] MEDS: BACLOFEN 10 MG TAB PO PRN (03:33)
[2020-06-18] MEDS: PANTOPRAZOLE 40 MG TABLET PO SCH (03:40)
[2020-06-18] MEDS: DEXAMETHASONE SOD PHOSPHATE 4 MG/ML 1 ML VIAL IV SCH ×2 (05:11→11:34)
[2020-06-18 07:34] LABS: Glucose,Whole Blood 123 mg/dL (75-99)
[2020-06-18] MEDS: INSULIN ASPART (NovoLOG) 100 UNIT/ML VIAL SQ SCH ×2 (07:35→11:33)
[2020-06-18] MEDS: GABAPENTIN 300 MG CAP PO SCH ×2 (07:48→15:30)
[2020-06-18] MEDS: MULTIVITAMINS, THERA 1 EACH TAB PO SCH (07:49)
[2020-06-18] MEDS: busPIRone HCl 10 MG TAB PO SCH ×2 (07:49→15:30)
[2020-06-18] MEDS: SENNOSIDES-DOCUSATE SODIUM 1 EACH TAB PO SCH (07:49)
[2020-06-18 07:50] VITALS: BP 137/79; PULSE 63; TEMP 97.4
[2020-06-18] MEDS: OXYBUTYNIN CHLORIDE 5 MG TAB PO SCH (07:50)
[2020-06-18] MEDS: LOSARTAN 25 MG TAB PO SCH (07:50)
[2020-06-18] MEDS: METOPROLOL TARTRATE 25 MG TAB PO SCH (07:50)
[2020-06-18] MEDS: HEPARIN SODIUM,PORCINE 5,000 UNIT/ML 1 ML VIAL SQ SCH (07:50)
[2020-06-18] MEDS: amLODIPine 5 MG TAB PO SCH (07:50)
[2020-06-18] MEDS: buPROPion 100 MG TAB PO SCH ×2 (07:51→15:30)
[2020-06-18] MEDS: diazePAM 5 MG TAB PO PRN (10:13)
[2020-06-18 11:31] LABS: Glucose,Whole Blood 117 mg/dL (75-99)
--- NOTE | 2020-06-18 12:45 | P.DS ---
Providers Date of admission: 06/11/20 05:59 Expected date of discharge: 06/18/20 Attending physician: Andreas Hernández DO Consults: 06/12/20 07:24 Consult Physician Routine Consulting Provider: Keith Em Consult Reason/Comments: Primary care managment Do you want consulting provider notified?: Yes 06/12/20 07:47 Consult Physician Routine Consulting Provider: Kamran Dale Reason/Comments: ICU management Do you want consulting provider notified?: Already Contacted Primary care physician: Keith [facility] Course: Date of admission: 06/11/2020 Date of discharge: 06/18/2020 Admission diagnosis: 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 Hernández Surgical procedures: Revision anterior fusion with posterior stabilization and decompression, please see operative note for further description detail Brief history: Patient is a 49-year-old female with a history of previous cervical fusion that has developed worsening pain of the cervical spine along with hardware failure. She was evaluated in the outpatient setting by Dr. Hernández for initial conservative treatment. At this point patient has failed conservative treatment measures and has opted to proceed with a elective revision anterior fusion with posterior stabilization decompression. Hospital course: Details of patient's surgery can be found in operative report. Patient tolerated the procedure well and was subsequently transported to orthop edic floor. Patient's orthopeidc and medical care was provided daily. Patient had daily laboratory tests performed for evaluation of overall blood counts. Patient had daily physical therapy to include strengthening range of motion as well as education with walker ambulation. Patient was treated with heparin for their postoperative DVT prophylaxis during their inpatient stay. Patient was noted to have a relatively uneventful postoperative course. Patient reported satisfactory pain control with oral pain medications by postoperative day . Patient showed satisfactory progress with physical therapy. Patient moved steadily through the program and had no difficulty meeting the goals by postoperative day 7. Given patient's otherwise satisfactory course and having met physical therapy goals, plan is to discharge patient [home] on postoperative day 7. Discharge condition/disposition: Patient will be discharged [home] in stable condition. Discharge medications: Instructions are given on resumption of patient's normal daily medications per primary care recommendation, in addition patient will be prescribed oxycodone 10 mg/325 mg, Flexeril 10 mg, gabapentin 3 mg, Colace 100 mg, MiraLAX 17 g, Norvasc 5 mg, Hyzaar. 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 Please discuss prescription refills at your follow up appointment. Do not call the hospital for medication refills. Dressing: Leave your dressing in place for a total of 5 days post operatively. Then you may remove your dressing and leave open to air. Keep the area clean and if not able to keep area clean, then cover with sterile gauze and tape. Showering: You may shower 3 days after your procedure allowing soap and water to run over incision. Do not scrub. Do not soak. Blot dry. Follow up: Please confirm a follow up appointment with your surgeon 3 weeks post ope ratively. Please make an appointment to follow up with your PCP in 1-2 weeks after surgery for evaluation 3 phase, 3-week plan POST OP WEEKS 1-3 1. Lifting/carrying/pushing/pulling limited to less than 5 pounds. 2. Do not sit for longer than 15 minutes at one time. Get up and walk around. Prolonged sitting is NOT advised. If you lay down, see if you can tolera te laying down on you front (belly side) 3. Walk for periods of 15 minutes = 1 mile but no longer; do it multiple times times each day. 4. Ice your low back after activity. POST OP WEEKS 3-6 1. Lifting limited to less than 20 pounds. 2. Do not sit for longer than 30 minutes at a time. Frequently change positions. Use a sit-to stand workstation or take frequent breaks from sitting if you have returned to work. 3. Walk for 30 minutes each day. If possible, do these three or more times a day POST OP WEEKS 6+ At your 6-week appointment we will give you a physical therapy referral to focus on a core stabilization and strengthening program. You should also work on leg & buttock strengthening, hamstring & quadriceps stretching, and continue a low impact aerobic activity program such as swimming, walking, or riding a stationary bicycle. During the initial 6 weeks after your surgery, you are at the highest risk of re-injuring your spine. You should generally avoid BLTs (bending, lifting and twisting combination motions) and follow the above guidelines to reduce the chance of reinjury. You can anticipate post op appointments in our office at approximately 3 weeks and 6 weeks after your surgery. INCISION CARE: If your incision is not draining you do NOT need to cover it with a dressing. Keep your incision clean, dry and intact. In most cases, we apply skin glue, cynthia or sutures to the incision at the time of surgery. This will be like a crust or have the appearance of a scab and will fall off in time on its own. The stitches or cynthia need to be removed at 3 weeks post op appointment. You may begin to shower 3 days after surgery (this allows the glue to castro well). However, please avoid scrubbing the incision site or peeling off any of the skin glue. This will ensure optimal healing of your incision. Also, during this time avoid soaking the incision area in water - this includes swimming pools, hot tubs or baths. No ointments, lotions or oils on the incision until your surgeon allows. Leave cynthia, sutures or glue in place. Neurological dysfunction that comes on suddenly can also be a sign of a stroke. Below some common symptoms of a stroke are listed: B - balance difficulty such as sudden onset walking or leaning to one side - NEW E - eye problem such as sudden double vision or trouble seeing on one side - NEW F - Facial weakness or numbness on one side - NEW A - Arm or leg weakness or numbness on one side - NEW S - Slurred speech or difficulty with word finding - NEW T - Time is BRAIN! Call 911 as soon as you recognize these symptoms Diet: Consume a regular diet rich in vegetables and lean protein such as chicken or fish. You should consume in a ratio of approximately 20% fats|40% carbohydrates|40%protein. Vegetables, sweet potatoes, brown rice or quinoa are examples of good carbohydrates. Chips, white bread, cookies and sweets/sugar are examples of bad carbohydrates. Limit your bad carbs, go wild with good carbs. 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 (1) Get Active. Physical activity can help people lose weight, control high blood pressure and cholesterol, feel emotionally better, and sleep better. (2) Control Cholesterol. Avoid a diet high in saturated fat, trans fat, & cholesterol. Limit whole milk & cream, ice cream, butter, egg yolks, processed meats (like sausage and hot dogs), and fatty meats. Choose healthy foods that are low in saturated fat, trans fat and cholesterol which include: Fruits and vegetables, fiber rich grain products (like whole grain pasta and brown rice), lean meat such as chicken, fish, nuts, seeds, and legumes. (3) Eat Better. Eat small portions. Shop at the grocery with a list and do not stray from it. Tips for a healthy diet include: Limit sodium intake to less than 1500mg daily, avoid prepackaged, processed, and fast foods, choose a diet rich in fruits, vegetables, and whole grain, high fiber foods, and limit saturated & cholesterol in your diet. (4) Manage Blood Pressure. If you have high blood pressure, you should have a cuff at home so that you can check your blood pressure regularly. Be sure you have a good cuff. An arm one is generally better than a wrist one. Bring the cuff to a doctor's appointment to validate that the measurements that your cuff are taking are accurate. Take your blood pressure twice daily when you are sitting down and relaxing. Record the numbers in a log and bring this log with you to your doctors' appointments. (5) Lose Weight if your BMI is above 25. A healthy BMI is between 19-25. To calculate Your BMI, you may use a Standard BMI Calculator on the NIH BMI website: <www.nhlbi.nih.gov/guidelines/obesity/BMI/bmicalc.htm>. Weigh oneself daily. If you are overweight, set a goal to lose weight. A pound a week loss if needed is a good target. (6) Reduce Blood Sugar. Limit foods and liquids with "added sugars." (Added sugars include sucrose, fructose, glucose, maltose, dextrose, high fructose corn syrup, corn syrup, concentrated fruit juice and honey). (7) Stop Smoking. If you smoke, quitting smoking is one of the best things that you can do for your health. Smoking increases your risk of heart attack, stroke, and peripheral vascular disease, which is a build-up of plaque in your arteries. Please discard all the cigarettes and lighters in your house. Have a plan for what you will do when you have the urge to smoke. Direct and second- hand smoke shortens your life as well as the lives of your family, friends and others around you. For your health and the health of those around you, please consider quitting! Proper Bending Body Mechanics: Maintain a wide stance with one foot slightly in front of the other. Keep your back straight. Bend utilizing the strength in your hips and knees. Do not bend at the waist. Maintain the lifted object at your waist-level close to your body. Avoid lifting weight that causes immediately pain or pain anywhere in the body afterwards. Smoking/Nicotine If there was ever one thing that you could do to increase your overall health, decrease your risk of cardiovascular problems by about 39% the second you make the choice, it is to STOP SMOKING. Your body's most instant gratification is the second you stop smoking. We have all heard the studies, read the articles but it is true, smoking is extremely bad for your overall health, and moreover it is detrimental to your bone health. Nicotine, IN ANY FORM, kills bone cells, prevents your body from healing fractures, and significantly prolongs healing after surgery. In spine surgery specifically, it increases your risk of not healing your bones to create a fusion and increases your risk of having a revision surgery due to this up to 60%. I know it is hard. I know it feels impossible. But there are ways. Take control of your life. We are here to help you through it. And when you are ready, ask us and we can direct you to help if you desire. Use the START Plan to Quit Smoking (please visit the Helpguide.org website listed below for more information): S = Set a quit date. Choose a date within the next 2 weeks, so you have enough time to prepare without losing your motivation to quit. If you mainly smoke at work, quit on the weekend, so you have a few days to adjust to the change. T = Tell family, friends, and co-workers that you plan to quit. Let your friends and family in on your plan to quit smoking and tell them you need their support and encouragement to stop. Look for a quit brittany who wants to stop smoking as well. You can help each other get through the rough times. A = Anticipate and plan for the challenges you'll face while quitting. Most people who begin smoking again do so within the first 3 months. You can help yourself make it through by preparing ahead for common challenges, such as nicotine withdrawal and cigarette cravings. R = Remove cigarettes and other tobacco products from your home, car, and work. Throw away all your cigarettes (no emergency pack!), lighters, ashtrays, and matches. Wash your clothes and freshen up anything that smells like smoke. Shampoo your car, clean your drapes and carpet, and steam your furniture. T = Talk to your doctor about getting help to quit. Your doctor can prescribe medication to help with withdrawal and suggest other alternatives. If you can't see a doctor, you can get many products over the counter at your local pharmacy or grocery store, including the nicotine patch, nicotine lozenges, and nicotine gum. Resources for Quitting Smoking: <https://www.[place].gov/[facility]/Quit_Tobacco_Resources_for_patients_313480_7.pdf> Supplementation: Take recommended dosages of Vitamin D and Calcium to help fortify your bones and help them to heal. See your health maintenance packet for dosages and recommended levels. DVT/VTE prophylaxis: You will be given compression stockings from the hospital. Wear these daily for the first two weeks after surgery. You may take them off at night. You may be prescribed a medication to help thin your blood. Take this as directed. If you are not prescribed this medication, early and frequent ambulation has been shown to be the best prophylaxis to deep vein thrombosis and sequelae related to this event. Procedures: Revision anterior fusion with posterior stabilization and decompression Patient Condition at Discharge: Stable Plan - Discharge Summary Discharge Rx Participant: Yes New Discharge Prescriptions: New Losartan-Hctz 50-12.5 mg [Hyzaar 50-12.5] 1 tab PO DAILY #30 tablet amLODIPine [Norvasc] 5 mg PO HS #30 tab Docusate [Colace] 100 mg PO DAILY #30 capsule Cyclobenzaprine [Flexeril] 10 mg PO TID #30 tab Gabapentin 300 mg PO TID 3 Days #30 cap polyethylene glycoL 3350 [Miralax] 17 gm PO DAILY PRN #30 packet PRN Reason: Constipation oxyCODONE-APAP 10-325MG [Percocet 10-325 mg] 1 - 2 tab PO Q6HR PRN #56 tab PRN Reason: Pain Continue lamoTRIgine [LaMICtal] 300 mg PO HS Albuterol Sulfate [Proair Hfa] 2 puff INHALATION RT-Q6H PRN PRN Reason: Wheezing Dextroamphetamine/Amphetamine [Adderall] 30 mg PO BID Omeprazole [PriLOSEC] 40 mg PO DAILY #1 capsule. buPROPion [Wellbutrin] 100 mg PO TID Butalb/APAP/Caff 50-325-40Mg [Fioricet 50-325-40] 1 tab PO Q8H PRN PRN Reason: Pain Baclofen 10 mg PO BID-W/MEALS busPIRone HCl [Buspar] 10 mg PO TID Oxybutynin Chloride 5 mg PO BID Amiovig Injection 170 mg INJ Q30D Baclofen [Lioresal] 20 mg PO HS Calcium Carbonate/Vitamin D3 [Caltrate 600 Plus D3 Tablet] 2 each PO DAILY Ergocalciferol [Vitamin D2 (DRISDOL)] 50,000 unit PO Q7D Multivitamins, Thera [Multivitamin (formulary)] 1 tab PO DAILY Discontinued Loratadine [Claritin] 10 mg PO DAILY Sucralfate [Carafate] 1 gm PO BID #480 ml HYDROcodone/APAP 5-325MG [[place] 5-325] 1 tab PO Q8HR PRN PRN Reason: Pain Discharge Medication List Albuterol Sulfate [Proair Hfa] 2 puff INHALATION RT-Q6H PRN 11/08/13 [History] lamoTRIgine [LaMICtal] 300 mg PO HS 11/08/13 [History] Dextroamphetamine/Amphetamine [Adderall] 30 mg PO BID 09/14/17 [History] Omeprazole [PriLOSEC] 40 mg PO DAILY #1 capsule. 04/03/19 [Rx] buPROPion [Wellbutrin] 100 mg PO TID 11/01/19 [History] Baclofen 10 mg PO BID-W/MEALS 05/06/20 [History] Butalb/APAP/Caff 50-325-40Mg [Fioricet 50-325-40] 1 tab PO Q8H PRN 05/06/20 [History] Oxybutynin Chloride 5 mg PO BID 05/06/20 [History] busPIRone HCl [Buspar] 10 mg PO TID 05/06/20 [History] Amiovig Injection 170 mg INJ Q30D 06/10/20 [History] Baclofen [Lioresal] 20 mg PO HS 06/10/20 [History] Calcium Carbonate/Vitamin D3 [Caltrate 600 Plus D3 Tablet] 2 each PO DAILY 06/10/20 [History] Ergocalciferol [Vitamin D2 (DRISDOL)] 50,000 unit PO Q7D 06/10/20 [History] Multivitamins, Thera [Multivitamin (formulary)] 1 tab PO DAILY 06/10/20 [History] Cyclobenzaprine [Flexeril] 10 mg PO TID #30 tab 06/18/20 [Rx] Docusate [Colace] 100 mg PO DAILY #30 capsule 06/18/20 [Rx] Gabapentin 300 mg PO TID 3 Days #30 cap 06/18/20 [Rx] Losartan-Hctz 50-12.5 mg [Hyzaar 50-12.5] 1 tab PO DAILY #30 tablet 06/18/20 [Rx] amLODIPine [Norvasc] 5 mg PO HS #30 tab 06/18/20 [Rx] oxyCODONE-APAP 10-325MG [Percocet 10-325 mg] 1 - 2 tab PO Q6HR PRN #56 tab 06/18/20 [Rx] polyethylene glycoL 3350 [Miralax] 17 gm PO DAILY PRN #30 packet 06/18/20 [Rx] Follow up Appointment(s)/Referral(s): Abilio Mccollum DO [STAFF PHYSICIAN] - 1 Week (Office does not have any current openings so they will be calling you after discharge to set up an appointment) [facility], [NON-STAFF] - 1-2 Days Andreas Hernández DO [Doctor of Osteopathic Medicine] - 06/28/20 10:40 am Patient Instructions/Handouts: Cervical Spinal Stenosis (DC) Activity/Diet/Wound Care/Special Instructions: Spine Discharge and Recovery Instructions Date of Surgery: [06/11/2019] Diagnosis: 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 Please discuss prescription refills at your follow up appointment. Do not call the hospital for medication refills. Dressing: Leave your dressing in place for a total of 3 days post operatively. Then you may remove your dressing and leave open to air. Keep the area clean and if not able to keep area clean, then cover with sterile gauze and tape. Showering: You may shower 3 days after your procedure allowing soap and water to run over incision. Do not scrub. Do not soak. Blot dry. Follow up: Please confirm a follow up appointment with your surgeon 2 weeks post operatively. Please make an appointment to follow up with your PCP in 3-5 days after surgery for evaluation 3 phase, 3-week plan POST OP WEEKS 1-3 1. Lifting/carrying/pushing/pulling limited to less than 5 pounds. 2. Do not sit for longer than 15 minutes at one time. Get up and walk around. Prolonged sitting is NOT advised. If you lay down, see if you can tolerate laying down on you front (belly side) 3. Walk for periods of 15 minutes = 1 mile but no longer; do it multiple times times each day. 4.Ice your low back after activity. POST OP WEEKS 3-6 1. Lifting limited to less than 20 pounds. 2. Do not sit for longer than 30 minutes at a time. Frequently change pos itions. Use a sit-to stand workstation or take frequent breaks from sitting if you have returned to work. 3. Walk for 30 minutes each day. If possible, do these three or more times a day POST OP WEEKS 6+ At your 6-week appointment we will give you a physical therapy referral to focus on a core stabilization and strengthening program. You should also work on leg & buttock strengthening, hamstring & quadriceps stretching, and continue a low impact aerobic activity program such as swimming, walking, or riding a stationary bicycle. During the initial 6 weeks after your surgery, you are at the highest risk of re-injuring your spine. You should generally avoid BLTs (bending, lifting and twisting combination motions) and follow the above guidelines to reduce the chance of reinjury. You can anticipate post op appointments in our office at approximately 3 weeks and 6 weeks after your surgery. INCISION CARE: If your incision is not draining you do NOT need to cover it with a dressing. Keep your incision clean, dry and intact. In most cases, we apply skin glue, cynthia or sutures to the incision at the time of surgery. This will be like a crust or have the appearance of a scab and will fall off in time on its own. The stitches or cynthia need to be removed at 3 weeks post op appointment. You may begin to shower 3 days after surgery (this allows the glue to castro well). However, please avoid scrubbing the incision site or peeling off any of the skin glue. This will ensure optimal healing of your incision. Also, during this time avoid soaking the incision area in water - this includes swimming pools, hot tubs or baths. No ointments, lotions or oils on the incision until your surgeon allows. Leave cynthia, sutures or glue in place. Neurological dysfunction that comes on suddenly can also be a sign of a stroke. Below some common symptoms of a stroke are listed: B - balance difficulty such as sudden onset walking or leaning to one side - NEW E - eye problem such as sudden double vision or trouble seeing on one side - NEW F - Facial weakness or numbness on one side - NEW A - Arm or leg weakness or numbness on one side - NEW S - Slurred speech or difficulty with word finding - NEW T - Time is BRAIN! Call 911 as soon as you recognize these symptoms Diet: Consume a regular diet rich in vegetables and lean protein such as chicken or fish. You should consume in a ratio of approximately 20% fats|40% carbohydrates|40%protein. Vegetables, sweet potatoes, brown rice or quinoa are examples of good carbohydrates. Chips, white bread, cookies and sweets/sugar are examples of bad carbohydrates. Limit your bad carbs, go wild with good carbs. 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 (1) Get Active. Physical activity can help people lose weight, control high blood pressure and cholesterol, feel emotionally better, and sleep better. (2) Control Cholesterol. Avoid a diet high in saturated fat, trans fat, & cholesterol. Limit whole milk & cream, ice cream, butter, egg yolks, processed meats (like sausage and hot dogs), and fatty meats. Choose healthy foods that are low in saturated fat, trans fat and cholesterol which include: Fruits and vegetables, fiber rich grain products (like whole grain pasta and brown rice), lean meat such as chicken, fish, nuts, seeds, and legumes. (3) Eat Better. Eat small portions. Shop at the grocery with a list and do not stray from it. Tips for a healthy diet include: Limit sodium intake to less than 1500mg daily, avoid prepackaged, processed, and fast foods, choose a diet rich in fruits, vegetables, and whole grain, high fiber foods, and limit saturated & cholesterol in your diet. (4) Manage Blood Pressure. If you have high blood pressure, you should have a cuff at home so that you can check your blood pressure regularly. Be sure you have a good cuff. An arm one is generally better than a wrist one. Bring the cuff to a doctor's appointment to validate that the measurements that your cuff are taking are accurate. Take your blood pressure twice daily when you are sitting down and relaxing. Record the numbers in a log and bring this log with you to your doctors' appointments. (5) Lose Weight if your BMI is above 25. A healthy BMI is between 19-25. To calculate Your BMI, you may use a Standard BMI Calculator on the NIH BMI website: <www.nhlbi.nih.gov/guidelines/obesity/BMI/bmicalc.htm>. Weigh oneself daily. If you are overweight, set a goal to lose weight. A pound a week loss if needed is a good target. (6) Reduce Blood Sugar. Limit foods and liquids with "added sugars." (Added sugars include sucrose, fructose, glucose, maltose, dextrose, high fructose corn syrup, corn syrup, concentrated fruit juice and honey). (7) Stop Smoking. If you smoke, quitting smoking is one of the best things that you can do for your health. Smoking increases your risk of heart attack, stroke, and peripheral vascular disease, which is a build-up of plaque in your arteries. Please discard all the cigarettes and lighters in your house. Have a plan for what you will do when you have the urge to smoke. Direct and second- hand smoke shortens your life as well as the lives of your family, friends and others around you. For your health and the health of those around you, please consider quitting! Proper Bending Body Mechanics: Maintain a wide stance with one foot slightly in front of the other. Keep your back straight. Bend utilizing the strength in your hips and knees. Do not bend at the waist. Maintain the lifted object at your waist-level close to your body. Avoid lifting weight that causes immediately pain or pain anywhere in the body afterwards. Smoking/Nicotine If there was ever one thing that you could do to increase your overall health, decrease your risk of cardiovascular problems by about 39% the second you make the choice, it is to STOP SMOKING. Your body's most instant gratification is the second you stop smoking. We have all heard the studies, read the articles but it is true, smoking is extremely bad for your overall health, and moreover it is detrimental to your bone health. Nicotine, IN ANY FORM, kills bone cells, prevents your body from healing fractures, and significantly prolongs healing after surgery. In spine surgery specifically, it increases your risk of not healing your bones to create a fusion and increases your risk of having a revision surgery due to this up to 60%. I know it is hard. I know it feels impossible. But there are ways. Take control of your life. We are here to help you through it. And when you are ready, ask us and we can direct you to help if you desire. Use the START Plan to Quit Smoking (please visit the Helpguide.org website listed below for more information): S = Set a quit date. Choose a date within the next 2 weeks, so you have enough time to prepare without losing your motivation to quit. If you mainly smoke at work, quit on the weekend, so you have a few days to adjust to the change. T = Tell family, friends, and co-workers that you plan to quit. Let your friends and family in on your plan to quit smoking and tell them you need their support and encouragement to stop. Look for a quit brittany who wants to stop smoking as well. You can help each other get through the rough times. A = Anticipate and plan for the challenges you'll face while quitting. Most people who begin smoking again do so within the first 3 months. You can help yourself make it through by preparing ahead for common challenges, such as nicotine withdrawal and cigarette cravings. R = Remove cigarettes and other tobacco products from your home, car, and work. Throw away all your cigarettes (no emergency pack!), lighters, ashtrays, and matches. Wash your clothes and freshen up anything that smells like smoke. Shampoo your car, clean your drapes and carpet, and steam your furniture. T = Talk to your doctor about getting help to quit. Your doctor can prescribe medication to help with withdrawal and suggest other alternatives. If you can't see a doctor, you can get many products over the counter at your local pharmacy or grocery store, including the nicotine patch, nicotine lozenges, and nicotine gum. Resources for Quitting Smoking: <https://www.[place].gov/documents/[facility]/Quit_ Tobacco_Resources_for_patients_313480_7.pdf> Supplementation: Take recommended dosages of Vitamin D and Calcium to help fortify your bones and help them to heal. See your health maintenance packet for dosages and recommended levels. DVT/VTE prophylaxis: You will be given compression stockings from the hospital. Wear these daily for the first two weeks after surgery. You may take them off at night. You may be prescribed a medication to help thin your blood. Take this as directed. If you are not prescribed this medication, early and frequent ambulation has been shown to be the best prophylaxis to deep vein thrombosis and sequelae related to this event. Discharge Disposition: HOME WITH HOME HEALTH SERVICES
[2020-06-18 15:16] VITALS: BMI 59.2
--- NOTE | 2020-06-18 22:08 | P.PN ---
Progress Note - Text Progress Note Date: 06/18/20 presenting complaint: spine surgery interval history: The patient is a 49-year-old female with a PMH of type II DM, asthma, obstructive sleep apnea, and fibromyalgia who was admitted for scheduled multiple cervical and thoracic spine procedures including discectomy, spinal fusion, and decompression. The patient underwent the procedures and postoperatively was placed in the the intensive care unit.patient was successfully extubated. Has a GEORGE drain at the surgical site Today-of in a chair. Feeling better. Oral intake fair. Pain better control. Will be going home. Review of systems: Was done for constitutional, cardiovascular, GI, pulmonary.muscular skeletal relevant finding as above current medications reviewed in today's electronic records On examination: VITAL SIGNS:97.4, 63, 18, 1 37 x 79, 100% room air GENERAL APPEARANCE: Sitting up in a chair, comfortable HEENT: Normal external appearance of nose and ear. Oral cavity normal, GEORGE drain at the surgical site EYES: Pupils equal. Conjunctiva normal. NECK:JVD unable to assess, waiting cervical collar RESPIRATORY: Respiratory effort increasel. decreased breath sounds. CARDIOVASCULAR: First and second sounds normal. No edema. ABDOMEN: Soft. Liver and spleen not palpable. No tenderness. No mass palpable. 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 Decreased sensation in the left thumb . 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 Status post surgical repair -morbid obesity BMI 59.1 -Asthma -Diabetes mellitus type 2 -Chronic fibromyalgia -GERD -Obstructive sleep apnea-does not use CPAP -irritable bowel syndrome -bipolar disorder Plan: Continue current medication treatment plan. steroid taper as per surgery. Discussed with the patient. Follow-up with PCP. Thank you
--- NOTE | 2020-06-23 22:46 | CDI ---
Documentation Clarification Form Date:06/24/2020 From: Clint Hernandez Phone: If you have a question about this query, please contact Ely Weiss, [place] Worker at [phone] between 8am and 5pm. Admit Date: 06/11/2020 05:59:00 AM Patient Name: Alesha Bermudez Visit Number: [id number] Discharge Date: 06/18/2020 04:05:00 PM ATTENTION: The Clinical Documentation Specialists (CDI) and [facility] Coding Staff appreciate your assistance in clarifying documentation. Please respond to the clarification below the line at the bottom and electronically sign. The CDI & [facility] Coding staff will review the response and follow-up if needed. Please note: Queries are made part of the Legal Health Record. If you have any questions, please contact the author of this message via ITS. Dr. Andreas Hernández DO., Documentation in the Operative Report included: Anterior Fusion with Fibular Strut Graft impregnated with Autograft. C2-T1 Posterior lateral instrumented fusion History/Risk factors: Moderate to severe cervical stenosis, Obesity Pre-Operative Diagnosis:Pseudoarthrosis of C4-7 with hardware failure and adjacent segment disease Postoperative Diagnosis:Pseudoarthrosis of C4-7 with hardware failure and adjacent segment disease Clinical Indicators: Revision anterior fusion with posterior stabilization and decompression Treatment:Removal of hardware C4-7 2.Exporation of fusion C4-7 3.C5 corpectomy (39021) 4.C4-6 Anterior Fusion with Fibular Strut Graft impregnated with Autograft. 4.C3-4 Anterior interbody fusion, with discectomy and decompresion; cervical below C2 with Insertion of interbody biomechanical device C2-T1 Posterior lateral instrumented fusion 2.C2-T1 Posterior segmental instrumentation; 7-12 vertebral segments C4-6 Anterior Fusion with Fibular Strut Graft impregnated with Autograft a combination of autograft allograft and bio 4 was then placed in the posterior lateral gutters as well as within the facet joints. In order to capture the severity of condition, please specify the following: Cervical Fusion done at level of C3-6 Anterior and C2-T1 posterior leading to 360 degree(combined anterior and posterior) YES NO Other, Please Specify Yes Removal of hardware C4-7 2.Exporation of fusion C4-7 3.C5 corpectomy (36580) 4.C4-6 Anterior Fusion with Fibular Strut Graft impregnated with Autograft. 4.C3-4 Anterior interbody fusion, with discectomy and decompresion; cervical below C2 with Insertion of interbody biomechanical device [facility]
== END 2020-06-18 16:05 | disposition home health service (06) | DRG 454 ==
LOC: 2ORMAIN 05:59 → 2SICU 18:42 → 5NMEDONC 06-15 19:38
PROVIDERS: ADMIT Orthopaedic Surgery; ATTEND Orthopaedic Surgery
PROC: 0RP10AZ Removal of Interbody Fusion Device from Cervical Vertebral Joint, Open Approach (ICD-10-PCS; principal; 2020-06-11 07:30)
PROC: 0RT30ZZ Resection of Cervical Vertebral Disc, Open Approach (ICD-10-PCS; principal; 2020-06-11 07:30)
PROC: 0RG10A0 Fusion of Cervical Vertebral Joint with Interbody Fusion Device, Anterior Approach, Anterior Column, Open Approach (ICD-10-PCS; principal; 2020-06-11 07:30)
PROC: 0RG2070 Fusion of 2 or more Cervical Vertebral Joints with Autologous Tissue Substitute, Anterior Approach, Anterior Column, Open Approach (ICD-10-PCS; principal; 2020-06-11 07:30)
PROC: 0RG40K1 Fusion of Cervicothoracic Vertebral Joint with Nonautologous Tissue Substitute, Posterior Approach, Posterior Column, Open Approach (ICD-10-PCS; principal; 2020-06-11 07:30)
PROC: 0RG20J1 Fusion of 2 or more Cervical Vertebral Joints with Synthetic Substitute, Posterior Approach, Posterior Column, Open Approach (ICD-10-PCS; principal; 2020-06-11 07:30)
PROC: 01N10ZZ Release Cervical Nerve, Open Approach (ICD-10-PCS; principal; 2020-06-11 07:30)
DX: M48.02 Spinal stenosis, cervical region (principal); M50.021 Cervical disc disorder at C4-C5 level with myelopathy; D62 Acute posthemorrhagic anemia; Z68.43 Body mass index [BMI] 50.0-59.9, adult; M79.7 Fibromyalgia; M54.10 Radiculopathy, site unspecified; I10 Essential (primary) hypertension; H91.90 Unspecified hearing loss, unspecified ear; G47.33 Obstructive sleep apnea (adult) (pediatric); F41.1 Generalized anxiety disorder; E11.9 Type 2 diabetes mellitus without complications; K58.9 Irritable bowel syndrome, unspecified; F31.9 Bipolar disorder, unspecified; J45.909 Unspecified asthma, uncomplicated; K21.9 Gastro-esophageal reflux disease without esophagitis; E66.01 Morbid (severe) obesity due to excess calories; Z98.84 Bariatric surgery status; Z87.891 Personal history of nicotine dependence; Z87.442 Personal history of urinary calculi; Z87.11 Personal history of peptic ulcer disease; Z83.3 Family history of diabetes mellitus; Z79.899 Other long term (current) drug therapy; Z88.5 Allergy status to narcotic agent; Z91.09 Other allergy status, other than to drugs and biological substances
CPT/HCPCS: 71045; 72040; 72125; 80053; 82805; 85025; 85610; 85730; 86850; 86891; 86900; 86901; 86920; 94002; 94003; 94640; C1762

== ENCOUNTER → 2020-11-28 | Outpatient (CLI) | payer MEDICARE, OTHER ==
[2020-11-28 12:50] LABS: African American GFR (CKD) >90 (>60 ml/min/1.73 sqM); Blood Urea Nitrogen 23 mg/dL (7-17); Non-African American GFR(CKD) >90 (>60 ml/min/1.73 sqM)
--- NOTE | 2020-11-28 16:18 | CT ---
EXAMINATION TYPE: CT brain wo/w con DATE OF EXAM: 11/28/2020 COMPARISON: 05/15/2014 HISTORY: 50-year-old female M43.22, M79.641, Right sided neck pain and headache. Post OP neck fusion . TECHNIQUE: Examination was done in axial plane before and after administration of 100 mL Isovue 300 intravenous contrast. Coronal and sagittal reconstructions performed. CT DLP: 2119.4 mGycm Automated exposure control for dose reduction was used. FINDINGS: There is no evidence of acute intracranial hemorrhage, acute ischemic changes, mass, mass-effect, or extra-axial fluid collection. There is no effacement of cerebral sulci or basal subarachnoid cister ns. There is no hydrocephalus. There is no midline shift. Reynolds-white matter distinction is preserv ed. A1 segment right anterior cerebral artery appears hypoplastic. No enhancing intracranial lesions. Dural venous sinuses appear patent. Stable opacification posterior right ethmoid air cell could represent a mucocele. Orbits and globes a re intact. Mastoid air cells are well pneumatized. IMPRESSION: No acute intracranial abnormality or enhancing intracranial lesion seen. 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
--- NOTE | 2020-11-28 17:34 | CT ---
EXAMINATION TYPE: CT cervical spine wo/w con DATE OF EXAM: 11/28/2020 COMPARISON: 06/12/2020 HISTORY: 50-year-old female M43.22, M79.641 Right sided neck pain and headache. Post OP neck fusion. TECHNIQUE: Contiguous axial scanning of the cervical spine performed without and with IV Contrast, pa tient injected with 100 mL of Isovue 300. Also sagittal reconstructions performed. CT DLP: 2168.3 mGycm Automated exposure control for dose reduction was used. FINDINGS: No craniocervical junction abnormality, predental space widening, or prevertebral soft tissue swellin g. Post surgical change of C2-T1 posterior cervical fusion. Laminectomy from C3 down through C6 levels. Incomplete consolidation of dorsal bone graft material. Unable to exclude residual fluid collection along the laminectomy bed measuring up to 1.8 cm wide spa nning approximately 3.5 cm craniocaudal. For example, refer to axial series 8 image 58 and axial seri es 8 image 43. The alignment of the cervical spine is unchanged. Fixed grade 1 anterolisthesis C7-T1. Some interval interbody fusion at C3-C4, small amount along C4-C5. Difficult assessment at C5-C6 though there seems to be some bridging across the right-sided posterior elements. Satisfactory interbody ankylosis C6-C7. Posterior element fusion noted at C7-T1. Variable mild neural foraminal stenoses throughout the cervical spine. IMPRESSION: 1. STATUS POST C2-T1 POSTERIOR CERVICAL FUSION WITH LAMINECTOMIES FROM C3 THROUGH C6. NO EVIDENT COMP LICATION OF THE ORTHOPEDIC HARDWARE. 2. HOWEVER, INCOMPLETE CONSOLIDATION OF DORSAL BONE GRAFT MATERIAL. UNABLE TO EXCLUDE A FLUID COLLECT ION ALONG THE LAMINECTOMY BED MEASURING UP TO 1.8 CM WIDE AND SPANNING 3.5 CM CRANIOCAUDAL.
== END | disposition home or self-care (01) ==
LOC: RADCTMAIN 12:09
PROVIDERS: ATTEND Psychiatry & Neurology Neurology
DX: M43.22 Fusion of spine, cervical region (principal); Z98.1 Arthrodesis status
CPT/HCPCS: 82565; 84520; 72127; 70470; 36415; Q9967

== ENCOUNTER → 2020-12-27 | Outpatient (CLI) | payer MEDICARE ==
[2020-12-27 22:29] LABS: Basophils # (A) 0.02 X 10*3/uL (0.00-0.10); Basophils % (A) 0.5 %; Eosinophils # (A) 0.08 X 10*3/uL (0.04-0.35); Eosinophils % (A) 2.2 %; HCT 33.7 % (37.2-46.3); HGB 10.1 g/dL (12.0-15.0); Lymphocytes # (A) 1.08 X 10*3/uL (0.90-5.00); Lymphocytes % (A) 29.1 %; MCH 24.4 pg (27.0-32.0); MCV 81.4 fL (80.0-97.0); Mean Platelet Volume 11.6 fL (9.5-12.2); Monocytes # (A) 0.37 X 10*3/uL (0.20-1.00); Neutrophils # (A) 2.15 X 10*3/uL (1.80-7.70); Neutrophils % (A) 57.9 %; Platelet Count 225 X 10*3/uL (140-440); RBC 4.14 X 10*6/uL (4.10-5.20); RDW 18.6 % (11.5-14.5); Reticulocyte % 0.94 % (0.10-1.80); WBC 3.71 X 10*3/uL (4.50-10.00)
[2020-12-28 00:36] LABS: Luteinizing Hormone 30.2 mIU/mL
[2020-12-28 00:42] LABS: Follicle Stimulating Hormone 80.6 mIU/mL
[2020-12-28 00:55] LABS: % Iron Saturation 5.28 (12.00-45.00); BUN/Creat Ratio 28.75 Ratio (12.00-20.00); C Reactive Protein <0.4 mg/dL (0.0-0.8); Carbon Dioxide 28.4 mmol/L (21.6-31.8); Chloride 106 mmol/L (96-109); Ferritin 5.3 ng/mL (10.0-291.0); Glucose 94 mg/dL (70-110); Iron 20 ug/dL (50-170); Potassium 3.9 mmol/L (3.5-5.5); Sodium 143 mmol/L (135-145); Total Iron Binding Capacity 379 ug/dL (228-460)
[2020-12-28 00:56] LABS: ALT 23 U/L (8-44); AST 37 U/L (13-35); African American GFR (CKD) 99.6 (60.0-200.0); Albumin/Globulin Ratio 1.83 (1.60-3.17); Alkaline Phosphatase 151 U/L (41-126); Calcium 9.6 mg/dL (8.7-10.3); Globulin 2.4 g/dL (1.6-3.3); Total Bilirubin 0.2 mg/dL (0.3-1.2); Total Protein 6.8 g/dL (6.2-8.2)
[2020-12-28 03:46] LABS: Hemoglobin A1C 5.9 % (4.0-6.0)
== END | disposition home or self-care (01) ==
LOC: LABWHC1 16:04
PROVIDERS: ATTEND Psychiatry & Neurology Pain Medicine
DX: R53.82 Chronic fatigue, unspecified (principal); R53.81 Other malaise
CPT/HCPCS: 36415; 80053; 82306; 82533; 82607; 82626; 82728; 83001; 83002; 83003; 83036; 83540; 83550; 84207; 84305; 84439; 84443; 84466; 84481; 85025; 85045; 86140

== ENCOUNTER → 2021-09-16 | Outpatient (CLI) | payer MEDICARE | END | disposition home or self-care (01) | LOC: LABWHC1 11:09 | PROVIDERS: ATTEND Nurse Practitioner Acute Care | DX: Z53.9 Procedure and treatment not carried out, unspecified reason (principal) ==

== ENCOUNTER → 2021-11-13 | Outpatient (CLI) | payer MEDICARE, OTHER | END | disposition home or self-care (01) | LOC: LABWHC1 13:27 | PROVIDERS: ATTEND Psychiatry & Neurology Neurology | DX: I49.9 Cardiac arrhythmia, unspecified (principal); R94.31 Abnormal electrocardiogram [ECG] [EKG] | CPT/HCPCS: 93005 ==

== ENCOUNTER → 2021-11-13 | Outpatient (CLI) | payer MEDICARE, OTHER ==
[2021-11-13 14:37] LABS: African American GFR (CKD) >90 (>60 ml/min/1.73 sqM); Blood Urea Nitrogen 22 mg/dL (7-17); Non-African American GFR(CKD) >90 (>60 ml/min/1.73 sqM)
--- NOTE | 2021-11-13 16:15 | US ---
EXAMINATION TYPE: US extremity nonvasc mass RT DATE OF EXAM: 11/13/2021 COMPARISON: NONE CLINICAL HISTORY: M79.661 PAIN IN RIGHT LOWER LEG. Right medial knee area of pain Right medial knee: appears wnl IMPRESSION: 1. Ultrasound in the medial right knee is unremarkable. MRI is available if additional workup would b e of benefit.
--- NOTE | 2021-11-14 14:47 | CT ---
EXAMINATION TYPE: CT abdomen pelvis w con DATE OF EXAM: 11/13/2021 COMPARISON: 09/14/2017 HISTORY: diverticulitis CT DLP: 1972 mGycm Automated exposure control for dose reduction was used. TECHNIQUE: Helical acquisition of images was performed from the lung bases through the pelvis. CONTRAST: Performed with Oral Contrast and with IV Contrast, patient injected with 70ml mL of Isovue 300. FINDINGS: The visualized lung bases are clear. There are postsurgical changes involving the gastroesophageal junction and there is a small hiatal he rnia. There are surgical absence of gallbladder. There is no biliary ductal dilatation. There is no focal mass or organomegaly involving the liver, pancreas, spleen or adrenal glands. The kidneys excrete contrast promptly and symmetrically is no solid renal mass or hydronephrosis. The re is no retroperitoneal adenopathy or hemorrhage is. The bowel loops are normal in caliber is no evidence of obstruction. No inflammatory changes are iden tified all wall or mesentery. There is no free intraperitoneal air or fluid. There is no pelvic mass, free fluid, inflammatory change or adenopathy. There is an IUD device within the uterus. The osseous structures are intact. IMPRESSION: No acute changes within the abdomen.. No significant interval change compared to the prior study.
== END | disposition home or self-care (01) ==
LOC: RADCTMAIN 13:50
PROVIDERS: ATTEND Surgery Plastic and Reconstructive Surgery
DX: M79.661 Pain in right lower leg (principal); K44.9 Diaphragmatic hernia without obstruction or gangrene
CPT/HCPCS: 82565; 84520; 76882; 74177; 36415; Q9967

== ENCOUNTER → 2021-12-25 | Outpatient (CLI) | payer MEDICARE, OTHER ==
--- NOTE | 2021-12-25 16:44 | P.SLEEP ---
History of Present Illness DATE: 12/25/2021 CONSULTATION/NEW PATIENT EVALUATION HISTORY OF PRESENT ILLNESS/SLEEP-WAKE EVALUATION: 51year old lady had been ev aluated in the sleep center for possible obstructive sleep apnea hypopnea syndrome. Patient has history of obstructive sleep apnea diagnosed in our institution about 20 years ago at that time she was started on treatment with CPAP and use CPAP equipment for short period of time after that she underwent a UPPP and nasal surgery his symptoms improved she stopped using her CPAP equipment. SLEEP SCHEDULE: Usually sleep schedule from 3 AM until 11 AM most days a week. FALLING ASLEEP: She does have problem with falling to sleep, has TV set and bedroom. DURING SLEEP: Usually she sleeps in chair. She snores and has episodes of stopped breathing during the sleep. She wakes up with the gasping for air No history of hypnogogical hallucinations, sleep paralysis, or cataplexy. DURING THE DAY/WAKE STATE: In the morning she wakes up tired, has difficulties to place attention, falling asleep during the day. She has problems with memory concentration and irritability depression and anxiety. [place] sleepiness scale is increased to 11. PAST MEDICAL HISTORY: Hypertension, back problems, peptic ulcer disease, hypothyroidism. PAST SURGICAL HISTORY: UPPP and nasal surgery. MEDICATIONS: Gabapentin 400 mg 4 times a day, omeprazole 40 mg once a day, Amfetamine 15 mg twice a day, amlodipine 5 mg once a day, losartan hydrochlorothiazide 5012 0.5 mg once a day, meclizine 25 mg as needed, flu ticasone nasal spray as needed, hydrocodone 53 25 mg 3 times a day. SOCIAL HISTORY: Quit smoking 30 years ago, alcohol consumption occasional. FAMILY HISTORY: Heart problems, fibromyalgia, asthma, cancer, diabetes. REVIEW OF SYSTEMS: Awakenings from sleep with gasping for air. No fevers. No double vision. No recent chest pain. No shortness of breath. No abdominal pain. No bleeding episodes. No blood in urine. No seizure episodes. PHYSICAL EXAMINATION: GENERAL: A pleasant patient without any distress. VITAL SIGNS: BP 119/86, HR 77, RR 18, weight 282.4 pounds, height 5 foot 3-1/2 inches, body mass index 49.1. HEENT: PERRLA, EOMI. Evaluation of oropharynx showed tongue protrudes midline, no uvula, status post UPPP. NECK: Supple. No JVD. Thyroid is not palpable. 16 inches in circumference. LUNGS: Clear to percussion and to auscultation. Good air exchange. No wheezing or rhonchi. HEART: S1, S2 regular. No murmurs, gallops or rubs. ABDOMEN: Soft and nontender. Bowel sounds are present. No organomegaly appreciated. Obese EXTREMITIES: No clubbing or cyanosis. CRAYON SAWYER: Awake, alert, and oriented x3. Cranial nerves 2 to 7 intact. There is no fasciculation or atrophy noted. No focal deficits observed. ASSESSMENT: 1. Awakenings from sleep with gasping for air, sleepiness [place] Sleepiness Scale increased to 11, white neck 16 inches in circumference. Obstructive sleep apnea hypopnea syndrome . 2. Obesity body mass index 49.1. 3 hypertension. 4. History of peptic ulcer disease. 5 history of hiatal hernia. 6. Status post UPPP and nasal surgery. 7. Back problems. 8. History of hypothyroidism in the past. PLAN: 1. Polysomnography for evaluation of patient's breathing during sleep. 2. CPAP/BiPAP titration if sleep study confirms obstructive sleep apnea- hypopnea syndrome. 3. Preferable position during sleep on the side. 4. No driving if patient feels any sleepiness. Patient is aware of civil and criminal liability for unsafe driving. 5. Sleep hygiene with regular sleep time for at least 7.5-8 hours. 6. Watching weight. Thank you very much for referring this patient for consultation. Sincerely, David Raines MD, PhD, FAASM. Diplomat of [place] [employer], Sleep Medicine Board by [place] [employer] [place] [employer] [facility] [place] 6 Past Medical History Past Medical History: Asthma, Diabetes Mellitus, Eye Disorder, Fibromyalgia, Osteoarthritis (OA), Skin Disorder, Sleep Apnea/CPAP/BIPAP, Thyroid Disorder Additional Past Medical History / Comment(s): Nephrolithiasis , cyst on kidney, Herniated discs with chronic back pain. , Hidradenitis groins/thighs with cellulitis/wounds now healed (had surgery and wound vacs). Migraines. ,NIDDM type II-diet controlled since wt loss with bariatric surgery Arthritis., Hx of bleeding hemorroids, IBS. Pancreatitis prior to cholecystectomy. Sinus problems., Hx of stomach ulcer. back and neck pain History of Any Multi-Drug Resistant Organisms: MRSA Date of last positivie culture/infection: 09/20/16 MDRO Source:: BOTH THIGH Past Surgical History: Bariatric Surgery, Section, Cholecystectomy, Hernia Repair, Orthopedic Surgery, Tonsillectomy Additional Past Surgical History / Comment(s): Gastric bypass [address] Andrew with revision about 2012, panniculectomy, August 2016: Excess skin removal from bilateral thighs/panniculitis with debridements/wound vacs. Bilateral carpal tunnel. Right rotator cuff. Sinus surgery. Nerve blocks to neck and back. Cervical fusions (C-5-6-7), Sleep Apnea surgery. Past Anesthesia/Blood Transfusion Reactions: No Reported Reaction, Motion Sickness Past Psychological History: Anxiety, Bipolar, Depression, Panic Disorder Additional Psychological History / Comment(s): . Smoking Status: Former smoker Past Alcohol Use History: Rare Additional Past Alcohol Use History / Comment(s): Pt started smoking as a teen and quit in 1993. She had been a lite smoker( 3-5 cigarettes a day.) Past Drug Use History: Marijuana Additional Drug Use History / Comment(s): Occasional marijuana use. - Past Family History Mother Family Medical History: Diabetes Mellitus Father Family Medical History: Diabetes Mellitus Additional Family Medical History / Comment(s): Pt does not have contact with her parents. Medications and Allergies Home Medications Medication Instructions Recorded Confirmed Type Albuterol Sulfate [Proair Hfa] 2 puff INHALATION RT-Q6H PRN 11/08/13 09/17/21 History Dextroamphetamine/Amphetamine 15 mg PO BID 09/14/17 09/17/21 History [Adderall] Omeprazole [PriLOSEC] 40 mg PO DAILY #1 capsule. 04/03/19 09/17/21 Rx Baclofen 10 mg PO BID-W/MEALS 05/06/20 09/17/21 History Butalb/APAP/Caff 50-325-40Mg 1 tab PO Q8H PRN 05/06/20 09/17/21 History [Fioricet 50-325-40] Oxybutynin Chloride 5 mg PO BID 05/06/20 09/17/21 History Amiovig Injection 170 mg INJ Q30D 06/10/20 09/17/21 History Baclofen [Lioresal] 20 mg PO HS 06/10/20 09/17/21 History Calcium Carbonate/Vitamin D3 2 each PO DAILY 06/10/20 09/17/21 History [Caltrate 600 Plus D3 20 Mcg (800 Iu)] Ergocalciferol [Vitamin D2 50,000 unit PO Q7D 06/10/20 09/17/21 History (DRISDOL)] Multivitamins, Thera [Multivitamin 1 tab PO DAILY 06/10/20 09/17/21 History (formulary)] Docusate [Colace] 100 mg PO DAILY #30 capsule 06/18/20 09/17/21 Rx Losartan-Hctz 50-12.5 mg [Hyzaar 1 tab PO DAILY #30 tablet 06/18/20 09/17/21 Rx 50-12.5] amLODIPine [Norvasc] 5 mg PO HS #30 tab 06/18/20 09/17/21 Rx polyethylene glycoL 3350 [Miralax] 17 gm PO DAILY PRN #30 packet 06/18/20 09/17/21 Rx Gabapentin 400 mg PO QID 09/17/21 09/17/21 History HYDROcodone/APAP 5-325MG [[place] 1 tab PO Q4HR PRN 09/17/21 09/17/21 History 5-325] Vortioxetine Hydrobromide 20 mg PO DAILY 09/17/21 09/17/21 History [Trintellix] Allergies Allergy/AdvReac Type Severity Reaction Status Date / Time house dust Allergy Mild Cough Verified 06/11/20 06:12 grass pollen Allergy Cough Verified 06/11/20 06:12 ibuprofen [From Motrin] AdvReac Abdominal Verified 06/11/20 06:12 Pain morphine AdvReac Abdominal Verified 06/11/20 06:12 Pain with po Rx Sleep Note - Sleep Note Sleep Note: Temperature: Pulse Rate: Respiratory Rate: Blood Pressure: SpO2: Height: Weight: BMI: Neck Circumference:
== END ==
LOC: SLEEP 16:00
PROVIDERS: ATTEND Internal Medicine
DX: G47.33 Obstructive sleep apnea (adult) (pediatric) (principal); E66.9 Obesity, unspecified; Z68.42 Body mass index [BMI] 45.0-49.9, adult; I10 Essential (primary) hypertension; Z87.19 Personal history of other diseases of the digestive system; M53.80 Other specified dorsopathies, site unspecified; Z98.890 Other specified postprocedural states; Z87.11 Personal history of peptic ulcer disease; E03.9 Hypothyroidism, unspecified; Z87.891 Personal history of nicotine dependence; Z88.5 Allergy status to narcotic agent; Z91.09 Other allergy status, other than to drugs and biological substances; Z88.6 Allergy status to analgesic agent
CPT/HCPCS: 99211

== ENCOUNTER 2022-03-27 08:53 | Day surgery (SDC) | payer MEDICARE, OTHER ==
[2022-03-24 16:23] VITALS: BMI 47.5
[~2022-03-27 08:53] MED LIST changes: -DEXAMETHASONE SOD PHOSPHATE 4 MG/ML 1 ML VIAL IV ONE; -HYDROmorphone 0.5 MG/0.5 ML SYRINGE IVP PRN; +LACTATED RINGERS 1,000 ML IV SCH; -ONDANSETRON 4 MG/2 ML VIAL IVP ONE; -TRANEXAMIC ACID 1,000 MG in SODIUM CHLORIDE 0.9% 100 ML IVPB PRN; -ceFAZolin 3 GM in SODIUM CHLORIDE 0.9% 100 ML IVPB PRN
[2022-03-27 09:21] VITALS: RESP 16; TEMP 97.6
[2022-03-27 09:21] LABS: Glucose,Whole Blood 126 mg/dL (70-110)
[2022-03-27] MEDS ORDERED: PROPOFOL 10 MG/ML 20 ML VIAL IV ONE (09:34)
[2022-03-27] MEDS ORDERED: LIDOCAINE 2% INJ 20 MG/ML (2 ML VIAL) ONE (09:34)
[2022-03-27] MEDS ORDERED: ONDANSETRON 4 MG/2 ML VIAL ONE (09:34)
--- NOTE | 2022-03-27 09:55 | P.PCN ---
Date of Procedure: 03/27/22 Procedure(s) Performed: BRIEF HISTORY: Patient is a 50-year-old, pleasant, white female scheduled for an upper endoscopy for evaluation of intermittent episodes of nausea vomiting, epigastric pain and diarrhea for the last several months. Her symptoms are progressively getting worse lately. She is Presently on Protonix 40 mg twice daily and Carafate as needed. She has prior history of gastric bypass surgery PROCEDURE PERFORMED: Esophagogastroduodenoscopy with biopsy . PREOPERATIVE DIAGNOSIS: Epigastric pain associated with nausea vomiting of several months duration. IV sedation per anesthesia. PROCEDURE: After informed consent was obtained, the patient was brought into the endoscopy unit. IV sedation was administered by Anesthesia under continuous monitoring. Initially the Olympus GIF-140 video endoscope was inserted into the mouth. Esophagus intubated without any difficulty. It was gradually advanced into the stomach . The gastric pouch appeared normal. There was evidence of gastric bypass surgery with Philip-en-Y anastomosis. The afferent and efferent loop appears normal. There was a 1 cm anastomotic ulcer noted which was biopsied. The gastric pouch also appeared normal. The GE junction was located at 32 cm from the incisors. There was no evidence of esophageal stricture. The esophagus appeared normal. There were no erosions or ulcerations seen , biopsies were done from the distal esophagusand the patient tolerated the procedure well. IMPRESSION: 1. Evidence of gastric bypass surgery with Philip-en-Y anastomosis. 2. 1 cm anastomotic ulcer with no active bleeding 3 Normal-appearing esophagus with no evidence of esophagitis or esophageal stricture. RECOMMENDATIONS: The findings of this examination were discussed with the patient as well as a family. She was advised to follow with the biopsy results. She will continue with Protonix 40 mg twice daily and Carafate 1 g 4 times daily. She'll be seen in office in 3-4 weeks..
[2022-03-27 10:06] VITALS: PULSE 76
[2022-03-27 10:17] VITALS: BP 93/61
== END 2022-03-27 10:51 | disposition home or self-care (01) ==
LOC: ORWHC2ENDO 08:53
PROVIDERS: ATTEND Internal Medicine Gastroenterology
DX: K20.90 Esophagitis, unspecified without bleeding (principal); K28.9 Gastrojejunal ulcer, unspecified as acute or chronic, without hemorrhage or perforation; I10 Essential (primary) hypertension; J45.909 Unspecified asthma, uncomplicated; E66.01 Morbid (severe) obesity due to excess calories; Z68.41 Body mass index [BMI] 40.0-44.9, adult; Z98.84 Bariatric surgery status; Z79.899 Other long term (current) drug therapy
CPT/HCPCS: 88305; 43239; J2405; J2704; J2001

== ENCOUNTER → 2022-09-03 | Outpatient (CLI) | payer MEDICARE ==
--- NOTE | 2022-09-03 12:28 | P.PN ---
Subjective DATE: 09/03/2022 FOLLOW UP VISIT. Patient with obstructive sleep apnea hypopnea syndrome return to sleep center for follow-up visit. Recently patient had sleep study which documented obstructive sleep apnea hypopnea syndrome. Patient was initiated on PAP therapy and today is first visit after treatment was started. Patient was not able to use PAP equipment every night for the whole night. [place] sleepiness scale is slightly increased to 11. I checked information from BPAP unit. BPAP unit pressure maximal inspiratory pressure 14, minimal expiratory pressure 5, pressure-support 4, average pressure 9.8 over 5.8 cm H2O. Usage after getting BPAP equipment was 100% and 97 % for more then 4 hours, average 7 hours per night. During last months patient had problems and did not use CPAP equipment every night. Leak is high 62.6 l/m. Apnea Hypopnea Index at the first months of usage was 10.4, but in the last months it was 1.7, which is normal. MEDICATIONS:1. Amlodipine 5 mg once a day 2. Losartan/hydrochlorothiazide 50-12.5 mg once a day 3. Fluticasone 4. Gabapentin 5. Omeprazole During physical exam: GENERAL: A pleasant patient without any distress. VITAL SIGNS: BP 123/73, HR 86, RR 16 , weight 246, temperature 98.0, oxygen saturation at room air 99% . HEENT: PERRLA, EOMI.low position of soft palate, status post UPPP . NECK: Supple. No JVD. LUNGS: Clear to percussion and to auscultation. Good air exchange. No wheezing or rhonchi. HEART: S1, S2 regular. ABDOMEN: Soft and nontender. Obese EXTREMITIES: No clubbing or cyanosis. NURSE EMERGENCY ROOM: Awake, alert, and oriented x3. No focal deficit. Impressions: 1. Obstructive sleep apnea-hypopnea syndrome. Patient demonstrated great compliance when treatment was started, benefiting from treatment. Low compliance for the last months. 2. Obesity, patient lost about 40 pounds since previous visit. 3. Hypertension. 4. History of peptic ulcer disease. 5. Status post UPPP and nasal surgery. 6. Back problems. 7. History of hypothyroidism in the past. Plan: 1. Continue using BPAP equipment every night for the whole night. Patient promised to follow recommendations and to use BiPAP equipment every night. 2. To change air filter at least 1-2 times per month. 3. PAP unit should stay lower then position of the head. 4. Advised patient to remove all remaining water from humidifier canister daily and make it dry after each usage. Refill canister with fresh distilled water before each usage. 5. Sleep hygiene with regular time in bed for at least 8 hours. 6. Precautions related to driving. No driving if feel any sleepiness. 7. I will maintain prescription for PAP supplies including mask, tube, filters. 8. Follow up visit in 2 months or earlier if patient has any problems. 9. Watching and continue losing weight. Thank you very much for allowing me to participate in the management of your patient. David Raines MD, PhD, FAASM. Diplomat of [place] [employer], Sleep Medicine Board by [place] [employer] Supervisor of [facility]
== END ==
LOC: SLEEP 11:38
PROVIDERS: ATTEND Internal Medicine
DX: G47.33 Obstructive sleep apnea (adult) (pediatric) (principal); E03.9 Hypothyroidism, unspecified; I10 Essential (primary) hypertension; E66.9 Obesity, unspecified; Z68.41 Body mass index [BMI] 40.0-44.9, adult; Z79.899 Other long term (current) drug therapy; Z87.11 Personal history of peptic ulcer disease; Z99.89 Dependence on other enabling machines and devices; Z91.048 Other nonmedicinal substance allergy status; Z88.6 Allergy status to analgesic agent; Z88.5 Allergy status to narcotic agent; Z87.891 Personal history of nicotine dependence
CPT/HCPCS: 99212

== ENCOUNTER 2022-11-03 14:49 | Emergency (ER) | payer MEDICARE ==
--- NOTE | 2022-11-03 16:23 | ED ---
Fall HPI - General Chief Complaint: Extremity Injury, Upper Stated Complaint: left wrist injury/Fall Time Seen by Provider: 11/03/22 16:20 Source: EMS, RN notes reviewed Mode of arrival: EMS Limitations: no limitations - History of Present Illness Initial Comments: This is a 52-year-old female who presents to the emergency department for left wrist pain after a fall. States that she tripped over a cable and fell, landing on her left wrist. She did lightly hit her head as well, but denies sustaining any loss of consciousness. Said her glasses also took the majority of the impact and she only has a very minor scrape above her left eyebrow. She is not taking any blood thinners. Currently complaining of left wrist pain. Denies any substantial headaches, dizziness, nausea, or vomiting. MD Complaint: fall - Related Data Home Medications Medication Instructions Recorded Confirmed Albuterol Sulfate [Proair Hfa] 2 puff INHALATION RT-Q6H PRN 11/08/13 03/27/22 Dextroamphetamine/Amphetamine 20 mg PO BID 09/14/17 03/27/22 [Adderall] Baclofen 10 mg PO BID-W/MEALS 05/06/20 03/27/22 Butalb/APAP/Caff 50-325-40Mg 1 tab PO Q8H PRN 05/06/20 03/27/22 [Fioricet 50-325-40] Oxybutynin Chloride 5 mg PO BID 05/06/20 03/27/22 Baclofen [Lioresal] 20 mg PO HS 06/10/20 03/27/22 Multivitamins, Thera [Multivitamin 1 tab PO DAILY 06/10/20 03/24/22 (formulary)] Gabapentin 600 mg PO TID 09/17/21 03/27/22 Vortioxetine Hydrobromide 20 mg PO 1700 09/17/21 03/27/22 [Trintellix] Erenumab-Aooe [Aimovig 140 mg SQ Q30D 03/24/22 03/27/22 Autoinjector] HYDROcodone/APAP 7.5-325MG [Jonancy 1 tab PO TID PRN 03/24/22 03/27/22 7.5-325] Loratadine [Claritin] 10 mg PO DAILY 03/24/22 03/27/22 Losartan-Hctz 50-12.5 mg [Hyzaar 1 tab PO QAM 03/24/22 03/27/22 50-12.5] Lurasidone [Latuda] 20 mg PO 1800 03/24/22 03/27/22 Ondansetron Odt [Zofran Odt] 4 mg PO Q8H PRN 03/24/22 03/27/22 Pantoprazole [Protonix] 40 mg PO DAILY 03/24/22 03/27/22 Phenylephrine HCl [Sudafed PE] 10 mg PO TID PRN 03/24/22 03/27/22 Sucralfate [Carafate] 1 gm PO BID 03/24/22 03/27/22 Ubrogepant [Ubrelvy] 100 mg PO DAILY PRN 03/24/22 03/27/22 Previous Rx's Medication Instructions Recorded amLODIPine [Norvasc] 5 mg PO HS #30 tab 06/18/20 Allergies Allergy/AdvReac Type Severity Reaction Status Date / Time house dust Allergy Mild Cough Verified 11/03/22 15:03 grass pollen Allergy Cough Verified 11/03/22 15:03 morphine Allergy "feels Verified 11/03/22 15:03 like its hard to breath" ibuprofen [From Motrin] AdvReac "eats my Verified 11/03/22 15:03 stomach" Review of Systems ROS Statement: Those systems with pertinent positive or pertinent negative responses have been documented in the HPI. ROS Other: All systems not noted in ROS Statement are negative. Past Medical History Past Medical History: Asthma, Diabetes Mellitus, Eye Disorder, Fibromyalgia, Osteoarthritis (OA), Skin Disorder, Sleep Apnea/CPAP/BIPAP, Thyroid Disorder Additional Past Medical History / Comment(s): Nephrolithiasis , cyst on kidney, Herniated discs with chronic back pain. , Hidradenitis groins/thighs with cellulitis/wounds now healed (had surgery and wound vacs). Migraines. ,NIDDM type II-diet controlled since wt loss with bariatric surgery Arthritis., Hx of bleeding hemorroids, IBS. Pancreatitis prior to cholecystectomy. Sinus problems., Hx of stomach ulcer. back and neck pain History of Any Multi-Drug Resistant Organisms: MRSA Date of last positivie culture/infection: 09/20/16 MDRO Source:: BOTH THIGH Past Surgical History: Bariatric Surgery, Section, Cholecystectomy, Hernia Repair, Orthopedic Surgery, Tonsillectomy Additional Past Surgical History / Comment(s): Gastric bypass [address] Andrew with revision about 2012, panniculectomy, August 2016: Excess skin removal from bilateral thighs/panniculitis with debridements/wound vacs. Bilateral carpal tunnel. Right rotator cuff. Sinus surgery. Nerve blocks to neck and back. Cervical fusions (C-5-6-7), Sleep Apnea surgery. Past Anesthesia/Blood Transfusion Reactions: No Reported Reaction, Motion Sickness Past Psychological History: Anxiety, Bipolar, Depression, Panic Disorder Smoking Status: Former smoker Past Alcohol Use History: Occasional Past Drug Use History: Marijuana - Past Family History Mother Family Medical History: Diabetes Mellitus Father Family Medical History: Diabetes Mellitus Additional Family Medical History / Comment(s): Pt does not have contact with her parents. General Exam - General Exam Comments Initial Comments: Visual Physical Exam Vital signs reviewed General: Well-appearing, nontoxic, no acute distress. Head: Normocephalic, atraumatic Eyes: PERRLA, EOMI ENT: Airway patent Chest: Nonlabored breathing Skin: No visual rash, normal skin tone Neuro: Alert and oriented 3 Musculoskeletal: No gross abnormalities Limitations: no limitations General appearance: alert, in no apparent distress Head exam: Present: atraumatic, normocephalic, normal inspection Eye exam: Present: normal appearance, PERRL, EOMI. Absent: scleral icterus, conjunctival injection, periorbital swelling ENT exam: Present: other (Superficial abrasion above the left eyebrow. No active bleeding.) Respiratory exam: Present: normal lung sounds bilaterally. Absent: respiratory distress, wheezes, rales, rhonchi, stridor Cardiovascular Exam: Present: regular rate, normal rhythm, normal heart sounds. Absent: systolic murmur, diastolic murmur, rubs, gallop, clicks Extremities exam: Present: other (Tenderness to palpation over the left medial malleolus. Limited passive range of motion secondary to pain. 2+ radial pu lses.) Neurological exam: Present: alert, oriented X3, CN II-XII intact Psychiatric exam: Present: normal affect, normal mood Skin exam: Present: warm, dry, intact, normal color. Absent: rash Course Vital Signs 11/03/22 11/03/22 11/03/22 14:59 17:31 18:48 Temperature 98.2 F 98.4 F Pulse Rate 111 H 92 72 Respiratory 18 20 18 Rate Blood Pressure 100/83 120/82 115/81 O2 Sat by Pulse 96 96 96 Oximetry 11/03/22 18:50 Temperature 97.6 F Pulse Rate 72 Respiratory 18 Rate Blood Pressure 115/81 O2 Sat by Pulse 96 Oximetry Procedures - Orthopedic Splinting/Casting Injury #1 Side: left Upper Extremity Injury Location: wrist Upper Extremity Immobilizer: volar splint Medical Decision Making - Medical Decision Making This is a 52-year-old female who presents to the emergency department for left wrist pain after a fall. Was pt. sent in by a medical professional or institution? @ -No Did you speak to anyone other than the patient for history? @ -No Did you review nursing and triage notes? @ -Yes, and I agree, it is accurate with regards to the patient's symptoms. Were old charts reviewed? @ -No Differential Diagnosis? @ -[chest pain, altered mental status abdominal pain women, abdominal pain men, vaginal bleeding, weakness, fever, dyspnea, syncope, headache, dizziness, GI bleed, back pain, seizure] EKG interpreted by me (3pts min.)? @ -Not obtained X-rays interpreted by me (1pt min.)? @ -XR of the left wrist obtained. My interpretation identifies a right distal radius fracture. CT interpreted by me (1pt min.)? @ -Not obtained U/S interpreted by me (1pt. min.)? @ -Not obtained What testing was considered but not performed? (CT, X-rays, U/S, labs)? Why? @ There was consideration of a computed tomography scan of the brain and C- spine. However, given that she only lightly hit her head with the glasses taking most of the impact, had no loss of consciousness, and is not on blood thinners, shared decision-making took place with the patient we opted to avoid any imaging of that at this time. What meds were considered but not given? Why? @ -None Did you discuss the management of the patient with other professionals? @ -No Did you reconcile home meds? @ -No Was smoking cessation discussed for >3mins.? @ -No Was critical care preformed (if so, how long)? @ -No Were there social determinants of health that impacted care today? How? (Homelessness, low income, unemployed, alcoholism, drug addiction, transportation, low edu. Level, literacy, decrease access to med. care, penitentiary, rehab)? @ -No Was there de-escalation of care discussed even if they declined? (Discuss DNR or withdrawal of care, Hospice)? @ -No What co-morbidities impacted this encounter? (DM, HTN, Smoking, COPD, CAD, Cancer, CVA, Hep., AIDS, mental health diagnosis, sleep apnea, morbid obesity)? @ -OA, fibromyalgia Was patient admitted / discharged? @ -Discharged. X-ray of the left wrist obtained revealing a transverse fracture of the left distal metaphyseal radius. We discussed a computed tomography scan of the brain and C-spine. However, given that this was a very light hit with her glasses breaking most of the fall, there was no loss of consciousness, she is not on blood thinners, and she is currently denying any headaches, dizziness, or nausea, shared decision making took place with the patient, and we opted to avoid any imaging at this time. Pain was controlled with Dilaudid in the emergency department. She was put in a volar splint. She started taking Jonancy at home, which she will continue to do for pain management. She is instructed to apply ice for 15-20 minutes every 2-3 hours. Information for orthopedic follow-up provided. She is instructed to contact them in the morning for a follow-up appointment. Undiagnosed new problem with uncertain prognosis? @ -None Drug Therapy requiring intensive monitoring for toxicity (Heparin, Nitro, Insulin, Cardizem)? @ -None Were any procedures done? @ -Left wrist volar splint placement Diagnosis/symptom? @ -Left radial fracture Acute, or Chronic, or Acute on Chronic? @ -Acute Uncomplicated (without systemic symptoms) or Complicated (systemic symptoms)? @ -Uncomplicated Side effects of treatment? @ -None Exacerbation, Progression, or Severe Exacerbation] @ -Not applicable Poses a threat to life or bodily function? @ -This will limit her use of the left wrist/hand for the mean time. Return precautions reviewed in depth, the patient is instructed to return to the emergency department with any new, worsening, or concerning symptoms. Patient verbalized understanding. This case was discussed in detail with the attending ED physician, Dr. Lee. Presentation, findings, and treatment plan discussed in detail as well. - Radiology Data Radiology results: report reviewed, image reviewed Disposition Clinical Impression: Left radial fracture Disposition: HOME SELF-CARE Instructions (If sedation given, give patient instructions): Wrist Fracture in Adults (ED), Splint Care (ED) Additional Instructions: Return to the emergency department with any new, worsening, or concerning symptoms. Apply ice for 15-20 minutes every 2-3 hours. Contact orthopedics as listed below for a follow-up appointment regarding the fracture. Follow up with your primary care provider in 1-2 days. Is patient prescribed a controlled substance at d/c from ED?: No Referrals: Abilio Mccollum DO [Primary Care Provider] - 1-2 days Manuelito Avery MD [Medical Doctor] - 1-2 days
--- NOTE | 2022-11-03 16:43 | XR ---
EXAMINATION TYPE: XR wrist complete LT DATE OF EXAM: 11/03/2022 COMPARISON: None HISTORY: Fall, pain TECHNIQUE: 4 view left wrist FINDINGS: There is a transverse fracture through the metaphysis of the distal radius. This may have s ome impaction. Mild diffuse soft tissue swelling is present. There is avulsion of the ulnar styloid Irene graph no additional fractures are evident. There is pain a t the anatomic snuff box, nuclear medicine bone scan could be performed. IMPRESSION: 1. Transverse fracture distal metaphyseal radius. 2. Avulsion of the ulnar styloid
[2022-11-03] MEDS ORDERED: HYDROmorphone 1 MG/ML 1 ML SYRINGE IM STA ×2 (17:24→18:21)
[2022-11-03 18:50] VITALS: BP 115/81; PULSE 72; RESP 18
[2022-11-03 18:52] VITALS: TEMP 97.6
== END 2022-11-03 19:09 | disposition home or self-care (01) ==
LOC: EC 14:49
DX: S52.592A Other fractures of lower end of left radius, initial encounter for closed fracture (principal); S00.212A Abrasion of left eyelid and periocular area, initial encounter; E11.9 Type 2 diabetes mellitus without complications; J45.909 Unspecified asthma, uncomplicated; M79.7 Fibromyalgia; M19.90 Unspecified osteoarthritis, unspecified site; F31.9 Bipolar disorder, unspecified; F41.9 Anxiety disorder, unspecified; F12.90 Cannabis use, unspecified, uncomplicated; Z87.891 Personal history of nicotine dependence; Z79.899 Other long term (current) drug therapy; Z88.6 Allergy status to analgesic agent; Z91.09 Other allergy status, other than to drugs and biological substances; W18.09XA Striking against other object with subsequent fall, initial encounter
CPT/HCPCS: 73110; 29125; 99284; 96372 ×2; J1170

== ENCOUNTER → 2022-12-09 | Outpatient (CLI) | payer MEDICARE ==
[2022-12-10 02:25] LABS: Basophils # (A) 0.03 X 10*3/uL (0.00-0.10); Basophils % (A) 0.6 %; Eosinophils # (A) 0.09 X 10*3/uL (0.04-0.35); Eosinophils % (A) 1.9 %; HCT 40.5 % (37.2-46.3); HGB 13.1 d/dL (12.0-15.0); Lymphocytes # (A) 1.12 X 10*3/uL (0.90-5.00); Lymphocytes % (A) 24.2 %; MCH 30.8 pg (27.0-32.0); MCHC 32.3 d/dL (32.0-37.0); MCV 95.3 FL (80.0-97.0); Mean Platelet Volume 11.7 FL (9.5-12.2); Monocytes # (A) 0.32 X 10*3/uL (0.20-1.00); Monocytes % (A) 6.9 %; NRBC Per 100 WBC 0 X 10*3/uL (0.00-0.01); Neutrophils # (A) 3.05 X 10*3/uL (1.80-7.70); Neutrophils % (A) 66.2 %; Platelet Count 179 X 10*3/uL (140-440); RBC 4.25 X 10*6/uL (4.10-5.20); RDW 12.7 % (11.5-14.5); WBC 4.62 X 10*3/uL (4.50-10.00)
[2022-12-10 02:30] LABS: % Iron Saturation 23.54 (12.00-45.00); Ferritin 45.6 ng/mL (10.0-291.0)
== END | disposition home or self-care (01) ==
LOC: LABWHC1 16:30
PROVIDERS: ATTEND Family Medicine
DX: D64.9 Anemia, unspecified (principal)
CPT/HCPCS: 36415; 82728; 83540; 83550; 85025

== ENCOUNTER 2023-12-29 11:19 | Day surgery (SDC) | payer MEDICARE ==
[2023-12-27 13:45] VITALS: BMI 41.3
[2023-12-29] MEDS: IV FLUID CONTINUATION 1,000 ML IV ONE (12:03)
[2023-12-29 12:12] VITALS: TEMP 97.9
[2023-12-29 12:30] LABS: Glucose,Whole Blood 106 mg/dL (70-110)
[2023-12-29] MEDS: LACTATED RINGERS 1,000 ML IV SCH (12:32)
[2023-12-29] MEDS ORDERED: PROPOFOL 10 MG/ML 20 ML VIAL IV ONE (13:02)
[2023-12-29] MEDS ORDERED: LIDOCAINE 1% INJ 10MG/ML (20 ML MDV) ONE (13:02)
--- NOTE | 2023-12-29 13:23 | P.PCN ---
Date of Procedure: 12/29/23 Procedure(s) Performed: Brief history: Patient is a pleasant 53-year-old white female scheduled for an elective upper endoscopy as well as colonoscopy as a part of evaluation of dysphagia and heartburn for the last several months duration. She has history of gastric bypass surgery many years ago. Scheduled for colonoscopy as a part of screening for colorectal neoplasia Procedure performed: Esophagogastroduodenoscopy with biopsy Colonoscopy with snare polypectomy Preoperative diagnosis: GERD/dysphagia Screening for colon cancer Anesthesia: MAC Procedure: After informed consent was obtained from the patient was brought into the endoscopy unit and IV sedation was administered by anesthesia under continuous monitoring. Initially upper endoscopy was done. The Olympus GF 160 video endoscope was inserted inserted into the mouth and esophagus intubated without any difficulty and was gradually advanced into the stomach. Gastric folds appeared normal. There was evidence of gastric bypass surgery with Philip-en-Y anastomosis. There was a 2 cm anastomotic ulcer identified which was biopsied. The scope would be advanced into the after 95 close that appeared normal. Scope was withdrawn to the gastric pouch that appeared normal. The scope was then withdrawn into the esophagus. Small hiatal hernia noted. The GE junction was located at 37 cm to the incisors. It appeared regular with superficial erosions consistent with LA grade B reflux esophagitis. Rest of the esophagus appeared normal. Patient tolerated the procedure well. At this time the patient continued to remain sedation. Initial digital rectal examination was normal. Olympus CF 160 video colonoscope was then inserted into the rectum and gradually advanced to the cecum without any difficulty. Careful examination was performed as the scope was gradually being withdrawn. The prep was excellent. The cecum, a normal. Descending colon there was a 5 mm polyp removed by cold snare polypectomy. Rest of the ascending colon, transverse colon, descending colon, sigmoid colon and rectum appeared normal. Retroflexion was performed in the rectum and no lesions were noted. Patient tolerated the procedure well. Impression: 1. Upper endoscopy revealed evidence of Philip-en-Y gastric bypass surgery with a 2 cm anastomotic ulcer s/p biopsy. Small hiatal hernia and LA grade B reflux esophagitis 2. Colonoscopy revealed 5 mm ascending colon polyp status post cold snare polypectomy and rest of the colon appeared normal Recommendations: Findings of this examination were discussed with the patient as well as her family. She was advised to follow-up with the biopsy results. If the biopsy reveals adenoma she can have repeat colonoscopy 5 years continue with Protonix 40 mg twice daily and avoid NSAIDs. Plan to repeat upper endoscopy in 6 months.
[2023-12-29 13:45] VITALS: BP 132/78; PULSE 78; RESP 18
== END 2023-12-29 13:55 | disposition home or self-care (01) ==
LOC: ORWHC2ENDO 11:19
PROVIDERS: ATTEND Internal Medicine Gastroenterology
DX: Z12.11 Encounter for screening for malignant neoplasm of colon (principal); D12.2 Benign neoplasm of ascending colon; K21.00 Gastro-esophageal reflux disease with esophagitis, without bleeding; K28.9 Gastrojejunal ulcer, unspecified as acute or chronic, without hemorrhage or perforation; K44.9 Diaphragmatic hernia without obstruction or gangrene; Z98.84 Bariatric surgery status; I10 Essential (primary) hypertension; E11.69 Type 2 diabetes mellitus with other specified complication; E78.5 Hyperlipidemia, unspecified; J45.909 Unspecified asthma, uncomplicated; G47.33 Obstructive sleep apnea (adult) (pediatric); E03.9 Hypothyroidism, unspecified; Z87.891 Personal history of nicotine dependence; Z88.5 Allergy status to narcotic agent; Z88.6 Allergy status to analgesic agent; Z91.09 Other allergy status, other than to drugs and biological substances; Z79.899 Other long term (current) drug therapy
CPT/HCPCS: 88305; 45385; 43239; J2001; J2704

== ENCOUNTER → 2024-04-13 | Outpatient (CLI) | payer MEDICARE ==
--- NOTE | 2024-04-17 09:42 | CT ---
EXAMINATION TYPE: CT cervical spine wo con DATE OF EXAM: 04/13/2024 8:52 AM COMPARISON: None. CLINICAL INDICATION: Female, 53 years old with history of Z98.1 ARTHRODESIS STATUS, NECK PAIN, Lung c ancer screening, History of tobacco use. TECHNIQUE: CT of the cervical spine is performed in the axial plane at 2 mm thick sections. Reconstr ucted images in the coronal, and sagittal plane are reviewed on the computer. Contrast used: mL of , (none if empty) Oral contrast used: (none if empty) CT DLP: 442.7 mGycm, Automated exposure control for dose reduction was used. FINDINGS: No acute fractures are evident. Postsurgical laminectomy changes are present C3-C6. Pedicle screws ar e present. There is grade 1 spondylolisthesis of C7 anterior on T1. No spinal canal stenosis present There is narrowing of disc height C4-5 C5-6 C6-7 some narrowing of the C7-T1 disc space. Vertebral body heights are preserved. Left foraminal narrowing present at C5-6 IMPRESSION: 1. Stable postsurgical changes cervical spine. 2. Grade 1 spondylolisthesis C7 anterior on T1 present previously. [facility], , 04/17/2024 9:39 AM
--- NOTE | 2024-04-17 10:23 | CT ---
EXAMINATION TYPE: CT thoracic spine wo con DATE OF EXAM: 04/13/2024 8:58 AM COMPARISON: None. CLINICAL INDICATION: Female, 53 years old with history of Z98.1 ARTHRODESIS STATUS, BACK PAIN, Lung c ancer screening, History of tobacco use. TECHNIQUE: Contrast used: mL of , (none if empty) Oral contrast used: (none if empty) FINDINGS: Axial images 3 mm thick sections. Reconstructed images in the coronal and sagittal planes through the thoracic spine. Bone and soft tissue windows are reviewed. This is compared to the prior study of . In the region of T6 there is a left paracentral disc bulge. There may be a tiny posterior vertebral b umm spurs associated. This has moderate anterior thecal sac compression. Some cord contact and cord d eformity is likely present. Example image series 2 image 71. Some mild right paracentral disc bulging present previously is not as well appreciated on the current exam. IMPRESSION: 1. PERSISTENT FOCAL DISC HERNIATION AND/OR POSTERIOR VERTEBRAL BODY WALL SPUR WITH MODERATE ANTERIOR THECAL SAC COMPRESSION AND SUSPECTED CORD DEFORMITY IN THE REGION OF T6. THIS WAS PRESENT PREVIOUSLY AND APPEARS SIMILAR [facility], , 04/17/2024 10:21 AM
== END | disposition home or self-care (01) ==
LOC: RADCTMAIN 08:30
PROVIDERS: ATTEND Orthopaedic Surgery
DX: M51.34 Other intervertebral disc degeneration, thoracic region (principal); M43.12 Spondylolisthesis, cervical region; Z98.1 Arthrodesis status; Z87.891 Personal history of nicotine dependence
CPT/HCPCS: 72125; 72128

== ENCOUNTER → 2024-05-23 | Outpatient (CLI) | payer MEDICARE ==
--- NOTE | 2024-05-26 08:34 | MR ---
EXAMINATION TYPE: MR thoracic spine wo con DATE OF EXAM: 05/23/2024 4:11 PM COMPARISON: 04/13/2024. CLINICAL INDICATION: Female, 53 years old with history of M54.2, M48.04,M62.5A1,M47.814, mid back malik n. TECHNIQUE: Multi planar, multi sequence imaging was performed utilizing: T1-weighted, short-tau inver keyla recovery and T2-weighted of the thoracic spine. IV Contrast: mL (None, if empty) FINDINGS: Alignment: Alignment is within normal limits. Vertebral bodies have preserved heights. Spinal cord: Spinal cord is within normal limits for signal. Discs: T7-T8 with central disc protrusion without significant spinal canal stenosis or neural foraminal sten osis. T8-T9 disc extrusion centrally with central region with superior migration up to 13 mm T9-T10 disc bulge which mildly impresses upon the spinal cord. No significant spinal cord or neural f oraminal stenosis. The remainder of the levels are without significant spinal canal or neural from stenosis. Osseous structures: No abnormal bony edema on inversion recovery sequences. Multilevel osteophyte for mation and facet joint arthropathy. Scattered disc space narrowing. IMPRESSION: 1. T8-T9 central and left central disc extrusion with superior migration of disc material. Spinal co rd is patent. Spinal cord signal is maintained. 2. T7-T8 central disc protrusion which mildly impresses upon the spinal cord. Spinal cord is patent. Spinal cord signal is maintained. 3. [id number]-[id number] multilevel degeneration changes of the spine. [facility], , 05/26/2024 8:32 AM
== END | disposition home or self-care (01) ==
LOC: RADMRIMAIN 15:11
PROVIDERS: ATTEND Orthopaedic Surgery
DX: M48.04 Spinal stenosis, thoracic region (principal); M62.5A Muscle wasting and atrophy, not elsewhere classified, back; M47.814 Spondylosis without myelopathy or radiculopathy, thoracic region; M51.24 Other intervertebral disc displacement, thoracic region
CPT/HCPCS: 72146

== ENCOUNTER → 2024-07-11 | Outpatient (CLI) | payer MEDICARE ==
[2024-07-11 19:56] LABS: Basophils # (A) 0.02 X 10*3/uL (0.00-0.10); Basophils % (A) 0.5 %; Eosinophils % (A) 2.4 %; HCT 33.6 % (37.2-46.3); HGB 10.5 g/dL (12.0-15.0); Lymphocytes # (A) 1.34 X 10*3/uL (0.90-5.00); Lymphocytes % (A) 32.4 %; MCH 28.6 pg (27.0-32.0); MCHC 31.3 g/dL (32.0-37.0); MCV 91.6 FL (80.0-97.0); Mean Platelet Volume 11.7 FL (9.5-12.2); Monocytes # (A) 0.37 X 10*3/uL (0.20-1.00); Monocytes % (A) 8.9 %; NRBC Per 100 WBC 0 X 10*3/uL (0.00-0.01); Neutrophils % (A) 55.6 %; Platelet Count 175 X 10*3/uL (140-440); RBC 3.67 X 10*6/uL (4.10-5.20); WBC 4.14 X 10*3/uL (4.50-10.00)
== END | disposition home or self-care (01) ==
LOC: LABWHC1 15:45
PROVIDERS: ATTEND Family Medicine
DX: D64.9 Anemia, unspecified (principal)
CPT/HCPCS: 36415; 85025

== ENCOUNTER 2024-07-25 07:51 | Inpatient (IN) | payer MEDICARE ==
[2024-07-20 11:44] VITALS: BMI 40.0
--- NOTE | 2024-07-25 07:13 | P.HPOR ---
History of Present Illness H&P Date: 07/19/24 .D:Date: 07/19/24 : 05:01pm .T:Title: *PRE-OP H1 [facility] [address] [address]| PROVIDER: KISHOR ALBARRAN DO CLINICAL SUMMARY: *Ms. Bermudez, a 53-year-old unemployed female, presented to [facility] on July 19, 2024, for a pre-operative evaluation. The patient reports lumbar pain with a VAS score of 4, radiating into the buttocks and bilateral lower extremities to the calves. Her condition has been exacerbated by a recent fall, resulting in progressive neurologic symptoms and significant difficulty with activities of daily living. Imaging reveals a Grade I-II unstable spondylolisthesis at L4-5 with large herniated nucleus pulposus causing central and bilateral foraminal stenosis, along with bilateral L4 nerve root impingement. Physical examination shows restricted lumbar ROM, positive straight leg raise test, and bilateral L4-5 dermatomal deficits. The patient is scheduled for L4-5 minimally invasive posterolateral and interbody fusion with listhesis correction and decompression. Current management includes [place] 10 for pain control, and she has previously undergone physical therapy, injections, and alternative interventions. DEMOGRAPHICS: Age: 53 year Height: 5'3" Weight: 226 lbs BP:122/72 BMI: 40.03 kg/m2 Occupation: *Unemployed CC: *lumbar pain VAS: * 4 HISTORY: Ms. Bermudez presents to the office today, 07/19/24, for *for a pre-operative appointment preceding her L4-5 MINIMALLY INVASIVE POSTEROLATERAL AND INTERBODY FUSION WITH LISTHESIS CORRECTION AND DECOMPRESSION. Patient reports pain in the low back that radiates into the buttocks and down the bilateral lower extremities down to the calves. Patient is having progressive neurologic symptoms in her lower extremities which are further debilitating her. Patient states she is unable to perform her activities of daily living due to her pain. Patient also notes significant medial right knee pain that has been ongoing since her fall. She is currently taking [place] 10 for her symptoms. Patient ambulates independently. * Patient denies any f/c/sob/cp, perineal numbness or tingling, bowel, or bladder incontinence/retention. * The patients past social, medical, family, surgical history, as well as review of systems, have been reviewed. Please refer to the History and Physical form that has been scanned into our electronic medical record system. * 16 points review of systems completed and as stated in HPI, all other systems reviewed are negative. PAST TREATMENTS: PAST IMAGING: -YES, CT , MRI, xray - TRAUMA RELATED: -YES, recently had a fall which worsened her symptoms - WORK RELATED: -NO - PT IN LAST 6 MONTHS: -YES - PHYSICIAN DIRECTED HOME EXERCISE PROGRAM: -YES - ACTIVITY MODIFICAITON: -YES - MEDICATIONS: -YES, [place] 10 - ALTERNATIVE INTERVENTIONS (CHIROPRACTIC, ACCUPUNCTURE, MASSAGE, RICE): -YES - BRACING: -NO - INJECTIONS (IVANA, TF, RFA): -YES - MEDICAL HISTORY: Past Medical History: REVIEWED STATED IN CHART Past Surgical History: REVIEWED STATED IN CHART Social History: REVIEWED STATED IN CHART SMOKING: Never smoker ETOH: None SUBSTANCES: None Family History: REVIEWED STATED IN CHART P1 Current Medications: Rx: AdderalL 30 mg tablet Ref: 0 Instructions: take 1 tablet (30 mg) by oral route 2 times per day before breakfast and at 2 pm Rx: albuterol sulfate Ref: 0 Rx: baclofen 10 mg tablet Ref: 0 Instructions: take 1 tablet (10 mg) by oral route 3 times per day Rx: butalbitaL 50 mg-acetaminophen 325 mg-caffeine 40 mg-codeine 30 mg cap Ref: 0 Instructions: take 1 - 2 capsules by oral route every 4 hours as needed not to exceed 6 capsules per 24hrs Rx: loratadine 10 mg tablet Ref: 0 Instructions: take 1 tablet (10 mg) by oral route once daily Rx: oxybutynin Ref: 0 Rx: sucralfate 1 gram tablet Ref: 0 Instructions: take 1 tablet (1 gram) by oral route 2 times per day on an empty stomach Rx: Vitamin D3 Ref: 0 Rx: gabapentin 800 mg tablet Ref: 0 Instructions: take 1 tablet (800 mg) by oral route 3 times per day Rx: HYDROcodone 10 mg-acetaminophen 325 mg tablet Ref: 0 Instructions: take 1 tablet by oral route every 6 hours as needed for pain P1 PHYSICAL EXAM: General: AOX3, NAD, Well hydrate, well nourished, in no acute distress HEENT: No lumps or masses Extremities: No color changes, no pooling Heart: RRR, no murmur, no gallop Lungs: CTAB, no w/r/r INTEGUMENT: Appearance: Normal color and turgor Surgical Incisions: healed Hairy Patches: ABSENT Dorsal Skin Dimples: Normal [employer] spots: ABSENT PALPATION: TTP Midline: YES Paracervical: YES Parathoracic: YES Paralumbar: YES SIJ TESTING (Caesar's, FABER4, Compression, Distraction, Thigh Thrust, Hip Thrust): TESTED * POSITIVE FINDINGS: - NEGATIVE FINDINGS: B/L (Caesar's, FABER4, Compression, Distraction, Thigh Thrust, Hip Thrust) POSTURAL BALANCE: Coronal: BALANCED Sagittal: BALANCED Shoulder height: LEVEL Pelvic Girdle: LEVEL ROM AND APPEARANCE: Neck: RESTRICTED Lumbar: RESTRICTED Shoulders: Symmetrical Hips: Symmetrical Knees: Symmetrical Hands: Symmetrical Feet: Symmetrical VASCULAR STATUS: PALPABLE PULSES B/L UE AND LE 2/4 RAD/ULNAR/DP/PT Edema: NONE NEUROLOGICAL EXAMINATION: Mental Status: Awake, alert, fully oriented with normal attention, concentration, and memory. Fluent appropriate speech. CRANIAL NERVES: I: Olfactory not assessed. II: Visual acuity normal, no visual field deficit noted with confrontation. III, IV: Normal pupillary reflexes & intact extraocular movements without nystagmus. V, : Intact symmetrical facial sensation. VII: Intact symmetrical facial motor movement: Hearing intact. IX, X: Intact gag, swallow, & normal voice. XI: Sternocleidomastoid, trapezius function intact. XII: Tongue midline with normal movements. TENSIONING: * L'HERMITTE'S SIG:NEG SPURLUNG'S SIGN:POS UPPER EXTREMITY TENSIONING SIGNS: NEG CUBITAL TUNNEL COMPRESSION:NEG TINELS AT WRIST:NEG STRAIGH LEG RAISE:POS CONTRALATERAL STRAIGHT LEG RAISE: NEG MOTOR EXAM (0-5/5, NT) Muscle appearance: Symmetrical, without signs of atrophy or dystrophy UPPER EXTREMITY RIGHT LEFT Shoulder Abduction 4 4 Biceps 4 4 Triceps 4 4 Wrist Extension 4 4 Hand Intrinsics 4 4 Rolling Attendant 4 4 LOWER EXTREMITY RIGHT LEFT Hip Flexion 4 4 Knee Extension 4 4 Knee Flexion 4 4 Dorsiflexion 4 4 Plantarflexion 4 4 EHL 4 4 FHL 4 4 REFLEXES (0-4/2, NT): RIGHT LEFT Bicep 2 2 Brachioradialis 3 2 Triceps 2 2 Patellar 2 2 Achilles 2 2 PATHOLOGICAL REFLEXES: RIGHT LEFT SANCHEZ'S PRESENT MILD CLONUS ABSENT ABSENT BABINSKI ABSENT ABSENT RECTAL TONE: INTACT/NT SENSATION (0-4, NT): Sensation intact to LT and Pain * C5-T1 distribution BUE * L2-S2 distribution BLE *Exceptions below* DERMATOMAL DEFICIT/RADICULAR PATTERN: L4-5 BILATERAL GAIT AND FUNCTIONAL EVALUATION: AMBULATORY AID NONE ROMBERG'S TEST INTACT HAND AND FINGER DEXTERITY INTACT YES DYSDIADOCHOKINESIA EXAM NEG B/L YES TOE/HEEL WALK INTACT WITH GOOD BALANCE NO SQUAT AND RISE W/O ASSISTANCE TO 60 DEG KNEE FLEXION NO SINGLE LEG STANCE NOT ABLE [place] NEG IMAGING: XRAY Date: 06/02/24 Location: [facility] Region: right knee Views: 3v IMAGES ARE REVIEWED WITH THE PATIENT IN OFFICE AND DEMONSTRATE THE FOLLOWING: FINDINGS: ;Mild to moderate tricompartmental osteoarthritic changes. No fractures. Alignment varus. CT Date: 04/13/24 Location: [facility] Region: Cervical/Thoracic Contrast: N IMAGES ARE REVIEWED WITH THE PATIENT IN OFFICE AND DEMONSTRATE THE FOLLOWING: FINDINGS: s/p Anterior posterior cervical fusion with corpectomy at C6. There is fusion of the anterior and posterior spine which appears to be in good position with good alignment. There was question of graft fracture of the corpectomy cage, which is evident, but there is good fusion around the area posterior and anteriorly near 300 deg at this level as well. There is a small area of minimal healing, but for the most part there is good bone formation. THere is distal junctional failure at T1-2 with severe spondylosis T1-2, vacuum disc and grade I spondylolisthesis due to the failure. There is increased kyphosis at this level and below due to overall patient thoracic kyphosis and alignment but also the distal junctional failure. No other fractures noted at this time. No lesion. MRI would better characterize the extent of failure at this levels. MRI Date: 03/13/24 Location: Outside facility Region: LUMBAR Contrast: N IMAGES ARE REVIEWED WITH THE PATIENT IN OFFICE AND DEMONSTRATE THE FOLLOWING: FINDINGS: GRADE I-II UNSTABLE SPONDYLOLISTHESIS L4-5 WITH LARGE HNP CAUSING CENTRAL AND B/L FORAMINAL STENOSIS. STENOSIS DUE TO LISTHESIS WELL CAUSING B/L L4 NERVE ROOT IMPINGMENT SPONDYLOSIS WITH FACET ARTHROSIS L4-5 , DISC COLLAPSE AND DEGENERATION NO LESIONS OR FRACTURES SEGMENTAL ALIGMENT DISRUPTION DUE TO THE SPONDYLOLISTHESIS MRI Date: 05/23/24 Location: [facility] Region: Thoracic Contrast: N IMAGES ARE REVIEWED WITH THE PATIENT IN OFFICE AND DEMONSTRATE THE FOLLOWING: FINDINGS: KYPHOTIC ALIGNMENT NO LARGE LESIONS, HNP OR AREAS OF STENOSIS MILD DEGENERATIVE CHANGES THROUGHOUGHT WITH SMALL HNP CAUSING MINIMAL STENOSIS AT THIS TIME. CT JUNCTION SHOWS BREAKDOWN WITH INCREASED SPONDYOTIC CHANGES, DISC DEGENERATION AND DKF DUE TO HABITUS, PREVIOUS SURGERY AND BREAKDOWN. IMPRESSION: It was my pleasure to have seen and examined Alesha. I reviewed the patient's clinical syndrome, physical findings, and imaging studies during the appointment today. It is my impression that the patient has a diagnosis of. 1.L4-5 Grade II spondylolisthesis 2.L4-5 spondylosis with stenosis 3.Neurogenic claudication 4. s/p 360 cervical revision decompression and fusion 5. Right knee MCL sprain PLAN: DISCUSSION: -I have discussed with the patient their clinical signs and symtpoms, imaging, and treatment options. We have discussed risks, benefits, potential outcomes and natural course as pertains top their issues. The patient understands and would like to proceed as follows below: SURGICAL RECOMMENDATION -L4-5 MINIMALLY INVASIVE POSTEROLATERAL AND INTERBODY FUSION WITH LISTHESIS CORRECTION AND DECOMPRESSION APPROACH: RIGHT PRONE OUTPATIENT GETA THERAPIES -Cont. with home exercises and home PT exercises as able -Cont. with Heat/Ice as warranted -Cont. with supplementation Vit D, Vit C, Ca2+, High protein diet -OK for massage or other alternative treatment modalities as able. If it exacerbates your sx do not continue ACTIVITY -NO LIFTING BENDING TWISTING PUSHING PULLING GREATER THAN -20lbs -Recommend walking up to 30 min 2x daily on a flat easy surface with good support. MEDICATIONS -Take as directed -Cont. home medications as directed by your PCP. Check with your PCP for any me dication interactions or issues if needed. IMAGING -N/A INJECTIONS -N/A BRACING: A prescription for an MCL knee brace was provided to patient today due to her right MCL sprain Spine Surgery Risk Review Ms. Bermudez is presenting for evaluation of lumbar pain. It was my pleasure to have seen and examined Ms. Bermudez. In our visit today we have had a chance to go over subjective complaints, physical examination findings and treatments including the natural course history without intervention and various interventional options. The patients imaging demonstrates: CT Date: 04/13/24 Location: [facility] Region: Cervical/Thoracic Contrast: N IMAGES ARE REVIEWED WITH THE PATIENT IN OFFICE AND DEMONSTRATE THE FOLLOWING: FINDINGS: s/p Anterior posterior cervical fusion with corpectomy at C6. There is fusion of the anterior and posterior spine which appears to be in good position with good alignment. There was question of graft fracture of the corpectomy cage, which is evident, but there is good fusion around the area posterior and anteriorly near 300 deg at this level as well. There is a small area of minimal healing, but for the most part there is good bone formation. THere is distal junctional failure at T1-2 with severe spondylosis T1-2, vacuum disc and grade I spondylolisthesis due to the failure. There is increased kyphosis at this level and below due to overall patient thoracic kyphosis and alignment but also the distal junctional failure. No other fractures noted at this time. No lesion. MRI would better characterize the extent of failure at this levels. CT Date: 04/13/24 Location: [facility] Region: Cervical/Thoracic Contrast: N IMAGES ARE REVIEWED WITH THE PATIENT IN OFFICE AND DEMONSTRATE THE FOLLOWING: FINDINGS: s/p Anterior posterior cervical fusion with corpectomy at C6. There is fusion of the anterior and posterior spine which appears to be in good position with good alignment. There was question of graft fracture of the corpectomy cage, which is evident, but there is good fusion around the area posterior and anteriorly near 300 deg at this level as well. There is a small area of minimal healing, but for the most part there is good bone formation. THere is distal junctional failure at T1-2 with severe spondylosis T1-2, vacuum disc and grade I spondylolisthesis due to the failure. There is increased kyphosis at this level and below due to overall patient thoracic kyphosis and alignment but also the distal junctional failure. No other fractures noted at this time. No lesion. MRI would better characterize the extent of failure at this levels. MRI Date: 03/13/24 Location: Outside facility Region: LUMBAR Contrast: N IMAGES ARE REVIEWED WITH THE PATIENT IN OFFICE AND DEMONSTRATE THE FOLLOWING: FINDINGS: GRADE I-II UNSTABLE SPONDYLOLISTHESIS L4-5 WITH LARGE HNP CAUSING CENTRAL AND B/L FORAMINAL STENOSIS. STENOSIS DUE TO LISTHESIS WELL CAUSING B/L L4 NERVE ROOT IMPINGMENT SPONDYLOSIS WITH FACET ARTHROSIS L4-5 , DISC COLLAPSE AND DEGENERATION NO LESIONS OR FRACTURES SEGMENTAL ALIGMENT DISRUPTION DUE TO THE SPONDYLOLISTHESIS MRI Date: 05/23/24 Location: [facility] Region: Thoracic Contrast: N IMAGES ARE REVIEWED WITH THE PATIENT IN OFFICE AND DEMONSTRATE THE FOLLOWING: FINDINGS: KYPHOTIC ALIGNMENT NO LARGE LESIONS, HNP OR AREAS OF STENOSIS MILD DEGENERATIVE CHANGES THROUGHOUGHT WITH SMALL HNP CAUSING MINIMAL STENOSIS AT THIS TIME. CT JUNCTION SHOWS BREAKDOWN WITH INCREASED SPONDYOTIC CHANGES, DISC DEGENERATION AND DKF DUE TO HABITUS, PREVIOUS SURGERY AND BREAKDOWN. On physical exam, Ms. Bermudez demonstrates: Since last visit patient states she sustained a fall which has exacerbated her symptoms. Patient reports pain in the low back that radiates into the buttocks and down the bilateral lower extremities down to the calves. Patient is having progressive neurologic symptoms in her lower extremities which are further debilitating her. Patient states she is unable to perform her activities of daily living due to her pain. Patient also notes significant medial right knee pain that has been ongoing since her fall. She is currently taking [place] 10 for her symptoms. Patient ambulates independently. I have explained to the patient that as their condition progresses it will cause further neurological deficits and eventual paralysis. Based on the patients imaging, physical exam, and the rapid progression and disabling nature of their symptoms, at this time I recommend surgery in the form of a: L4-5 WI PLIBF RIGHT. I discussed the risk and benefits of this procedure at length with Ms. Bermudez. The patient agreed to considered pursuing the procedure abovementioned. Prior to surgery, she should follow up with her PCP (Cardio, ID, IM etc) for clearance. Questions were invited and answered, and the patient wishes to proceed as outlined below. Currently, I am recommendin.L4-5 MINIMALLY INVASVIE POSTEROLATERAL AND INTERBODY FUSION WITH DECOMPRESSION STABILIZATION. 2.Follow up with PCP for surgical clearance 3.Review of surgical risks and benefits as well as an educational packet on the proposed surgical procedure. Risks: All surgical procedures come with inherent risks, including those related to positioning, anesthesia, intraoperative findings, and postoperative complic ations. It is important to understand that surgery does not come with any guarantee of a successful outcome as complications and adverse events are always possible. The patient was given a handout in office today discussing the surgical procedure and risks associated with the intervention, both of which were discussed with the patient. These risks include but are not limited to the following: * Experiencing same, different or even worse symptoms in back, neck, arms, or legs compared to before surgery. Requiring further surgery or other forms of treatment presently or at some time in the future at same or other levels of the intended spine surgery. On an extreme but fortunately relatively rare basis severe complication such as blindness, stroke, heart attack, temporary and/or permanent nerve injury, paralysis, coma, or may occur, sometimes without known explanation. Surgical complications may include but are not limited to risk of infection, fluid accumulation in the surgical dissection site, including a seroma or hematoma, that requires additional surgery, wound drainage, bleeding, new numbness or weakness, vision changes/loss, spinal fluid leakage, non-healing and/or infected incision, headaches, difficulty or inability to swallow, hoarseness, hemopneumothorax, pneumothorax, impotence, retrograde ejaculation, vaginal dryness; injury to nerves, spinal cord, blood vessels, lymphatics or other vital organs (i.e., bowel injury, injury to the great vessels); heterotopic bone formation; complications related to the hardware such as screws, rods, cages including misplaced hardware, device failure, instrumentation at the wrong spine level, hardware fracture/breakage, or hardware loosening; vertebral failure of the spinal column above or below the newly placed hardware; retained surgical instrumentations or devices and the need for further surgery. * Medical risks of the planned spine surgery include but are not limited to generalized Infections to the whole body or local areas outside of the surgical site (sepsis), heart attack, bleeding, anaphylaxis, meningitis, seizure, epilepsy, hearing loss, burn gonzalez, laceration of the head or other areas of the body, bruising, hypersensitivity of the skin, bladder over distension; allergic reaction; shoulder injury related to positioning; fat, blood and air clots to other areas of the body like heart, lungs, brain; failure of internal organs such as lungs, kidneys, liver and excessive bleeding. If blood transfusions are necessary, note that transfusions may cause intolerance reactions such as anaphylaxis or other complex reactions. Despite best efforts, the results of spine surgery might not heal in terms of bone, soft tissues such as skin, fascia, ligaments, and joints. Additionally, in order to achieve best possible results, spine surgery may be carried out beyond the initially planned levels and involve decompression, fusion including insertion of hardware at levels other than the original intended area of surgical interest change some portions of the procedure in order to ensure the best possible outcomes. With spine surgery and spinal fusion, there are different off label uses of instrumentation (devices, implants and hardware) as well as biological substances (bone morphogenic proteins, demineralized bone matrix) as well as using extra bone from allograft sources (i.e. cadaver bone) or autograft (iliac crest bone, ribs, or the spine itself). The patient has been given information about these practices and their inherent risks and benefits. [facility] is an educational center that serves as a training facility for neurosurgical and orthopedic COUNTING MACHINE OPERATOR and Nursing students. Physician assistants are medically trained surgical providers who function in the outpatient, inpatient, and operating room setting under the direct supervision of the attending surgeon. [facility] has multiple operating rooms with single and overlapping room s running daily. They currently function under the required guidelines as produced by the [facility] Finance Committee with regards to the overlapping rooms and will continue to comply with changes to this policy as they occur. The requirements include and are complied with as follows: (1) the critical portions of the overlapping rooms will not occur at the same time, (2) the attending physician will be physically present during the critical portions of the procedure and immediately available during the entire case, and (3) a back-up attending is designated should the primary attending not be immediately available. The patient has had a chance to review all the listed information, has been given print outs detailing this information, and has had all his/her questions answered to their satisfaction. It was my pleasure to have seen and examined Ms. Bermudez. In our visit today we have had a chance to go over my understanding of our patient's current condition, the natural course history without intervention and various interventional options. Questions were invited and answered, and the patient wishes to proceed as outlined above. I have seen and examined the patient for 25 minutes and we have spent more than 50% of the time in repeat and detailed counseling about the patient's condition, its natural course history with out and as much as can be predicted with surgery and re-review of various surgical treatment options. In conclusion, Ms. Bermudez requested we proceed with the above suggested surgery and are willing to accept risks and limitations of the suggested surgery as nature of the disease process and our best attempts at treatment for the condition. Medical Necessity: Given the patient's progressive neurological symptoms, failed conservative man agement, and imaging findings demonstrating Grade I-II unstable spondylolisthesis at L4-5 with large herniated nucleus pulposus causing central and bilateral foraminal stenosis, surgical intervention is medically necessary. The patient's condition has resulted in significant functional decline, inability to perform activities of daily living, and risk of further neurological deterioration. The presence of bilateral L4 nerve root impingement with corresponding dermatomal deficits, combined with mechanical instability, creates a clear indication for surgical stabilization and neural decompression. Surgical Rationale: A minimally invasive posterolateral and interbody fusion approach at L4-5 has been selected as the optimal surgical strategy for several reasons: 1) It addresses both the mechanical instability through fusion and the neural compression through adequate decompression, 2) The minimally invasive technique minimizes soft tissue trauma and blood loss while potentially reducing recovery time, 3) The addition of interbody fusion provides anterior column support and indirect foraminal decompression, which is crucial given the patient's grade of listhesis and foraminal stenosis, and 4) This approach allows for correction of segmental alignment while restoring disc height and foraminal dimensions. The chosen procedure represents the most appropriate surgical solution to address both the patient's pathology and symptoms while minimizing surgical morbidity. FOLLOW UP: *POST-OP PLAN AT NEXT VISIT: * RECHECK PATIENT EDUCATION: Medications Reviewed: YES In our visit today Ms. Bermudez and I have had a chance to go over my understanding of the patient's current condition, the natural course history without intervention and various interventional options. Questions were invited and answered, and the patient wishes to proceed as outlined above. I will be sure to keep you updated after Ms. Bermudez returns here for further follow-up. Thank you again for your referral. Please do not hesitate to contact me if you have any further questions. Signed and authenticated by: Kishor Vargas [facility] [address] [place] [id number] . This message is confidential, intended only for the named recipient(s) and may contain information that is privileged or exempt from disclosure under applicable law. If you are not the intended recipient(s), you are notified that the dissemination, distribution or copying of this information is prohibited. If you received this message in error, please notify the sender then delete this message. Past Medical History Past Medical History: Asthma, Diabetes Mellitus, Eye Disorder, Fibromyalgia, Osteoarthritis (OA), Skin Disorder, Sleep Apnea/CPAP/BIPAP, Thyroid Disorder Additional Past Medical History / Comment(s): thinks may have MS hx macula spot on one eye,glaucoma brit eyes,Nephrolithiasis , cyst on kidney, Herniated discs with chronic back pain. , Hidradenitis groins/thighs with cellulitis/wounds now healed (had surgery and wound vacs). Migraines. ,NIDDM type II-diet controlled since wt loss with bariatric surgery Arthritis., Hx of bleeding hemorroids, IBS. Pancreatitis prior to cholecystectomy. Sinus problems., Hx of stomach ulcer. back and neck pain, uses bipap-9 air pressure History of Any Multi-Drug Resistant Organisms: MRSA Date of last positivie culture/infection: 09/20/16 MDRO Source:: BOTH THIGH Past Surgical History: Bariatric Surgery, Section, Cholecystectomy, Hernia Repair, Orthopedic Surgery, Tonsillectomy Additional Past Surgical History / Comment(s): Gastric bypass [address] Andrew with revision about 2012, panniculectomy, August 2016: Excess skin removal from bilateral thighs/panniculitis with debridements/wound vacs. Bilateral carpal tunnel. Right rotator cuff. Sinus surgery. Nerve blocks to neck and back. Cervical fusions (C-5-6-7), Sleep Apnea surgery,eye procedure brit eyes for tx of glaucoma,abdominal hernia repair Past Anesthesia/Blood Transfusion Reactions: No Reported Reaction, Motion Sickness Additional Past Anesthesia/Blood Transfusion Reaction / Comment(s): no blood transfusion. was hard to wake up after 10 hr neck surgery Smoking Status: Former smoker - Past Family History Mother Family Medical History: Diabetes Mellitus Father Family Medical History: Diabetes Mellitus Additional Family Medical History / Comment(s): Pt does not have contact with her parents. Daughter(s) Family Medical History: Deep Vein Thrombosis (DVT), Pulmonary Embolus Medications and Allergies Home Medications Medication Instructions Recorded Confirmed Type Albuterol Sulfate [Proair Hfa] 2 puff INHALATION RT-Q6H PRN 11/08/13 07/20/24 History Dextroamphetamine/Amphetamine 15 mg PO TID 09/14/17 07/20/24 History [Adderall] Baclofen 10 mg PO BID-W/MEALS 05/06/20 07/20/24 History Butalb/APAP/Caff 50-325-40Mg 1 tab PO Q6H PRN 05/06/20 07/20/24 History [Fioricet 50-325-40] Oxybutynin Chloride 5 mg PO BID 05/06/20 07/20/24 History Baclofen [Lioresal] 20 mg PO HS 06/10/20 07/20/24 History Multivitamins, Thera [Multivitamin 1 tab PO DAILY 06/10/20 07/20/24 History (formulary)] Gabapentin 800 mg PO QID 09/17/21 07/20/24 History Vortioxetine Hydrobromide 20 mg PO 1700 09/17/21 07/20/24 History [Trintellix] Erenumab-Aooe [Aimovig 140 mg SQ Q30D 03/24/22 07/20/24 History Autoinjector] Loratadine [Claritin] 10 mg PO DAILY 03/24/22 07/20/24 History Pantoprazole [Protonix] 40 mg PO BID 03/24/22 07/20/24 History Sucralfate [Carafate] 1 gm PO QID 03/24/22 07/20/24 History Ubrogepant [Ubrelvy] 100 mg PO DAILY PRN 03/24/22 07/20/24 History HYDROcodone/APAP 10-325MG [[place] 1 tab PO TID 12/27/23 07/20/24 History 10-325] Carboxymethylcellulose Sodium 1 drop BOTH EYES BID 07/20/24 07/20/24 History [Refresh Tears] Cholecalciferol [Vitamin D3 (10 10 mcg PO DAILY 07/20/24 07/20/24 History Mcg = 400 Iu)] Levothyroxine Sodium [Synthroid] 50 mcg PO QAM 07/20/24 07/20/24 History Meclizine [Antivert] 12.5 mg PO BID PRN 07/20/24 07/20/24 History OXcarbazepine 450 mg PO HS 07/20/24 07/20/24 History Allergies Allergy/AdvReac Type Severity Reaction Status Date / Time house dust Allergy Mild Cough Verified 07/20/24 11:12 grass pollen Allergy Cough Verified 07/20/24 11:12 morphine Allergy "feels Verified 07/20/24 11:12 like its hard to breath" gluten AdvReac foul gas Verified 07/20/24 11:14 and loose stools ibuprofen [From Motrin] AdvReac "eats my Verified 07/20/24 11:12 stomach" Physical Examination Osteopathic Statement: *. No significant issues noted on an osteopathic structural exam other than those noted in the History and Physical/Consult.
[~2024-07-25 07:51] MED LIST changes: +ACETAMINOPHEN TAB 500 MG TAB PO PRN; -LACTATED RINGERS 1,000 ML IV SCH; +LIDOCAINE 1% (10MG/ML) FOR IV START INTRADERMA PRN; +TRANEXAMIC 1,000 MG/100ML-NACL 1,000 MG in SALINE 1 100ML.BAG IVPB PRN
[2024-07-25] MEDS: IV FLUID CONTINUATION 1,000 ML IV ONE ×4 (08:23→13:26)
[2024-07-25 08:44] LABS: Glucose,Whole Blood 96 mg/dL (70-110)
[2024-07-25] MEDS: LACTATED RINGERS 1,000 ML IV SCH (08:44)
[2024-07-25] MEDS: ONDANSETRON 4 MG/2 ML VIAL IVP PRN ×2 (08:49→21:02)
[2024-07-25] MEDS: GABAPENTIN 300 MG CAP PO PRN (08:49)
[2024-07-25] MEDS: DEXAMETHASONE SOD PHOSPHATE 4 MG/ML 1 ML VIAL IVP STA (08:50)
[2024-07-25] MEDS ORDERED: fentaNYL (PF) 50 MCG/ML 2 ML AMP ONE (09:27)
[2024-07-25] MEDS ORDERED: ePHEDrine 50 MG/ML 1 ML VIAL ONE (09:27)
[2024-07-25] MEDS ORDERED: ROCURONIUM 10 MG/ML (5 ML VIAL) IV ONE (09:27)
[2024-07-25] MEDS ORDERED: GLYCOPYRROLATE 0.2 MG/ML 2 ML VIAL ONE (09:27)
[2024-07-25] MEDS ORDERED: NEOSTIGMINE 1 MG/ML 10 ML VIAL ONE (09:27)
[2024-07-25] MEDS ORDERED: TRANEXAMIC 1,000 MG/100ML-NACL PREMIX BAG ONE (09:27)
[2024-07-25] MEDS ORDERED: HYDROmorphone (PF) 1 MG/ML ONE (09:27)
[2024-07-25] MEDS ORDERED: LIDOCAINE 1% INJ 10MG/ML (20 ML MDV) ONE (09:27)
[2024-07-25] MEDS ORDERED: PROPOFOL 10 MG/ML 20 ML VIAL IV ONE (09:27)
[2024-07-25] MEDS ORDERED: MIDAZOLAM 2 MG/2 ML VIAL ONE (09:27)
[2024-07-25] MEDS: THROMBIN (BOVINE) 5,000 UNIT VIAL TOPICAL ONE (10:04)
[2024-07-25] MEDS: LIDOCAINE 2%-EPI 1:100,000 20 ML VIAL SQ ONE (11:52)
[2024-07-25] MEDS: BUPIVACAINE (PF) 0.5% 30 ML VIAL SQ ONE (11:52)
--- NOTE | 2024-07-25 12:03 | P.OP ---
Date of Procedure: 07/25/24 Preoperative Diagnosis: 1.L4-5 Grade II spondylolisthesis 2.L4-5 spondylosis with stenosis 3.Neurogenic claudication 4. s/p 360 cervical revision decompression and fusion 5. Right knee MCL sprain Postoperative Diagnosis: 1.L4-5 Grade II spondylolisthesis 2.L4-5 spondylosis with stenosis 3.Neurogenic claudication 4. s/p 360 cervical revision decompression and fusion 5. Right knee MCL sprain Procedure(s) Performed: 1. L4-5 INTRADISCAL OSTEOTOMY, 3 COLUMN FOR DEFORMITY CORRECTION 2. L4-5 POSTEROLATERAL AND INTERBODY FUSION 3. L4-5 POSTERIOR INSTRUMENTATION SCREWS AND RODS 4. L4-5 LAMINECTOMY, FACETECTOMY AND FORAMINOTOMY FOR COMPLETE NEURAL DECOMPRESSION, DEFORMITY CORRECTION AND CAGE PLACEMENT 5. INSERTION OF INTERBODY DEVICE, CAGE x1 6. USE OF fl3ur NAVIGATION FOR ASSISTANCE WITH ACCURATE PLACEMENT OF SCREWS USE OF IONM USE OF IO MICROSCOPE Implants: -COLBY EVEREST RODS AND SCREWS -GLOBUS SABLE CAGE 8 DEG, MED 9-17MM, 12 MM -ARTHROCELL, ALLOCELL, AUTOGRAFT, MAGNATOS Anesthesia: GETA Surgeon: Andreas Hernández Energy Specialist #1: Celi Phan (WAS PRESENT AND ASSISTED WITH ALL ASPECTS OF THE CASE FROM POSITION TO DRESSING PLACEMENT) Estimated Blood Loss (ml): 100 IV fluids (ml): 1,200 Urine output (ml): 260 Pathology: none sent Condition: stable Disposition: PACU Indications for Procedure: Ms. Bermudez, a 53-year-old unemployed female, presented to [facility] on July 19, 2024, for a pre-operative evaluation. The patient reports lumbar pain with a VAS score of 4, radiating into the buttocks and bilateral lower extremities to the calves. Her condition has been exacerbated by a recent fall, resulting in progressive neurologic symptoms and significant difficulty with activities of daily living. Imaging reveals a Grade I-II unstable spondylolisthesis at L4-5 with large herniated nucleus pulposus causing central and bilateral foraminal stenosis, along with bilateral L4 nerve root impingement. Physical examination shows restricted lumbar ROM, positive straight leg raise test, and bilateral L4-5 dermatomal deficits. The patient is scheduled for L4-5 minimally invasive posterolateral and interbody fusion with listhesis correction and decompression. Current management includes Capay 10 for pain control, and she has previously undergone physical therapy, injections, and alternative interventions. Description of Procedure: L4-S1 MIS PLIBF, BALBIR (MARI) The patient was seen and examined in the preoperative area. All preoperative protocols were followed. Informed consent was obtained, risks and benefits of the procedure were discussed at length. Risks including bleeding infection damage to the surrounding tissue and risk of reoperation were discussed with the patient. Risk of anesthesia up to and including was discussed with the patient. These are outlined in the risk review. They were willing to accept these risks and all the risks of surgery. The patient was given a weight-based dose of antibiotics in the form of 2 g Ancef. The patient was seen and evaluated by the anesthesia team who deemed them fit for surgery. The site was marked, the patient was willing to proceed with the procedure. The patient was transferred to the operative suite by the Department of anesthesia. They were then drifted off to sleep by the department anesthesia and GETA was performed. The patient tolerated this well. Blanco catheter was placed by nursing staff, a-traumatically. Once confirmation of lines and ventilation the patient was transferred to a prone Florentino table very carefully. All bony prominences including wrists, elbows, axilla, chest, hips, and thighs, and feet were padded very well. Special attention was paid to the genitalia, and these were padded accordingly. SCDs were placed on bilateral lower extremities and were connected. Arms were well padded and placed on arm boards up and out in the 90/90 position. Once in position, again we confirmed good ventilation capabilities and that lines were running appropriately. The patients Lumbar spine was then exposed. 1010s were placed outlining the incision site. Standard alcohol was used to clean the incision site and allowed to dry. C-arm was used to needle localize the pedicles at L4-5 and bio-lacho the patient and confirm level for incision which was marked with a skin marker. Operative briefing was performed with all teams and everyone in agreement to proceed. The patient was then prepped and draped in a normal sterile fashion. Timeout was then performed, and all parties agreed with the procedure to be performed. Skin nicks were made over the PSIS to place pins for the tracking system for [employer]. Once pins had been placed and tracker registered a 3D Ziehm spin was obtained and registered. Once it was confirmed to be accurate, Navigated Jamshidi was used to plan screws from L4-5 bilaterally. Once these were planned, skin incisions were made paramedian and a high speed navigated wayne was used to create commercial drone pilot holes in the optimal starting points for screws L4-L5 bilateral. Then, the wayne was used to decorticate the TPs PL and the facet joints using navigation. Then Navigated Jamshidi was introduced into the corridor which allowed for placement of wires. Wires were then visualized on AP and Lateral and were in good position. Right sided screws were then placed over wires removing the wire once the screw was at the back of the body and advancing to optimal position and purchase. Once screws were placed they were confirmed to be in good position using AP and Lateral fluoroscopy. Screws were tested and all tested above 20 mA. We then proceeded to decompression and cage placement. Attention was then turned to interbody fusion at L4-5 and osteotomy for deformity correction. There was exuberant scar and osteophyte formation, deformity due to b/l pars defects and cystic formation around the neural elements. Sequential dilation was done for the tubular retractor system using navigation and Xray. The tube was placed and secured into position with a table arm. A microscope was then brought in for visualization. Laminectomy, complete facetectomy and foraminotomy performed at L4-5 using high speed wayne and Kerrison rongeur. The ligamentum was removed and the dural sac decompressed. Exiting and traversing roots visualized and decompressed. Neural elements were then protected, and disc space accessed with an osteotome. Intradiscal, 3 column osteotomy, was performed under fluoroscopic guidance using an osteotome to remove the entire disc. Sequential shaving then done under lateral imaging and complete discectomy performed using sofia, pituitary and curette. Once good bleeding endplates accomplished and good height congregational with trials, a combination of autograft, allograft and synthetic placed anterior in the disc space. The cage was then selected and impacted into place under lateral imaging restoring height, lordosis and alignment. The cage was backfilled with bone graft through a funnel. The pluck trimmer was removed and the area inspected. Good cage placement, stable cage and no injuries. The area was irrigated copiously, and meticulous hemostasis achieved. The tubular retractor was then removed under direct visualization. Rods were then sized and selected and placed subfacially into L5 screws b/l. Set screws locked these in place and then sequentially reduced into L4 for alignment congregational. This was accomplished. Set screws were then all placed and finally tightened. The wound was irrigated copiously with NSS. Autograft and MagnatOs then placed in the posterolateral gutters and impacted into place. Final images confirmed good placement of hardware and good reduction of listhesis as well as congregational of height and lordosis. Fascia was then closed with 0 Vicryl; Deep subq closed with 0 Vicryl; Superficial subq closed with 2-0 Vicryl and skin with 2-0 nylon in running fashion. Wound edges approximated very well. Wound was then cleaned with alcohol and dried. Wounds dressed with adaptic, 4x4 and tegaderm. The patient was then transferred off the table back to their hospital bed a- traumatically. They were extubated by the department of anesthesia. They were then transferred to PACU in stable condition having tolerated the procedure with no complications.
[2024-07-25] MEDS ORDERED: MAGNESIUM HYDROXIDE 2,400 MG/30 ML CUP PO PRN (12:09)
[2024-07-25] MEDS ORDERED: HYDROmorphone 0.5 MG/0.5 ML SYRINGE IVP PRN (12:09)
[2024-07-25] MEDS: HYDROmorphone 0.5 MG/0.5 ML SYRINGE IVP PRN (12:26)
--- NOTE | 2024-07-25 12:26 | FL ---
Intraoperative/procedural fluoroscopic services were provided for L4-L5 fusion. Total fluoroscopy jaz e is 1.06 minutes with a total of 4 submitted images to PACS documents folder. Total DAP 997.54 cGycm 2. Please see the operative note for further details. [facility], , 07/25/2024 12:23 PM
[2024-07-25 12:55] LABS: Glucose,Whole Blood 171 mg/dL (70-110)
[2024-07-25] MEDS: MEPERIDINE 25 MG/ML SYRINGE IVP STA ×2 (12:58→13:25)
[2024-07-25] MEDS: ACETAMINOPHEN IV (For NPO) 1,000 MG in EMPTY BAG 1 BAG IVPB STA (13:13)
[2024-07-25] MEDS: HYDROmorphone 1 MG/ML 1 ML SYRINGE IVP PRN (15:22)
[2024-07-25] MEDS: GABAPENTIN 300 MG CAP PO SCH (16:02)
[2024-07-25] MEDS: HYDROcodone/APAP 10-325MG 1 EACH TAB PO SCH (16:02)
--- NOTE | 2024-07-25 16:55 | CT ---
EXAMINATION TYPE: CT lumbar spine wo con CT DLP: 1520.6 mGycm, Automated exposure control for dose reduction was used. DATE OF EXAM: 07/25/2024 4:36 PM COMPARISON: Lumbar spine fluoroscopic images 07/25/2024, CT abdomen and pelvis 11/13/2021, MRI lumbar sp ine 03/13/2024. CLINICAL INDICATION:Female, 53 years old with history of s/p MIS L4-L5 TLIF; PHH, Post op lumbar surg carlin, pain TECHNIQUE: Multiple axial images were obtained from the midportion of T11 through the sacroiliac maxim nts. Soft tissue and bone windows in coronal and sagittal planes were obtained and reviewed. Contrast used: none. Oral contrast used: none. FINDINGS: Postsurgical changes from recent posterior L4-L5 fusion with bilateral pedicular screws and rods and disc fusion cage. Hardware appears intact with appropriate alignment. This creates streak artifact wh ich limits evaluation. There is surrounding mild edema and gas from recent surgery. Improved alignmen t of previously seen anterolisthesis of L4 and L5. Posterior skin cynthia identified. No acute fractu re. Vertebral body heights are maintained. Mild multilevel degenerative disc disease of the visualize d lower thoracic spine. Broad-based disc bulge at L3-L4 and L5-S1 with minimal effacement of the ante rior thecal sac. No significant central canal or neural foraminal stenosis of the visualized lumbar s pine. Postsurgical changes of the stomach from suggested Philip-en-Y gastric bypass. Additional postsurgical changes from cholecystectomy. Somewhat bulky appearance with slight increase attenuation measuring 3. 5 cm involving the inferior pole of the right kidney. Partial visualization of intrauterine device. IMPRESSION: 1. Post surgical changes from posterior fusion L4-L5. Hardware appears intact with appropriate align ment. 2. Minimal multilevel degenerative disc disease of the lumbar spine. 3. Slight increased attenuation bulky appearance of the inferior pole of the right kidney concerning for possible mass. Recommend further evaluation with ultrasound. [facility], , 07/25/2024 4:53 PM
[2024-07-25 17:00] LABS: Glucose,Whole Blood 145 mg/dL (70-110)
[2024-07-25] MEDS: BACLOFEN 10 MG TAB PO SCH ×2 (18:20→21:43)
[2024-07-25] MEDS ORDERED: NON FORMULARY DRUG (Ubrogepant [Ubrelvy] 100 MG Tablet) PO PRN (18:24)
[2024-07-25] MEDS ORDERED: MECLIZINE 12.5 MG TAB PO PRN (18:24)
[2024-07-25] MEDS ORDERED: ALBUTEROL NEBULIZED 2.5 MG/3 ML INHALATION PRN (18:24)
--- NOTE | 2024-07-25 18:36 | P.CONS ---
History of Present Illness - Reason for Consult Consult date: 07/25/24 Medical management Requesting physician: Abilio Mccollum - Chief Complaint Back surgery - History of Present Illness Pleasant 53-year-old patient who follows Dr. Mccollum.Chronic medical conditions include asthma, diabetes, fibromyalgia, osteoarthritis, obstructive sleep apnea for which she did have procedure but does use a CPAP. Also history of Philip-en-Y gastric bypass surgery in 2002 with a revision in 2012. In December 2023 she had a EGD by Dr. Brenda Hernandez that did not show an anastomotic ulcer. She does sometimes have a food getting a bit stuck in the lower chest. Therefore has a soft diet. Patient with a past has had chronic back pain for a long time. Has used a cane and a walker. But after weight loss of pain actually became better. But then again her pain is progressively gotten worse. She does get radiculopathy more in the right leg than the left leg. Patient today is undergone surgical intervention. Has a Blanco catheter. Eating some dinner. Review of systems: GEN.: Awake tired EYES: None HEENT: None NECK: None RESPIRATORY: None CARDIOVASCULAR: None GASTROINTESTINAL: Some trouble swallowing. Being followed outpatient by Dr. Brenda Hernandez e GENITOURINARY: Blanco catheter e MUSCULOSKELETAL: As above e LYMPHATICS: None HEMATOLOGICAL: None PSYCHIATRY: None NEUROLOGICAL: N radicular pain as above e Social history: Patient smoked for about 15 years stopped in 1993. Only did about 3 to 5 cigarettes a day. Lives with her daughter Physical examination: VITAL SIGNS: 97.4, 74, 16, 127 x 72, 98% 2 L GENERAL: BMI 39.5, sitting bed awake eating her supper. EYES: Pupils equal. Conjunctiva taye l. HEENT: External appearance of nose and ears normal, oral cavity grossly normal. NECK: JVD not raised; masses not palpable. HEART: First and second heart sounds are normal; no edema. LUNGS: Respiratory rate normal; clear to auscultation. ABDOMEN: Soft, nontender, liver spleen not palpable, no masses palpable. PSYCH: Alert and oriented x3; mood and affect taye l. MUSCULOSKELETAL:No Clubbing/cyanosis;muscles-grossly intact. Dressing over the surgical site NEUROLOGICAL: Cranial nerves grossly intact; no facial asymmetry, power and sensation grossly intact. LYMPHATICS: No lymph nodes palpable in the axilla and neck INVESTIGATIONS, reviewed in the clinical context: July 11, 2024: White count 4.1 hemoglobin 10.5 platelets 175 Assessment plan: -Postoperative Diagnosis: 1.L4-5 Grade II spondylolisthesis 2.L4-5 spondylosis with stenos 3.Neurogenic claudication 4. s/p 360 cervical revision decompression and fusion 5. Right knee MCL sprain Procedure(s) Performed: 1. L4-5 INTRADISCAL OSTEOTOMY, 3 COLUMN FOR DEFORMITY CORRECTION 2. L4-5 POSTEROLATERAL AND INTERBODY FUSION 3. L4-5 POSTERIOR INSTRUMENTATION SCREWS AND RODS 4. L4-5 LAMINECTOMY, FACETECTOMY AND FORAMINOTOMY FOR COMPLETE NEURAL DECOMPRESSION, DEFORMITY CORRECTION AND CAGE PLACEMENT 5. INSERTION OF INTERBODY DEVICE, CAGE x1 6. USE OF [employer] NAVIGATION FOR ASSISTANCE WITH ACCURATE PLACEMENT OF SCREWS Implants: -[employer] RODS AND SCREWS -GLOBUS SABLE CAGE 8 DEG, MED 9-17MM, 12 MM -ARTHROCELL, ALLOCELL, AUTOGRAFT, MAGNATOS Surgeon Dr. Hernández: July 25, 2024 -History of gastric bypass Philip-en-Y surgery 2002 with revision in 2012 -History of anastomotic ulcer Philip-en-Y gastric bypass as per EGD by Dr. Brenda Hernandez on December 2023 Protonix -Chronic mild dysphagia with food feeling getting stuck sometimes lower end of chest. Patient able to tolerate a soft diet. Does follow with Dr. Brenda Hernandez outpatient -Intermittent asthma Albuterol as needed -Chronic muscle spasms Baclofen as needed -Hypothyroid Synthroid 50 mcg a day -Chronic urine incontinence Oxybutynin 5 mg twice daily -Obstructive sleep apnea. Patient did have surgery prior. Does use CPAP -Irritable bowel syndrome Care was discussed with the patient. Questions answered. Home medications renewed. Thank you Dr. Hernández will follow Past Medical History Past Medical History: Asthma, Diabetes Mellitus, Eye Disorder, Fibromyalgia, Osteoarthritis (OA), Skin Disorder, Sleep Apnea/CPAP/BIPAP, Thyroid Disorder Additional Past Medical History / Comment(s): thinks may have MS hx macula spot on one eye,glaucoma brit eyes,Nephrolithiasis , cyst on kidney, Herniated discs with chronic back pain. , Hidradenitis groins/thighs with cellulitis/wounds now healed (had surgery and wound vacs). Migraines. ,NIDDM type II-diet controlled since wt loss with bariatric surgery Arthritis., Hx of bleeding hemorroids, IBS. Pancreatitis prior to cholecystectomy. Sinus problems., Hx of stomach ulcer. back and neck pain, uses bipap-9 air pressure History of Any Multi-Drug Resistant Organisms: MRSA Year Discovered:: 09/20/16 MDRO Source:: BOTH THIGH Past Surgical History: Bariatric Surgery, Section, Cholecystectomy, Hernia Repair, Orthopedic Surgery, Tonsillectomy Additional Past Surgical History / Comment(s): Gastric bypass [address] Andrew with revision about 2012, panniculectomy, August 2016: Excess skin removal from bilateral thighs/panniculitis with debridements/wound vacs. Bilateral carpal tunnel. Right rotator cuff. Sinus surgery. Nerve blocks to neck and back. Cervical fusions (C-5-6-7), Sleep Apnea surgery,eye procedure brit eyes for tx of glaucoma,abdominal hernia repair Past Anesthesia/Blood Transfusion Reactions: No Reported Reaction, Motion Sickness Additional Past Anesthesia/Blood Transfusion Reaction / Comm: no blood transfusion. was hard to wake up after 10 hr neck surgery Smoking Status: Former smoker - Past Family History Mother Family Medical History: Diabetes Mellitus Father Family Medical History: Diabetes Mellitus Additional Family Medical History / Comment(s): Pt does not have contact with her parents. Daughter(s) Family Medical History: Deep Vein Thrombosis (DVT), Pulmonary Embolus Medications and Allergies Home Medications Medication Instructions Recorded Confirmed Type Albuterol Sulfate [Proair Hfa] 2 puff INHALATION RT-Q6H PRN 11/08/13 07/25/24 History Dextroamphetamine/Amphetamine 15 mg PO TID 09/14/17 07/25/24 History [Adderall] Baclofen 10 mg PO BID-W/MEALS 05/06/20 07/25/24 History Butalb/APAP/Caff 50-325-40Mg 1 tab PO Q6H PRN 05/06/20 07/25/24 History [Fioricet 50-325-40] Oxybutynin Chloride 5 mg PO BID 05/06/20 07/25/24 History Baclofen [Lioresal] 20 mg PO HS 06/10/20 07/25/24 History Multivitamins, Thera [Multivitamin 1 tab PO DAILY 06/10/20 07/20/24 History (formulary)] Gabapentin 800 mg PO QID 09/17/21 07/25/24 History Vortioxetine Hydrobromide 20 mg PO 1700 09/17/21 07/25/24 History [Trintellix] Erenumab-Aooe [Aimovig 140 mg SQ Q30D 03/24/22 07/25/24 History Autoinjector] Loratadine [Claritin] 10 mg PO DAILY 03/24/22 07/25/24 History Pantoprazole [Protonix] 40 mg PO BID 03/24/22 07/25/24 History Sucralfate [Carafate] 1 gm PO QID 03/24/22 07/25/24 History Ubrogepant [Ubrelvy] 100 mg PO DAILY PRN 03/24/22 07/25/24 History HYDROcodone/APAP 10-325MG [[place] 1 tab PO TID 12/27/23 07/25/24 History 10-325] Carboxymethylcellulose Sodium 1 drop BOTH EYES BID 07/20/24 07/25/24 History [Refresh Tears] Cholecalciferol [Vitamin D3 (10 10 mcg PO DAILY 07/20/24 07/20/24 History Mcg = 400 Iu)] Levothyroxine Sodium [Synthroid] 50 mcg PO QAM 07/20/24 07/25/24 History Meclizine [Antivert] 12.5 mg PO BID PRN 07/20/24 07/25/24 History OXcarbazepine 450 mg PO HS 07/20/24 07/25/24 History Allergies Allergy/AdvReac Type Severity Reaction Status Date / Time house dust Allergy Mild Cough Verified 07/25/24 08:12 grass pollen Allergy Cough Verified 07/25/24 08:12 morphine Allergy "feels Verified 07/25/24 08:12 like its hard to breath" gluten AdvReac foul gas Verified 07/25/24 08:12 and loose stools ibuprofen [From Motrin] AdvReac "eats my Verified 07/25/24 08:12 stomach" Physical Exam Vitals: Vital Signs Temp Pulse Resp BP Pulse Ox 07/25/24 16:10 74 127/72 98 07/25/24 15:55 84 128/76 100 07/25/24 15:40 79 135/75 100 07/25/24 15:25 80 148/78 100 07/25/24 15:10 80 149/79 100 07/25/24 14:55 77 137/74 100 07/25/24 14:40 74 147/75 100 07/25/24 14:25 97.4 F L 78 128/70 99 07/25/24 14:00 67 14 143/63 99 07/25/24 13:45 89 16 144/65 100 07/25/24 13:30 83 16 176/81 100 07/25/24 13:15 95 18 169/81 100 07/25/24 13:00 97 16 166/86 100 07/25/24 12:45 108 H 16 159/86 100 07/25/24 12:30 111 H 16 157/83 100 07/25/24 12:13 97.6 F 119 H 16 174/94 100 07/25/24 08:30 70 16 127/61 99 Intake and Output 07/25/24 07/25/24 07/25/24 06:59 14:59 22:59 Intake Total 2350 Output Total 360 250 Balance 1989 Intake: IV 2350 Output: Urine 260 250 Estimated Blood Loss 100 Other: Weight 101.2 kg Results Labs: Abnormal Lab Results - Last 24 Hours (Table) 07/25/24 07/25/24 Range/Units 12:54 16:57 POC Glucose (mg/dL) 171 H 145 H (70-110) mg/dL
[2024-07-25 20:50] LABS: Glucose,Whole Blood 139 mg/dL (70-110)
[2024-07-25] MEDS: DEXTROAMPHETAMINE PO SCH (21:08)
[2024-07-25] MEDS: AMPHETAMINE PO SCH (21:08)
[2024-07-25] MEDS: oxyBUTYnin chloride 5 MG TAB PO SCH (21:44)
[2024-07-25] MEDS: OXcarbazepine 150 MG TAB PO SCH (21:44)
[2024-07-25] MEDS: PANTOPRAZOLE 40 MG TABLET PO SCH (21:44)
[2024-07-25] MEDS: GABAPENTIN 400 MG CAP PO SCH (22:37)
[2024-07-25] MEDS: ARTIFICIAL TEARS-HYPROMELLOSE DROPS 15 ML BTL BOTH EYES SCH (23:35)
[2024-07-25] MEDS: SUCRALFATE 1 GM TAB PO SCH (23:35)
[2024-07-26] MEDS: BUTALB/APAP/CAFF 50-325-40MG TAB PO PRN (02:55)
[2024-07-26 04:01] LABS: Basophils % (A) 0 %; Eosinophils % (A) 1 %; HCT 30.5 % (34.0-46.0); Hypochromasia Slight; Lymphocytes # (A) 0.6 k/uL (1.0-4.8); Lymphocytes % (A) 13 %; MCH 29.7 pg (25.0-35.0); MCHC 32.8 g/dL (31.0-37.0); MCV 90.5 fL (80.0-100.0); Mean Platelet Volume 8.9; Monocytes # (A) 0.3 k/uL (0-1.0); Monocytes % (A) 7 %; Neutrophils # (A) 3.5 k/uL (1.3-7.7); Neutrophils % (A) 79 %; Platelet Count 121 k/uL (150-450); RBC 3.37 m/uL (3.80-5.40); RDW 12.8 % (11.5-15.5); WBC 4.5 k/uL (3.8-10.6)
[2024-07-26 04:04] LABS: African American GFR (CKD) >90 (>60 ml/min/1.73 sqM); Anion Gap 4 mmol/L; Blood Urea Nitrogen 8 mg/dL (7-17); Calcium 9.2 mg/dL (8.4-10.2); Carbon Dioxide 29 mmol/L (22-30); Chloride 102 mmol/L (98-107); Glucose 109 mg/dL (74-99); Non-African American GFR(CKD) >90 (>60 ml/min/1.73 sqM); Potassium 4.8 mmol/L (3.5-5.1); Sodium 135 mmol/L (137-145)
[2024-07-26 06:09] LABS: Glucose,Whole Blood 117 mg/dL (70-110)
[2024-07-26] MEDS: LEVOTHYROXINE 50 MCG TAB PO SCH (06:19)
[2024-07-26] MEDS: CHOLECALCIFEROL 10 MCG (400 IU) TABLET PO SCH (08:28)
[2024-07-26] MEDS: MULTIVITAMINS, THERA 1 EACH TAB PO SCH (08:29)
[2024-07-26] MEDS: SENNOSIDES-DOCUSATE SODIUM 1 EACH TAB PO SCH (08:29)
[2024-07-26] MEDS: LORATADINE 10 MG TAB PO SCH (08:29)
[2024-07-26 11:11] LABS: Glucose,Whole Blood 126 mg/dL (70-110)
--- NOTE | 2024-07-26 11:30 | P.PN ---
Subjective Progress Note Date: 07/26/24 Principal diagnosis: Status post L4-L5 MIS posterior lateral interbody fusion Patient was evaluated at bedside today, she was up sitting in her hospital chair. She was able to get to the chair with physical therapy. Urinary catheter was removed earlier this morning. Patient feels that the pain medications are helping, she is requiring IV Dilaudid at this time. She denies headaches, headedness, chest pain or shortness of breath Objective - Vital Signs Vital signs: Vital Signs Temp 98.6 F 07/26/24 08:11 Pulse 65 07/26/24 08:11 Resp 19 07/26/24 08:11 BP 124/70 07/26/24 08:11 Pulse Ox 100 07/26/24 01:57 FiO2 Intake & Output 07/25/24 07/26/24 07/26/24 18:59 06:59 18:59 Intake Total 2350 Output Total 610 1300 2000 Balance 1740 -1300 -2000 Weight 101.2 kg Intake: IV 2350 Output: Urine 510 1300 2000 Uretheral (Blanco) 1000 Estimated Blood Loss 100 Other: Voiding Method Indwelling Catheter - Exam Gen: AOx3, NAD VSS stable at this time Integument: Postop dressing is in good position condition Palpation: Mild tenderness with palpation of the lower lumbar spine ROM: Full range of motion all major muscle groups of the bilateral upper and lower extremities, no focal deficits appreciated Sensory Exam: Senory exam to light touch is intact C5-T1 Senosry exam to light touch is intact L2-S1 Motor: 4/5 strength in the bilateral lower extremities with hip flexion, knee e xtension, knee flexion, plantarflexion, dorsi flexion, EHL, FHL Reflexes: 2/4 in all UE and LE Positive Que's right, mild Que's left Negative clonus - Labs CBC & Chem 7: 07/26/24 03:01 07/26/24 03:01 Labs: Abnormal Lab Results - Last 24 Hours (Table) 07/25/24 07/25/24 07/25/24 Range/Units 12:54 16:57 20:49 RBC (3.80-5.40) m/uL Hgb (11.4-16.0) gm/dL Hct (34.0-46.0) % Plt Count (150-450) k/uL Lymphocytes # (1.0-4.8) k/uL Sodium (137-145) mmol/L Glucose (74-99) mg/dL POC Glucose (mg/dL) 171 H 145 H 139 H (70-110) mg/dL 07/26/24 07/26/24 07/26/24 Range/Units 03:01 03:01 06:07 RBC 3.37 L (3.80-5.40) m/uL Hgb 10.0 L (11.4-16.0) gm/dL Hct 30.5 L (34.0-46.0) % Plt Count 121 L (150-450) k/uL Lymphocytes # 0.6 L (1.0-4.8) k/uL Sodium 135 L (137-145) mmol/L Glucose 109 H (74-99) mg/dL POC Glucose (mg/dL) 117 H (70-110) mg/dL 07/26/24 Range/Units 11:10 RBC (3.80-5.40) m/uL Hgb (11.4-16.0) gm/dL Hct (34.0-46.0) % Plt Count (150-450) k/uL Lymphocytes # (1.0-4.8) k/uL Sodium (137-145) mmol/L Glucose (74-99) mg/dL POC Glucose (mg/dL) 126 H (70-110) mg/dL Assessment and Plan Assessment: Postoperative day #1 status post L4-L5 MIS posterior lateral interbody fusion Plan: Pain control, patient has been restarted on all home medications, this to include [place], gabapentin and baclofen. Discussed with patient we will try to limit the use of the IV Dilaudid at this time DVT prophylaxis, aspirin 81 mg daily to start today Monitor surgical dressing, plan for dressing change on 07/27/2024 Encourage incentive spirometer Weight-bear as tolerated with walker. Patient said that she is waiting on the brace to be delivered to her home, she does not need to utilize in the hospital when working with therapy No bending, twisting, lifting at this time Medical recommendations appreciated Discharge planning: Anticipate discharge to home in the next 24-48 hours with home health care Time with Patient: Less than 30
[2024-07-26] MEDS: VORTIOXETINE HYDROBROMIDE 20 MG TABLET PO SCH (17:13)
[2024-07-26 17:25] LABS: Glucose,Whole Blood 100 mg/dL (70-110)
--- NOTE | 2024-07-26 18:04 | P.PN ---
Progress Note - Text Progress Note Date: 07/26/24 - Chief Complaint Back surgery - History of Present Illness Pleasant 53-year-old patient who follows Dr. Mccollum.Chronic medical conditions include asthma, diabetes, fibromyalgia, osteoarthritis, obstructive sleep apnea for which she did have procedure but does use a CPAP. Also history of Philip-en-Y gastric bypass surgery in 2002 with a revision in 2012. In December 2023 she had a EGD by Dr. Brenda Hernandez that did not show an anastomotic ulcer. She does sometimes have a food getting a bit stuck in the lower chest. Therefore has a soft diet. Patient with a past has had chronic back pain for a long time. Has used a cane and a walker. But after weight loss of pain actually became better. But then again her pain is progressively gotten worse. She does get radiculopathy more in the right leg than the left leg. Patient today is undergone surgical intervention. Has a Blanco catheter. Eating some dinner. July 26: Blanco catheter was removed this morning. Was waiting to make urine when I saw her. Pain is present. Did tolerate some diet. No nausea or vomiting. Did sit up. In the chair went to the bathroom Active Medications Acetaminophen/Butalbital/Caffeine (Butalb/Apap/Caff 50-325-40mg Tab) 1 each PO Q6H PRN PRN Reason: Pain Last Admin: 07/26/24 17:17 Dose: 1 each Hydrocodone Bitart/Acetaminophen (Hydrocodone/Apap 10-325mg 1 Each Tab) 1 each PO TID [facility] Stop: 08/24/24 15:59 Last Admin: 07/26/24 17:13 Dose: 1 each Albuterol Sulfate (Albuterol Nebulized 2.5 Mg/3 Ml) 2.5 mg INHALATION RT-Q6H PRN PRN Reason: Wheezing Artificial Tears (Artificial Tears-Hypromellose Drops 15 Ml Btl) 1 drops BOTH EYES BID [facility] Last Admin: 07/26/24 08:31 Dose: 1 drops Baclofen (Baclofen 10 Mg Tab) 10 mg PO BID-W/MEALS [facility] Stop: 08/24/24 17:29 Last Admin: 07/26/24 17:13 Dose: 10 mg Baclofen (Baclofen 10 Mg Tab) 20 mg PO HS [facility] Stop: 08/24/24 20:59 Last Admin: 07/25/24 21:43 Dose: 20 mg Cholecalciferol (Cholecalciferol 10 Mcg (400 Iu) Tablet) 10 mcg PO DAILY [facility] Last Admin: 07/26/24 08:28 Dose: 10 mcg Gabapentin (Gabapentin 400 Mg Cap) 800 mg PO QID [facility] Stop: 08/24/24 12:59 Last Admin: 07/26/24 17:13 Dose: 800 mg Hydromorphone HCl (Hydromorphone 0.5 Mg/0.5 Ml Syringe) 0.5 mg IVP Q3HR PRN PRN Reason: Pain Scale 4 - 6 Stop: 08/24/24 12:08 Hydromorphone HCl (Hydromorphone 1 Mg/Ml 1 Ml Syringe) 1 mg IVP Q3HR PRN PRN Reason: Pain Scale of 7 - 10 Stop: 08/24/24 12:08 Last Admin: 07/26/24 13:41 Dose: 1 mg Lactated Ringer's (Lactated Ringers) 1,000 mls @ 20 mls/hr IV .Q24H [facility] Stop: 08/24/24 06:12 Last Admin: 07/25/24 08:49 Dose: 20 mls/hr Cefazolin Sodium 2 gm/ Sodium (Chloride) 50 mls @ 100 mls/hr IVPB Q8H [facility]; Protocol Last Admin: 07/26/24 10:34 Dose: 100 mls/hr Levothyroxine Sodium (Levothyroxine 50 Mcg Tab) 50 mcg PO QAM@0630 [facility] Last Admin: 07/26/24 06:19 Dose: 50 mcg Lidocaine HCl (Lidocaine 1% (10mg/Ml) For Iv Start) 0.1 ml INTRADERMA PER PROTOCOL PRN PRN Reason: IV Start Stop: 08/24/24 06:12 Loratadine (Loratadine 10 Mg Tab) 10 mg PO DAILY [facility] Last Admin: 07/26/24 08:29 Dose: 10 mg Magnesium Hydroxide (Magnesium Hydroxide 2,400 Mg/30 Ml Cup) 2,400 mg PO DAILY PRN PRN Reason: Constipation Stop: 08/24/24 12:08 Meclizine HCl (Meclizine 12.5 Mg Tab) 12.5 mg PO BID PRN PRN Reason: dizziness Multivitamins (Multivitamins, Thera 1 Each Tab) 1 each PO DAILY [facility] Last Admin: 07/26/24 08:29 Dose: 1 each Non Formulary Drug ( Dextroamphetamine/Amphetamine [ Adderall]) 15 mg PO TID [facility] Last Admin: 07/26/24 17:10 Dose: Not Given Non-Formulary Medication (Ubrogepant [Ubrelvy]) 100 mg PO DAILY PRN PRN Reason: migraines Oxcarbazepine (Oxcarbazepine 150 Mg Tab) 450 mg PO HS [facility] Last Admin: 07/25/24 21:44 Dose: 450 mg Oxybutynin Chloride (Oxybutynin Chloride 5 Mg Tab) 5 mg PO BID [facility] Last Admin: 07/26/24 08:28 Dose: 5 mg Oxycodone HCl (Oxycodone Hcl 5 Mg Tab) 10 mg PO Q4HR PRN PRN Reason: Pain Scale 4 - 6 Stop: 08/24/24 12:08 Last Admin: 07/26/24 12:24 Dose: 10 mg Pantoprazole Sodium (Pantoprazole 40 Mg Tablet) 40 mg PO AC-BID [facility] Last Admin: 07/26/24 17:13 Dose: 40 mg Prochlorperazine Edisylate (Prochlorperazine Inj 10 Mg/2 Ml Vial) 5 mg IVP Q8HR PRN PRN Reason: Nausea And Vomiting Senna/Docusate Sodium (Sennosides-Docusate Sodium 1 Each Tab) 2 each PO DAILY [facility] Stop: 08/25/24 08:59 Last Admin: 07/26/24 08:29 Dose: 2 each Sucralfate (Sucralfate 1 Gm Tab) 1 gm PO QID [facility] Last Admin: 07/26/24 17:13 Dose: 1 gm Vortioxetine (Vortioxetine Hydrobromide 20 Mg Tablet) 20 mg PO 1700 [facility] Last Admin: 07/26/24 17:13 Dose: 20 mg Social history: Patient smoked for about 15 years stopped in 1993. Only did about 3 to 5 cigarettes a day. Lives with her daughter Physical examination: VITAL SIGNS: 98.2, 87, 20, 142/84, 93% room air GENERAL: BMI 39.5, resting in bed EYES: Pupils equal. Conjunctiva taye l. HEENT: External appearance of nose and ears normal, oral cavity grossly normal. NECK: JVD not raised; masses not palpable. HEART: First and second heart sounds are normal; no edema. LUNGS: Respiratory rate normal; clear to auscultation. ABDOMEN: Soft, nontender, liver spleen not palpable, no masses palpable. PSYCH: Alert and oriented x3; mood and affect taye l. MUSCULOSKELETAL:No Clubbing/cyanosis;muscles-grossly intact. Dressing over the surgical site INVESTIGATIONS, reviewed in the clinical context: July 26: White count 4.5 hemoglobin 10 platelets 121 potassium 4.8 creatinine 0.65 July 11, 2024: White count 4.1 hemoglobin 10.5 platelets 175 Assessment plan: -Postoperative Diagnosis: 1.L4-5 Grade II spondylolisthesis 2.L4-5 spondylosis with stenos 3.Neurogenic claudication 4. s/p 360 cervical revision decompression and fusion 5. Right knee MCL sprain Procedure(s) Performed: 1. L4-5 INTRADISCAL OSTEOTOMY, 3 COLUMN FOR DEFORMITY CORRECTION 2. L4-5 POSTEROLATERAL AND INTERBODY FUSION 3. L4-5 POSTERIOR INSTRUMENTATION SCREWS AND RODS 4. L4-5 LAMINECTOMY, FACETECTOMY AND FORAMINOTOMY FOR COMPLETE NEURAL DECOMPRESSION, DEFORMITY CORRECTION AND CAGE PLACEMENT 5. INSERTION OF INTERBODY DEVICE, CAGE x1 6. USE OF [employer] NAVIGATION FOR ASSISTANCE WITH ACCURATE PLACEMENT OF SCREWS Implants: -[employer] EVEREST RODS AND SCREWS -GLOBUS SABLE CAGE 8 DEG, MED 9-17MM, 12 MM -ARTHROCELL, ALLOCELL, AUTOGRAFT, MAGNATOS Surgeon Dr. Hernández: July 25, 2024 Activity as tolerated per surgery -History of gastric bypass Philip-en-Y surgery 2002 with revision in 2012 -History of anastomotic ulcer Philip-en-Y gastric bypass as per EGD by Dr. Brenda Hernandez on December 2023 Protonix -Chronic mild dysphagia with food feeling getting stuck sometimes lower end of chest. Patient able to tolerate a soft diet. Does follow with Dr. Brenda Hernandez outpatient -Intermittent asthma Albuterol as needed -Chronic muscle spasms Baclofen as needed -Normocytic anemia Check B12, folate, iron studies -Hypothyroid Synthroid 50 mcg a day -Chronic urine incontinence Oxybutynin 5 mg twice daily -Obstructive sleep apnea. Patient did have surgery prior. Does use CPAP -Irritable bowel syndrome Discussed Thank you Dr. Hernández will follow Past Medical History Past Medical History: Asthma, Diabetes Mellitus, Eye Disorder, Fibromyalgia, Osteoarthritis (OA), Skin Disorder, Sleep Apnea/CPAP/BIPAP, Thyroid Disorder Additional Past Medical History / Comment(s): thinks may have MS hx macula spot on one eye,glaucoma brit eyes,Nephrolithiasis , cyst on kidney, Herniated discs with chronic back pain. , Hidradenitis groins/thighs with cellulitis/wounds now healed (had surgery and wound vacs). Migraines. ,NIDDM type II-diet controlled since wt loss with bariatric surgery Arthritis., Hx of bleeding hemorroids, IBS. Pancreatitis prior to cholecystectomy. Sinus problems., Hx of stomach ulcer. back and neck pain, uses bipap-9 air pressure History of Any Multi-Drug Resistant Organisms: MRSA Year Discovered:: 09/20/16 MDRO Source:: BOTH THIGH Past Surgical History: Bariatric Surgery, Section, Cholecystectomy, Hernia Repair, Orthopedic Surgery, Tonsillectomy Additional Past Surgical History / Comment(s): Gastric bypass [address] Andrew with revision about 2012, panniculectomy, August 2016: Excess skin removal from bilateral thighs/panniculitis with debridements/wound vacs. Bilateral carpal tunnel. Right rotator cuff. Sinus surgery. Nerve blocks to neck and back. Cervical fusions (C-5-6-7), Sleep Apnea surgery,eye procedure brit eyes for tx of glaucoma,abdominal hernia repair Past Anesthesia/Blood Transfusion Reactions: No Reported Reaction, Motion Sickness Additional Past Anesthesia/Blood Transfusion Reaction / Comm: no blood transfusion. was hard to wake up after 10 hr neck surgery Smoking Status: Former smoker
[2024-07-26 20:58] LABS: Glucose,Whole Blood 104 mg/dL (70-110)
[2024-07-27] MEDS: ACETAMINOPHEN TAB 500 MG TAB PO PRN (01:25)
[2024-07-27 06:19] LABS: Glucose,Whole Blood 106 mg/dL (70-110)
[2024-07-27 08:50] LABS: HCT 29.2 % (37.2-46.3); HGB 9.2 g/dL (12.0-15.0); MCH 28.7 pg (27.0-32.0); MCHC 31.5 g/dL (32.0-37.0); Mean Platelet Volume 11.9 FL (9.5-12.2); NRBC Per 100 WBC 0 X 10*3/uL (0.00-0.01); Platelet Count 124 X 10*3/uL (140-440); RBC 3.21 X 10*6/uL (4.10-5.20); RDW 12.4 % (11.5-14.5); WBC 4.72 X 10*3/uL (4.50-10.00)
[2024-07-27 11:49] LABS: Glucose,Whole Blood 117 mg/dL (70-110)
[2024-07-27] MEDS: PROCHLORPERAZINE INJ 10 MG/2 ML VIAL IVP PRN (12:47)
--- NOTE | 2024-07-27 13:44 | P.PN ---
Subjective Progress Note Date: 07/27/24 Principal diagnosis: 1.L4-5 Grade II spondylolisthesis;L4-5 spondylosis with stenosis;Neurogenic claudication Patient was seen at bedside this morning sitting up in chair with legs elevated and dressing present over the lumbar spine. Patient says she has worked with therapy daily since surgery and has been getting up out of her chair on her own power using walker to aid in ambulation. Patient says she has urinated several times without any issue since Blanco was removed yesterday. Patient is hoping to stay 1 more night for additional pain control and therapy. Patient says she is having some numbness in the bilateral lower extremities, but denies any other issues at this time. Objective - Vital Signs Vital signs: Vital Signs Temp 99.6 F 07/27/24 07:10 Pulse 86 07/27/24 07:10 Resp 17 07/27/24 07:10 BP 108/64 07/27/24 07:10 Pulse Ox 95 07/27/24 07:10 FiO2 Intake & Output 07/26/24 07/27/24 07/27/24 18:59 06:59 18:59 Intake Total 410 200 Output Total 2000 Balance -1999 410 200 Intake: Intake, IV Titration 50 Amount ceFAZolin 2 gm In Sodium 50 Chloride 0.9% 50 ml @ 100 mls/hr IVPB Q8H [facility] Rx#: [id number] Oral 360 200 Output: Urine 2000 Uretheral (Blanco) 1000 Other: # Voids 3 2 - Exam Dressings taken down over lumbar spine. Luis well aligned and intact. Negative for any drainage. New dressings placed over incisions. Some swelling present. There is some numbness in the bilateral lower extremities diffusely on exam. Patient does have some generalized tenderness to palpation over incisions on lumbar spine. Nontender on rest of exam. Patient does have full range of motion throughout bilateral lower extremities on exam.4/5 in all major motor groups in bilateral upper and lower extremities. Radial pulse intact, 2+ bilaterally. Cap refill under 3 seconds in digits of upper extremities. Negative Homans bilaterally. Negative clonus bilaterally. Negative Que bilaterally. - Labs CBC & Chem 7: 07/27/24 03:54 07/26/24 03:01 Labs: Abnormal Lab Results - Last 24 Hours (Table) 07/27/24 07/27/24 Range/Units 03:54 11:48 RBC 3.21 L (4.10-5.20) X 10*6/uL Hgb 9.2 L (12.0-15.0) g/dL Hct 29.2 L (37.2-46.3) % MCHC 31.5 L (32.0-37.0) g/dL Plt Count 124 L (140-440) X 10*3/uL POC Glucose (mg/dL) 117 H (70-110) mg/dL Assessment and Plan Assessment: 1.L4-5 Grade II spondylolisthesis;L4-5 spondylosis with stenosis;Neurogenic claudication -Postop day #2 status post L4-L5 MIS posterior lateral interbody fusion Plan: 1.L4-5 Grade II spondylolisthesis;L4-5 spondylosis with stenosis;Neurogenic claudication - L4-L5 MIS posterior lateral interbody fusion surgery performed 07/25/2024. Weightbearing as tolerated with walker and assistance as needed. Pain medication as needed. Dressing changed at bedside this morning. Patient does have walkers at home and brace that is supposed to arrive to her house. Plan for discharge home tomorrow with home care. 2. Appreciate medical management 3. Pain management -[place]; gabapentin; baclofen 4. DVT prophylaxis -aspirin 5. GI prophylaxis -senna; milk of mag 6. PT/OT -weightbearing as tolerated with walker 7. Encourage incentive spirometer use 8. Discharge planning -plan for discharge home tomorrow with home care Time with Patient: Less than 30
[2024-07-27 16:41] LABS: Glucose,Whole Blood 112 mg/dL (70-110)
--- NOTE | 2024-07-27 17:42 | P.PN ---
Progress Note - Text Progress Note Date: 07/27/24 - Chief Complaint Back surgery - History of Present Illness Pleasant 53-year-old patient who follows Dr. Mccollum.Chronic medical conditions include asthma, diabetes, fibromyalgia, osteoarthritis, obstructive sleep apnea for which she did have procedure but does use a CPAP. Also history of Philip-en-Y gastric bypass surgery in 2002 with a revision in 2012. In December 2023 she had a EGD by Dr. Brenda Hernandez that did not show an anastomotic ulcer. She does sometimes have a food getting a bit stuck in the lower chest. Therefore has a soft diet. Patient with a past has had chronic back pain for a long time. Has used a cane and a walker. But after weight loss of pain actually became better. But then again her pain is progressively gotten worse. She does get radiculopathy more in the right leg than the left leg. Patient today is undergone surgical intervention. Has a Blanco catheter. Eating some dinner. July 26: Blanco catheter was removed this morning. Was waiting to make urine when I saw her. Pain is present. Did tolerate some diet. No nausea or vomiting. Did sit up. In the chair went to the bathroom July 27: Up in a chair. Significant pain present. Did tolerate some diet. Nausea. Tolerated walk well with a rolling walker 120 feet with physical therapy. Did spike a fever around midnight. None since then. Denies any respiratory urinary symptoms. Will follow clinically. Patient has been on IV cefazolin. Active Medications Acetaminophen (Acetaminophen Tab 500 Mg Tab) 500 mg PO Q6HR PRN PRN Reason: Fever and/ or Pain Last Admin: 07/27/24 01:25 Dose: 500 mg Acetaminophen/Butalbital/Caffeine (Butalb/Apap/Caff 50-325-40mg Tab) 1 each PO Q6H PRN PRN Reason: Pain Last Admin: 07/26/24 17:17 Dose: 1 each Hydrocodone Bitart/Acetaminophen (Hydrocodone/Apap 10-325mg 1 Each Tab) 1 each PO TID GENEVIEVE Stop: 08/24/24 15:59 Last Admin: 07/27/24 17:23 Dose: 1 each Albuterol Sulfate (Albuterol Nebulized 2.5 Mg/3 Ml) 2.5 mg INHALATION RT-Q6H PRN PRN Reason: Wheezing Artificial Tears (Artificial Tears-Hypromellose Drops 15 Ml Btl) 1 drops BOTH EYES BID [facility] Last Admin: 07/27/24 08:38 Dose: 1 drops Baclofen (Baclofen 10 Mg Tab) 10 mg PO BID-W/MEALS [facility] Stop: 08/24/24 17:29 Last Admin: 07/27/24 17:24 Dose: 10 mg Baclofen (Baclofen 10 Mg Tab) 20 mg PO HS [facility] Stop: 08/24/24 20:59 Last Admin: 07/26/24 22:10 Dose: 20 mg Cholecalciferol (Cholecalciferol 10 Mcg (400 Iu) Tablet) 10 mcg PO DAILY [facility] Last Admin: 07/27/24 08:37 Dose: 10 mcg Gabapentin (Gabapentin 400 Mg Cap) 800 mg PO QID [facility] Stop: 08/24/24 12:59 Last Admin: 07/27/24 17:23 Dose: 800 mg Hydromorphone HCl (Hydromorphone 0.5 Mg/0.5 Ml Syringe) 0.5 mg IVP Q3HR PRN PRN Reason: Pain Scale 4 - 6 Stop: 08/24/24 12:08 Hydromorphone HCl (Hydromorphone 1 Mg/Ml 1 Ml Syringe) 1 mg IVP Q3HR PRN PRN Reason: Pain Scale of 7 - 10 Stop: 08/24/24 12:08 Last Admin: 07/27/24 14:09 Dose: 1 mg Lactated Ringer's (Lactated Ringers) 1,000 mls @ 20 mls/hr IV .Q24H [facility] Stop: 08/24/24 06:12 Last Admin: 07/27/24 06:32 Dose: Not Given Cefazolin Sodium 2 gm/ Sodium (Chloride) 50 mls @ 100 mls/hr IVPB Q8H [facility]; Protocol Last Admin: 07/27/24 10:38 Dose: 100 mls/hr Levothyroxine Sodium (Levothyroxine 50 Mcg Tab) 50 mcg PO QAM@0630 [facility] Last Admin: 07/27/24 06:37 Dose: 50 mcg Lidocaine HCl (Lidocaine 1% (10mg/Ml) For Iv Start) 0.1 ml INTRADERMA PER PROTOCOL PRN PRN Reason: IV Start Stop: 08/24/24 06:12 Loratadine (Loratadine 10 Mg Tab) 10 mg PO DAILY [facility] Last Admin: 07/27/24 08:36 Dose: 10 mg Magnesium Hydroxide (Magnesium Hydroxide 2,400 Mg/30 Ml Cup) 2,400 mg PO DAILY PRN PRN Reason: Constipation Stop: 08/24/24 12:08 Meclizine HCl (Meclizine 12.5 Mg Tab) 12.5 mg PO BID PRN PRN Reason: dizziness Multivitamins (Multivitamins, Thera 1 Each Tab) 1 each PO DAILY [facility] Last Admin: 07/27/24 08:36 Dose: 1 each Non Formulary Drug ( Dextroamphetamine/Amphetamine [ Adderall]) 15 mg PO TID [facility] Last Admin: 07/27/24 17:24 Dose: Not Given Non-Formulary Medication (Ubrogepant [Ubrelvy]) 100 mg PO DAILY PRN PRN Reason: migraines Oxcarbazepine (Oxcarbazepine 150 Mg Tab) 450 mg PO HS [facility] Last Admin: 07/26/24 22:11 Dose: 450 mg Oxybutynin Chloride (Oxybutynin Chloride 5 Mg Tab) 5 mg PO BID [facility] Last Admin: 07/27/24 08:36 Dose: 5 mg Oxycodone HCl (Oxycodone Hcl 5 Mg Tab) 10 mg PO Q4HR PRN PRN Reason: Pain Scale 4 - 6 Stop: 08/24/24 12:08 Last Admin: 07/27/24 11:41 Dose: 10 mg Pantoprazole Sodium (Pantoprazole 40 Mg Tablet) 40 mg PO AC-BID [facility] Last Admin: 07/27/24 17:23 Dose: 40 mg Prochlorperazine Edisylate (Prochlorperazine Inj 10 Mg/2 Ml Vial) 5 mg IVP Q8HR PRN PRN Reason: Nausea And Vomiting Last Admin: 07/27/24 12:47 Dose: 5 mg Senna/Docusate Sodium (Sennosides-Docusate Sodium 1 Each Tab) 2 each PO DAILY [facility] Stop: 08/25/24 08:59 Last Admin: 07/27/24 08:36 Dose: 2 each Sucralfate (Sucralfate 1 Gm Tab) 1 gm PO QID [facility] Last Admin: 07/27/24 17:23 Dose: 1 gm Vortioxetine (Vortioxetine Hydrobromide 20 Mg Tablet) 20 mg PO 1700 [facility] Last Admin: 07/27/24 17:24 Dose: 20 mg Social history: Patient smoked for about 15 years stopped in 1993. Only did about 3 to 5 cigarettes a day. Lives with her daughter Physical examination: VITAL SIGNS: 98.7, 75, 17, 119 x 70, 95% room air GENERAL: BMI 39.5, r up in a recliner EYES: Pupils equal. Conjunctiva taye l. HEENT: External appearance of nose and ears normal, oral cavity grossly normal. NECK: JVD not raised; masses not palpable. HEART: First and second heart sounds are normal; no edema. LUNGS: Respiratory rate normal; clear to auscultation. ABDOMEN: Soft, nontender, liver spleen not palpable, no masses palpable. PSYCH: Alert and oriented x3; mood and affect taye l. MUSCULOSKELETAL:No Clubbing/cyanosis;muscles-grossly intact. Dressing over the surgical site INVESTIGATIONS, reviewed in the clinical context: August 04: White count 4.7 hemoglobin 9.2 platelets 124 July 26: White count 4.5 hemoglobin 10 platelets 121 potassium 4.8 creatinine 0.65 July 11, 2024: White count 4.1 hemoglobin 10.5 platelets 175 Assessment plan: -Postoperative Diagnosis: 1.L4-5 Grade II spondylolisthesis 2.L4-5 spondylosis with stenos 3.Neurogenic claudication 4. s/p 360 cervical revision decompression and fusion 5. Right knee MCL sprain Procedure(s) Performed: 1. L4-5 INTRADISCAL OSTEOTOMY, 3 COLUMN FOR DEFORMITY CORRECTION 2. L4-5 POSTEROLATERAL AND INTERBODY FUSION 3. L4-5 POSTERIOR INSTRUMENTATION SCREWS AND RODS 4. L4-5 LAMINECTOMY, FACETECTOMY AND FORAMINOTOMY FOR COMPLETE NEURAL DECOMPRESSION, DEFORMITY CORRECTION AND CAGE PLACEMENT 5. INSERTION OF INTERBODY DEVICE, CAGE x1 6. USE OF [employer] NAVIGATION FOR ASSISTANCE WITH ACCURATE PLACEMENT OF SCREWS Implants: -[employer] EVEREST RODS AND SCREWS -GLOBUS SABLE CAGE 8 DEG, MED 9-17MM, 12 MM -ARTHROCELL, ALLOCELL, AUTOGRAFT, MAGNATOS Surgeon Dr. Hernández: July 25, 2024 Activity as tolerated per surgery Having significant pain.-Did walk 120 feet today. -History of gastric bypass Philip-en-Y surgery 2002 with revision in 2012 -History of anastomotic ulcer Philip-en-Y gastric bypass as per EGD by Dr. Brenda Hernandez on December 2023 Protonix -Chronic mild dysphagia with food feeling getting stuck sometimes lower end of chest. Patient able to tolerate a soft diet. Does follow with Dr. Brenda Hernandez outpatient -Intermittent asthma Albuterol as needed -Chronic muscle spasms Baclofen as needed -Normocytic anemia -Hypothyroid Synthroid 50 mcg a day -Chronic urine incontinence Oxybutynin 5 mg twice daily -Obstructive sleep apnea. Patient did have surgery prior. Does use CPAP -Irritable bowel syndrome Doing better. Thank you Dr. Hernández will follow Past Medical History Past Medical History: Asthma, Diabetes Mellitus, Eye Disorder, Fibromyalgia, Osteoarthritis (OA), Skin Disorder, Sleep Apnea/CPAP/BIPAP, Thyroid Disorder Additional Past Medical History / Comment(s): thinks may have MS hx macula spot on one eye,glaucoma brit eyes,Nephrolithiasis , cyst on kidney, Herniated discs with chronic back pain. , Hidradenitis groins/thighs with cellulitis/wounds now healed (had surgery and wound vacs). Migraines. ,NIDDM type II-diet controlled since wt loss with bariatric surgery Arthritis., Hx of bleeding hemorroids, IBS. Pancreatitis prior to cholecystectomy. Sinus problems., Hx of stomach ulcer. back and neck pain, uses bipap-9 air pressure History of Any Multi-Drug Resistant Organisms: MRSA Year Discovered:: 09/20/16 MDRO Source:: BOTH THIGH Past Surgical History: Bariatric Surgery, Section, Cholecystectomy, Hernia Repair, Orthopedic Surgery, Tonsillectomy Additional Past Surgical History / Comment(s): Gastric bypass [address] Andrew with revision about 2012, panniculectomy, August 2016: Excess skin removal from b ilateral thighs/panniculitis with debridements/wound vacs. Bilateral carpal tunnel. Right rotator cuff. Sinus surgery. Nerve blocks to neck and back. Cervical fusions (C-5-6-7), Sleep Apnea surgery,eye procedure brit eyes for tx of glaucoma,abdominal hernia repair Past Anesthesia/Blood Transfusion Reactions: No Reported Reaction, Motion Sickness Additional Past Anesthesia/Blood Transfusion Reaction / Comm: no blood transfusion. was hard to wake up after 10 hr neck surgery Smoking Status: Former smoker
[2024-07-27 21:08] LABS: Glucose,Whole Blood 107 mg/dL (70-110)
[2024-07-28 03:02] LABS: % Iron Saturation 31.74 (12.00-45.00); Ferritin 15.5 ng/mL (10.0-291.0)
[2024-07-28 06:33] LABS: Glucose,Whole Blood 113 mg/dL (70-110)
[2024-07-28 08:21] VITALS: RESP 16
[2024-07-28 11:23] LABS: Glucose,Whole Blood 133 mg/dL (70-110)
--- NOTE | 2024-07-28 12:05 | P.DS ---
Providers Date of admission: 07/27/24 13:05 Expected date of discharge: 07/28/24 Attending physician: Andreas Hernández DO Consults: 07/25/24 12:13 Consult Physician Routine Consulting Provider: Keith Em Reason/Comments: Medical Management Do you want consulting provider notified?: Yes Primary care physician: [facility] Hospital Course: Date of admission: 07/25/2024 Date of discharge: 07/28/2024 Admission diagnosis: L4-5 Grade II spondylolisthesis;L4-5 spondylosis with stenosis;Neurogenic claudication Discharge diagnosis: Same Attending physician: Dr. Hernández Surgical procedures: L4-L5 MIS posterior lateral interbody fusion Brief history: Patient is a 53-year-old female with a history of L4-5 grade 2 spondylolisthesis; L4-5 spondylosis with stenosis; neurogenic claudication. At this point patient has failed conservative treatment measures and has opted to proceed with a elective L4-5 MIS posterior lateral interbody fusion. Hospital course: Details of patient's surgery can be found in operative report. Patient tolerated the procedure well and was subsequently transported to orthopedic floor. Patient's orthopeidc and medical care was provided daily. Patient had daily laboratory tests performed for evaluation of overall blood counts. Patient had daily physical therapy to include strengthening range of motion as well as education with walker ambulation. Patient was noted to have a relatively uneventful postoperative course. Patient reported satisfactory pain control with oral pain medications by postoperative day 3. Patient showed satisfactory progress with physical therapy. Patient moved steadily through the program and had no difficulty meeting the goals by postoperative day 3. Given patient's otherwise satisfactory course and having met physical therapy goals, plan is to discharge patient home on postoperative day 3. Discharge condition/disposition: Patient will be discharged home with home care in stable condition. Discharge medications: Instructions are given on resumption of patient's normal daily medications per primary care recommendation, in addition patient will be prescribed Oxy IR 10 mg; Duricef; senna. Spine Discharge and Recovery Instructions Date of Surgery: 07/25/2024 Diagnosis: L4-5 Grade II spondylolisthesis;L4-5 spondylosis with stenosis;Neurogenic claudication Procedure: L4-L5 MIS posterior lateral interbody fusion Medications: See medication list All medication refills should be obtained through your primary care doctor or your clinic spine surgeon. Please discuss prescription refills at your follow up appointment. Do not call the hospital for medication refills. Dressing: Leave your dressing in place for a total of 5 days post operatively. Then you may remove your dressing and leave open to air. Keep the area clean and if not able to keep area clean, then cover with sterile gauze and tape. Showering: You may shower 3 days after your procedure allowing soap and water to run over incision. Do not scrub. Do not soak. Blot dry. Follow up: Please confirm a follow up appointment with your surgeon 3 weeks post operatively. Please make an appointment to follow up with your PCP in 1-2 weeks after surgery for evaluation '3 phase, 3-week plan' POST OP WEEKS 1-3 1. Lifting/carrying/pushing/pulling limited to less than 5 pounds. 2. Do not sit for longer than 15 minutes at one time. Get up and walk around. Prolonged sitting is NOT advised. If you lay down, see if you can tolerate laying down on you front (belly side) 3. Walk for periods of 15 minutes = 1 mile but no longer; do it multiple times times each day. 4. Ice your low back after activity. POST OP WEEKS 3-6 1. Lifting limited to less than 20 pounds. 2. Do not sit for longer than 30 minutes at a time. Frequently change positions. Use a sit-to stand workstation or take frequent breaks from sitting if you have returned to work. 3. Walk for 30 minutes each day. If possible, do these three or more times a day POST OP WEEKS 6+ At your 6-week appointment we will give you a physical therapy referral to focus on a core stabilization and strengthening program. You should also work on leg & buttock strengthening, hamstring & quadriceps stretching, and continue a low im pact aerobic activity program such as swimming, walking, or riding a stationary bicycle. During the initial 6 weeks after your surgery, you are at the highest risk of re-injuring your spine. You should generally avoid BLT's (bending, lifting and twisting combination motions) and follow the above guidelines to reduce the chance of reinjury. You can anticipate post op appointments in our office at approximately 3 weeks and 6 weeks after your surgery. INCISION CARE: If your incision is not draining you do NOT need to cover it with a dressing. Keep your incision clean, dry and intact. In most cases, we apply skin glue, cynthia or sutures to the incision at the time of surgery. This will be like a crust or have the appearance of a scab and will fall off in time on its own. The stitches or cynthia need to be removed at 3 weeks post op appointment. You may begin to shower 3 days after surgery (this allows the glue to castro well). However, please avoid scrubbing the incision site or peeling off any of the skin glue. This will ensure optimal healing of your incision. Also, during this time avoid soaking the incision area in water - this includes swimming pools, hot tubs or baths. No ointments, lotions or oils on the incision until your surgeon allows. Leave cynthia, sutures or glue in place. Neurological dysfunction that comes on suddenly can also be a sign of a stroke. Below some common symptoms of a stroke are listed: B - balance difficulty such as sudden onset walking or leaning to one side - NEW E - eye problem such as sudden double vision or trouble seeing on one side - NEW F - Facial weakness or numbness on one side - NEW A - Arm or leg weakness or numbness on one side - NEW S - Slurred speech or difficulty with word finding - NEW T - Time is BRAIN! Call 911 as soon as you recognize these symptoms Diet: Consume a regular diet rich in vegetables and lean protein such as chicken or fish. You should consume in a ratio of approximately 20% fats|40% carbohydrates|40%protein. Vegetables, sweet potatoes, brown rice or quinoa are examples of good carbohydrates. Chips, white bread, cookies and sweets/sugar are examples of bad carbohydrates. Limit your bad carbs, go wild with good carbs. "Life's Simple 7" Guidelines as per [place] [employer] These will help you reclaim your life after surgery and wire weaver helper in your recovery, keeping in mind your restrictions. (1) Get Active. Physical activity can help people lose weight, control high blood pressure and cholesterol, feel emotionally better, and sleep better. (2) Control Cholesterol. Avoid a diet high in saturated fat, trans fat, & cholesterol. Limit whole milk & cream, ice cream, butter, egg yolks, processed meats (like sausage and hot dogs), and fatty meats. Choose healthy foods that are low in saturated fat, trans fat and cholesterol which include: Fruits and vegetables, fiber rich grain products (like whole grain pasta and brown rice), lean meat such as chicken, fish, nuts, seeds, and legumes. (3) Eat Better. Eat small portions. Shop at the grocery with a list and do no t stray from it. Tips for a healthy diet include: Limit sodium intake to less than 1500mg daily, avoid prepackaged, processed, and fast foods, choose a diet rich in fruits, vegetables, and whole grain, high fiber foods, and limit saturated & cholesterol in your diet. (4) Manage Blood Pressure. If you have high blood pressure, you should have a cuff at home so that you can check your blood pressure regularly. Be sure you have a good cuff. An arm one is generally better than a wrist one. Bring the cuff to a doctor's appointment to validate that the measurements that your cuff are taking are accurate. Take your blood pressure twice daily when you are sitting down and relaxing. Record the numbers in a log and bring this log with you to your doctors' appointments. (5) Lose Weight if your BMI is above 25. A healthy BMI is between 19-25. To calculate Your BMI, you may use a Standard BMI Calculator on the NIH BMI website: <www.nhlbi.nih.gov/guidelines/obesity/BMI/bmicalc.htm>. Weigh oneself daily. If you are overweight, set a goal to lose weight. A pound a week loss if needed is a good target. (6) Reduce Blood Sugar. Limit foods and liquids with "added sugars." (Added sugars include sucrose, fructose, glucose, maltose, dextrose, high fructose corn syrup, corn syrup, concentrated fruit juice and honey). (7) Stop Smoking. If you smoke, quitting smoking is one of the best things that you can do for your health. Smoking increases your risk of heart attack, stroke, and peripheral vascular disease, which is a build-up of plaque in your arteries. Please discard all the cigarettes and lighters in your house. Have a plan for what you will do when you have the urge to smoke. Direct and second- hand smoke shortens your life as well as the lives of your family, friends and others around you. For your health and the health of those around you, please consider quitting! Proper Bending Body Mechanics: Maintain a wide stance with one foot slightly in front of the other. Keep your back straight. Bend utilizing the strength in your hips and knees. Do not bend at the waist. Maintain the lifted object at your waist-level close to your body. Avoid lifting weight that causes immediately pain or pain anywhere in the body afterwards. Smoking/Nicotine If there was ever one thing that you could do to increase your overall health, decrease your risk of cardiovascular problems by about 39% the second you make the choice, it is to STOP SMOKING. Your body's most instant gratification is the second you stop smoking. We have all heard the studies, read the articles but it is true, smoking is extremely bad for your overall health, and moreover it is detrimental to your bone health. Nicotine, IN ANY FORM, kills bone cells, prevents your body from healing fractures, and significantly prolongs healing after surgery. In spine surgery specifically, it increases your risk of not healing your bones to create a fusion and increases your risk of having a revision surgery due to this up to 60%. I know it is hard. I know it feels impossible. But there are ways. Take control of your life. We are here to help you through it. And when you are ready, ask us and we can direct you to help if you desire. Use the START Plan to Quit Smoking (please visit the Helpguide.org website listed below for more information): S = Set a quit date. Choose a date within the next 2 weeks, so you have enough time to prepare without losing your motivation to quit. If you mainly smoke at work, quit on the weekend, so you have a few days to adjust to the change. T = Tell family, friends, and co-workers that you plan to quit. Let your friends and family in on your plan to quit smoking and tell them you need their support and encouragement to stop. Look for a quit brittany who wants to stop smoking as well. You can help each other get through the rough times. A = Anticipate and plan for the challenges you'll face while quitting. Most people who begin smoking again do so within the first 3 months. You can help yourself make it through by preparing ahead for common challenges, such as nicotine withdrawal and cigarette cravings. R = Remove cigarettes and other tobacco products from your home, car, and work. Throw away all your cigarettes (no emergency pack!), lighters, ashtrays, and matches. Wash your clothes and freshen up anything that smells like smoke. Shampoo your car, clean your drapes and carpet, and steam your furniture. T = Talk to your doctor about getting help to quit. Your doctor can prescribe medication to help with withdrawal and suggest other alternatives. If you can't see a doctor, you can get many products over the counter at your local pharmacy or grocery store, including the nicotine patch, nicotine lozenges, and nicotine gum. Resources for Quitting Smoking: <https://www.[place].gov/documents/[facility]/Quit_[place]_Resources_for_patients_313480_7.pdf> Supplementation: Take recommended dosages of Vitamin D and Calcium to help fortify your bones and help them to heal. See your health maintenance packet for dosages and recommended levels. DVT/VTE prophylaxis: You will be given compression stockings from the hospital. Wear these daily for the first two weeks after surgery. You may take them off at night. You may be prescribed a medication to help thin your blood. Take this as directed. If you are not prescribed this medication, early and frequent ambulation has been shown to be the best prophylaxis to deep vein thrombosis and sequelae related to this event. Assessment: L4-5 Grade II spondylolisthesis;L4-5 spondylosis with stenosis;Neurogenic cl audication Procedures: L4-L5 MIS posterior lateral interbody fusion Patient Condition at Discharge: Good Plan - Discharge Summary Discharge Rx Participant: No New Discharge Prescriptions: New cefaDROXiL [Duricef] 500 mg PO Q12HR 5 Days #10 cap Sennosides/Docusate Sodium [Senna Plus 8.6-50 mg Softgel] 1 each PO DAILY #20 capsule oxyCODONE HCL [oxyCODONE HCL (IR)] 10 mg PO Q4-6H #18 tab Continue Albuterol Sulfate [Proair Hfa] 2 puff INHALATION RT-Q6H PRN PRN Reason: Wheezing Dextroamphetamine/Amphetamine [Adderall] 15 mg PO TID Butalb/APAP/Caff 50-325-40Mg [Fioricet 50-325-40] 1 tab PO Q6H PRN PRN Reason: Pain Baclofen 10 mg PO BID-W/MEALS Oxybutynin Chloride 5 mg PO BID Baclofen [Lioresal] 20 mg PO HS Multivitamins, Thera [Multivitamin (formulary)] 1 tab PO DAILY Vortioxetine Hydrobromide [Trintellix] 20 mg PO 1700 Loratadine [Claritin] 10 mg PO DAILY Meclizine [Antivert] 12.5 mg PO BID PRN PRN Reason: dizziness OXcarbazepine 450 mg PO HS Gabapentin 800 mg PO QID Sucralfate [Carafate] 1 gm PO QID Pantoprazole [Protonix] 40 mg PO BID Ubrogepant [Ubrelvy] 100 mg PO DAILY PRN PRN Reason: migraines Cholecalciferol [Vitamin D3 (10 Mcg = 400 Iu)] 10 mcg PO DAILY Levothyroxine Sodium [Synthroid] 50 mcg PO QAM Carboxymethylcellulose Sodium [Refresh Tears] 1 drop BOTH EYES BID No Action Erenumab-Aooe [Aimovig Autoinjector] 140 mg SQ Q30D HYDROcodone/APAP 10-325MG [[place] 10-325] 1 tab PO TID Discharge Medication List Albuterol Sulfate [Proair Hfa] 2 puff INHALATION RT-Q6H PRN 11/08/13 [History] Dextroamphetamine/Amphetamine [Adderall] 15 mg PO TID 09/14/17 [History] Baclofen 10 mg PO BID-W/MEALS 05/06/20 [History] Butalb/APAP/Caff 50-325-40Mg [Fioricet 50-325-40] 1 tab PO Q6H PRN 05/06/20 [History] Oxybutynin Chloride 5 mg PO BID 05/06/20 [History] Baclofen [Lioresal] 20 mg PO HS 06/10/20 [History] Multivitamins, Thera [Multivitamin (formulary)] 1 tab PO DAILY 06/10/20 [History] Gabapentin 800 mg PO QID 09/17/21 [History] Vortioxetine Hydrobromide [Trintellix] 20 mg PO 1700 09/17/21 [History] Erenumab-Aooe [Aimovig Autoinjector] 140 mg SQ Q30D 03/24/22 [History] Loratadine [Claritin] 10 mg PO DAILY 03/24/22 [History] Pantoprazole [Protonix] 40 mg PO BID 03/24/22 [History] Sucralfate [Carafate] 1 gm PO QID 03/24/22 [History] Ubrogepant [Ubrelvy] 100 mg PO DAILY PRN 03/24/22 [History] HYDROcodone/APAP 10-325MG [[place] 10-325] 1 tab PO TID 12/27/23 [History] Carboxymethylcellulose Sodium [Refresh Tears] 1 drop BOTH EYES BID 07/20/24 [History] Cholecalciferol [Vitamin D3 (10 Mcg = 400 Iu)] 10 mcg PO DAILY 07/20/24 [History] Levothyroxine Sodium [Synthroid] 50 mcg PO QAM 07/20/24 [History] Meclizine [Antivert] 12.5 mg PO BID PRN 07/20/24 [History] OXcarbazepine 450 mg PO HS 07/20/24 [History] Sennosides/Docusate Sodium [Senna Plus 8.6-50 mg Softgel] 1 each PO DAILY #20 capsule 07/28/24 [Rx] cefaDROXiL [Duricef] 500 mg PO Q12HR 5 Days #10 cap 07/28/24 [Rx] oxyCODONE HCL [oxyCODONE HCL (IR)] 10 mg PO Q4-6H #18 tab 07/28/24 [Rx] Follow up Appointment(s)/Referral(s): Abilio Mccollum DO [Primary Care Provider] - 1 Week [facility], [NON-STAFF] - 1-2 Days ([facility] will call you to schedule your in home nursing and physical therapy visits. ) Andreas Hernández DO [Doctor of Osteopathic Medicine] - 2 Weeks Activity/Diet/Wound Care/Special Instructions: Spine Discharge and Recovery Instructions Date of Surgery: 07/25/2024 Diagnosis: L4-5 Grade II spondylolisthesis;L4-5 spondylosis with stenosis;Neurogenic claudication Procedure: L4-L5 MIS posterior lateral interbody fusion Medications: See medication list All medication refills should be obtained through your primary care doctor or your clinic spine surgeon. Please discuss prescription refills at your follow up appointment. Do not call the hospital for medication refills. Dressing: Leave your dressing in place for a total of 5 days post operatively. Then you may remove your dressing and leave open to air. Keep the area clean and if not able to keep area clean, then cover with sterile gauze and tape. Showering: You may shower 3 days after your procedure allowing soap and water to run over incision. Do not scrub. Do not soak. Blot dry. Follow up: Please confirm a follow up appointment with your surgeon 3 weeks post operatively. Please make an appointment to follow up with your PCP in 1-2 weeks after surgery for evaluation '3 phase, 3-week plan' POST OP WEEKS 1-3 1. Lifting/carrying/pushing/pulling limited to less than 5 pounds. 2. Do not sit for longer than 15 minutes at one time. Get up and walk around. Prolonged sitting is NOT advised. If you lay down, see if you can tolerate laying down on you front (belly side) 3. Walk for periods of 15 minutes = 1 mile but no longer; do it multiple times times each day. 4. Ice your low back after activity. POST OP WEEKS 3-6 1. Lifting limited to less than 20 pounds. 2. Do not sit for longer than 30 minutes at a time. Frequently change positions. Use a sit-to stand workstation or take frequent breaks from sitting if you have returned to work. 3. Walk for 30 minutes each day. If possible, do these three or more times a day POST OP WEEKS 6+ At your 6-week appointment we will give you a physical therapy referral to focus on a core stabilization and strengthening program. You should also work on leg & buttock strengthening, hamstring & quadriceps stretching, and continue a low impact aerobic activity program such as swimming, walking, or riding a stationary bicycle. During the initial 6 weeks after your surgery, you are at the highest risk of re-injuring your spine. You should generally avoid BLT's (bending, lifting and twisting combination motions) and follow the above guidelines to reduce the chance of reinjury. You can anticipate post op appointments in our office at approximately 3 weeks and 6 weeks after your surgery. INCISION CARE: If your incision is not draining you do NOT need to cover it with a dressing. Keep your incision clean, dry and intact. In most cases, we apply skin glue, cynthia or sutures to the incision at the time of surgery. This will be like a crust or have the appearance of a scab and will fall off in time on its own. The stitches or cynthia need to be removed at 3 weeks post op appointment. You may begin to shower 3 days after surgery (this allows the glue to castro well). However, please avoid scrubbing the incision site or peeling off any of the skin glue. This will ensure optimal healing of your incision. Also, during this time avoid soaking the incision area in water - this includes swimming pools, hot tubs or baths. No ointments, lotions or oils on the incision until your surgeon allows. Leave cynthia, sutures or glue in place. Neurological dysfunction that comes on suddenly can also be a sign of a stroke. Below some common symptoms of a stroke are listed: B - balance difficulty such as sudden onset walking or leaning to one side - NEW E - eye problem such as sudden double vision or trouble seeing on one side - NEW F - Facial weakness or numbness on one side - NEW A - Arm or leg weakness or numbness on one side - NEW S - Slurred speech or difficulty with word finding - NEW T - Time is BRAIN! Call 911 as soon as you recognize these symptoms Diet: Consume a regular diet rich in vegetables and lean protein such as chicken or fish. You should consume in a ratio of approximately 20% fats|40% carbohydrates|40%protein. Vegetables, sweet potatoes, brown rice or quinoa are examples of good carbohydrates. Chips, white bread, cookies and sweets/sugar are examples of bad carbohydrates. Limit your bad carbs, go wild with good carbs. "Life's Simple 7" Guidelines as per [place] [employer] These will help you reclaim your life after surgery and wire weaver helper in your recovery, keeping in mind your restrictions. (1) Get Active. Physical activity can help people lose weight, control high blood pressure and cholesterol, feel emotionally better, and sleep better. (2) Control Cholesterol. Avoid a diet high in saturated fat, trans fat, & cholesterol. Limit whole milk & cream, ice cream, butter, egg yolks, processed meats (like sausage and hot dogs), and fatty meats. Choose healthy foods that are low in saturated fat, trans fat and cholesterol which include: Fruits and vegetables, fiber rich grain products (like whole grain pasta and brown rice), lean meat such as chicken, fish, nuts, seeds, and legumes. (3) Eat Better. Eat small portions. Shop at the grocery with a list and do not stray from it. Tips for a healthy diet include: Limit sodium intake to less than 1500mg daily, avoid prepackaged, processed, and fast foods, choose a diet rich in fruits, vegetables, and whole grain, high fiber foods, and limit saturated & cholesterol in your diet. (4) Manage Blood Pressure. If you have high blood pressure, you should have a cuff at home so that you can check your blood pressure regularly. Be sure you have a good cuff. An arm one is generally better than a wrist one. Bring the cuff to a doctor's appointment to validate that the measurements that your cuff are taking are accurate. Take your blood pressure twice daily when you are sitting down and relaxing. Record the numbers in a log and bring this log with you to your doctors' appointments. (5) Lose Weight if your BMI is above 25. A healthy BMI is between 19-25. To calculate Your BMI, you may use a Standard BMI Calculator on the NIH BMI website: <www.nhlbi.nih.gov/guidelines/obesity/BMI/bmicalc.htm>. Weigh oneself daily. If you are overweight, set a goal to lose weight. A pound a week loss if needed is a good target. (6) Reduce Blood Sugar. Limit foods and liquids with "added sugars." (Added sugars include sucrose, fructose, glucose, maltose, dextrose, high fructose corn syrup, corn syrup, concentrated fruit juice and honey). (7) Stop Smoking. If you smoke, quitting smoking is one of the best things that you can do for your health. Smoking increases your risk of heart attack, stroke, and peripheral vascular disease, which is a build-up of plaque in your arteries. Please discard all the cigarettes and lighters in your house. Have a plan for what you will do when you have the urge to smoke. Direct and second- hand smoke shortens your life as well as the lives of your family, friends and others around you. For your health and the health of those around you, please consider quitting! Proper Bending Body Mechanics: Maintain a wide stance with one foot slightly in front of the other. Keep your back straight. Bend utilizing the strength in your hips and knees. Do not bend at the waist. Maintain the lifted object at your waist-level close to your body. Avoid lifting weight that causes immediately pain or pain anywhere in the body afterwards. Smoking/Nicotine If there was ever one thing that you could do to increase your overall health, decrease your risk of cardiovascular problems by about 39% the second you make the choice, it is to STOP SMOKING. Your body's most instant gratification is the second you stop smoking. We have all heard the studies, read the articles but it is true, smoking is extremely bad for your overall health, and moreover it is detrimental to your bone health. Nicotine, IN ANY FORM, kills bone cells, prevents your body from healing fractures, and significantly prolongs healing after surgery. In spine surgery specifically, it increases your risk of not healing your bones to create a fusion and increases your risk of having a revision surgery due to this up to 60%. I know it is hard. I know it feels impossible. But there are ways. Take control of your life. We are here to help you through it. And when you are ready, ask us and we can direct you to help if you desire. Use the START Plan to Quit Smoking (please visit the Helpguide.org website listed below for more information): S = Set a quit date. Choose a date within the next 2 weeks, so you have enough time to prepare without losing your motivation to quit. If you mainly smoke at work, quit on the weekend, so you have a few days to adjust to the change. T = Tell family, friends, and co-workers that you plan to quit. Let your friends and family in on your plan to quit smoking and tell them you need their support and encouragement to stop. Look for a quit brittany who wants to stop smoking as well. You can help each other get through the rough times. A = Anticipate and plan for the challenges you'll face while quitting. Most people who begin smoking again do so within the first 3 months. You can help yourself make it through by preparing ahead for common challenges, such as nicotine withdrawal and cigarette cravings. R = Remove cigarettes and other tobacco products from your home, car, and work. Throw away all your cigarettes (no emergency pack!), lighters, ashtrays, and matches. Wash your clothes and freshen up anything that smells like smoke. Shampoo your car, clean your drapes and carpet, and steam your furniture. T = Talk to your doctor about getting help to quit. Your doctor can prescribe medication to help with withdrawal and suggest other alternatives. If you can't see a doctor, you can get many products over the counter at your local pharmacy or grocery store, including the nicotine patch, nicotine lozenges, and nicotine gum. Resources for Quitting Smoking: <https://www.[facility].gov/documents/[facility]/Quit_Tobacco_Resources_for_patients_313480_7.pdf> Supplementation: Take recommended dosages of Vitamin D and Calcium to help fortify your bones and help them to heal. See your health maintenance packet for dosages and recommended levels. DVT/VTE prophylaxis: You will be given compression stockings from the hospital. Wear these daily for the first two weeks after surgery. You may take them off at night. You may be prescribed a medication to help thin your blood. Take this as directed. If you are not prescribed this medication, early and frequent ambulation has been shown to be the best prophylaxis to deep vein thrombosis and sequelae related to this event. Discharge Disposition: HOME SELF-CARE
--- NOTE | 2024-07-28 12:07 | P.PN ---
Subjective Progress Note Date: 07/28/24 Principal diagnosis: 1.L4-5 Grade II spondylolisthesis;L4-5 spondylosis with stenosis;Neurogenic claudication Patient was seen at bedside this morning lying in the summer composition with dressings present over lumbar spine.. Patient says she has worked with therapy daily since surgery and has been getting up out of her chair on her own power using walker to aid in ambulation. Patient says she has urinated several times without any issue. Patient says she is having some numbness in the bilateral lower extremities, but denies any other issues at this time. Objective - Vital Signs Vital signs: Vital Signs Temp 98.6 F 07/28/24 07:20 Pulse 80 07/28/24 07:20 Resp 16 07/28/24 07:20 BP 107/65 07/28/24 07:20 Pulse Ox 96 07/28/24 07:20 FiO2 Intake & Output 07/27/24 07/28/24 07/28/24 18:59 06:59 18:59 Intake Total 320 1560 Balance 320 1560 Intake: Oral 320 1560 Other: # Voids 4 5 - Exam Dressings CDI. Some swelling present. There is some numbness in the bilateral lower extremities diffusely on exam. Patient does have some generalized tenderness to palpation over incisions on lumbar spine. Nontender on rest of exam. Patient does have full range of motion throughout bilateral lower extremities on exam.4/5 in all major motor groups in bilateral upper and lower extremities. Radial pulse intact, 2+ bilaterally. Cap refill under 3 seconds in digits of upper extremities. Negative Homans bilaterally. Negative clonus bilaterally. Negative Que bilaterally. - Labs CBC & Chem 7: 07/27/24 03:54 07/26/24 03:01 Labs: Abnormal Lab Results - Last 24 Hours (Table) 07/27/24 07/27/24 07/28/24 Range/Units 11:48 16:39 06:31 POC Glucose (mg/dL) 117 H 112 H 113 H (70-110) mg/dL Assessment and Plan Assessment: 1.L4-5 Grade II spondylolisthesis;L4-5 spondylosis with stenosis;Neurogenic claudication -Postop day #3 status post L4-L5 MIS posterior lateral interbody fusion Plan: 1.L4-5 Grade II spondylolisthesis;L4-5 spondylosis with stenosis;Neurogenic claudication - L4-L5 MIS posterior lateral interbody fusion surgery performed 07/25/2024. Weightbearing as tolerated with walker and assistance as needed. Pain medication as needed. Dressing CDI. Patient does have walkers at home and brace that is supposed to arrive to her house. Discharge home today with home care. 2. Appreciate medical management 3. Pain management -[place]; gabapentin; baclofen 4. DVT prophylaxis -aspirin 5. GI prophylaxis -senna; milk of mag 6. PT/OT -weightbearing as tolerated with walker 7. Encourage incentive spirometer use 8. Discharge planning -discharge home today with home care Time with Patient: Less than 30
[2024-07-28 14:23] VITALS: BP 113/68; PULSE 75; TEMP 98.5
--- NOTE | 2024-07-28 22:33 | P.DS ---
Providers Date of admission: 07/27/24 13:05 Expected date of discharge: 07/28/24 Attending physician: Andreas Hernández DO Consults: 07/25/24 12:13 Consult Physician Routine Consulting Provider: Keith Em Consult Reason/Comments: Medical Management Do you want consulting provider notified?: Yes Primary care physician: [facility] Course: - Chief Complaint Back surgery - History of Present Illness Pleasant 53-year-old patient who follows Dr. Mccollum.Chronic medical conditions include asthma, diabetes, fibromyalgia, osteoarthritis, obstructive sleep apnea for which she did have procedure but does use a CPAP. Also history of Philip-en-Y gastric bypass surgery in 2002 with a revision in 2012. In December 2023 she had a EGD by Dr. Brenda Hernandez that did not show an anastomotic ulcer. She does sometimes have a food getting a bit stuck in the lower chest. Therefore has a soft diet. Patient with a past has had chronic back pain for a long time. Has used a cane and a walker. But after weight loss of pain actually became better. But then again her pain is progressively gotten worse. She does get radiculopathy more in the right leg than the left leg. Patient today is undergone surgical intervention. Has a Blanco catheter. Eating some dinner. July 26: Blanco catheter was removed this morning. Was waiting to make urine when I saw her. Pain is present. Did tolerate some diet. No nausea or vomiting. Did sit up. In the chair went to the bathroom July 27: Up in a chair. Significant pain present. Did tolerate some diet. Nausea. Tolerated walk well with a rolling walker 120 feet with physical therapy. Did spike a fever around midnight. None since then. Denies any respiratory urinary symptoms. Will follow clinically. Patient has been on IV cefazolin. July 28: Doing well. Did work with therapy. Pain is operative site. Tolerating diet. Per Ortho patient being discharged with Duricef. Otherwise doing well. Denies any respiratory urinary symptoms. Social history: Patient smoked for about 15 years stopped in 1993. Only did about 3 to 5 cigarettes a day. Lives with her daughter Physical examination: VITAL SIGNS: 98.5, 75, 16, 113 x 68, 100% room air GENERAL: BMI 39.5,, notable EYES: Pupils equal. Conjunctiva taye l. HEENT: External appearance of nose and ears normal, oral cavity grossly normal. NECK: JVD not raised; masses not palpable. HEART: First and second heart sounds are normal; no edema. LUNGS: Respiratory rate normal; clear to auscultation. ABDOMEN: Soft, nontender, liver spleen not palpable, no masses palpable. PSYCH: Alert and oriented x3; mood and affect taye l. MUSCULOSKELETAL:No Clubbing/cyanosis;muscles-grossly intact. Dressing over the surgical site INVESTIGATIONS, reviewed in the clinical context: August 04: White count 4.7 hemoglobin 9.2 platelets 124 July 26: White count 4.5 hemoglobin 10 platelets 121 potassium 4.8 creatinine 0.65 July 11, 2024: White count 4.1 hemoglobin 10.5 platelets 175 Assessment plan: -Postoperative Diagnosis: 1.L4-5 Grade II spondylolisthesis 2.L4-5 spondylosis with stenos 3.Neurogenic claudication 4. s/p 360 cervical revision decompression and fusion 5. Right knee MCL sprain Procedure(s) Performed: 1. L4-5 INTRADISCAL OSTEOTOMY, 3 COLUMN FOR DEFORMITY CORRECTION 2. L4-5 POSTEROLATERAL AND INTERBODY FUSION 3. L4-5 POSTERIOR INSTRUMENTATION SCREWS AND RODS 4. L4-5 LAMINECTOMY, FACETECTOMY AND FORAMINOTOMY FOR COMPLETE NEURAL DECOMPRESSION, DEFORMITY CORRECTION AND CAGE PLACEMENT 5. INSERTION OF INTERBODY DEVICE, CAGE x1 6. USE OF 1001 Menus NAVIGATION FOR ASSISTANCE WITH ACCURATE PLACEMENT OF SCREWS Implants: -COLBY EVEREST RODS AND SCREWS -GLOBUS SABLE CAGE 8 DEG, MED 9-17MM, 12 MM -ARTHROCELL, ALLOCELL, AUTOGRAFT, MAGNATOS Surgeon Dr. Hernández: July 25, 2024 Activity as tolerated per surgery Having significant pain.-Did walk 120 feet today. -History of gastric bypass Philip-en-Y surgery 2002 with revision in 2012 -History of anastomotic ulcer Philip-en-Y gastric bypass as per EGD by Dr. Brenda Hernandez on December 2023 Protonix -Chronic mild dysphagia with food feeling getting stuck sometimes lower end of chest. Patient able to tolerate a soft diet. Does follow with Dr. Brenda Hernandez outpatient -Intermittent asthma Albuterol as needed -Chronic muscle spasms Baclofen as needed -Normocytic anemia -Hypothyroid Synthroid 50 mcg a day -Chronic urine incontinence Oxybutynin 5 mg twice daily -Obstructive sleep apnea. Patient did have surgery prior. Does use CPAP -Irritable bowel syndrome Continues to improve Thank you Dr. Hernández will follow Past Medical History Past Medical History: Asthma, Diabetes Mellitus, Eye Disorder, Fibromyalgia, Osteoarthritis (OA), Skin Disorder, Sleep Apnea/CPAP/BIPAP, Thyroid Disorder Additional Past Medical History / Comment(s): thinks may have MS hx macula spot on one eye,glaucoma brit eyes,Nephrolithiasis , cyst on kidney, Herniated discs with chronic back pain. , Hidradenitis groins/thighs with cellulitis/wounds now healed (had surgery and wound vacs). Migraines. ,NIDDM type II-diet controlled since wt loss with bariatric surgery Arthritis., Hx of bleeding hemorroids, IBS. Pancreatitis prior to cholecystectomy. Sinus problems., Hx of stomach ulcer. back and neck pain, uses bipap-9 air pressure History of Any Multi-Drug Resistant Organisms: MRSA Year Discovered:: 09/20/16 MDRO Source:: BOTH THIGH Past Surgical History: Bariatric Surgery, Section, Cholecystectomy, Hernia Repair, Orthopedic Surgery, Tonsillectomy Additional Past Surgical History / Comment(s): Gastric bypass [address] Andrew with revision about 2012, panniculectomy, August 2016: Excess skin removal from bilateral thighs/panniculitis with debridements/wound vacs. Bilateral carpal tunnel. Right rotator cuff. Sinus surgery. Nerve blocks to neck and back. Cervical fusions (C-5-6-7), Sleep Apnea surgery,eye procedure brit eyes for tx of glaucoma,abdominal hernia repair Past Anesthesia/Blood Transfusion Reactions: No Reported Reaction, Motion Sickness Additional Past Anesthesia/Blood Transfusion Reaction / Comm: no blood transfusion. was hard to wake up after 10 hr neck surgery Smoking Status: Former smoker Assessment: L4-5 Grade II spondylolisthesis;L4-5 spondylosis with stenosis;Neurogenic claudication Plan - Discharge Summary Discharge Rx Participant: No New Discharge Prescriptions: New cefaDROXiL [Duricef] 500 mg PO Q12HR 5 Days #10 cap Sennosides/Docusate Sodium [Senna Plus 8.6-50 mg Softgel] 1 each PO DAILY #20 capsule oxyCODONE HCL [oxyCODONE HCL (IR)] 10 mg PO Q4-6H #18 tab Continue Albuterol Sulfate [Proair Hfa] 2 puff INHALATION RT-Q6H PRN PRN Reason: Wheezing Dextroamphetamine/Amphetamine [Adderall] 15 mg PO TID Butalb/APAP/Caff 50-325-40Mg [Fioricet 50-325-40] 1 tab PO Q6H PRN PRN Reason: Pain Baclofen 10 mg PO BID-W/MEALS Oxybutynin Chloride 5 mg PO BID Baclofen [Lioresal] 20 mg PO HS Multivitamins, Thera [Multivitamin (formulary)] 1 tab PO DAILY Vortioxetine Hydrobromide [Trintellix] 20 mg PO 1700 Loratadine [Claritin] 10 mg PO DAILY Meclizine [Antivert] 12.5 mg PO BID PRN PRN Reason: dizziness OXcarbazepine 450 mg PO HS Gabapentin 800 mg PO QID Sucralfate [Carafate] 1 gm PO QID Pantoprazole [Protonix] 40 mg PO BID Ubrogepant [Ubrelvy] 100 mg PO DAILY PRN PRN Reason: migraines Cholecalciferol [Vitamin D3 (10 Mcg = 400 Iu)] 10 mcg PO DAILY Levothyroxine Sodium [Synthroid] 50 mcg PO QAM Carboxymethylcellulose Sodium [Refresh Tears] 1 drop BOTH EYES BID No Action Erenumab-Aooe [Aimovig Autoinjector] 140 mg SQ Q30D HYDROcodone/APAP 10-325MG [[place] 10-325] 1 tab PO TID Discharge Medication List Albuterol Sulfate [Proair Hfa] 2 puff INHALATION RT-Q6H PRN 11/08/13 [History] Dextroamphetamine/Amphetamine [Adderall] 15 mg PO TID 09/14/17 [History] Baclofen 10 mg PO BID-W/MEALS 05/06/20 [History] Butalb/APAP/Caff 50-325-40Mg [Fioricet 50-325-40] 1 tab PO Q6H PRN 05/06/20 [History] Oxybutynin Chloride 5 mg PO BID 05/06/20 [History] Baclofen [Lioresal] 20 mg PO HS 06/10/20 [History] Multivitamins, Thera [Multivitamin (formulary)] 1 tab PO DAILY 06/10/20 [History] Gabapentin 800 mg PO QID 09/17/21 [History] Vortioxetine Hydrobromide [Trintellix] 20 mg PO 1700 09/17/21 [History] Erenumab-Aooe [Aimovig Autoinjector] 140 mg SQ Q30D 03/24/22 [History] Loratadine [Claritin] 10 mg PO DAILY 03/24/22 [History] Pantoprazole [Protonix] 40 mg PO BID 03/24/22 [History] Sucralfate [Carafate] 1 gm PO QID 03/24/22 [History] Ubrogepant [Ubrelvy] 100 mg PO DAILY PRN 03/24/22 [History] HYDROcodone/APAP 10-325MG [[place] 10-325] 1 tab PO TID 12/27/23 [History] Carboxymethylcellulose Sodium [Refresh Tears] 1 drop BOTH EYES BID 07/20/24 [History] Cholecalciferol [Vitamin D3 (10 Mcg = 400 Iu)] 10 mcg PO DAILY 07/20/24 [History] Levothyroxine Sodium [Synthroid] 50 mcg PO QAM 07/20/24 [History] Meclizine [Antivert] 12.5 mg PO BID PRN 07/20/24 [History] OXcarbazepine 450 mg PO HS 07/20/24 [History] Sennosides/Docusate Sodium [Senna Plus 8.6-50 mg Softgel] 1 each PO DAILY #20 capsule 07/28/24 [Rx] cefaDROXiL [Duricef] 500 mg PO Q12HR 5 Days #10 cap 07/28/24 [Rx] oxyCODONE HCL [oxyCODONE HCL (IR)] 10 mg PO Q4-6H #18 tab 07/28/24 [Rx] Follow up Appointment(s)/Referral(s): Abilio Mccollum DO [Primary Care Provider] - 1 Week (Office statd they will call patient with appointment time and date) [facility], [NON-STAFF] - 1-2 Days ([facility] will call you to schedule your in home nursing and physical therapy visits. ) Andreas Hernández DO [Doctor of Osteopathic Medicine] - 08/09/24 10:45 am Activity/Diet/Wound Care/Special Instructions: Spine Discharge and Recovery Instructions Date of Surgery: 07/25/2024 Diagnosis: L4-5 Grade II spondylolisthesis;L4-5 spondylosis with stenosis;Neurogenic claudication Procedure: L4-L5 MIS posterior lateral interbody fusion Medications: See medication list All medication refills should be obtained through your primary care doctor or your clinic spine surgeon. Please discuss prescription refills at your follow up appointment. Do not call the hospital for medication refills. Dressing: Leave your dressing in place for a total of 5 days post operatively. Then you may remove your dressing and leave open to air. Keep the area clean and if not able to keep area clean, then cover with sterile gauze and tape. Showering: You may shower 3 days after your procedure allowing soap and water to run over incision. Do not scrub. Do not soak. Blot dry. Follow up: Please confirm a follow up appointment with your surgeon 3 weeks post operatively. Please make an appointment to follow up with your PCP in 1-2 weeks after surgery for evaluation '3 phase, 3-week plan' POST OP WEEKS 1-3 1. Lifting/carrying/pushing/pulling limited to less than 5 pounds. 2. Do not sit for longer than 15 minutes at one time. Get up and walk around. Prolonged sitting is NOT advised. If you lay down, see if you can tolerate laying down on you front (belly side) 3. Walk for periods of 15 minutes = 1 mile but no longer; do it multiple times times each day. 4. Ice your low back after activity. POST OP WEEKS 3-6 1. Lifting limited to less than 20 pounds. 2. Do not sit for longer than 30 minutes at a time. Frequently change p ositions. Use a sit-to stand workstation or take frequent breaks from sitting if you have returned to work. 3. Walk for 30 minutes each day. If possible, do these three or more times a day POST OP WEEKS 6+ At your 6-week appointment we will give you a physical therapy referral to focus on a core stabilization and strengthening program. You should also work on leg & buttock strengthening, hamstring & quadriceps stretching, and continue a low impact aerobic activity program such as swimming, walking, or riding a stationary bicycle. During the initial 6 weeks after your surgery, you are at the highest risk of re-injuring your spine. You should generally avoid BLT's (bending, lifting and twisting combination motions) and follow the above guidelines to reduce the chance of reinjury. You can anticipate post op appointments in our office at approximately 3 weeks and 6 weeks after your surgery. INCISION CARE: If your incision is not draining you do NOT need to cover it with a dressing. Keep your incision clean, dry and intact. In most cases, we apply skin glue, cynthia or sutures to the incision at the time of surgery. This will be like a crust or have the appearance of a scab and will fall off in time on its own. The stitches or cynthia need to be removed at 3 weeks post op appointment. You may begin to shower 3 days after surgery (this allows the glue to castro well). However, please avoid scrubbing the incision site or peeling off any of the skin glue. This will ensure optimal healing of your incision. Also, during this time avoid soaking the incision area in water - this includes swimming pools, hot tubs or baths. No ointments, lotions or oils on the incision until your surgeon allows. Leave cynthia, sutures or glue in place. Neurological dysfunction that comes on suddenly can also be a sign of a stroke. Below some common symptoms of a stroke are listed: B - balance difficulty such as sudden onset walking or leaning to one side - NEW E - eye problem such as sudden double vision or trouble seeing on one side - NEW F - Facial weakness or numbness on one side - NEW A - Arm or leg weakness or numbness on one side - NEW S - Slurred speech or difficulty with word finding - NEW T - Time is BRAIN! Call 911 as soon as you recognize these symptoms Diet: Consume a regular diet rich in vegetables and lean protein such as chicken or fish. You should consume in a ratio of approximately 20% fats|40% carbohydrates|40%protein. Vegetables, sweet potatoes, brown rice or quinoa are examples of good carbohydrates. Chips, white bread, cookies and sweets/sugar are examples of bad carbohydrates. Limit your bad carbs, go wild with good carbs. "Life's Simple 7" Guidelines as per [place] [employer] These will help you reclaim your life after surgery and house carpenter helper in your recovery, keeping in mind your restrictions. (1) Get Active. Physical activity can help people lose weight, control high blood pressure and cholesterol, feel emotionally better, and sleep better. (2) Control Cholesterol. Avoid a diet high in saturated fat, trans fat, & cholesterol. Limit whole milk & cream, ice cream, butter, egg yolks, processed meats (like sausage and hot dogs), and fatty meats. Choose healthy foods that are low in saturated fat, trans fat and cholesterol which include: Fruits and vegetables, fiber rich grain products (like whole grain pasta and brown rice), lean meat such as chicken, fish, nuts, seeds, and legumes. (3) Eat Better. Eat small portions. Shop at the grocery with a list and do not stray from it. Tips for a healthy diet include: Limit sodium intake to less than 1500mg daily, avoid prepackaged, processed, and fast foods, choose a diet rich in fruits, vegetables, and whole grain, high fiber foods, and limit saturated & cholesterol in your diet. (4) Manage Blood Pressure. If you have high blood pressure, you should have a cuff at home so that you can check your blood pressure regularly. Be sure you have a good cuff. An arm one is generally better than a wrist one. Bring the cuff to a doctor's appointment to validate that the measurements that your cuff are taking are accurate. Take your blood pressure twice daily when you are sitting down and relaxing. Record the numbers in a log and bring this log with you to your doctors' appointments. (5) Lose Weight if your BMI is above 25. A healthy BMI is between 19-25. To calculate Your BMI, you may use a Standard BMI Calculator on the NIH BMI website: <www.nhlbi.nih.gov/guidelines/obesity/BMI/bmicalc.htm>. Weigh oneself daily. If you are overweight, set a goal to lose weight. A pound a week loss if needed is a good target. (6) Reduce Blood Sugar. Limit foods and liquids with "added sugars." (Added sugars include sucrose, fructose, glucose, maltose, dextrose, high fructose corn syrup, corn syrup, concentrated fruit juice and honey). (7) Stop Smoking. If you smoke, quitting smoking is one of the best things that you can do for your health. Smoking increases your risk of heart attack, stroke, and peripheral vascular disease, which is a build-up of plaque in your arteries. Please discard all the cigarettes and lighters in your house. Have a plan for what you will do when you have the urge to smoke. Direct and second- hand smoke shortens your life as well as the lives of your family, friends and others around you. For your health and the health of those around you, please consider quitting! Proper Bending Body Mechanics: Maintain a wide stance with one foot slightly in front of the other. Keep your back straight. Bend utilizing the strength in your hips and knees. Do not bend at the waist. Maintain the lifted object at your waist-level close to your body. Avoid lifting weight that causes immediately pain or pain anywhere in the body afterwards. Smoking/Nicotine If there was ever one thing that you could do to increase your overall health, decrease your risk of cardiovascular problems by about 39% the second you make the choice, it is to STOP SMOKING. Your body's most instant gratification is the second you stop smoking. We have all heard the studies, read the articles but it is true, smoking is extremely bad for your overall health, and moreover it is detrimental to your bone health. Nicotine, IN ANY FORM, kills bone cells, prevents your body from healing fractures, and significantly prolongs healing after surgery. In spine surgery specifically, it increases your risk of not healing your bones to create a fusion and increases your risk of having a revision surgery due to this up to 60%. I know it is hard. I know it feels impossible. But there are ways. Take control of your life. We are here to help you through it. And when you are ready, ask us and we can direct you to help if you desire. Use the START Plan to Quit Smoking (please visit the Helpguide.org website listed below for more information): S = Set a quit date. Choose a date within the next 2 weeks, so you have enough time to prepare without losing your motivation to quit. If you mainly smoke at work, quit on the weekend, so you have a few days to adjust to the change. T = Tell family, friends, and co-workers that you plan to quit. Let your friends and family in on your plan to quit smoking and tell them you need their support and encouragement to stop. Look for a quit brittany who wants to stop smoking as well. You can help each other get through the rough times. A = Anticipate and plan for the challenges you'll face while quitting. Most people who begin smoking again do so within the first 3 months. You can help yourself make it through by preparing ahead for common challenges, such as nicotine withdrawal and cigarette cravings. R = Remove cigarettes and other tobacco products from your home, car, and work. Throw away all your cigarettes (no emergency pack!), lighters, ashtrays, and matches. Wash your clothes and freshen up anything that smells like smoke. Shampoo your car, clean your drapes and carpet, and steam your furniture. T = Talk to your doctor about getting help to quit. Your doctor can prescribe medication to help with withdrawal and suggest other alternatives. If you can't see a doctor, you can get many products over the counter at your local pharmacy or grocery store, including the nicotine patch, nicotine lozenges, and nicotine gum. Resources for Quitting Smoking: <https://www.[place].gov/documents/[facility]/Quit_Tobacco_Resources_for_patients_313 480_7.pdf> Supplementation: Take recommended dosages of Vitamin D and Calcium to help fortify your bones and help them to heal. See your health maintenance packet for dosages and recommended levels. DVT/VTE prophylaxis: You will be given compression stockings from the hospital. Wear these daily for the first two weeks after surgery. You may take them off at night. You may be prescribed a medication to help thin your blood. Take this as directed. If you are not prescribed this medication, early and frequent ambulation has been shown to be the best prophylaxis to deep vein thrombosis and sequelae related to this event. Discharge Disposition: HOME SELF-CARE
== END 2024-07-28 17:32 | disposition home or self-care (01) | DRG 402 ==
LOC: OR 07:51 → 4SSUR 12:01 → OR 07-27 13:05 → 4SSUR 07-27 13:05
PROVIDERS: ADMIT Orthopaedic Surgery; ATTEND Orthopaedic Surgery
PROC: 0SG0071 Fusion of Lumbar Vertebral Joint with Autologous Tissue Substitute, Posterior Approach, Posterior Column, Open Approach (ICD-10-PCS; 2024-07-25)
PROC: 0ST20ZZ Resection of Lumbar Vertebral Disc, Open Approach (ICD-10-PCS; 2024-07-25)
PROC: 01NB0ZZ Release Lumbar Nerve, Open Approach (ICD-10-PCS; 2024-07-25)
PROC: 00NY0ZZ Release Lumbar Spinal Cord, Open Approach (ICD-10-PCS; 2024-07-25)
PROC: 4A11X4G Monitoring of Peripheral Nervous Electrical Activity, Intraoperative, External Approach (ICD-10-PCS; 2024-07-25)
PROC: 8E0WXBG Computer Assisted Procedure of Trunk Region, With Computerized Tomography (ICD-10-PCS; 2024-07-25)
PROC: 0SG00AJ Fusion of Lumbar Vertebral Joint with Interbody Fusion Device, Posterior Approach, Anterior Column, Open Approach (ICD-10-PCS; principal; 2024-07-25 09:45)
DX: M48.062 Spinal stenosis, lumbar region with neurogenic claudication (principal); R13.10 Dysphagia, unspecified; D64.9 Anemia, unspecified; E03.9 Hypothyroidism, unspecified; E11.9 Type 2 diabetes mellitus without complications; F17.210 Nicotine dependence, cigarettes, uncomplicated; Z68.41 Body mass index [BMI] 40.0-44.9, adult; J45.20 Mild intermittent asthma, uncomplicated; K90.41 Non-celiac gluten sensitivity; M47.26 Other spondylosis with radiculopathy, lumbar region; Z79.890 Hormone replacement therapy; G47.33 Obstructive sleep apnea (adult) (pediatric); G89.29 Other chronic pain; M43.16 Spondylolisthesis, lumbar region; K58.9 Irritable bowel syndrome, unspecified; M79.7 Fibromyalgia; R32 Unspecified urinary incontinence; Z79.899 Other long term (current) drug therapy; Z79.84 Long term (current) use of oral hypoglycemic drugs; Z87.11 Personal history of peptic ulcer disease; Z98.84 Bariatric surgery status; S83.411A Sprain of medial collateral ligament of right knee, initial encounter; Z98.1 Arthrodesis status; Z56.0 Unemployment, unspecified; Z88.6 Allergy status to analgesic agent; Z90.49 Acquired absence of other specified parts of digestive tract; Z86.14 Personal history of Methicillin resistant Staphylococcus aureus infection
CPT/HCPCS: 72100; 72131; 80048; 82607; 82728; 82746; 83540; 83550; 85025; 85027; 87040

== ENCOUNTER → 2024-09-11 | Outpatient (CLI) | payer MEDICARE ==
--- NOTE | 2024-09-11 18:36 | CT ---
EXAMINATION TYPE: CT sinus wo con DATE OF EXAM: 09/11/2024 COMPARISON: NONE CLINICAL INDICATION: Female, 54 years old with history of J32.9, Chronic sinusitis, TECHNIQUE: CT scan of the sinuses performed without contrast, patient injected with mL of .(none if empty) CT DLP: 625 mGycm, Automated exposure control for dose reduction was used. TECHNIQUE: CT scan of the sinuses is performed without contrast, axial images are obtained, coronal r eformatted images are also reviewed. FINDINGS: There is a 1.6 cm mucous retention cyst or polyp in the posterior right ethmoid sinus axial image 27. Remainder of the paranasal sinuses are clear without suspicious opacification or air-fluid levels. The ostiomeatal complex is patent bilaterally on coronal image 41. Visualized portion of mastoid air cells show no abnormal opacification. The globes are intact bilate rally. Visualized brain parenchyma is unremarkable. IMPRESSION: Chronic posterior right ethmoid sinus disease. No acute sinusitis. [facility], , 09/11/2024 6:34 PM
== END | disposition home or self-care (01) ==
LOC: RADCTMAIN 15:58
PROVIDERS: ATTEND Otolaryngology
DX: J32.2 Chronic ethmoidal sinusitis (principal)
CPT/HCPCS: 70486

== ENCOUNTER → 2024-09-11 | Outpatient (CLI) | payer MEDICARE ==
--- NOTE | 2024-09-11 16:53 | US ---
EXAMINATION TYPE: US kidneys/renal and bladder DATE OF EXAM: 09/11/2024 COMPARISON: CT: 11/13/21 CLINICAL INDICATION: Female, 54 years old with history of N28.89 MASS; ckd TECHNIQUE: Grayscale imaging of the bilateral kidneys and urinary bladder: FINDINGS: EXAM MEASUREMENTS: Right Kidney: 10.9 x 5.9 x 5.5 cm Left Kidney: 11.3 x 4.6 x 5.7 cm Right Kidney: No hydronephrosis or masses seen Left Kidney: No hydronephrosis or masses seen Bladder: slightly limited due to bowel gas Bilateral Jets seen: Yes There is no evidence for hydronephrosis at this point in time. No nephrolithiasis is seen. No vandana s are identified. The urinary bladder is anechoic. IMPRESSION: No hydronephrosis is seen bilaterally. [facility], , 09/11/2024 4:51 PM
[2024-09-11 21:29] LABS: Alternaria alternata IgE <0.10 kU/L; Aspergillus fumagatus IgE <0.10 kU/L; Birch IgE <0.10 kU/L; Cat Epith & Dander IgE <0.10 kU/L; Cladosporian herbarum IgE <0.10 kU/L; Cockroach IgE <0.10 kU/L; Dermato. farinae IgE <0.10 kU/L; Dog Dander IgE <0.10 kU/L; Elm IgE <0.10 kU/L; Maple (Box Elder) IgE 0.11 kU/L; Oak IgE <0.10 kU/L; Ragweed,Common IgE <0.10 kU/L; Red Top (Bentgrass) IgE <0.10 kU/L
[2024-09-11 23:12] LABS: Immunoglobulin E 7.64 IU/mL (0.00-114.00)
[2024-09-12 02:36] LABS: Basophils # (A) 0.03 X 10*3/uL (0.00-0.10); Basophils % (A) 0.8 %; Eosinophils # (A) 0.07 X 10*3/uL (0.04-0.35); Eosinophils % (A) 1.9 %; HCT 33.7 % (37.2-46.3); HGB 10.2 g/dL (12.0-15.0); Lymphocytes # (A) 0.85 X 10*3/uL (0.90-5.00); Lymphocytes % (A) 22.6 %; MCH 27.4 pg (27.0-32.0); MCHC 30.3 g/dL (32.0-37.0); MCV 90.6 FL (80.0-97.0); Mean Platelet Volume 11.7 FL (9.5-12.2); Monocytes # (A) 0.33 X 10*3/uL (0.20-1.00); Monocytes % (A) 8.8 %; NRBC Per 100 WBC 0 X 10*3/uL (0.00-0.01); Neutrophils # (A) 2.47 X 10*3/uL (1.80-7.70); Neutrophils % (A) 65.6 %; Platelet Count 207 X 10*3/uL (140-440); RBC 3.72 X 10*6/uL (4.10-5.20); RDW 12.9 % (11.5-14.5); WBC 3.76 X 10*3/uL (4.50-10.00)
== END | disposition home or self-care (01) ==
LOC: RADUSWWP 16:02
PROVIDERS: ATTEND Family Medicine
DX: N28.89 Other specified disorders of kidney and ureter (principal); E61.1 Iron deficiency
CPT/HCPCS: 76770; 82785; 85025; 86003

== ENCOUNTER → 2024-09-21 | Outpatient (CLI) | payer MEDICARE | END | disposition home or self-care (01) | LOC: LABPRL 12:15 | PROVIDERS: ATTEND Family Medicine | DX: E61.1 Iron deficiency (principal) | CPT/HCPCS: 82272 ==

== ENCOUNTER → 2024-10-02 | Outpatient (CLI) | payer MEDICARE ==
--- NOTE | 2024-10-02 09:28 | US ---
EXAMINATION TYPE: US abdomen complete DATE OF EXAM: 10/02/2024 COMPARISON: CT 11/13/2021 CLINICAL INDICATION: Female, 54 years old with history of R94.5 ABN RESULTS OF LIVER FUNCTIONS; eleva amado LFTs TECHNIQUE: Grayscale and color Doppler imaging of the abdomen was performed. FINDINGS: EXAM MEASUREMENTS: Liver Length: 14.6 cm Gallbladder: Surgically absent CBD: 1.0 cm, color Doppler imaging was utilized to isolate the common bile duct for measurement. Spleen: 10.1 cm Right Kidney: 10.7x5.9x5.9 cm Left Kidney: 11.2x5.2x5.5 cm TOUR NARRATOR NOTES: exam extremely limited by bowel gas and large body habitus Pancreas: Obscured by bowel gas Liver: Fairly homogeneous appearance allowing for limitations from body habitus. No dilated ducts, m asses or cysts. Gallbladder: Surgically absent Evidence for sonographic Yates's sign: No CBD: Dilated Spleen: wnl Right Kidney: poorly defined 4.0x2.9x3.4cm area lower renal hilum first noted on 07/25/[address] Left Kidney: wnl, No hydronephrosis, calculi or masses seen Upper IVC: wnl Abd Aorta: obscured except for distal portion, wnl as best visualized IMPRESSION: 1. Possibly centrally located lower pole right renal mass measuring up to 4.0 cm. Recommend further a ssessment with contrast enhanced renal mass protocol CT or MRI. RCC not excluded at this time. 2. Dilated bile duct at 1.0 cm, likely due to chronic postcholecystectomy status. Correlate with blade line phosphatase and bilirubin levels. [facility], , 10/02/2024 9:25 AM
== END | disposition home or self-care (01) ==
LOC: RADUSWWP 08:17
PROVIDERS: ATTEND Internal Medicine Hematology & Oncology
DX: R94.5 Abnormal results of liver function studies (principal); R51.9 Headache, unspecified; M12.9 Arthropathy, unspecified; J45.998 Other asthma; K83.8 Other specified diseases of biliary tract
CPT/HCPCS: 76700

== ENCOUNTER → 2024-10-23 | Outpatient (CLI) | payer MEDICARE, OTHER ==
--- NOTE | 2024-10-23 10:55 | XR ---
EXAMINATION TYPE: XR abdomen 1V DATE OF EXAM: 10/23/2024 10:48 AM CLINICAL INDICATION: Female, 54 years old with history of R19.4 CHANGE IN BOWEL HABIT, pain TECHNIQUE: 2 supine views of the abdomen. COMPARISON: CT November 13, 2021. FINDINGS: Structural changes epigastric region are redemonstrated Scattered gas is seen in non-disten ded small bowel loops. Gas and fecal material is seen in non-distended colon. Mild to moderate coloni c fecal prominence in the right and transverse colon and sigmoid colon. Surgical changes L4-L5 level are now present. Cholecystectomy clips are redemonstrated. Lung bases are clear. Surgical sutures lef t mid abdomen are redemonstrated. Metallic IUD in the pelvis again seen. Scattered small bilateral pe lvic phleboliths noted. IMPRESSION: Overall nonobstructive bowel gas pattern. [id number] diffuse colonic fecal stasis or constipati on is seen. [facility], , 10/23/2024 10:53 AM
== END | disposition home or self-care (01) ==
LOC: RADXRMAIN 10:33
PROVIDERS: ATTEND Internal Medicine Gastroenterology
DX: R19.4 Change in bowel habit (principal)
CPT/HCPCS: 74018

== ENCOUNTER → 2024-12-20 | Outpatient (CLI) | payer MEDICARE ==
--- NOTE | 2024-12-20 16:22 | XR ---
EXAMINATION TYPE: XR chest 2V DATE OF EXAM: 12/20/2024 4:18 PM COMPARISON: 06/12/2020 CLINICAL INDICATION: Female, 54 years old with history of D41.01 Z01.818 ENCOUNTER FOR OTHER PREPROCE DURAL EXAM, kidney surgery scheduled next Wednesday TECHNIQUE: Frontal and lateral views FINDINGS: Posterior cervical fusion hardware. The cardiomediastinal silhouette, aorta, and pulmonary vasculatur e are within normal limits. Lungs and pleural spaces are clear. IMPRESSION: No acute cardiopulmonary process. [facility], Workstation: [facility], 12/20/2024 4:19 PM
[2024-12-20 19:04] LABS: Basophils # (A) 0.04 X 10*3/uL (0.00-0.10); Basophils % (A) 0.8 %; Eosinophils # (A) 0.14 X 10*3/uL (0.04-0.35); Eosinophils % (A) 2.7 %; HCT 35.3 % (37.2-46.3); HGB 11.7 g/dL (12.0-15.0); Immature Grans, Automated 0.40 %; Lymphocytes # (A) 1.11 X 10*3/uL (0.90-5.00); Lymphocytes % (A) 21.2 %; MCH 30.2 pg (27.0-32.0); MCHC 33.1 g/dL (32.0-37.0); MCV 91.2 FL (80.0-97.0); Monocytes # (A) 0.37 X 10*3/uL (0.20-1.00); Monocytes % (A) 7.1 %; NRBC Per 100 WBC 0 X 10*3/uL (0.00-0.01); Neutrophils # (A) 3.56 X 10*3/uL (1.80-7.70); Neutrophils % (A) 67.8 %; Platelet Count 179 X 10*3/uL (140-440); RBC 3.87 X 10*6/uL (4.10-5.20); RDW 15.4 % (11.5-14.5); WBC 5.24 X 10*3/uL (4.50-10.00)
[2024-12-20 19:12] LABS: Anion Gap 11.30 mmol/L (4.00-12.00); BUN/Creat Ratio 23.29 Ratio (12.00-20.00); Blood Urea Nitrogen 16.3 mg/dL (9.0-27.0); Calcium 9.5 mg/dL (8.7-10.3); Carbon Dioxide 24.7 mmol/L (21.6-31.8); Chloride 106 mmol/L (96-109); Glucose 143 mg/dL (70-110); Potassium 4.4 mmol/L (3.5-5.5); Sodium 142 mmol/L (135-145)
[2024-12-20 19:32] LABS: Bilirubin,Urine Negative (Negative); Blood,Urine Negative (Negative); Color,Urine Yellow (Yellow); Ketones,Urine Negative (Negative); Nitrite,Urine Negative (Negative); PH, Urine 6.5; Specific Gravity,Urine 1.005 (1.001-1.030); Urobilinogen,Urine 0.2 E.U./DL
[2024-12-20 19:43] LABS: Bacteria,Urine None Seen (None Seen)
== END | disposition home or self-care (01) ==
LOC: LABPAT 12:47
PROVIDERS: ATTEND Urology
DX: Z01.818 Encounter for other preprocedural examination (principal); D41.01 Neoplasm of uncertain behavior of right kidney; I49.9 Cardiac arrhythmia, unspecified
CPT/HCPCS: 71046; 80048; 81001; 85025; 86850; 86900; 86901; 87086

== ENCOUNTER 2024-12-29 05:40 | Inpatient (IN) | payer MEDICARE ==
[2024-12-25 11:09] VITALS: BMI 40.7
--- NOTE | 2024-12-28 21:45 | P.HPIHPCON ---
History of Present Illness H&P Date: 12/28/24 Chief Complaint: Right renal mass This is a 54-year-old female with history of a 4 cm right sided endophytic renal mass. I reviewed the images with the patient and her daughter discussed with them this lesion is not amenable to a partial nephrectomy given the extension into the collecting system and proximity to the hilar vessels. Option of a robotic right sided radical nephrectomy was discussed. They are aware of the risk which include but not limited to bleeding, infection, injury to nearby organs. Discussed also the risk of cancer recurrence and the need for additional treatments. Discussed potential this could be a benign etiology also, and discussed the option of a renal biopsy. Discussed the risk of needing hemodialysis in the short and the long-term. Potential of converting to open was also discussed. She understood all the risk and agreed to proceed Consent for Procedure: I have explained the operation/procedure to the patient, including the risks, benefits, side effects, alternative therapies (including not receiving the proposed treatment or service), the likelihood of the patient achieving his/her goals, and potential recuperation problems for the procedure/sedation/analgesia, as well as any blood products, if indicated. I also explained to the patient the risks, benefits and side effects of the alternatives, as well as the risks related to not receiving the proposed procedure, care, treatment, or services. Past Medical History Past Medical History: Asthma, Cancer, Eye Disorder, Fibromyalgia, Osteoarthritis (OA), Skin Disorder, Sleep Apnea/CPAP/BIPAP, Thyroid Disorder Additional Past Medical History / Comment(s): Cancerous mass on R kidney, nephrolithiasis, Herniated discs with chronic back pain. , Hidradenitis groins/thighs with cellulitis/wounds now healed. Migraines, Past hx of NIDDM type II-diet controlled in pre-diabetic range since bariatric surgery. Hx of bleeding hemorroids, IBS. Pancreatitis prior to cholecystectomy. Sinus problems, Hx of stomach ulcer. Back and neck pain, has Bi-pap machine, doesn't use anymore. RECENT IRON INFUSION-09/28/24 FOR ANEMIA History of Any Multi-Drug Resistant Organisms: MRSA Date of last positivie culture/infection: 09/20/16 MDRO Source:: BOTH THIGH Past Surgical History: Back Surgery, Bariatric Surgery, Section, Cholecystectomy, Hernia Repair, Orthopedic Surgery, Tonsillectomy Additional Past Surgical History / Comment(s): Gastric bypass [address] Andrew with revision about 2012, panniculectomy, August 2016: Excess skin removal from bilateral thighs/panniculitis with debridements/wound vacs. Bilateral carpal tunnel. R rotator cuff. Sinus surgery. Nerve blocks to neck and back. 2 Cervical fusions, Sleep Apnea surgery. L4 decompression back surgery 07/25/24. Past Anesthesia/Blood Transfusion Reactions: No Reported Reaction Additional Past Anesthesia/Blood Transfusion Reaction / Comment(s): no hx of blood transfusion Smoking Status: Former smoker - Past Family History Mother Family Medical History: Coronary Artery Disease (CAD), Diabetes Mellitus Additional Family Medical History / Comment(s): Mother w/ hx of CABG-quadruple bypass. Maternal grandmother hx of CA-unknown type. Father Family Medical History: Diabetes Mellitus Additional Family Medical History / Comment(s): Pt does not have contact with her parents. Paternal grandmother w/ uterine CA. Daughter(s) Family Medical History: Deep Vein Thrombosis (DVT), Pulmonary Embolus Medications and Allergies Home Medications Medication Instructions Recorded Confirmed Type Albuterol Sulfate [Proair Hfa] 2 puff INHALATION RT-Q6H PRN 11/08/13 12/25/24 History Dextroamphetamine/Amphetamine 15 mg PO TID 09/14/17 12/25/24 History [Adderall] Baclofen 10 mg PO BID-W/MEALS 05/06/20 12/25/24 History Butalb/APAP/Caff 50-325-40Mg 1 tab PO Q6H PRN 05/06/20 12/25/24 History [Fioricet 50-325-40] Oxybutynin Chloride 5 mg PO BID 05/06/20 12/25/24 History Baclofen [Lioresal] 20 mg PO HS 06/10/20 12/25/24 History Multivitamins, Thera [Multivitamin 1 tab PO DAILY 06/10/20 12/25/24 History (formulary)] Gabapentin 800 mg PO QID 09/17/21 12/25/24 History Vortioxetine Hydrobromide 20 mg PO 1700 09/17/21 12/25/24 History [Trintellix] Erenumab-Aooe [Aimovig 140 mg SQ Q30D 03/24/22 12/25/24 History Autoinjector] Pantoprazole [Protonix] 40 mg PO BID 03/24/22 12/25/24 History Sucralfate [Carafate] 1 gm PO QID 03/24/22 12/25/24 History Ubrogepant [Ubrelvy] 100 mg PO DAILY PRN 03/24/22 12/25/24 History HYDROcodone/APAP 10-325MG [[place] 1 tab PO Q6H 12/27/23 12/25/24 History 10-325] Carboxymethylcellulose Sodium 1 drop BOTH EYES BID 07/20/24 12/25/24 History [Refresh Tears] Cholecalciferol [Vitamin D3 (10 10 mcg PO DAILY 07/20/24 12/25/24 History Mcg = 400 Iu)] Levothyroxine Sodium [Synthroid] 50 mcg PO QAM 07/20/24 12/25/24 History Meclizine [Antivert] 12.5 mg PO BID PRN 07/20/24 12/25/24 History OXcarbazepine 450 mg PO HS 07/20/24 12/25/24 History Fexofenadine HCl [Giovanna Allergy] 180 mg PO DAILY 11/08/24 12/25/24 History Allergies Allergy/AdvReac Type Severity Reaction Status Date / Time house dust Allergy Mild Cough Verified 12/25/24 11:10 grass pollen Allergy Cough Verified 12/25/24 11:10 morphine Allergy "feels Verified 12/25/24 11:10 like its hard to breath" gluten AdvReac foul gas Verified 12/25/24 11:10 and loose stools ibuprofen [From Motrin] AdvReac "eats my Verified 12/25/24 11:10 stomach" Surgical - Exam - General no distress, no pain - Eyes normal ocular movement, pale - ENT normal nares, normal mucosa - Respiratory normal expansion, normal respiratory effort Assessment and Plan Assessment: OR for robotic right sided radical nephrectomy
[2024-12-29] MEDS ORDERED: fentaNYL (PF) 50 MCG/ML 2 ML AMP IVP PRN (06:14)
[2024-12-29] MEDS ORDERED: HYDROmorphone 0.5 MG/0.5 ML SYRINGE IVP PRN (06:14)
[2024-12-29] MEDS ORDERED: LIDOCAINE 1% (10MG/ML) FOR IV START INTRADERMA PRN (06:14)
[2024-12-29] MEDS: IV FLUID CONTINUATION 1,000 ML IV ONE ×2 (06:18)
[2024-12-29] MEDS: MIDAZOLAM 2 MG/2 ML VIAL IV PRN (06:58)
[2024-12-29] MEDS: DEXAMETHASONE SOD PHOSPHATE 4 MG/ML 1 ML VIAL IV ONE (07:08)
[2024-12-29] MEDS: ONDANSETRON 4 MG/2 ML VIAL IVP ONE (07:08)
[2024-12-29] MEDS: BUPIVACAINE (PF) 0.25% 30 ML VIAL SQ ONE ×2 (07:30→10:54)
[2024-12-29] MEDS ORDERED: ALBUTEROL NEBULIZED 2.5 MG/3 ML INHALATION PRN (07:40)
[2024-12-29] MEDS ORDERED: MECLIZINE 12.5 MG TAB PO PRN (07:40)
[2024-12-29] MEDS ORDERED: GLYCOPYRROLATE 0.2 MG/ML 2 ML VIAL ONE (07:55)
[2024-12-29] MEDS ORDERED: SUCCINYLCHOLINE CHLORIDE 200 MG/10 ML VIAL IV ONE (07:55)
[2024-12-29] MEDS ORDERED: PROPOFOL 10 MG/ML 20 ML VIAL IV ONE (07:55)
[2024-12-29] MEDS ORDERED: fentaNYL (PF) 50 MCG/ML 2 ML AMP ONE (07:55)
[2024-12-29] MEDS ORDERED: HYDROmorphone (PF) 1 MG/ML ONE (07:55)
[2024-12-29] MEDS ORDERED: ROCURONIUM 10 MG/ML (5 ML VIAL) IV ONE (07:55)
[2024-12-29] MEDS ORDERED: KETAMINE HCL IN 0.9 % NACL 50 MG/5 ML SYRINGE ONE (07:55)
[2024-12-29] MEDS ORDERED: LIDOCAINE 1% INJ 10MG/ML (20 ML MDV) ONE (07:55)
[2024-12-29] MEDS: LACTATED RINGERS 1,000 ML IV ONE (09:16)
--- NOTE | 2024-12-29 11:37 | P.OP ---
Date of Procedure: 12/29/24 Preoperative Diagnosis: Right renal mass Postoperative Diagnosis: Same Procedure(s) Performed: Robotic assisted laparoscopic radical nephrectomy on the right Anesthesia: KENYATTA Surgeon: Kenji Delgado Estimated Blood Loss (ml): 25 Pathology: other (Right kidney and mass) Condition: stable Disposition: PACU Indications for Procedure: This is a 54-year-old female with history of a 4 cm right sided endophytic renal mass. I reviewed the images with the patient and her daughter discussed with them this lesion is not amenable to a partial nephrectomy given the extension into the collecting system and proximity to the hilar vessels. Option of a robotic right sided radical nephrectomy was discussed. They are aware of the risk which include but not limited to bleeding, infection, injury to nearby organs. Discussed also the risk of cancer recurrence and the need for additional treatments. Discussed potential this could be a benign etiology also, and discussed the option of a renal biopsy. Discussed the risk of needing hemodialysis in the short and the long-term. Potential of converting to open was also discussed. She understood all the risk and agreed to proceed Description of Procedure: The patient was taken to the operating room . General anesthesia was induced. She was prepped and draped in sterile fashion, and was placed in modified flank position . All pressure points were padded. The abdominal insufflation was achieved with the Veress needle. A 8 mm camera port was placed. Robotic trocars and digital sales assistant ports were placed under direct vision. Patient had adhesion involving the omentum along the midline. Those were taken down laparoscopically using the laparoscopic LigaSure. There was no evidence of bowel injury, or bleeding. A 5 mm liver retractor was placed. . The robot was docked into place. The colon was mobilized medially by incising along the white line of Toldt. Next the duodenum was kocherized. At this time the vena cava was exposed. Next the ureter was retracted anteriorly off the psoas muscle. Dissection proceeded cranially towards the renal hilum. The upper pole attachments were dissected. Care was taken to safely mobilize the kidney free of all visceral structures.of note the liver was adherent to the kidney, secondary to her previous cholecystectomy. I was able to peel the liver off of the kidney, there was no injury to any other organs during mobilization. The renal vessels were dissected. At this point the renal vessels were exposed. Next the renal hilum was ligated using the vascular stapler. The adrenal gland was mobilized. Lateral and remaining kidney attachments were released. The ureter was dissected further distally. The ureter was ligated using the robotic vascular stapler. The adrenal gland was spared, and the plane between the kidney and the adrenal was using the robotic stapler. The kidney was placed in an Endo Catch bag. Hemostatic agent were applied to the surgical field. The robot was then de- docked and the specimen was then removed by extending the digital sales assistant port. Fascia was closed with one layer using #1 PDS skin was closed with subcuticular sutures and dermabond. The patient was awoken from general anesthesia in stable condition. Please refer to the final pathology report for final diagnosis
[2024-12-29 12:34] VITALS: RESP 16
[2024-12-29] MEDS: HEPARIN SODIUM,PORCINE 5,000 UNIT/ML 1 ML VIAL SQ SCH (13:17)
[2024-12-29] MEDS: LACTATED RINGERS 1,000 ML IV SCH (13:17)
[2024-12-29] MEDS: LORATADINE 10 MG TAB PO SCH (13:18)
[2024-12-29] MEDS: GABAPENTIN 400 MG CAP PO SCH (13:18)
[2024-12-29] MEDS: LEVOTHYROXINE 50 MCG TAB PO SCH (13:18)
[2024-12-29] MEDS: NON FORMULARY DRUG (Dextroamphetamine/Amphetamine [Adderall] 30 MG Tablet) PO SCH (13:18)
[2024-12-29] MEDS: SUCRALFATE 1 GM TAB PO SCH (13:21)
[2024-12-29] MEDS: PANTOPRAZOLE 40 MG TABLET PO SCH (13:21)
[2024-12-29] MEDS: HYDROcodone/APAP 10-325MG 1 EACH TAB PO SCH (13:28)
[2024-12-29] MEDS: DEXTROSE 5%-0.45% NACL 1,000 ML IV SCH (13:30)
[2024-12-29] MEDS: HYDROmorphone 1 MG/ML 1 ML SYRINGE IVP PRN (13:43)
[2024-12-29] MEDS: BACLOFEN 10 MG TAB PO SCH ×2 (16:51→20:13)
[2024-12-30 07:22] LABS: HCT 27.2 % (37.2-46.3); HGB 9.4 g/dL (12.0-15.0); MCH 30.7 pg (27.0-32.0); MCHC 34.6 g/dL (32.0-37.0); MCV 88.9 fL (80.0-97.0); Platelet Count 57 10*3/uL (140-440); RBC 3.06 10*6/uL (4.10-5.20); RDW 14.7 % (11.5-14.5); WBC 3.83 10*3/uL (4.50-10.00)
[2024-12-30] MEDS: ACETAMINOPHEN TAB 325 MG TAB PO PRN (07:34)
[2024-12-30] MEDS: BUTALB/APAP/CAFF 50-325-40MG TAB PO PRN (09:03)
[2024-12-30 09:57] LABS: African American GFR (CKD) 82 (>60 ml/min/1.73 sqM); Anion Gap 7 mmol/L; Blood Urea Nitrogen 9 mg/dL (7-17); Calcium 8.6 mg/dL (8.4-10.2); Carbon Dioxide 21 mmol/L (22-30); Chloride 106 mmol/L (98-107); Glucose 220 mg/dL (74-99); Non-African American GFR(CKD) 71 (>60 ml/min/1.73 sqM); Potassium 3.8 mmol/L (3.5-5.1); Sodium 134 mmol/L (137-145)
--- NOTE | 2024-12-30 10:47 | P.PN ---
Subjective Progress Note Date: 12/30/24 The patient underwent robotic assisted nephrectomy of the right kidney yesterday by . She is doing well. Her vital signs are stable. She is afebrile. Her urine is clear. She is not nauseated. Her abdomen is soft. There is no erythema or mass in the abdomen. Objective - Vital Signs Vital signs: Vital Signs Temp 99.7 F H 12/30/24 07:20 Pulse 85 12/30/24 08:40 Resp 16 12/30/24 08:40 BP 148/85 12/30/24 07:20 Pulse Ox 95 12/30/24 07:20 FiO2 Intake & Output 12/29/24 12/30/24 12/30/24 18:59 06:59 18:59 Intake Total 3850 Output Total 1135 2300 Balance 2715 -2300 Intake: IV 2350 Oral 1500 Output: Urine 1110 2300 Estimated Blood Loss 25 Other: Voiding Method Indwelling Catheter Indwelling Catheter - Labs CBC & Chem 7: 12/30/24 06:55 12/30/24 09:06 Labs: Abnormal Lab Results - Last 24 Hours (Table) 12/30/24 12/30/24 Range/Units 06:55 09:06 WBC 3.83 L (4.50-10.00) 10*3/uL RBC 3.06 L (4.10-5.20) 10*6/uL Hgb 9.4 L (12.0-15.0) g/dL Hct 27.2 L (37.2-46.3) % RDW 14.7 H (11.5-14.5) % Plt Count 57 L (140-440) 10*3/uL MPV 12.6 H (9.5-12.2) fL Sodium 134 L (137-145) mmol/L Carbon Dioxide 21 L (22-30) mmol/L Glucose 220 H (74-99) mg/dL Assessment and Plan Assessment: Impression: Postoperative day #1 status post robotic assisted right laparoscopic nephrectomy. Recommendations: The patient will ambulate. I will advance her diet to regular. I will cut back her IV fluids to 75 mL/h. Anticipate discharge in 24 to 48 hours.
[2024-12-30] MEDS: ONDANSETRON 4 MG/2 ML VIAL IVP PRN (13:18)
--- NOTE | 2024-12-31 09:37 | P.DS ---
Providers Date of admission: 12/29/24 05:40 Attending physician: Kenji Delgado MD Primary care physician: [facility] Course: The patient is 54. She underwent a robotic assisted right radical nephrectomy by Dr. Delgado on 12/29/2024. She has done well. She is tolerating regular diet. She is ambulating. Her pain is under control. Her urine output is good. She will be discharged home today in care of her family regular diet limit activity. She has pain medicine at home. She has been instructed to follow-up with Dr. Amado in 1 week. Postoperative instructions been given. She may shower. Her condition is good. Patient Condition at Discharge: Good Plan - Discharge Summary Discharge Rx Participant: No New Discharge Prescriptions: No Action Albuterol Sulfate [Proair Hfa] 2 puff INHALATION RT-Q6H PRN PRN Reason: Wheezing Dextroamphetamine/Amphetamine [Adderall] 15 mg PO TID Butalb/APAP/Caff 50-325-40Mg [Fioricet 50-325-40] 1 tab PO Q6H PRN PRN Reason: Pain Baclofen 10 mg PO BID-W/MEALS Oxybutynin Chloride 5 mg PO BID Baclofen [Lioresal] 20 mg PO HS Multivitamins, Thera [Multivitamin (formulary)] 1 tab PO DAILY Vortioxetine Hydrobromide [Trintellix] 20 mg PO 1700 Erenumab-Aooe [Aimovig Autoinjector] 140 mg SQ Q30D HYDROcodone/APAP 10-325MG [[place] 10-325] 1 tab PO Q6H Meclizine [Antivert] 12.5 mg PO BID PRN PRN Reason: dizziness OXcarbazepine 450 mg PO HS Fexofenadine HCl [Giovanna Allergy] 180 mg PO DAILY Gabapentin 800 mg PO QID Sucralfate [Carafate] 1 gm PO QID Pantoprazole [Protonix] 40 mg PO BID Ubrogepant [Ubrelvy] 100 mg PO DAILY PRN PRN Reason: migraines Cholecalciferol [Vitamin D3 (10 Mcg = 400 Iu)] 10 mcg PO DAILY Levothyroxine Sodium [Synthroid] 50 mcg PO QAM Carboxymethylcellulose Sodium [Refresh Tears] 1 drop BOTH EYES BID Discharge Medication List Albuterol Sulfate [Proair Hfa] 2 puff INHALATION RT-Q6H PRN 11/08/13 [History] Dextroamphetamine/Amphetamine [Adderall] 15 mg PO TID 09/14/17 [History] Baclofen 10 mg PO BID-W/MEALS 05/06/20 [History] Butalb/APAP/Caff 50-325-40Mg [Fioricet 50-325-40] 1 tab PO Q6H PRN 05/06/20 [History] Oxybutynin Chloride 5 mg PO BID 05/06/20 [History] Baclofen [Lioresal] 20 mg PO HS 06/10/20 [History] Multivitamins, Thera [Multivitamin (formulary)] 1 tab PO DAILY 06/10/20 [Hi story] Gabapentin 800 mg PO QID 09/17/21 [History] Vortioxetine Hydrobromide [Trintellix] 20 mg PO 1700 09/17/21 [History] Erenumab-Aooe [Aimovig Autoinjector] 140 mg SQ Q30D 03/24/22 [History] Pantoprazole [Protonix] 40 mg PO BID 03/24/22 [History] Sucralfate [Carafate] 1 gm PO QID 03/24/22 [History] Ubrogepant [Ubrelvy] 100 mg PO DAILY PRN 03/24/22 [History] HYDROcodone/APAP 10-325MG [[place] 10-325] 1 tab PO Q6H 12/27/23 [History] Carboxymethylcellulose Sodium [Refresh Tears] 1 drop BOTH EYES BID 07/20/24 [History] Cholecalciferol [Vitamin D3 (10 Mcg = 400 Iu)] 10 mcg PO DAILY 07/20/24 [Histo ry] Levothyroxine Sodium [Synthroid] 50 mcg PO QAM 07/20/24 [History] Meclizine [Antivert] 12.5 mg PO BID PRN 07/20/24 [History] OXcarbazepine 450 mg PO HS 07/20/24 [History] Fexofenadine HCl [Giovanna Allergy] 180 mg PO DAILY 11/08/24 [History] Follow up Appointment(s)/Referral(s): [facility], [NON-STAFF] - 1 Week Kenji Delgado MD [STAFF PHYSICIAN] - 1 Week Discharge Disposition: HOME SELF-CARE
[2024-12-31 12:21] VITALS: BP 104/97; PULSE 74; TEMP 98.2
--- NOTE | 2025-01-08 12:40 | CDI ---
Documentation Clarification Form Date: 01/08/2025 12:13:10 PM From: Alexia Rock Phone: Admit Date: 12/29/2024 05:40:00 AM Patient Name: Alesha Bermudez Visit Number: [id number] Discharge Date: 12/31/2024 03:51:00 PM ATTENTION: The Clinical Documentation Specialists (CDI) and [facility] Coding Staff appreciate your assistance in clarifying documentation. Please respond to the clarification below the line at the bottom and electronically sign. The CDI & [facility] Coding staff will review the response and follow-up if needed. Please note: Queries are made part of the Legal Health Record. If you have any questions, please contact the author of this message via ITS. 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 Coding guidelines do not allow coding professionals to code based on pathology results; therefore, clarification is requested. History/risk factors: 54yo F, 4 cm right sided endophyticrenal mass Clinical Indicators: Specimen is labeled "Alesha Bermudez, right kidney" and consists of an 11.5 x 6.5 x 4.5 cm right kidney with a large amount of perinephric adipose tissue that is up to 3 cm thick. The kidney with adipose tissue weighs 399 g. There is an ill-defined, yellow-redmasswith congestedcut surfaces located within the posterior mid to lower pole that measures approximately 3.7 x 3.5 x 3 cm. Themassabuts but does not extend into the renal sinus adipose tissue and is grossly confined to the renal parenchyma. Remaining cut surfaces are acevedo-red with a well-defined corticomedullary junction. Additionallesionsarenot identified. There is an attached 7 cm in length segment ofdilatedureter that is up to 1.2 cm internal circumference and filled with red blood. The inner lining is smooth. Hilar lymphnodesor adrenal gland arenot identified. The renal vein is patent and unremarkable. 8CFSS (WINNIE) Cassette summary: 1: Ureter margin2: Renal artery and vein margins3-4:Massto renal sinus adipose tissue5:Massto renal capsule6: Random physician relations representative section of mass7: Random physician relations representative section of uninvolved renal parenchyma8: Vice President Fixed Income sections of ureter Treatment: TotalNephrectomy Please clarify if you agree with the pathology report diagnosis of Clear cell renal cell carcinoma: [ X ] Yes [ ] No [ ] Other (please specify) [ ] Unable to determine (Template Last Revised: August 2020) MTDD
== END 2024-12-31 15:51 | disposition home or self-care (01) | DRG 658 ==
LOC: 2ORMAIN 05:40 → 5NMEDONC 11:17
PROVIDERS: ADMIT Urology; ATTEND Urology
PROC: 8E0W4CZ Robotic Assisted Procedure of Trunk Region, Percutaneous Endoscopic Approach (ICD-10-PCS; 2024-12-29)
PROC: 0TT04ZZ Resection of Right Kidney, Percutaneous Endoscopic Approach (ICD-10-PCS; principal; 2024-12-29 07:30)
DX: C64.1 Malignant neoplasm of right kidney, except renal pelvis (principal); Z79.890 Hormone replacement therapy; Z90.49 Acquired absence of other specified parts of digestive tract; Z98.84 Bariatric surgery status; Z87.891 Personal history of nicotine dependence; Z79.899 Other long term (current) drug therapy
CPT/HCPCS: 80048; 85027; 88307